=== PATIENT | female | born 1990 | race Caucasian/White ===

== ENCOUNTER 2019-08-02 09:39 | Day surgery (SDC) | payer OTHER ==
[2019-07-27 16:04] VITALS: BMI 33.6
[2019-08-02] MEDS ORDERED: PROPOFOL 20 ML ONE (11:28)
[2019-08-02 12:02] VITALS: TEMP 98.4
[2019-08-02 13:02] VITALS: BP 107/63; PULSE 85
--- NOTE | 2019-08-07 13:09 | PATH ---
Surgical Pathology Report Patient Name: RAMESH GOYAL [facility]. Rec. #: [id number] /Age/Gender: 1990 (Age: 29) / F Account: [id number] Location: [facility] Taken: 08/02/2019 Received: 08/02/2019 Reported: 08/07/2019 Physicians: Mary Cooper M.D. Specimen(s) Received A: SECOND PORTION DUODENUM B: ANTRUM C: GE JUNCTION Clinical History Vomiting Postoperative diagnosis: Gastritis Final Diagnosis A. SECOND PORTION DUODENUM, BIOPSY: DUODENUM MUCOSA WITH NO SIGNIFICANT PATHOLOGIC CHANGE. NO HISTOLOGIC EVIDENCE OF CELIAC DISEASE. B. ANTRUM, BIOPSY: GASTRIC MUCOSA WITH CHRONIC GASTRITIS. IMMUNOSTAIN FOR H. PYLORI IS NEGATIVE. NEGATIVE FOR INTESTINAL METAPLASIA. C. GE JUNCTION, BIOPSY: COLUMNAR (GASTRIC) MUCOSA WITH MILD CHRONIC INFLAMMATION. NEGATIVE FOR INTESTINAL METAPLASIA. Electronically Signed Ynog Cuevas M.D. Gross Description A. Received in formalin, labeled "second portion duodenum" is a matt, irregular portion of soft tissue measuring 0.3 cm. in greatest dimension. The specimen is submitted in toto in one cassette. B. Received in formalin, labeled "gastric antrum" is a matt portion of soft tissue measuring 0.3 cm. in greatest dimension. The specimen is submitted in toto in one cassette. C. Received in formalin, labeled "GE junction" is a matt, irregular portion of soft tissue measuring 0.3 cm. in greatest dimension. The specimen is submitted in toto in one cassette. __ ISABEL/08/03/2019 gloria/08/03/2019
== END 2019-08-02 12:30 | disposition home or self-care (01) ==
LOC: FASU-ENDO 09:39
PROVIDERS: ATTEND Internal Medicine Gastroenterology
PROC: 0DB68ZX Excision of Stomach, Via Natural or Artificial Opening Endoscopic, Diagnostic (ICD-10-PCS; 2019-08-02)
PROC: 0DB48ZX Excision of Esophagogastric Junction, Via Natural or Artificial Opening Endoscopic, Diagnostic (ICD-10-PCS; 2019-08-02)
PROC: 0DB98ZX Excision of Duodenum, Via Natural or Artificial Opening Endoscopic, Diagnostic (ICD-10-PCS; principal; 2019-08-02 11:40)
DX: K29.50 Unspecified chronic gastritis without bleeding (principal); K20.8 Other esophagitis; R10.9 Unspecified abdominal pain
CPT/HCPCS: 84703; 88305-TC; 88342-TC

== ENCOUNTER 2019-10-20 07:00 | Day surgery (SDC) | payer OTHER ==
[2019-10-16 15:54] VITALS: BMI 34.2
[~2019-10-20 07:00] MED LIST: BUPIVACAINE HCL/PF 2.5 MG/ML - 30 ML VIAL IJ ONE
[2019-10-20] MEDS ORDERED: PROPOFOL 20 ML ONE ×2 (09:42→11:09)
[2019-10-20] MEDS ORDERED: LIDOCAINE HCL/PF 2% SDV 5ML VIAL ONE (09:42)
[2019-10-20] MEDS ORDERED: MIDAZOLAM HCL 2 MG/2 ML SINGLE DOSE VIAL ONE (09:42)
[2019-10-20] MEDS ORDERED: DEXAMETHASONE SOD PHOSPHATE 4 MG/1 ML VIAL ONE (10:27)
[2019-10-20] MEDS ORDERED: ONDANSETRON 4 MG/2 ML VIAL ONE ×2 (10:27→11:27)
[2019-10-20] MEDS ORDERED: ceFAZolin SODIUM 1 GM VIAL ONE (10:31)
[2019-10-20] MEDS ORDERED: BUPIVACAINE HCL/PF 2.5 MG/ML - 30 ML VIAL IJ ONE (11:13)
[2019-10-20] MEDS ORDERED: oxyCODONE HCL 5 MG TABLET PO PRN ×2 (11:41)
[2019-10-20] MEDS ORDERED: ONDANSETRON 4 MG/2 ML VIAL IVPUSH PRN (11:41)
[2019-10-20] MEDS ORDERED: LACTATED RINGERS SOLUTION 1,000 ML IV SCH (11:45)
--- NOTE | 2019-10-20 11:55 | OP ---
DATE OF OPERATION: 10/20/2019 Done at [facility] SURGEON: Brennen Zepeda MD BATTER OUT: RAVEN Cage PREOPERATIVE DIAGNOSES: 1. Left knee medial and lateral meniscal tear. 2. Left knee cartilage injury. 3. Left knee synovitis. POSTOPERATIVE DIAGNOSES: 1. Left knee medial and lateral meniscal tear. 2. Left knee cartilage injury. 3. Left knee synovitis. PROCEDURE: 1. Left knee arthroscopy with partial meniscectomy medial and lateral meniscus, CPT code 90728. 2. Left knee arthroscopy with chondroplasty and abrasion-plasty, CPT code 72168. 3. Left knee arthroscopy with synovectomy, CPT code 12766. FINDINGS: 1. Previous ACL reconstruction with ACL graft intact. 2. Medial meniscus previous partial meniscectomy, new posterior horn tear. 2. Lateral meniscus posterior 1/3 to 1/2 tear with previous partial meniscectomy and extensive tearing of scar tissues posteriorly. 3. Synovitis patellofemoral medial and lateral notch area most pronounced anteriorly. 4. Minor grade 1 changes medial joint line diffusely. 5. Previous ACL reconstruction with partial tear of graft. 6. Diffuse grade 1-2 cartilage injury lateral joint line. 7. Central grade 2-3 cartilage injury patella patellofemoral trochlea with grade 4 changes of anterior medial inferior pole of patella. PROCEDURE: Informed consent was obtained. The patient came to the operating room, where the lower extremity was prepped and draped in a sterile fashion. A tourniquet was placed on the upper thigh, but not inflated. Using standard arthroscopic technique, a lateral incision and portal was made to allow for introduction of the camera into the suprapatellar bursa. This was then taken to the medial joint line, where under direct visualization, a medial incision and portal was made. Excessive synovium noted in the medial, lateral and patellofemoral and notch area was removed by an upbiter, shaver and Bovie cautery. This was found to bring in inflammatory tissue into the joint surface, a source of pain and dysfunction. Probing of the medial and lateral meniscus found tears, as described in the findings. These were removed with the upbiter and shaver and taken back to a stable rim. Grade 2 to 3 degenerative changes were treated with a chondroplasty, removing all flaking surfaces with low-setting Bovie along the periphery to prevent further flaking. Grade 4 changes, as noted, were treated with an abrasoplasty, creating a bleeding surface at the bone/cartilage interface. Aggressive debridement with shaver/rukhsana created bleeding surface. Micro fracture also done when indicated in findings. All areas of the knee were once again reexamined. The knee was then drained and a single suture was placed in all portals. A sterile dressing was placed and the patient was transferred to the recovery room without complication. The PA listed above was present and assisted at surgery. Their presence was absolutely medically necessary for the completion of the procedure. They helped hold the arthroscopy, pass instruments (and implants when indicated) and the procedure could not have been completed without their assistance. BRENNEN ZEPEDA M.D. [id number]
[2019-10-20] MEDS ORDERED: KETOROLAC TROMETHAMINE 30 MG/1 ML VIAL IVPUSH ONE (11:58)
[2019-10-20] MEDS ORDERED: oxyCODONE HCL 5 MG TABLET ONE (12:17)
[2019-10-20 13:29] VITALS: TEMP 98.2
[2019-10-20 13:41] VITALS: BP 122/76; PULSE 74
--- NOTE | 2019-10-25 15:04 | PATH ---
Surgical Pathology Report Patient Name: RAMESH GOYAL Med. Rec. #: [id number] /Age/Gender: 1990 (Age: 29) / F Account: [id number] Location: [facility] Taken: 10/20/2019 Received: 10/20/2019 Reported: 10/25/2019 Physicians: Brennen Justin M.D. Specimen(s) Received SHAVINGS LEFT KNEE Clinical History Left knee internal derangement Final Diagnosis LEFT KNEE SHAVINGS: FRAGMENTS OF SYNOVIAL AND CARTILAGENOUS TISSUE WITH FOCAL VASCULAR PROLIFERATION, FIBROSIS, AND DEGENERATIVE CHANGE. Electronically Signed Yong Cuevas M.D. Gross Description Received in formalin, labeled "left knee shavings," is a 4.0 x 3.5 x 0.3 cm. aggregate of matt-yellow soft tissue fragments. A paper sales representative portion is submitted in one cassette. 10/24/201910/24/2019
== END 2019-10-20 14:08 | disposition home or self-care (01) ==
LOC: FASU 07:00
PROVIDERS: ATTEND Orthopaedic Surgery
PROC: 0SBD4ZZ Excision of Left Knee Joint, Percutaneous Endoscopic Approach (ICD-10-PCS; 2019-10-20)
PROC: 0SBD4ZZ Excision of Left Knee Joint, Percutaneous Endoscopic Approach (ICD-10-PCS; 2019-10-20)
PROC: 0SBD4ZZ Excision of Left Knee Joint, Percutaneous Endoscopic Approach (ICD-10-PCS; principal; 2019-10-20 09:30)
DX: S83.242A Other tear of medial meniscus, current injury, left knee, initial encounter (principal); S83.282A Other tear of lateral meniscus, current injury, left knee, initial encounter; S83.8X2A Sprain of other specified parts of left knee, initial encounter; M65.862 Other synovitis and tenosynovitis, left lower leg; X58.XXXA Exposure to other specified factors, initial encounter; Y93.9 Activity, unspecified; Y92.9 Unspecified place or not applicable
CPT/HCPCS: 84703; 88304-TC; 94760

== ENCOUNTER 2020-05-25 17:27 | Emergency (ER) | payer OTHER ==
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
[2020-05-25 17:35] VITALS: BP 118/77; PULSE 100; TEMP 98.4; BMI 31.3
[2020-05-25] MEDS ORDERED: hydrOXYzine PAMOATE 25 MG CAPSULE (FP) PO ONE ×2 (18:14→18:28)
[2020-05-25] MEDS ORDERED: IBUPROFEN 600 MG TABLET (FP) PO ONE ×2 (18:14→18:18)
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
== END 2020-05-25 18:53 | disposition home or self-care (01) ==
LOC: JERFT 17:27
DX: S99.911A Unspecified injury of right ankle, initial encounter (principal); S69.91XA Unspecified injury of right wrist, hand and finger(s), initial encounter; M25.571 Pain in right ankle and joints of right foot
CPT/HCPCS: 73140-TC-RT-FY; 99285-25

== ENCOUNTER 2020-06-15 07:40 | Emergency (ER) | payer OTHER ==
[2020-06-15 07:55] VITALS: BP 101/84; PULSE 107; TEMP 99.8; BMI 31.3
--- NOTE | 2020-06-15 08:10 | PDOC ---
History of Present Illness - General History Source: Patient Exam Limitations: No Limitations - History of Present Illness Initial Comments: Pt is a 30 yo F, with PMH of recurrent pharyngitis, asthma, DVT (s/p ), and RA (not on immunosuppressives), who is presenting with complaints of b/l sore throat x2 days. Pt states the pain worsened today, and she was less able to tolerate food and drink from her baseline, prompting her to come to the ER. Pt last took tylenol yesterday morning. Pt denies any fevers/chills, headache, vision changes, ear pain or discharge, trouble tolerating her secretions, syncope, chest pain, palpitations, cough, SOB, nausea/vomiting, abdominal pain, urinary symptoms, diarrhea/constipation, or leg swelling. Allergies: NKDA PCP: None ENT: "someone in [place]". Pt requested new ENT doctor as "they didn't want to take my tonsils out". UTD on vaccinations. Social: Pt denies any cigarette, alcohol, or drug use. Pt denies any recent travel or sick contacts. Works as a courtesy booth cashier, no known COVID+ exposures. Surgical: no relevant history. Family: no relevant history. 06/15/20 08:54 06/15/20 08:57 <Monserrat Arnett - Last Filed: 06/15/20 14:53> <Erika Dodd - Last Filed: 06/16/20 11:24> - General Chief Complaint: Sore Throat Stated Complaint: SORE THROAT/PAIN Time Seen by Provider: 06/15/20 08:10 Past History - Travel History Traveled outside of the country in the last 30 days: No Close contact w/someone who was outside of country & ill: No - Medical History Anemia: No Asthma: Yes Cancer: No Cardiac Disorders: No CVA: No COPD: No CHF: No Dementia: No Diabetes: No GI Disorders: No Disorders: No HTN: No Hypercholesterolemia: No Liver Disease: No Seizures: No Thyroid Disease: No - Surgical History Abdominal Surgery: No Appendectomy: No Cardiac Surgery: No Cholecystectomy: No Lung Surgery: No Neurologic Surgery: No Orthopedic Surgery: Yes - Reproductive History Is Patient Now?: No - Immunization History Immunization Up to Date: Yes - Psycho-Social/Smoking History Smoking History: Never smoked Have you smoked in the past 12 months: No - Substance Abuse Hx (Audit-C & DAST Scrn) How often the patient has a drink containing alcohol: Never Score: In Men: 4 or > Positive; In Women: 3 or > Positive: 0 Screen Result (Pos requires Nsg. Audit-10AR): Negative In the last yr the pt used illegal drug/Rx for NonMed reason: No Score: Yes response is considered Positive: 0 Screen Result (Positive result requires Nsg. DAST-10): Negative <Monserrat Arnett - Last Filed: 06/15/20 14:53> <Erika Dodd - Last Filed: 06/16/20 11:24> - Medical History Allergies/Adverse Reactions: Allergies Allergy/AdvReac Type Severity Reaction Status Date / Time Penicillins Allergy Intermediate Rash Verified 06/15/20 07:48 Home Medications: Ambulatory Orders Azithromycin [Zithromax 250mg Tablets -] 500 mg PO DAILY 4 Days #8 tab 06/15/20 Review of Systems - Review of Systems Able to Perform ROS?: Yes Is the patient limited Croatian proficient: No Constitutional: Yes: Loss of Appetite (less solid foods 2/2 throat pain), Weight Stable. No: Chills, Diaphoresis, Fever, Malaise, Night Sweats, Weakness HEENTM: Yes: Throat Pain. No: Recent change in vision, Ear Pain, Nose Congestion, Hearing Loss, Throat Swelling, Mouth Pain, Dental Problems, Difficulty Swallowing, Mouth Swelling Respiratory: No: Cough, Orthopnea, Shortness of Breath Cardiac (ROS): No: Chest Pain, Edema, Irregular Heart Rate, Lightheadedness, Palpitations, Syncope, Chest Tightness ABD/GI: No: Constipated, Diarrhea, Nausea, Poor Appetite, Poor Fluid Intake, Vomiting, Indigestion, Abdominal cramping : No: Burning, Dysuria, Frequency, Hematuria, Pain, Urgency Musculoskeletal: No: Back Pain, Muscle Pain Integumentary: No: Rash Neurological: No: Headache, Numbness, Weakness, Unsteady Gait, Dizziness Psychiatric: No: Sleep Pattern Change, Change in Appetite Endocrine: No: Increased Urine, Change in Weight Hematologic/Lymphatic: No: Anemia, Blood Clots, Easy Bleeding, Easy Bruising All Other Systems: Reviewed and Negative <Monserrat Arnett - Last Filed: 06/15/20 14:53> *Physical Exam - Vital Signs Last Vital Signs Temp Pulse Resp BP Pulse Ox 99.8 F H 107 H 18 101/84 99 06/15/20 07:48 06/15/20 07:48 06/15/20 07:48 06/15/20 07:48 06/15/20 07:48 - Physical Exam HR low 100s, low-grade fever (99.8 oral). Pt in NAD, obese body habitus. Pt alert and oriented x3. facilities specialist generally intact, muscular strength and sensation intact. No midline spinal tenderness, step-offs, or crepitus. No tenderness with neck flexion or extension. Submandibular LN swelling b/l. Head normocephalic, atraumatic. Eyes PERRLA, EOMI. Oropharynx with significant tonsillar erythema and exudates b/l. No uvular deviations, tonsils equal b/l, no peritonsillar/arch swelling or abscess formation. No swelling under the tongue. No nasal congestion. Clear TMs b/l. Hearing intact. Clear heart sounds, S1/S2, no JVD, b/l pedal edema, or heart murmur. Clear lung sounds, no respiratory distress, wheezes, crackles, or accessory muscle use. No abdominal or CVA tenderness to palpation, no rebound, no guarding. Abdomen soft, non-distended, and with normoactive bowel sounds. Skin without jaundice or rash. 06/15/20 08:58 06/15/20 12:57 <Monserrat Arnett - Last Filed: 06/15/20 14:53> - Vital Signs Last Vital Signs Temp Pulse Resp BP Pulse Ox 99.8 F H 107 H 18 101/84 99 06/15/20 07:48 06/15/20 07:48 06/15/20 07:48 06/15/20 07:48 06/15/20 07:48 <Erika Dodd - Last Filed: 06/16/20 11:24> ED Treatment Course - ADDITIONAL ORDERS Additional order review: 06/15/20 08:26 Throat Culture - Final Throat Streptococcus Pyogenes Grp A - Medications Given in the ED: ED Medications Discontinued Medications Generic Name Dose Route Start Last Admin Trade Name Freq PRN Reason Stop Dose Admin Azithromycin 500 mg 06/15/20 08:36 06/15/20 08:51 Zithromax - PO 06/15/20 08:37 500 mg ONCE ONE Administration Dexamethasone 10 mg 06/15/20 08:36 06/15/20 08:51 Decadron Liquid - PO 06/15/20 08:37 10 mg ONCE ONE Administration Ibuprofen 800 mg 06/15/20 08:33 06/15/20 08:37 Motrin - PO 06/15/20 08:34 800 mg ONCE ONE Administration <Erika Dodd - Last Filed: 06/16/20 11:24> Medical Decision Making - Medical Decision Making Pt was seen at bedside, also will be seen by attending Dr. Dodd. Pt presenting with b/l tonsillar erythema and exudates concerning for strep pharyngitis. No uvular deviation, abscess, or Steve's angina. Pt tolerating secretions. Provided 800 mg PO motrin for improvement of fever. Pt tolerated pills with water. Will continue to reassess pt and monitor for symptomatic improvement. 06/15/20 14:53 Strep test positive PCN allergy -- providing 5 days azithromycin Provided 10 mg PO decadron for symptom relief Safe for d/c to home with PCP and ENT f/u. Strict return precautions provided with pt understanding. 06/15/20 14:55 <Monserrat Arnett - Last Filed: 06/15/20 14:53> Discharge - Discharge Information Problems reviewed: Yes - Admission No <Monserrat Arnett - Last Filed: 06/15/20 14:53> <Erika Dodd - Last Filed: 06/16/20 11:24> - Discharge Information Clinical Impression/Diagnosis: Strep pharyngitis Condition: Good Disposition: HOME - Additional Discharge Information Prescriptions: Azithromycin [Zithromax 250mg Tablets -] 500 mg PO DAILY 4 Days #8 tab - Follow up/Referral Referrals: Torey Bobo MD [Staff Physician] - - Patient Discharge Instructions Patient Printed Discharge Instructions: DI for Strep Throat Additional Instructions: You were seen in the ER today for sore throat. The results of your labs today showed strep throat. Please follow-up with your primary care doctor and ENT (Dr. Bobo) within 1-2 days to discuss your visit and make sure your symptoms have improved. Please return to the ER if you have any worsening pain, development of fevers or chills, loss of consciousness, inability to tolerate food or fluids, or any other concerns. I have sent medications to your pharmacy. Please take these medications as prescribed. You can take tylenol or motrin every 4-6 hours as needed for pain. - Post Discharge Activity Work/Back to School Note: Back to Work
--- NOTE | 2020-06-15 08:12 | PDOC ---
Attending Attestation - Resident Resident Name: Monserrat Arnett - HPI HPI: 06/15/20 09:35 Pt presents to the ED complaining of sore throat without fever for 2 days. Some difficulty tolerating PO, but tolerating secretions. No trismus. History of recurrent strep throat. 06/15/20 09:36 - Physicial Exam PE: 06/15/20 09:38 Agree with resident exam. PAtient is well appearing and in no acute distress. HEENT: no trismus. Throat: + erythema and exudate, +tonsillar swelling, uvula midline - Medical Decision Making 06/15/20 09:39 Pt presents to the ED complaining of sorethroat. Rapid strep is positive. Will treat with deadron and antibiotics and discharge home. Discharge - Discharge Information Problems reviewed: Yes Clinical Impression/Diagnosis: Strep pharyngitis Condition: Good Disposition: HOME - Additional Discharge Information Prescriptions: Azithromycin [Zithromax 250mg Tablets -] 500 mg PO DAILY 4 Days #8 tab - Follow up/Referral Referrals: Torey Bobo MD [Staff Physician] - - Patient Discharge Instructions Patient Printed Discharge Instructions: DI for Strep Throat Additional Instructions: You were seen in the ER today for sore throat. The results of your labs today showed strep throat. Please follow-up with your primary care doctor and ENT (Dr. Bobo) within 1-2 days to discuss your visit and make sure your symptoms have improved. Please return to the ER if you have any worsening pain, development of fevers or chills, loss of consciousness, inability to tolerate food or fluids, or any other concerns. I have sent medications to your pharmacy. Please take these medications as prescribed. You can take tylenol or motrin every 4-6 hours as needed for pain. - Post Discharge Activity Work/Back to School Note: Back to Work
[2020-06-15] MEDS ORDERED: IBUPROFEN 400 MG TABLET (FP) PO ONE ×2 (08:26→08:33)
[2020-06-15] MEDS ORDERED: DEXAMETHASONE LIQUID 0.5 MG/5 ML PO ONE (08:36)
[2020-06-15] MEDS ORDERED: AZITHROMYCIN 250 MG TABLET PO ONE (08:36)
[2020-06-15] MEDS ORDERED: DEXAMETHASONE SOD PHOSPHATE 10 MG/1 ML VIAL ONE (08:45)
[2020-06-15] MEDS ORDERED: AZITHROMYCIN 250 MG TABLET ONE (08:45)
[2020-06-15 08:59] LABS: THROAT:GRP A STREP ANTIGEN Positive (Negative)
== END 2020-06-15 10:14 | disposition home or self-care (01) ==
LOC: JER 07:40
DX: J02.0 Streptococcal pharyngitis (principal)
CPT/HCPCS: 87070; 87880; 99284-25; U0003

== ENCOUNTER 2020-07-30 16:17 | Emergency (ER) | payer OTHER ==
[2020-07-30 16:32] VITALS: BP 110/80; PULSE 98; TEMP 97; BMI 31.1
--- NOTE | 2020-07-30 16:34 | PDOC ---
Rapid Medical Evaluation Chief Complaint: Injury Medical Evaluation: Allergies Allergy/AdvReac Type Severity Reaction Status Date / Time Penicillins Allergy Intermediate Rash Verified 07/30/20 16:30 Vital Signs Temp Pulse Resp BP Pulse Ox 97.0 F L 98 H 18 110/80 98 07/30/20 16:30 07/30/20 16:30 07/30/20 16:30 07/30/20 16:30 07/30/20 16:30 07/30/20 16:32 30 yo h/o asthma, R ingrown toenail 1 month ago removed by the ED in [place] c/o R great toe pain x 3 days. denies injury, f/c. ambulatory A/P: R great toe pain to fast track Discharge Disposition - Diagnosis Pain of right great toe - Referrals - Patient Instructions - Post Discharge Activity
--- NOTE | 2020-07-30 17:17 | PDOC ---
History of Present Illness - General Chief Complaint: Ingrown toenail Stated Complaint: FOOT PAIN Time Seen by Provider: 07/30/20 16:36 History Source: Patient Exam Limitations: No Limitations - History of Present Illness Initial Comments: 07/30/20 17:12 Patient is a 30-year-old female who presents to the ED with an ingrown toenail on her right great toe. She states this is been ongoing for several weeks. She was seen at a [facility] and had her toenail cut. She followed up with a research methodologist but states over the last week the toe has become more painful and more swollen. She denies any fevers or chills. She has been noticing some drainage from the area. The patient also admits to having foul- smelling urine. She states she gets UTIs often and would like her urine tested. She denies any suprapubic tenderness. She does admit to urinating more frequently. She would also like her urine tested for GC and chlamydia if possible. She denies any vaginal discharge. She states that she had a full STD panel 2 weeks ago, including HIV, but did not have gonorrhea or chlamydia tested. She states her ex-boyfriend was cheating on her for 6 years and she would like to be tested. Past History - Medical History Allergies/Adverse Reactions: Allergies Allergy/AdvReac Type Severity Reaction Status Date / Time Penicillins Allergy Intermediate Rash Verified 07/30/20 16:30 Home Medications: Ambulatory Orders Azithromycin [Zithromax 250mg Tablets -] 500 mg PO DAILY 4 Days #8 tab 06/15/20 Sulfamethoxazole/Trimethoprim [Bactrim Ds -] 1 tab PO BID #14 tablet 07/30/20 Anemia: No Asthma: Yes Cancer: No Cardiac Disorders: No CVA: No COPD: No CHF: No Dementia: No Diabetes: No GI Disorders: No Disorders: No HTN: No Hypercholesterolemia: No Liver Disease: No Seizures: No Thyroid Disease: No - Surgical History Abdominal Surgery: No Appendectomy: No Cardiac Surgery: No Cholecystectomy: No Lung Surgery: No Neurologic Surgery: No Orthopedic Surgery: Yes - Reproductive History Is Patient Now?: No - Immunization History Immunization Up to Date: Yes - Psycho-Social/Smoking History Smoking History: Never smoked Have you smoked in the past 12 months: No Review of Systems - Review of Systems Comments:: 07/30/20 17:14 - Review of Systems Able to Perform ROS?: Yes Constitutional: No: Fever, Chills, Loss of Appetite, Night Sweats, Weakness HEENTM: No: Eye Pain, Vision changes, Ear Pain, Throat Pain, Throat Swelling, Mouth Pain, Difficulty Swallowing Respiratory: No: Cough, Shortness of Breath, Wheezing, Sputum Production Cardiac (ROS): No: Chest Pain, Chest Tightness, Palpitations, Irregular Heart Beat, Edema ABD/GI: No: Nausea, Vomiting, Abdominal Pain, Diarrhea : No Dysuria, No Hematuria, No Urgency, No Vaginal Discharge/Pain; positive: Urinary frequency and foul-smelling urine Musculoskeletal: No: Muscle Pain, Back Pain, Joint Pain, Muscle Weakness, Neck Pain; positive right great toe ingrown toenail and drainage Integumentary: No: Lesions, Rash Neurological: No: Headache, Numbness, Tingling, Weakness, Speech Difficulties *Physical Exam - Vital Signs Last Vital Signs Temp Pulse Resp BP Pulse Ox 97.0 F L 98 H 18 110/80 98 07/30/20 16:30 07/30/20 16:30 07/30/20 16:30 07/30/20 16:30 07/30/20 16:30 - Physical Exam 07/30/20 17:14 - Physical Exam General Appearance: Nourished, Appropriately Dressed, No Distress Neck: Supple, No Lymphadenopathy (R), No Lymphadenopathy (L), No Rigidity, No Decreased range of motion Respiratory/Chest: Lungs Clear, Normal Breath Sounds. No Respiratory Distress, No Accessory Muscle Use Cardiovascular: Regular Rhythm, Regular Rate, S1, S2 Gastrointestinal/Abdominal: Normal Bowel Sounds, Soft. Non-tender, No Guarding, No Rebound, No Rigidity Musculoskeletal: Normal Inspection. No Decreased Range of Motion; right great toe with granulation tissue appreciated to the lateral aspect of the nailbed. There is a scant amount of purulent drainage expressed. Tenderness with pressing on the toe. No crepitus. No foul odor. Brisk capillary refill distally. Extremity: Normal Capillary Refill, Normal Inspection Integumentary: Normal Color, Dry. No Rash Neurologic: comfort station supervisor II-XII NML intact, Fully Oriented, Alert, Normal Mood/Affect, Normal Response Medical Decision Making - Medical Decision Making 07/30/20 17:15 Assessment: Patient is a 30-year-old female with urinary frequency and foul- smelling urine. She is also requesting GC and Chlamydia testing. She also has a right great toe ingrown toenail and paronychia. Plan: -The small amount of granulation tissue appreciated on the right great toe was resected without difficulty after a digital block was given with 1% lidocaine. The portion of granulation tissue had a small piece of toenail attached to it likely representing the piece of toenail that was resected at a previous hospital. The toe was expressed until only blood was expressed. -UA and urine culture sent -Urine GC and chlamydia sent -Will reassess 07/30/20 18:28 The patient's urinalysis is negative. We have made her aware that we will call her with the results of GC and chlamydia. She has not been treated at this time secondary to not having any symptoms. She wanted to be tested for GC and chlamydia routinely. We will send Bactrim to the patient's pharmacy for her toe and she should follow-up with podiatry for further evaluation and treatment. Discharge - Discharge Information Problems reviewed: Yes Clinical Impression/Diagnosis: Pain of right great toe, Paronychia due to ingrown nail Condition: Stable Disposition: HOME - Additional Discharge Information Prescriptions: Sulfamethoxazole/Trimethoprim [Bactrim Ds -] 1 tab PO BID #14 tablet - Follow up/Referral Referrals: Nirali Chavez DPM [Staff Physician] - - Patient Discharge Instructions Patient Printed Discharge Instructions: DI for Infected Ingrown Toenail Additional Instructions: Patient take the antibiotics as prescribed and complete the entire course. Be sure to follow-up with podiatry for further evaluation and treatment. If you are unable to see the research methodologist you previously saw, be sure to follow-up with the one you have been referred to. Keep the area clean and wash twice daily with warm water and soap. - Post Discharge Activity Work/Back to School Note: Back to Work
--- OUTSIDE RECORDS SUMMARY | 2020-07-30 18:10 | XMS ---
:1990 Author Organization [facility] Care Team Providers Name Role Phone Valerie LAGUERRE MD Unavailable Unavailable Valerie LAGUERRE MD Unavailable Unavailable Valerie LAGUERRE MD Unavailable Unavailable Valerie LAGUERRE MD Unavailable Unavailable Valerie LAGUERRE MD Unavailable Unavailable Valerie LAGUERRE MD Unavailable Unavailable Valerie LAGUERRE MD Unavailable Unavailable Valerie LAGUERRE MD Unavailable Unavailable Valerie LAGUERRE MD Unavailable Unavailable Valerie LAGUERRE MD Unavailable Unavailable Valerie LAGUERRE MD Unavailable Unavailable Valerie LAGUERRE MD Unavailable Unavailable Hernan Unavailable Unavailable Hernan Unavailable Unavailable Hernan Unavailable Unavailable ED STAFF PHYSICIAN Unavailable Unavailable MD Saray Unavailable Unavailable MD Saray Unavailable Unavailable MD Saray Unavailable Unavailable MD Saray Unavailable Unavailable ED STAFF PHYSICIAN Unavailable Unavailable Other Unavailable Unavailable Jorge CARTER Unavailable Unavailable [facility] Unavailable Unavailable Re-disclosure Warning The records that you are about to access may contain information from federally- assisted alcohol or drug abuse programs. If such information is present, then the following federally mandated warning applies: This information has been disclosed to you from records protected by federal confidentiality rules (42 CFR part 2). The federal rules prohibit you from making any further disclosure of this information unless further disclosure is expressly permitted by the written consent of the person to whom it pertains or as otherwise permitted by 42 CFR part 2. A general authorization for the release of medical or other information is NOT sufficient for this purpose. The Federal rules restrict any use of the information to criminally investigate or prosecute any alcohol or drug abuse patient.The records that you are about to access may contain highly sensitive health information, the redisclosure of which is protected by Article 27-F of the [facility] Public Health law. If you continue you may haveaccess to information: Regarding HIV / AIDS; Provided by facilities licensed or operated by the [facility] Office of Mental Health; or Provided by the [facility] Office for People With Developmental Disabilities. If such information is present, then the following [facility] mandated warning applies: This information has been disclosed to you from confidential records which are protected by state law. State law prohibits you from making any further disclosure of this information without the specific written consent of the person to whom it pertains, or as otherwise permitted by law. Any unauthorized further disclosure in violation of state law may result in a fine or longterm sentence or both. A general authorization for the release of medical or other information is NOT sufficient authorization for further disclosure. Allergies and Adverse Reactions Type Description Substance Reaction Status Data Source(s ) penicillin penicillin penicillin rash Active eCW2 ([facility] penicillin penicillin penicillin rash Active eCW2 ([facility] penicillin penicillin penicillin rash Active eCW2 ([facility] penicillin penicillin penicillin rash Active eCW2 ([facility] penicillin penicillin penicillin rash Active eCW2 ([facility]) Drug allergy Penicillins Penicillins MKN 04/18/03 [facility] No Information No Information No Information eC W2 ([facility]) No Information No Information No Information eC W2 ([facility]) Drug allergy penicillin Penicillin Pruritic rash Active [facility] Encounters Encounter Providers Location Date Indications Data Source(s ) Emergency Attender: RAUL ICU-EMERG 06/25/2020 RT TOE ABSCESS WONGS - Nikhil LAGUERRE MDAttender: 02:25:00 PM Hospita l Doctor Other EDT - 06/25/2020 03:51:00 PM EDT RT TOE ABSCESS Patient discharged. Outpatient Attender: RPC9 [facility] 06/08/2020 01:08:16 PM GSI ([facility] EDT Collaborative) Patient admitted. Emergency Attender: DORCAS ED STAFF H 02/06/2020 06:16:00 PM [place] PHYSICIANAttender: STAFF ED EDT - 02/06/2020 [facility] STAFF PHYSICIANAdmitter: DORCAS 10:08:00 PM EDT ED STAFF PHYSICIAN Patient discharged. Outpatient Attender: RPC9 [facility] 01/26/2020 07:13:09 AM GSI ([facility] EDT Collaborative) Patient admitted. [facility] 07[facility]21[facility]2019 [facility] 12[facility] AM [facility] [place] [facility] 07/20/2019 [facility] 12:[facility] AM [facility] [place] [facility] 07/19/2019 [facility] 12:[facility] AM [facility] [place] [facility] 04/12/2019 [facility]CW[facility] 12:00:00 AM [facility] [place] [facility] Outpatient Attender: 03/21/2019 [place] [id number] 01:06:00 PM EDT [facility] Mike [facility]IT[facility] ration JAE, RAdmitter: [id number] Jorge NAVARRO Outpatient Attender: 01/24/2019 [place] [id number] 08:02:00 AM EDT [facility] parisa [facility] [employer] ration JAE, RAdmitter: [id number] Jorge NAVARRO Emergency Attender: ICU-EMERG 01/14/2019 VERY BAD MHS - Nikhil Twila 02:22:00 PM EST BACK PAIN [facility] - 01/14/2019 04:53:00 PM EST VERY BAD BACK PAIN [facility] 01/11/[facility] 12:00:00 AM EST [facility] [place] [facility] Emergency Attender: ICU-EMERG 01/06/2019 KIDNEY MHS - [facility] Sis Singh 12:38:00 PM EST STONE? [facility] Saray RUTH - 01/06/2019 04:06:00 PM EST KIDNEY STONE? Outpatient Attender: [id number] 12/13/2018 [facility] RAUL, 08:29:00 AM [facility] RAdmitter: [id number] EST Care RAUL, R Cor poration [facility] 10/26/2018 eCW2 ([facility] 12[facility]00:00 AM [facility] [place] EST [facility] 08/08/2018 eCW2 ([facility] 12:00:00 AM [facility] [place] EDT [facility] 05/17/2018 eCW2 ([facility] 12:00:00 AM [facility] [place] EDT [facility] 02/21/2018 eCW2 ([facility] 12:00:00 AM [facility] [place] EDT [facility] 11/30/2017 eCW2 ([facility] 12:00:00 AM [facility] [place] EST [facility] 09/07/2017 eCW2 ([facility] 12:00:00 AM [facility] [place] EDT [facility] 06/24/2016 eCW2 ([facility] 12:00:00 [facility] [place] EDT [facility] 06/01/2016 eCW2 ([facility] 12:00:00 AM [facility] [place] EDT [facility] 05/15/2015 eCW2 ([facility] 12:00:00 AM [facility] [place] EDT [facility] 11/22/2014 eCW2 ([facility] 12:00:00 [facility] [place] EST [facility] 10/29/2014 eCW2 ([facility] 12:00:00 AM [facility] [place] EST [facility] 08/11/2014 eCW2 ([facility] 12:00:00 AM [facility] [place] EDT [facility] 06/18/2014 eCW2 ([facility] 12:00:00 AM [facility] [place] EDT [facility] 06/04/2014 eCW2 ([facility] 12:00:00 AM [facility] [place] EDT [facility] 05/09/2014 eCW2 ([facility] 12:00:00 AM [facility] [place] EDT [facility] 05/04/2014 eCW2 ([facility] 12:00:00 AM [facility] [place] EDT [facility] 03/08/2014 eCW2 ([facility] 12:00:00 AM [facility] [place] EDT [facility] 03/08/2014 eCW2 ([facility] 12:00:00 AM [facility] [place] EDT [facility] 03/05/2014 eCW2 ([facility] 12:00:00 AM [facility] [place] EDT [facility] 09/16/2012 eCW2 ([facility] 12:00:00 AM [facility] [place] EST [facility]) [facility] 08/01/2012 eCW2 ([facility] 12:00:00 AM [facility] [place] EDT [facility] 07/09/2012 eCW2 ([facility] 12:00:00 AM [facility] [place] EDT [facility] 07/08/2012 eCW2 ([facility] 12:00:00 AM [facility] [place] EDT [facility] 07/05/2012 eCW2 ([facility] 12:00:00 AM [facility] [place] EDT [facility]) Immunizations Vaccine Date Status Description Data Source(s) Lidocaine injection (FP) 07/19/2019 completed eCW 2 ([facility] 01:25:00 [facility] [place] [facility]) Nexplanon (FP) 07/19/2019 completed eCW2 ([facility] 01:24:00 PM EDT [facility] [place] [facility]) Medroxyprogesterone (FP) 04/12/2019 completed eCW 2 ([facility] 05:12:00 PM EDT [facility] [place] [facility]) Medroxyprogesterone (FP) 01/11/2019 completed eCW 2 ([facility] 12:32:00 PM EST [facility] [place] [facility]) Medroxyprogesterone (FP) 10/26/2018 completed eCW 2 ([facility] 11:07:00 AM EST [facility] [place] [facility]) Medroxyprogesterone (FP) 05/17/2018 completed eCW 2 ([facility] 12:56:00 PM EDT [facility] [place] [facility]) Note that 06/23/2013 completed Td (adult), adsorbed on: Sit e: Entire left upper arm (body structure) [facility] this vaccine 12:00:00 AM Lot #: [id number] 23-Jun-2013 Health name has EDT System changed. See also Td (adult). It is not adsorbed. No Known Immunizations completed eCW2 ([facility]) No Known Immunizations completed eCW2 ([facility]) Medications Medication Brand Start Product Dose Route Administrative Pharmacy [facility] Indications Reaction Description Data Name Date Form Instructions Instructions Source(s) Lurasidone Latuda .0 Oral active NET SMART Hydrochlori 2020 Table (The de 40 MG 04:00: t Guidance Oral Tablet 00 AM Center of [Latuda] EDT [facility]) gabapentin Neuron .0 Oral active NET SMART 300 MG Oral tin 2020 Capsu (The Capsule 04:00: le Guidance [Neurontin] 00 AM Center of EDT [facility]) Diphenhydra diphen .0 Oral active NE TSMART mine hydrAM 2020 Capsu (The Hydrochlori INE 04:00: le Guidan ce de 25 MG HCl 00 AM [facility] Lurasidone Latuda .0 Oral active NET SMART Hydrochlori 2020 Table (The de 20 MG 04:00: t Guidance Oral Tablet 00 AM Center of [Latuda] EDT [facility]) gabapentin Neuron .0 Oral active NET SMART 300 MG Oral tin 2020 Capsu (The Capsule 04:00: le Guidance [Neurontin] 00 AM Center of EDT [facility]) Diphenhydra diphen .0 Oral active NE TSMART mine hydrAM 2020 Capsu (The Hydrochlori INE 04:00: le Guidan ce de 25 MG HCl 00 AM Center of Oral EDT [place] Capsule r) Diphenhydra diphen .0 Oral active NE TSMART mine hydrAM 2020 Capsu (The Hydrochlori INE 04:00: le Guidan ce de 25 MG HCl 00 AM Center of Oral EDT [place] Capsule r) Diphenhydra diphen 05/15/ ORAL active NE TSMART mine hydrAM 2020 (The Hydrochlori INE 04:00: Guidan ce de 25 MG HCl 25 00 AM Center o f Oral MG EDT [place] Capsule Oral r) Capsul e gabapentin Neuron 05/15/ ORAL active NET SMART 300 MG Oral tin 2020 (The Capsule 300 MG 04:00: Guidance [Neurontin] Oral 00 AM Center of Capsul EDT [place] [facility] r) Lurasidone Latuda .0 Oral active NET SMART Hydrochlori 2020 Table (The de 20 MG 04:00: t Guidance Oral Tablet 00 AM Center of [Latuda] EDT [facility]) Lurasidone Latuda 05/15/ ORAL active NET SMART Hydrochlori 20 MG 2019 (The de 20 MG Oral 04:00: Guidance Oral Tablet Tablet 00 AM Cente r of [Latuda] EDT [facility] r) gabapentin Neuron 05/15/ 1.0 Oral active NET SMART 300 MG Oral tin 2019 Capsu (The Capsule 04:00: le Guidance [Neurontin] 00 AM Center of EDT [facility] r) Diphenhydra diphen 04/17/ ORAL active NE TSMART mine hydrA 2019 (The Hydrochlori INE 04:00: Guidan ce de 25 MG HCl 25 00 AM Center o f Oral MG EDT [place] Capsule Oral r) Capsul e Lurasidone Latuda 04/17/ ORAL active NET SMART Hydrochlori 40 MG 2019 (The de 40 MG Oral 04:00: Guidance Oral Tablet Tablet 00 AM Cente r of [Latuda] EDT [facility] r) Lurasidone Latuda 03/26/ ORAL active NET SMART Hydrochlori 40 MG 2019 (The de 40 MG Oral 04:00: Guidance Oral Tablet Tablet 00 AM Cente r of [Latuda] EDT [facility] r) Lurasidone Latuda 03/05/ ORAL active NET SMART Hydrochlori 20 MG 2019 (The de 20 MG Oral 04:00: Guidance Oral Tablet Tablet 00 AM Cente r of [Latuda] EDT [facility] r) Diphenhydra diphen 03/05/ [facility] (The Hydrochlori INE 04:00: Silviaan ce de 25 MG HCl 25 00 AM Center o f Oral MG EDT [place] Capsule Oral r) Capsul e aripiprazol Abilif 08/16/ ORAL active NE TSMART e 10 MG y 2018 (The Oral Tablet MG 04:00: Guidan ce [Abilify] Oral 00 AM Center of Tablet EDT [facility] r) Diphenhydra diphen 08/16/ ORAL active NE TSMART mine hydrA 2018 (The Hydrochlori INE 04:00: Guidan ce de 25 MG HCl 25 00 AM Center o f Oral MG EDT [place] Capsule Oral r) Capsul e Methocarbam methoc 01/14/ TABLET 2 ORAL complet [facility] ol 500 MG arbamo 2018 {tab( ed Health Oral Tablet l 500 04:33: s)} Syste m methocarbam mg 32 PM ol 500 mg oral EST oral tablet tablet May cause drowsiness. Alcohol may inten sify this effect. Use care when operating dangerous machinery. Acetaminophen 325 MG / traMADol-acetaminophen 01/14/2019 TABLET 1 ORAL completed [facility] tramadol hydrochloride 37.5 mg-325 mg oral 04:32:12 PM {tab(s)} Health 37.5 MG Oral Tablet tablet EST System traMADol-acetaminophen 37.5 mg-325 mg oral tablet May cause drowsiness. Alcohol may inten sify this effect. Use care when operating dangerous machinery.Obtain medical advic e before taking any non-prescription drugs as some may affect the action of this medic ation.This product contains acetaminophen. Do not use with any other product conta ining acetaminophen to prevent possible liver damage. Naproxen 500 Naprosyn 01/06/2019 TABLET 1 {tab(s)} ORAL completed [facility] MG Oral 500 mg 03:56:41 PM Hea lth Tablet oral EST System [Naprosyn] tablet Naprosyn 500 mg oral tablet Check with your doctor before becoming p regnant.May cause drowsiness or dizziness.Obtain medical advice before t aking any non-prescription drugs as some may affect the action of this medication.Adan e with food or milk. medroxyprogesterone Depo-Provera 09/07/2017 active 1 eCW2 (Planned acetate 150 MG/ML 150 MG/ML 12:00:00 AM ml [facility] - Injectable EDT [facility] [employer] [facility]) [Depo-Provera] Depo-Provera 150 MG/ML Ondansetron 4 MG Zofran ODT 4 mg 08/12/2017 1 [facility] Disintegrating Oral oral tablet, 04:32:54 PM {t L Health System Tablet [Zofran] disintegrating EDT ab Zofran ODT 4 mg oral (s tablet, )} disintegrating Ondansetron 4 MG Zofran ODT 4 mg 01/02/2017 1 JUAN [facility] Disintegrating Oral oral tablet, 01:19:16 AM {t L Health System Tablet [Zofran] disintegrating EST ab Zofran ODT 4 mg oral (s tablet, )} disintegrating NITROFURANTOIN, Macrobid 100 mg 12/18/2016 CAPS 1 ORA complet ed [facility] MACROCRYSTALS 25 MG oral capsule 12:01:20 PM ULE {c L [facility] / Nitrofurantoin, EST ap Monohydrate 75 MG (s Oral Capsule )} [Macrobid] Macrobid 100 mg oral capsule Finish all this medication unless otherw ise directed by prescriber.May discolor urine or feces.Take with food or milk. Tamsulosin Flomax 09/27/2016 CAPSULE 1 {cap(s)} ORAL completed [facility] hydrochloride 0.4 mg 04:07:25 PM Health 0.4 MG Oral oral EST System Capsule capsule [Flomax] Flomax 0.4 mg oral capsule It is very important that you take or us e this exactly as directed. Do not skip doses or discontinue unless directed by your doctor.May cause drowsiness. Alcohol may intensify this effect. Use care whe n operating dangerous machinery.Some non-prescription drugs may aggravate you r condition. Read all labels carefully. If a warning appears, check with your docto r before taking.Swallow whole. Do not crush.Take with food or milk. Ibuprofen IBU 800 09/27/2016 TABLET 1 {tab(s)} ORAL completed [facility] 800 MG Oral mg oral 04:02:46 PM Health Tablet tablet EST System [Ibu] IBU 800 mg oral tablet Do not take this drug if you are pregnan t.It is very important that you take or use this exactly as directed. Do not skip d oses or discontinue unless directed by your doctor.May cause drowsiness or dizziness .Obtain medical advice before taking any non-prescription drugs as some may affec t the action of this medication.Take with food or milk. benzonatate benzonatate 08/15/2016 CAPSULE 1 ORAL completed [facility] 100 MG Oral 100 mg oral 08:08:42 PM {cap(s)} Health Capsule capsule EDT System benzonatate 100 mg oral capsule May cause drowsiness. Alcohol may inten sify this effect. Use care when operating dangerous machinery.Swallow whole. Do n ot crush. Levofloxacin Levaquin 05/01/2016 TABLET 1 {tab(s)} ORAL completed [facility] 500 MG Oral 500 mg 08:25:40 AM Health Tablet oral EDT System [Levaquin] tablet Levaquin 500 mg oral tablet Avoid prolonged or excessive exposure to direct and/or artificial sunlight while taking this medication.Do not take dairy products, antacids, or iron preparations within one hour of this medication.Finis h all this medication unless otherwise directed by prescriber.May cause drowsin ess or dizziness.Medication should be taken with plenty of water. Metoclopramide metoclopramide 09/18/2015 TABLET 1 ORAL complet ed [facility] 10 MG Oral 10 mg oral 02:52:52 PM {tab(s)} Health Tablet tablet EST System metoclopramide 10 mg oral tablet It is very important that you take or us e this exactly as directed. Do not skip doses or discontinue unless directed by your doctor.May cause drowsiness. Alcohol may intensify this effect. Use care whe n operating dangerous machinery.Take medication on an empty stomach 1 hour be fore or 2 to 3 hours after a meal unless otherwise directed by your doctor. NITROFURANTOIN, Macrobid 09/18/2015 CAPSULE 1 ORAL completed [facility] MACROCRYSTALS 25 100 mg 02:52:44 PM {cap(s)} Health MG / oral EST System Nitrofurantoin, capsule Monohydrate 75 MG Oral Capsule [Macrobid] Macrobid 100 mg oral capsule Finish all this medication unless otherw ise directed by prescriber.May discolor urine or feces.Take with food or milk. NITROFURANTOIN, nitrofurantoin 09/06/2015 CAPSULE 1 ORAL compl eted [facility] MACROCRYSTALS macrocrystals 12:01:35 AM {cap(s)} Health 100 MG Oral 100 mg oral EDT S [facility]stem Capsule capsule nitrofurantoin macrocrystals 100 mg oral capsule Finish all this medication unless otherw ise directed by prescriber.May discolor urine or feces.Take with food or milk. Ondansetron 4 Zofran ODT 4 mg 08/25/2015 1 ORAL completed [facility] MG oral tablet, 02:12:17 PM {tab(s)} Health Disintegrating disintegrating EDT System Oral Tablet [Zofran] Zofran ODT 4 mg oral tablet, disintegrating Ondansetron Zofran ODT 08/25/2015 0 completed [facility] Zofran ODT 02:10:28 PM He alth EDT System Ondansetron 4 ondansetron 4 08/25/2015 1 ORAL completed [facility] MG mg oral tablet, 02:09:03 PM {tab(s)} Health Disintegrating disintegrating EDT System Oral Tablet ondansetron 4 mg oral tablet, disintegrating 08/25/2015 TABL 1 ORAL completed [facility] Multivitamins Multivitamins 01:16:24 PM ET {tab(s)} Health with Folic Acid with Folic Acid EDT System 0.4 mg oral 0.4 mg oral tablet tablet May discolor urine or feces.Take with fo od or milk. 08/21/2015 TABLET 1 ORAL completed [facility] Multivitamins Multivitamins 10:00:22 PM {tab(s)} Health with Folic with Folic EDT Sys tem Acid 0.4 mg Acid 0.4 mg oral tablet oral tablet May discolor urine or feces.Take with fo od or milk. Diphenhydramine Allergy 04/19/2015 TABLET 1 ORAL completed [facility] Hydrochloride 25 25 mg 02:20:12 PM {tab(s)} Health MG Oral Tablet oral EDT Syste m Allergy 25 mg tablet oral tablet May cause drowsiness. Alcohol may inten sify this effect. Use care when operating dangerous machinery.Obtain medical advic e before taking any non-prescription drugs as some may affect the action of this medic ation. Methylprednisolone Medrol Dosepak 04/19/2015 1 compl eted [facility] Medrol Dosepak 02:19:27 PM Health EDT System Diphenhydramine diphenhydrAMINE 06/24/2014 TABLET 1 ORAL compl eted [facility] Hydrochloride 50 MG 50 mg oral 05:07:41 PM {t Health Oral Tablet tablet EDT ab System diphenhydrAMINE 50 (s mg oral tablet )} May cause drowsiness. Alcohol may inten sify this effect. Use care when operating dangerous machinery.Obtain medical advic e before taking any non-prescription drugs as some may affect the action of this medic ation. Albuterol albuterol 03/30/2013 SOLUTION 1 RESPIRATORY complete d [facility] 0.83 MG/ML 2.5 mg/3 mL 01:27:06 AM (INHALATION) Health Inhalant (0.083%) EDT System Solution inhalation albuterol solution 2.5 mg/3 mL (0.083%) inhalation solution For inhalation only.It is very important that you take or use this exactly as directed. Do not skip doses or disconti nue unless directed by your doctor.Obtain medical advice before taking any non-pre scription drugs as some may affect the action of this medication. Prednisone predniSONE 03/30/2013 TABLET 3 {tab(s)} ORAL completed [facility] 20 MG Oral 20 mg oral 01:26:55 AM Health Tablet tablet EDT System predniSONE 20 mg oral tablet It is very important that you take or us e this exactly as directed. Do not skip doses or discontinue unless directed by your doctor.Obtain medical advice before taking any non-prescription drugs as jeramy e may affect the action of this medication.Take with food or milk. 200 ACTUAT albuterol 03/30/2013 AEROSOL 2 RESPIRATORY complete d [facility] Albuterol [facility] free 90 01:26:33 AM {puff(s)} (INHALATION) Health 0.09 mcg/inh EDT System MG/ACTUAT inhalation Metered aerosol Dose Inhaler albuterol [facility] free 90 mcg/inh inhalation aerosol For inhalation only.It is very important that you take or use this exactly as directed. Do not skip doses or disconti nue unless directed by your doctor.Obtain medical advice before taking any non-pre scription drugs as some may affect the action of this medication.Shake well before use . Azithromycin azithromycin 01/23/2013 TABLET 1 ORAL completed [facility] 500 MG Oral 500 mg oral 11:29:49 PM {tab(s)} Health Tablet tablet EDT System azithromycin 500 mg oral tablet Do not take dairy products, antacids, or iron preparations within one hour of this medication.Finish all this medication un less otherwise directed by prescriber. Albuterol albuterol 01/18/2013 SOLUTION 1 RESPIRATORY complete d [facility] 0.83 MG/ML 2.5 mg/3 mL 12:12:47 AM {sofia} (INHALATION) Health Inhalant (0.083%) EDT System Solution inhalation albuterol solution 2.5 mg/3 mL (0.083%) inhalation solution For inhalation only.It is very important that you take or use this exactly as directed. Do not skip doses or disconti nue unless directed by your doctor.Obtain medical advice before taking any non-pre scription drugs as some may affect the action of this medication. Prednisone predniSONE 01/18/2013 TABLET 2 {tab(s)} ORAL completed [facility] 20 MG Oral 20 mg oral 12:12:07 AM Health Tablet tablet EDT System predniSONE 20 mg oral tablet It is very important that you take or us e this exactly as directed. Do not skip doses or discontinue unless directed by your doctor.Obtain medical advice before taking any non-prescription drugs as jeramy e may affect the action of this medication.Take with food or milk. Ondansetron 8 ondansetron 8 01/14/2013 TABLET 1 ORAL completed [facility] MG Oral mg oral 12:15:37 PM {tab(s)} Health Tablet tablet EST System ondansetron 8 mg oral tablet Famotidine 20 famotidine 20 01/14/2013 TABLET 1 ORAL completed [facility] Oral mg oral 12:15:11 PM {tab(s)} Health Tablet tablet EST System famotidine 20 mg oral tablet It is very important that you take or us e this exactly as directed. Do not skip doses or discontinue unless directed by your doctor.Obtain medical advice before taking any non-prescription drugs as jeramy e may affect the action of this medication. Ondansetron 4 ondansetron 4 11/28/2012 1 ORAL completed [facility] MG mg oral tablet, 07:08:14 AM {tab(s)} Health Disintegrating disintegrating EST System Oral Tablet ondansetron 4 mg oral tablet, disintegrating 200 ACTUAT Ventolin HFA 90 11/28/2012 AER 2 RESPIR completed [facility] Albuterol 0.09 mcg/inh 07:06:42 AM [facility] {puff(s)} ATORY Health MG/ACTUAT inhalation EST L (INHAL Sy stem Metered Dose aerosol ATION) Inhaler Ventolin HFA 90 mcg/inh inhalation aerosol For inhalation only.It is very important that you take or use this exactly as directed. Do not skip doses or disconti nue unless directed by your doctor.Obtain medical advice before taking any non-pre scription drugs as some may affect the action of this medication.Shake well before use . 200 ACTUAT albuterol 11/08/2012 AEROSOL 2 RESPIRATORY complete d [facility] Albuterol CFC free 90 01:59:35 PM {puff(s)} (INHALATION) Health 0.09 mcg/inh EST System MG/ACTUAT inhalation Metered aerosol Dose Inhaler albuterol CFC free 90 mcg/inh inhalation aerosol For inhalation only.It is very important that you take or use this exactly as directed. Do not skip doses or disconti nue unless directed by your doctor.Obtain medical advice before taking any non-pre scription drugs as some may affect the action of this medication.Shake well before use . Ondansetron 4 MG ondansetron 4 mg 11/08/2012 1 ORAL compl eted [facility] Disintegrating oral tablet, 01:58:58 PM Health Oral Tablet disintegrating EST System ondansetron 4 mg oral tablet, disintegrating benzonatate 100 Tessalon Perles 10/13/2012 CAPSULE 1 ORAL comp leted [facility] MG Oral Capsule 100 mg oral 11:47:19 PM Health [Tessalon capsule EST System Perles] Tessalon Perles 100 mg oral capsule May cause drowsiness. Alcohol may inten sify this effect. Use care when operating dangerous machinery.Swallow whole. Do n ot crush. Azithromycin Azithromycin 5 10/13/2012 TABLET 1 ORAL completed [facility] 250 MG Oral Day Dose Pack 11:46:51 PM Health Tablet 250 mg oral EST System Azithromycin 5 tablet Day Dose Pack 250 mg oral tablet Do not take dairy products, antacids, or iron preparations within one hour of this medication.Finish all this medication un less otherwise directed by prescriber. Prednisone 20 predniSONE 20 10/13/2012 TABLET 2 ORAL completed [facility] MG Oral mg oral 11:45:47 PM He alth Tablet tablet EST System predniSONE 20 mg oral tablet It is very important that you take or us e this exactly as directed. Do not skip doses or discontinue unless directed by your doctor.Obtain medical advice before taking any non-prescription drugs as jeramy e may affect the action of this medication.Take with food or milk. Prednisone 20 predniSONE 20 10/13/2012 TABLET 2 ORAL completed [facility] MG Oral mg oral 11:45:09 PM He alth Tablet tablet EST System predniSONE 20 mg oral tablet It is very important that you take or us e this exactly as directed. Do not skip doses or discontinue unless directed by your doctor.Obtain medical advice before taking any non-prescription drugs as jeramy e may affect the action of this medication.Take with food or milk. NITROFURANTOIN, Macrobid 08/27/2012 CAPSULE 1 ORAL completed [facility] MACROCRYSTALS 25 100 mg 09:47:43 PM {tab(s)} Health MG / oral EDT System Nitrofurantoin, capsule Monohydrate 75 MG Oral Capsule [Macrobid] Macrobid 100 mg oral capsule Finish all this medication unless otherw ise directed by prescriber.May discolor urine or feces.Take with food or milk. Azithromycin azithromycin 08/17/2012 TABLET 1 ORAL completed [facility] 250 MG Oral 250 mg oral 05:04:51 AM Health Tablet tablet EDT System azithromycin 250 mg oral tablet Do not take dairy products, antacids, or iron preparations within one hour of this medication.Finish all this medication un less otherwise directed by prescriber. NITROFURANTOIN, Macrobid 08/04/2012 CAPSULE 1 ORAL completed [facility] MACROCRYSTALS 25 100 mg 12:09:28 PM Health MG / oral EDT System Nitrofurantoin, capsule Monohydrate 75 MG Oral Capsule [Macrobid] Macrobid 100 mg oral capsule Finish all this medication unless otherw ise directed by prescriber.May discolor urine or feces.Take with food or milk. medroxyprogesterone MedroxyPROGESTERone activ e 1 ml eCW2 (Planned acetate 150 MG/ML Acetate 150 MG/ML [facility] - Injectable [employer]ana) MedroxyPROGESTERone Acetate 150 MG/ML medroxyprogesterone MedroxyPROGESTERone activ e 1 ml eCW2 (Planned acetate 150 MG/ML Acetate 150 MG/ML [facility] - Injectable [employer]) MedroxyPROGESTERone Acetate 150 MG/ML Abilify 0 ORAL completed [facility] Etonogestrel 68 MG Nexplanon 68 MG suspended as eCW2 (Planned Drug Implant direct Paren thood - [Nexplanon] ed Vidal P econic Nexplanon 68 MG Inco rporated) Etonogestrel 68 MG Nexplanon 68 MG suspended as eCW2 (Planned Drug Implant direct Paren thood - [Nexplanon] ed Vidal P econic Nexplanon 68 MG Inco rporated) medroxyprogesterone MedroxyPROGESTERone suspe nded 1 ml eCW2 (Planned acetate 150 MG/ML Acetate 150 MG/ML [facility] - Injectable [employer]) MedroxyPROGESTERone Acetate 150 MG/ML Albuterol Ventolin Ventolin HFA 0 RESP completed [facility]FA [facility] ORY (INH ALAT ION) aripiprazole 10 MG Abilify 10 MG active 1 eCW2 (Planned Oral Tablet tablet Parent martinez - [Abilify] Abilify 10 [employer] [place] [employer]) medroxyprogesterone MedroxyPROGESTERone activ e 1 ml eCW2 (Planned acetate 150 MG/ML Acetate 150 MG/ML [facility] - Injectable [employer]) MedroxyPROGESTERone Acetate 150 MG/ML medroxyprogesterone MedroxyPROGESTERone activ e 1 ml eCW2 (Planned acetate 150 MG/ML Acetate 150 MG/ML Parenthood - Injectable [employer]) MedroxyPROGESTERone Acetate 150 MG/ML aripiprazole 10 MG Abilify 10 MG active 1 eCW2 (Planned Oral Tablet tablet Parent martinez - [Abilify] Abilify 10 [employer] [place] [employer]) Unknown Medications completed eCW2 (Planned [facility] - [employer] [place] [employer]) ferrous sulfate 325 ferrous sulfate 325 1 ORAL compl eted [facility] Delayed Release mg (65 mg elemental {t Health System Oral Tablet ferrous iron) oral delayed ab sulfate 325 mg (65 release tablet (s mg elemental iron) )} oral delayed release tablet Etonogestrel 68 MG Nexplanon 68 MG suspended as eCW2 (Planned Drug Implant direct Paren thood - [Nexplanon] ed Vidal P econic Nexplanon 68 MG Inco rporated) Docusate Sodium 100 Colace 100 mg oral CAPS 1 ORAL comple breana [facility] Oral Capsule capsule ULE {c H ealth System [Colace] Colace 100 ap mg oral capsule (s )} NITROFURANTOIN, Macrobid 100 mg oral CAPS 1 ORAL complete d [facility] MACROCRYSTALS 25 MG capsule ULE {c Health System / Nitrofurantoin, ap Monohydrate 75 MG (s Oral Capsule )} [Macrobid] Macrobid 100 mg oral capsule Etonogestrel 68 MG Nexplanon 68 MG active as eCW2 (Planned Drug Implant direct Paren thood - [Nexplanon] ed V[facility] P econic Nexplanon 68 MG Inco rporated) Sprintec 0 ORAL completed [facility] System aripiprazole 10 MG Abilify 10 MG active 1 eCW2 (Planned Oral Tablet tablet Parent martinez - [Abilify] Abilify 10 [employer] [place] [employer]) aripiprazole 10 MG Abilify 10 MG active 1 eCW2 (Planned Oral Tablet tablet Parent martinez - [Abilify] Abilify 10 [employer] [place] [employer]) Unknown Medications completed eCW2 ([facility] - [employer] [place] [employer]) medroxyprogesterone Depo-Provera 400 SUSP 0 INTR complete d [facility] acetate 400 MG/ML mg/mL intramuscular [facility] [employer] [facility] Injectable suspension ON CULA Suspension R [Depo-Provera] Depo-Provera 400 mg/mL intramuscular suspension Insurance Providers Payer name Policy type / Policy ID Covered Covered libertarian's Policy Plan Coverage type libertarian ID relationship to [place] Information [place] MEDICAID [id number] SP [id number] [facility] MEDICARE [id number] SP [id number] VIP 01 [facility] Fi[facility] [id number] HIP VIP 01 Medicare Medicaid Medicaid [id number] Medicare EDUARD Medicare [id number] 1 [id number] Medicare EDUARD Medicare [id number] 1 [id number] A [facility] Medicaid [id number] 1 [id number] Medicare Advantage [facility]LY [facility] [id number] 01 [id number] MCARE 08 W [id number] 01 [id number] A Problems, Conditions, and Diagnoses Code Display Name Description Problem Type Effective Data Sour ce(s) Dates [id number] Mixed bipolar Mixed bipolar Complaint 08/08/2015 [facility]SMART (The affective affective 01:00:[facility] disorder, disorder, EDT of [place] ) moderate moderate V25.40 Contraceptive Contraceptive Problem 05/15/2015 eCW2 (Pl anned surveillance surveillance 12:00:00 AM Parenthoo d - EDT [employer]) V25.40 Contraceptive Contraceptive Problem 05/15/2015 eCW2 (Pl anned surveillance surveillance 12:00:00 AM Parenthoo d - EDT [employer]) 614.9 Female pelvic PID (pelvic Problem 05/04/2014 eCW2 (Plan yesenia inflammatory inflammatory 12:00:00 AM Parenthoo d - disease disease) EDT [facility] [employer]) 599.0 Urinary tract Urinary tract Problem 05/04/2014 eCW2 (Pl anned infection infection 12:00:00 AM Parenthood - EDT [facility] [employer]) 599.0 Urinary tract Urinary tract Problem 05/04/2014 eCW2 (Pl anned infection infection 12:00:00 AM Parenthood - EDT [employer]) 614.9 Female pelvic PID (pelvic Problem 05/04/2014 eCW2 (Plan yesenia inflammatory inflammatory 12:00:00 AM Parenthoo d - disease disease) EDT [facility] [employer]) 599.0 Urinary tract Urinary tract Problem 05/04/2014 eCW2 (Pl anned infection infection 12:00:00 AM [facility] - EDT [facility] [employer]) 919.4 Insect bites Insect bites Problem [facility] 463 Tonsillitis Tonsillitis Problem [facility] RT TOE ABSCESS RT TOE ABSCESS Diagnosis 06/25/2020 [facility] - New 02:25:00 PM [facility] L60.0 Ingrowing nail Ingrown nail Diagnosis 06/25/2020 [facility] - Ne w 02:25:00 PM [facility] Z53.20 Procedure and PROC/TRTMT NOT Diagnosis 02/06/2020 [facility] treatment not CRD OUT BEC PT 06:16:[address] [facility] carried out DECISION FOR UNSP EDT because of REASONS patient's decision for unspecified reasons R07.9 Chest pain, CHEST PAIN, Diagnosis 02/06/2020 [place] [facility] unspecified UNSPECIFIED 06:16:[address] EDT K02.9 Dental caries, DENTAL CARIES, Diagnosis 03/21/2019 [place] unspecified UNSPECIFIED 01:06:00 PM [facility] EDT [facility] Z13.84 Encounter for ENCOUNTER FOR Diagnosis 01/24/2019 Marybeth rosales screening for SCREENING FOR 08:02:00 AM [facility] dental disorders DENTAL DISORDERS EDT [facility] VERY BAD BACK VERY BAD BACK Diagnosis 01/14/2019 [facility] - Ne w PAIN PAIN 02:22:00 PM [facility] M62.838 Other muscle Other muscle Diagnosis 01/14/2019 [facility] - New spasm spasm 02:22:00 PM [facility] M54.5 Low back pain Low back pain Diagnosis 01/06/2019 [facility] - Ne w 12:38:00 PM [facility] KIDNEY STONE? KIDNEY STONE? Diagnosis 01/06/2019 S - Ne w 12:38:00 PM [facility] Surgeries/Procedures Procedure Description Date Indications Data Source(s) INSERT DRUG IMPLANT DEVICE 07/19/2019 e CW2 (Planned 12:00:00 AM Parenthood - EDT [employer]) Test 07/19/2019 eCW2 (Planned 12:00:00 AM Parenthood - EDT [employer]) Etonogestrel 07/19/2019 eCW2 (Planned (contraceptive) implant 12:00:00 AM Pare nthood - system, including implant EDT [facility] [employer] [employer]) Injection, lidocaine hcl 07/19/2019 eCW 2 (Planned for intravenous infusion, 12:00:00 AM Pa renthood - 10 mg EDT [employer]) Injection, 04/12/2019 eCW2 (Planned medroxyprogesterone 12:00:00 AM Parentho od - acetate, 1 mg EDT [employer]) INJECTION IM/SC 04/12/2019 eCW2 (Planne d 12:00:00 AM Parenthood - EDT [employer]) Urine Test POCT 01/14/2019 [facility] 04:24:09 PM System EST - 01/14/2019 04:24:09 PM EST Injection, 01/11/2019 eCW2 (Planned medroxyprogesterone 12:00:00 AM Parentho od - acetate, 1 mg EST [employer]) INJECTION IM/SC 01/11/2019 eCW2 (Planne d 12:00:00 AM Parenthood - EST [employer]) CHLAMYDIA, GINGER 01/11/2019 eCW2 (Planned 12:00:00 AM [facility] - EST [employer]) GONORRHEA, GINGER 01/11/2019 eCW2 (Planned 12:00:00 AM Parenthood - EST [employer]) Test 01/11/2019 eCW2 (Planned 12:00:00 AM Parenthood - EST [employer]) Urine Test POCT 01/06/2019 [facility] 02:12:49 PM System EST - 01/06/2019 02:12:49 PM EST Aerobic Culture, Urine 01/06/2019 [facility] 01:41:27 PM System EST - 01/06/2019 01:41:27 PM EST INJECTION IM/SC 05/17/2018 eCW2 (Planne d 12:00:00 AM Parenthood - EDT [employer]) Injection, 05/17/2018 eCW2 (Planned medroxyprogesterone 12:00:00 AM Parentho od - acetate, 1 mg EDT [employer]) Venipuncture 04/21/2018 [facility] 10:00:06 AM System EDT - 04/21/2018 10:00:06 AM EDT Electrocardiogram 12 Lead 08/12/2017 [facility] 03:09:00 PM System EDT - 08/12/2017 03:09:00 PM EDT Urine Toxicology Screen 08/12/2017 [facility] 02:54:00 PM System EDT - 08/12/2017 02:54:00 PM EDT Urine Test POCT 08/12/2017 [facility] 02:39:15 PM System EDT - 08/12/2017 02:39:15 PM EDT XR Knee 3 Views-Right 08/05/2017 [facility] 10:55:00 AM System EDT - 08/05/2017 10:55:00 AM EDT Urine Test POCT 09/27/2016 [facility] 02:22:39 PM System EST - 09/27/2016 02:22:39 PM EST Culture Bacteria Throat 07/12/2016 [facility] 10:24:37 PM System EDT - 07/12/2016 10:24:37 PM EDT Culture Bacteria Throat 06/02/2016 [facility] 04:41:00 AM System EDT - 06/02/2016 04:41:00 AM EDT Urine Test POCT 09/05/2015 [facility] 10:59:40 PM System EDT - 09/05/2015 10:59:40 PM EDT Aerobic Culture, Urine 06/09/2015 [facility] 03:55:00 PM System EDT - 06/09/2015 03:55:00 PM EDT Urinalysis + Microscopic 06/09/2015 [facility] Health Examination 03:55:00 PM System EDT - 06/09/2015 03:55:00 PM EDT US OB 1st Trimester (less 06/09/2015 [facility]) 03:49:23 PM System EDT - 06/09/2015 03:49:23 PM EDT Urine Test POCT [facility]05[facility] 08:01[facility]13 AM System EST - 11/05/2014 08:01:13 AM EST Urine Test POCT 10/16/[facility] 10:41:11 AM System EST - 10/16/2013 10:41:11 AM EST Urine [facility]16[facility] 10[facility]41:07 AM System EST - 10/16/2013 10:41:07 AM EST Cult Bacteria Throat 07/24/2013 [facility] 08:59:00 PM System EDT - 07/24/2013 08:59:00 PM EDT Cult Bacteria Throat 07/22/2013 [facility] 11:24:00 AM System EDT - 07/22/2013 11:24:00 AM EDT US Obstetric Complete 02/14/2013 [facility] 10:32:26 AM System EDT - 02/14/2013 10:32:26 AM EDT Auto Differential 01/14/2013 [facility] 10:16:00 AM System EST - 01/14/2013 10:16:00 AM EST Auto Differential 12/09/2012 [facility] 09:15:00 AM System [facility] - 12/09/2012 09:15:00 AM EST Chlamydia Culture 09/20/2012 [facility] 04:56:00 AM System EST - 09/20/2012 04:56:00 AM EST Auto Differential 08/17/2012 [facility] 02:17:00 AM System EDT - 08/17/2012 02:17:00 AM EDT No Known procedures No Known eCW2 (Pl anned procedures [facility] - [facility]) No Known procedures No Known eCW2 (Pl anned procedures [facility] - [facility]) Results ID Date Data Source [id number] 06/15/2020 08:26:00 AM EDT [facility] Name Value Range Interpretation Description Data Sup porting Code Source(s) Document(s ) SARS [facility] coronavirus 2 RNA This lab was ordered by [facility] and reported by [facility]. ID Date Data Source [id number] 01/06/2019 02:41:00 PM [facility] Sonogram of the kidneysHistory: Visit r jose: Stone; Findings: Sonographic evaluation of the kidneys was performed in both longitudinal and transverse planes using grayscale, real-time ultrasonograp hy. The right kidney measures 10.6 x 3.8 x 4.5 centimeters in size.The left kidney measures 11.8 x 4.7 x 4.1 centimeters in size.The kidneys show no evidence of mas s, hydronephrosis, or abnormal calcifications. A normal cortical echo pattern is demonstrated.There is no evidence of aortic aneurysm.There is no evidence of obstruction of flow within the inferior vena cava.Bilateral ureteral jet phenome na identified indicating ureteral patency.Impression:Negative sonogram of the kidneys. Name Value Range Interpretation Code Description Data Vernell rce(s) Supporting Document(s ) ID Date Data Source [id number] 01/06/2019 12:59:00 PM EST [facility] Name Value Range Interpretation Description Data Sup porting Code Source(s) Document(s ) Color Yellow Yellow Normal (applies Color [facility] to non-numeric Health results) System Appearance of HAZY Clear Normal (applies Urine [facility] Urine to non-numeric Appearance Health results) System Specific 1.024 1.001 - Normal (applies Urine Specific [facility] gravity of 1.035 to non-numeric [facility] Urine results) System pH.. 5.0 4.6 - 8.0 Normal (applies pH.. [facility] {pH_unit pH units to non-numeric Health s} results) System Glucose, UA NEG < 50 mg/dl Normal (applies Glucose, UA [facility] to non-numeric Health results) System Protein NEG < 30 mg/dl Normal (applies Protein [facility] [Mass/volume] to non-numeric Health in Serum or results) System Plasma Bilirubin NEG Negative Normal (applies Bilirubin [facility] Urine Sm to Lg to non-numeric Urine Health results) System Urobilinogen < 2.0 Normal (applies Urobilinogen [facility] [Mass/volume] to non-numeric UA Health in Urine results) System Reference Range: Negative or <=2.0 Ketones NEG <TR mg/dL Normal (applies Ketones UA [facility] [Mass/volume] in to non-numeric Health S ystem Urine results) Nitrate+Nitrite Negative Negative Normal (applies Nitrite [facility] [Mass/volume] in Neg/Pos to non-numeric Health S ystem Unspecified results) specimen Leukocyte Trace Negative Tr Abnormal Leukocyte [facility] esterase to Lg (applies to Esterase Health System [Units/volume] in non-numeric Concentration Urine results) Leukocytes 3 {/HPF} 0 - 2 /HPF Normal (applies White Blood [facility] [#/volume] in to non-numeric Cells Health Syst em Unspecified results) specimen by Automated count Red Blood Cells 1 {/HPF} 0 - 1 /HPF Normal (applies Red Blood Cells [facility] to non-numeric Health System results) Epithelial cells 10 {/HPF} 0 - 3 /HPF Normal (applies Epithelial Gisel ls [facility] [Presence] in to non-numeric Health Syst em Unspecified results) specimen by Wet preparation Mucus RARE 0 - 1 /LPF Normal (applies Mucus [facility] to non-numeric Health System results) Bacteria FEW 0 - 5 /HPF Normal (applies Bacteria [facility] [Presence] in to non-numeric Health Syst em Unspecified results) specimen Urine Blood Moderate Negative Sm Abnormal Urine Blood [facility] to Lg (applies to Health System non-numeric results) ID Date Data Source [id number] 01/06/2019 12:59:00 PM EST [facility] Name Value Range Interpretation Description Data Sup porting Code Source(s) Document(s ) Basophil %. 1 % 0 - 1 % Normal (applies Basophil %. [facility] to non-numeric Health results) System Polys 59 % 55 - 75 Normal (applies Polys [facility] % to non-numeric Health results) System Lymphocyte %. 26 % 15 - 41 Normal (applies Lymphocyte %. [facility] % to non-numeric Health results) System Variant 5 % Normal (applies Atypical [facility] lymphocytes to non-numeric Lymphocyte Health [Presence] in results) Count System Blood by Automated count Platelets Adequate Normal Normal (applies Platelet [facility] [#/volume] in to non-numeric Count Health Blood by results) Estimate System Estimate Monocyte %. 7 % 2 - 9 % Normal (applies Monocyte %. [facility] to non-numeric Health results) System Eosinophils %. 2 % 0 - 5 % Normal (applies Eosinophils [facility] to non-numeric %. Health results) System NORM Yes Normal (applies NORM [facility] to non-numeric Health results) System ID Date Data Source [id number] 01/06/2019 12:59:00 PM EST [facility] Name Value Range Interpretation Description Data Sup porting Code Source(s) Document(s ) Leukocytes 8.9 4.8 - Normal (applies WBC Count [facility] [#/volume] in {10^3_u 10.8 to non-numeric Health Unspecified L} 10^3 uL results) System specimen by Automated count Erythrocytes 5.25 4.20 - Normal (applies RBC Count [facility] [#/volume] in {10^6_u 5.40 to non-numeric Health Blood by L} 10^6 uL results) System Automated count Hemoglobin 14.8 12.0 - Normal (applies Hemoglobin [facility] [Mass/volume] in {gm/dL} 16.0 to non-numeric Health Blood gm/dL results) System Hematocrit 46.3 % 37.0 - Normal (applies Hematocrit [facility] [Volume 47.0 % to non-numeric Health Fraction] of results) System Blood Erythrocyte mean 88.2 fl 81.0 - Normal (applies MCV [facility] corpuscular 99.0 fl to non-numeric Health volume [Entitic results) System volume] by Automated count Erythrocyte mean 28.2 pg 27.0 - Normal (applies MCH [facility] corpuscular 31.0 pg to non-numeric Health hemoglobin results) System [Entitic mass] by Automated count Erythrocyte mean 32.0 30.0 - Normal (applies MCHC [facility] corpuscular {gm/dL} 35.0 to non-numeric Health hemoglobin gm/dL results) System concentration [Mass/volume] by Automated count Erythrocyte 12.5 % 11.5 - Normal (applies RDW-CV [facility] distribution 14.5 % to non-numeric Health width [Entitic results) System volume] by Automated count Platelets 214 130 - Normal (applies Platelet Count [facility] [#/volume] in {10^3_u 400 to non-numeric Health Plasma by L} 10^3 uL results) System Automated count Platelet mean 10.6 fl 8.6 - Normal (applies MPV [facility] volume [Entitic 13.5 fl to non-numeric Health volume] in Blood results) System by Automated count Nucleated 0.0 0.0 - Normal (applies NRBC % [facility] erythrocytes {/100_W 0.2 to non-numeric Health [#/volume] in BC} /100 results) System Body fluid WBC NRBC # 0.00 0.00 - Normal (applies NRBC # [facility] {10^3_u 0.01 to non-numeric Health L} 10^3 uL results) System Neutrophils/100 62.5 % 55.0 - Normal (applies Neutrophil % [facility] sir[facility] leukocytes in 75.0 % to non-numeric Health Blood by results) System Automated count Neutrophils 5.6 Normal (applies Neutrophil # [facility] [#/volume] in {10^3_u to non-numeric Health Body fluid L} results) System Lymphocytes 28.0 % 15.0 - Normal (applies Lymphocyte % [facility] [#/volume] in 41.0 % to non-numeric Health Blood by results) System Automated count Lymphocyte # 2.5 1.0 - Normal (applies Lymphocyte # [facility] {10^3_u 4.8 to non-numeric Health L} 10^3 uL results) System Monocytes/100 6.7 % 2.0 - Normal (applies Monocyte % [facility] leukocytes in 9.0 % to non-numeric Health Blood results) System Monocytes 0.6 Normal (applies Monocyte # [facility] [#/volume] in {10^3_u to non-numeric Health Blood by Manual L} results) System count Eosinophils/100 1.0 % 0.0 - Normal (applies Eosinophil % José sirisha leukocytes in 5.0 % to non-numeric Health Unspecified results) System specimen Eosinophils 0.09 0.00 - Normal (applies Eosinophil # [facility] [#/volume] in {10^3_u 0.50 to non-numeric Health Blood L} 10^3 uL results) System Basophils/100 0.8 % 0.0 - Normal (applies Basophil % [facility] leukocytes in 1.0 % to non-numeric Health Unspecified results) System specimen by Manual count Basophils 0.07 0.00 - Normal (applies Basophil # [facility] [#/volume] in {10^3_u 0.10 to non-numeric Health Blood by L} 10^3 uL results) System Automated count Immature 0.09 0.00 - Normal (applies Immature [facility] Granulocytes # {10^3_u 0.09 to non-numeric Granulocytes # Healt h L} 10^3 uL results) System Immature 1.0 % 0.0 - Above high Immature [facility] Granulocytes % 0.8 % normal Granulocytes % Health System ID Date Data Source [id number] 01/06/2019 12:59:00 PM EST [facility] Name Value Range Interpretation Description Data Sup porting Code Source(s) Document(s ) Sodium 139 135 - Normal (applies Sodium, Serum [facility] [Moles/volume] in mmol/L 145 to non-numeric Health Serum or Plasma mmol/L results) System Potassium 4.1 3.5 - Normal (applies Potassium, [facility] [Mass/volume] in mmol/L 5.0 to non-numeric Serum Health Serum or Plasma mmol/L results) System Chloride 107 101 - Normal (applies Chloride, [facility] [Moles/volume] in mmol/L 111 to non-numeric Serum Health Serum or Plasma mmol/L results) System Carbon dioxide, 23.0 21.0 - Normal (applies CO2, Serum [facility] total mmol/L 31.0 to non-numeric Health [Moles/volume] in mmol/L results) System Serum or Plasma Total Protein 6.9 6.4 - Normal (applies Total Protein [facility] mg/dl 8.1 to non-numeric Health mg/dl results) System Glucose 88 65 - Normal (applies Glucose, [facility] [Mass/volume] in mg/dL 110 to non-numeric Serum Health Serum or Plasma mg/dL results) System Urea nitrogen 12 7 - 18 Normal (applies Blood Urea [facility] [Mass/volume] in mg/dl mg/dl to non-numeric Nitrogen, Health Serum or Plasma results) Serum System Creatinine 0.82 0.50 - Normal (applies Creatinine, [facility] [Mass/volume] in mg/dl 1.20 to non-numeric Serum Health Serum or Plasma mg/dl results) System Alkaline 59 42 - Normal (applies Alkaline [facility] phosphatase {IU/L} 121 to non-numeric Phosphatase, Health isoenzymes IU/L results) Serum System [Enzymatic activity/volume] in Serum or Plasma by Heat stability Bilirubin.total 0.3 0.2 - Normal (applies Bilirubin, [facility] [Mass/volume] in mg/dl 1.2 to non-numeric Serum Total Health Serum or Plasma mg/dl results) System Direct Bilirubin 0.1 0.0 - Normal (applies Direct [facility] mg/dl 0.4 to non-numeric Bilirubin Health mg/dl results) System Aspartate 17 10 - 42 Normal (applies Aspartate [facility] aminotransferase {IU/L} IU/L to non-numeric Transaminase, Heal th [Enzymatic results) Serum System activity/volume] in Serum or Plasma by With P-5'-P Albumin 4.3 3.2 - Normal (applies Albumin, [facility] [Mass/volume] in {gm/dl} 5.5 to non-numeric Serum Health Serum or Plasma gm/dl results) System I. Phosphorus 3.6 2.6 - Normal (applies I. Phosphorus [facility] mg/dl 4.9 to non-numeric Health mg/dl results) System Alanine 24 10 - 42 Normal (applies Alanine [facility] aminotransferase {IU/L} IU/L to non-numeric Aminotransfer Heal th [Enzymatic results) ase, Serum System activity/volume] in Serum or Plasma Calcium 9.5 8.4 - Normal (applies Calcium, [facility] [Mass/volume] in mg/dl 10.2 to non-numeric Total Serum Health Serum or Plasma mg/dl results) System A/G Ratio 1.65 Normal (applies A/G Ratio [facility] to non-numeric Health results) System Urate 5.9 2.3 - Normal (applies Uric Acid, [facility] [Mass/volume] in mg/dl 7.5 to non-numeric Serum Health Serum or Plasma mg/dl results) System Anion gap in Serum 9.00 Normal (applies Anion Gap José sirisha or Plasma mmol/L to non-numeric Health results) System Glomerular 82.41 Normal (applies GFR [facility] filtration to non-numeric Health rate/1.73 sq results) System M.predicted [Volume Rate/Area] in Serum or Plasma by Creatinine-based formula (CKD-EPI) eGFR will provide clinicians with a more accurate indicator of renal function then the serum creatinine. The eGFR is automa tically calculated from an empiric formula (endorsed by the National [employer] ion) which incorporates age, sex, and race.Clinicians may notice surprisingly low GFR's with serum creatinine valueswithin normal range- particularly in elderly wo men (with low muscle mass).In the hospital setting, the eGFR should add an element of safety in drug dosing, in assessing the risk of IV contrast administration, and in assessing vascular risk.The NKF staging system is as follows:Normal: eGFR >90 with no kidney markersStage 1: eGFR >90 with kidney markers*Stage 2: eGFR 60- 89Stage 3: eGFR 30-59Stage 4: eGFR 15-29Stage 5: eGFR <15 (usually requir ing dialysis)*Markers include: Proteinuria, Hematuria, abnormal imaging-studies, or other blood or urine test abnormalities ID Date Data Source [id number] 01/06/2019 12:59:00 PM EST [facility] Name Value Range Interpretation Description Data Sup porting Code Source(s) Document(s ) Deprecated Micro Result Normal (applies Aerobic [facility] Bacteria to non-numeric Culture, Health identified in results) Urine System Urine by Aerobe culture XXX STAPHYLOCOCCUS Organism [facility] microorganism COAGULASE Health serotype NEGATIVE NOT System [Identifier] SAPROPHYTICUS in Isolate by Agglutination [facility] Count >50,000 - Jerome Count [facility] <100,000 C [facility] System ID Date Data Source [id number] 04/21/2018 08:13:00 AM EDT [facility] Name Value Range Interpretation Description Data Sup porting Code Source(s) Document(s ) 25 Hydroxy 26 ng/mL 30 - 100 Below low normal 25 Hydroxy [facility] Vitamin D ng/mL Vitamin D [facility] System This test was developed and its analytic al performance characteristics have been determined by [employer].It has n ot been cleared or approved by FDA. This assay hasbeen validated pursuant to the CLIA regulations and is used for clinical purposes. 25 Hydroxy D3 26 ng/mL SEE NOTE Normal (applies to 25 Hydroxy D3 [facility] ng/mL non-numeric [facility] System results) Reference Range: Not established 25 Hydroxy D2 < 4 SEE NOTE ng/mL Normal (applies to 25 Hydroxy D2 [facility] non-numeric System results) Reference Range: Not [id number] indicates both endogenous production andsupplementation. 25-OHD2 is an indica tor of exogenoussources such as diet or supplementation. Therapy is based onmeas urement of Total 25-OHD, with levels <20 ng/mL indicativeof Vitamin D deficiency, while levels between 20 ng/mL and30 ng/mL suggest insufficiency. Optimal levels ar e> or = 30 ng/mL.Test Performed at:[facility], [place], [place] [address]Thad Brown M.D. ID Date Data Source [id number] 04/21/2018 08:13:00 AM [facility] System Name Value Range Interpretation Description Data Sup porting Code Source(s) Document(s ) Leukocytes 7.2 4.8 - Normal (applies WBC Count [facility] [#/volume] in {10^3_u 10.8 to non-numeric Health Unspecified L} 10^3 uL results) System specimen by Automated count Erythrocytes 5.01 4.20 - Normal (applies RBC Count [facility] [#/volume] in {10^6_u 5.40 to non-numeric Health Blood by L} 10^6 uL results) System Automated count Hemoglobin 13.9 12.0 - Normal (applies Hemoglobin [facility] [Mass/volume] in {gm/dL} 16.0 to non-numeric Health Blood gm/dL results) System Hematocrit 44.3 % 37.0 - Normal (applies Hematocrit [facility] [Volume 47.0 % to non-numeric Health Fraction] of results) System Blood Erythrocyte mean 88.4 fl 81.0 - Normal (applies MCV [facility] corpuscular 99.0 fl to non-numeric Health volume [Entitic results) System volume] by Automated count Erythrocyte mean 27.7 pg 27.0 - Normal (applies MCH [facility] corpuscular 31.0 pg to non-numeric Health hemoglobin results) System [Entitic mass] by Automated count Erythrocyte mean 31.4 30.0 - Normal (applies MCHC [facility] corpuscular {gm/dL} 35.0 to non-numeric Health hemoglobin gm/dL results) System concentration [Mass/volume] by Automated count Erythrocyte 12.8 % 11.5 - Normal (applies RDW-CV [facility] distribution 14.5 % to non-numeric Health width [Entitic results) System volume] by Automated count Platelets 208 130 - Normal (applies Platelet Count [facility] [#/volume] in {10^3_u 400 to non-numeric Health Plasma by L} 10^3 uL results) System Automated count Platelet mean 11.0 fl 8.6 - Normal (applies MPV [facility] volume [Entitic 13.5 fl to non-numeric Health volume] in Blood results) System by Automated count Nucleated 0.0 0.0 - Normal (applies NRBC % [facility] erythrocytes {/100_W 0.2 to non-numeric Health [#/volume] in BC} /100 results) System Body fluid WBC NRBC # 0.00 0.00 - Normal (applies NRBC # [facility] {10^3_u 0.01 to non-numeric Health L} 10^3 uL results) System Neutrophils/100 64.1 % 55.0 - Normal (applies Neutrophil % José sirisha leukocytes in 75.0 % to non-numeric Health Blood by results) System Automated count Neutrophils 4.6 Normal (applies Neutrophil # [facility] [#/volume] in {10^3_u to non-numeric Health Body fluid L} results) System Lymphocytes 26.3 % 15.0 - Normal (applies Lymphocyte % [facility] [#/volume] in 41.0 % to non-numeric Health Blood by results) System Automated count Lymphocyte # 1.9 1.0 - Normal (applies Lymphocyte # [facility] {10^3_u 4.8 to non-numeric Health L} 10^3 uL results) System Monocytes/100 7.1 % 2.0 - Normal (applies Monocyte % [facility] leukocytes in 9.0 % to non-numeric Health Blood results) System Monocytes 0.5 Normal (applies Monocyte # [facility] [#/volume] in {10^3_u to non-numeric Health Blood by Manual L} results) System count Eosinophils/100 1.1 % 0.0 - Normal (applies Eosinophil % José sirisha leukocytes in 5.0 % to non-numeric Health Unspecified results) System specimen Eosinophils 0.08 0.00 - Normal (applies Eosinophil # [facility] [#/volume] in {10^3_u 0.50 to non-numeric Health Blood L} 10^3 uL results) System Basophils/100 0.8 % 0.0 - Normal (applies Basophil % [facility] leukocytes in 1.0 % to non-numeric Health Unspecified results) System specimen by Manual count Basophils 0.06 0.00 - Normal (applies Basophil # [facility] [#/volume] in {10^3_u 0.10 to non-numeric Health Blood by L} 10^3 uL results) System Automated count Immature 0.04 0.00 - Normal (applies Immature [facility] Granulocytes # {10^3_u 0.09 to non-numeric Granulocytes # [facility]alt h L} 10^3 uL results) System Immature 0.6 % 0.0 - Normal (applies Immature [facility] Granulocytes % 0.8 % to non-numeric Granulocytes % [facility] results) System ID Date Data Source [id number] 04/21/2018 08:13:00 AM EDT [facility] Name Value Range Interpretation Description Data Sup porting Code Source(s) Document(s ) Thyrotropin 2.859 0.450 - Normal (applies Thyroid [facility] [Mass/volume] {mIU/mL} 5.330 to non-numeric Stimulating Health in Serum or mIU/mL results) Hormone, System Plasma Serum ID Date Data Source [id number] 04/21/2018 08:13:00 AM EDT [facility] Name Value Range Interpretation Description Data Sup porting Code Source(s) Document(s ) Sodium 140 135 - Normal (applies Sodium, Serum [facility] [Moles/volume] in mmol/L 145 to non-numeric Health Serum or Plasma mmol/L results) System Potassium 4.3 3.5 - Normal (applies Potassium, [facility] [Mass/volume] in mmol/L 5.0 to non-numeric Serum Health Serum or Plasma mmol/L results) System Chloride 106 101 - Normal (applies Chloride, [facility] [Moles/volume] in mmol/L 111 to non-numeric Serum Health Serum or Plasma mmol/L results) System Carbon dioxide, 27.1 21.0 - Normal (applies CO2, Serum [facility] total mmol/L 31.0 to non-numeric Health [Moles/volume] in mmol/L results) System Serum or Plasma Total Protein 6.5 6.4 - Normal (applies Total Protein [facility] mg/dl 8.1 to non-numeric Health mg/dl results) System Glucose 83 65 - Normal (applies Glucose, [facility] [Mass/volume] in mg/dL 110 to non-numeric Serum Health Serum or Plasma mg/dL results) System Urea nitrogen 12 7 - 18 Normal (applies Blood Urea [facility] [Mass/volume] in mg/dl mg/dl to non-numeric Nitrogen, Health Serum or Plasma results) Serum System Creatinine 0.82 0.50 - Normal (applies Creatinine, [facility] [Mass/volume] in mg/dl 1.20 to non-numeric Serum Health Serum or Plasma mg/dl results) System Alkaline 57 42 - Normal (applies Alkaline [facility] phosphatase {IU/L} 121 to non-numeric Phosphatase, Health isoenzymes IU/L results) Serum System [Enzymatic activity/volume] in Serum or Plasma by Heat stability Bilirubin.total 0.3 0.2 - Normal (applies Bilirubin, [facility] [Mass/volume] in mg/dl 1.2 to non-numeric Serum Total Health Serum or Plasma mg/dl results) System Direct Bilirubin 0.1 0.0 - Normal (applies Direct [facility] mg/dl 0.4 to non-numeric Bilirubin Health mg/dl results) System Aspartate 15 10 - 42 Normal (applies Aspartate [facility] aminotransferase {IU/L} IU/L to non-numeric Transaminase, Heal [Enzymatic results) Serum System activity/volume] in Serum or Plasma by With P-5'-P Albumin 4.1 3.2 - Normal (applies Albumin, [facility] [Mass/volume] in {gm/dl} 5.5 to non-numeric Serum Health Serum or Plasma gm/dl results) System I. Phosphorus 2.6 2.6 - Normal (applies I. Phosphorus [facility] mg/dl 4.9 to non-numeric Health mg/dl results) System Alanine 19 10 - 42 Normal (applies Alanine [facility] aminotransferase {IU/L} IU/L to non-numeric Aminotransfer Heal th [Enzymatic results) ase, Serum System activity/volume] in Serum or Plasma Calcium 9.3 8.4 - Normal (applies Calcium, [facility] [Mass/volume] in mg/dl 10.2 to non-numeric Total Serum Health Serum or Plasma mg/dl results) System A/G Ratio 1.71 Normal (applies A/G Ratio [facility] to non-numeric Health results) System Urate 5.7 2.3 - Normal (applies Uric Acid, [facility] [Mass/volume] in mg/dl 7.5 to non-numeric Serum Health Serum or Plasma mg/dl results) System Anion gap in Serum 6.90 Normal (applies Anion Gap José sirisha or Plasma mmol/L to non-numeric Health results) System Glomerular 82.82 Normal (applies GFR [facility] filtration to non-numeric Health rate/1.73 sq results) System M.predicted [Volume Rate/Area] in Serum or Plasma by Creatinine-based formula (CKD-EPI) eGFR will provide clinicians with a more accurate indicator of renal function then the serum creatinine. The eGFR is automa tically calculated from an empiric formula (endorsed by the National Kidney [employer] ion) which incorporates age, sex, and race.Clinicians may notice surprisingly low GFR's with serum creatinine valueswithin normal range- particularly in elderly wo men (with low muscle mass).In the hospital setting, the eGFR should add an element of safety in drug dosing, in assessing the risk of IV contrast administration, and in assessing vascular risk.The NKF staging system is as follows:Normal: eGFR >90 with no kidney markersStage 1: eGFR >90 with kidney markers*Stage 2: eGFR 60- 89Stage 3: eGFR 30-59Stage 4: eGFR 15-29Stage 5: eGFR <15 (usually requir ing dialysis)*Markers include: Proteinuria, Hematuria, abnormal imaging-studies, or other blood or urine test abnormalities ID Date Data Source [id number] 04/21/2018 08:13:00 AM EDT [facility] System Name Value Range Interpretation Description Data Sup porting Code Source(s) Document(s ) Triglyceride 110 35 - 160 Normal (applies Triglycerides [facility] [Mass/volume] mg/dl mg/dl to non-numeric , Serum Health in Serum or results) System Plasma Optimal = < 100 mg/dLBoderline High = 15 0 - 199 mg/dLHigh = 200 - 499 mg/dLVery High = > 500 mg/dL Cholesterol 136 mg/dl 0 - 200 Normal (applies Cholesterol, [facility] [Mass/volume] in mg/dl to non-numeric Serum Health S ystem Serum or Plasma results) <200 mg/[id number] mg/dl=border line>240 mg/dl=elevated Cholesterol in HDL 47.0 mg/dL 35.0 - Normal (applies HDL Choleste rol, [facility] [Mass/volume] in 59.0 mg/dL to non-numeric Serum Health System Serum or Plasma results) Cholesterol in LDL 67 mg/dL <125 mg/dL Normal (applies Low Density [facility] [Mass/volume] in to non-numeric Lipoprotein, [facility]alt [facility] System Serum or Plasma results) Calculated OPTIMAL: LESS THAN 100 mg/dLNEAR OPTIMAL : 100 - 129 mg/dLBODERLINE HIGH: 130 - 150 mg/dL Cholesterol in VLDL 22 Normal (applies to VLDL, Serum [facility] [Mass/volume] in Serum non-numeric results) System or Plasma CHD Risk 2.89 Normal (applies to CHD Risk [facility] non-numeric results) System Lowest <2.9Low 3.0 - 3.6Moderate 3 .7 - 4.6High 4.7 - 5.6Highest >=5.7 ID Date Data Source [id number] 04/21/2018 08:13:00 AM EDT [facility] Name Value Range Interpretation Code Description Data Vernell rce(s) Supporting Document(s ) HbA1C 5.4 % 4.6 - 6.2 % Normal (applies to HbA1C [facility] non-numeric [facility] System results) ID Date Data Source [id number] 08/12/2017 01:45:00 PM EDT Josélilianarishi [facility] System Name Value Range Interpretation Description Data Sup porting Code Source(s) Document(s ) Color Yellow Yellow Normal (applies Color [facility] to non-numeric Health results) System Appearance of HAZY Clear Normal (applies Urine [facility] Urine to non-numeric Appearance Health results) System Specific 1.020 1.001 - Normal (applies Urine Specific [facility] gravity of 1.035 to non-numeric [facility] Urine results) System pH.. 5.0 4.6 - 8.0 Normal (applies pH.. [facility] {pH_unit pH units to non-numeric Health s} results) System Glucose, UA NEG < 50 mg/dl Normal (applies Glucose, UA [facility] to non-numeric Health results) System Protein NEG < 30 mg/dl Normal (applies Protein [facility] [Mass/volume] to non-numeric Health in Serum or results) System Plasma Bilirubin NEG Negative Normal (applies Bilirubin [facility] Urine Sm to Lg to non-numeric Urine Health results) System Urobilinogen < 2.0 Normal (applies Urobilinogen [facility] [Mass/volume] to non-numeric UA Health in Urine results) System Reference Range: Negative or <=2.0 Ketones 20 mg/dL <TR mg/dL Abnormal Ketones UA [facility] [Mass/volume] in (applies to Health Syst em Urine non-numeric results) Nitrate+Nitrite Negative Negative Normal (applies Nitrite [facility] [Mass/volume] in Neg/Pos to non-numeric Health S ystem Unspecified results) specimen Leukocyte NEG Negative Tr Normal (applies Leukocyte [facility] esterase to Lg to non-numeric Esterase Health System [Units/volume] in results) Concentration Urine Leukocytes 2 {/HPF} 0 - 2 /HPF Normal (applies White Blood [facility] [#/volume] in to non-numeric Cells Health Syst em Unspecified results) specimen by Automated count Red Blood Cells 3 {/HPF} 0 - 1 /HPF Normal (applies Red Blood Cells [facility] to non-numeric [facility] System results) Epithelial cells 14 {/HPF} 0 - 3 /HPF Normal (applies Epithelial Gisel ls [facility] [Presence] in to non-numeric Health Syst em Unspecified results) specimen by Wet preparation Mucus RARE 0 - 1 /LPF Normal (applies Mucus [facility] to non-numeric [facility] System results) Bacteria FEW 0 - 5 /HPF Normal (applies Bacteria [facility] [Presence] in to non-numeric Health Syst em Unspecified results) specimen Urine Blood MOD(2+) Negative Sm Abnormal Urine Blood [facility] to Lg (applies to Health System non-numeric results) test verified ID Date Data Source [id number] 08/12/2017 01:45:00 PM EDT [facility] Name Value Range Interpretation Description Data Sup porting Code Source(s) Document(s ) Anisocytosis Slight Normal (applies Anisocytosis [facility] [Presence] in to non-numeric Health Blood by results) System Automated count Polys 88 % 55 - 75 Above high Polys [facility] % normal Health System Bands 6 % 2 - 6 % Normal (applies Bands [facility] to non-numeric Health results) System Lymphocyte %. 3 % 15 - 41 Below low normal Lymphocyte %. José sirisha % Health System Platelets Adequate Normal Normal (applies Platelet Count [facility] [#/volume] in to non-numeric Estimate Health Blood by results) System Estimate Monocyte %. 3 % 2 - 9 % Normal (applies Monocyte %. [facility] to non-numeric Health results) System ID Date Data Source [id number] 08/12/2017 01:45:00 PM EDT [facility] Name Value Range Interpretation Description Data Sup porting Code Source(s) Document(s ) Leukocytes 8.4 4.8 - Normal (applies WBC Count [facility] [#/volume] in {10^3_uL 10.8 to non-numeric Health Syst em Unspecified } 10^3 uL results) specimen by Automated count manual diff to follow Erythrocytes 4.66 4.20 - Normal (applies RBC Count [facility] [#/volume] in {10^6_uL} 5.40 to non-numeric Health Syst em Blood by 10^6 uL results) Automated count Hemoglobin 13.4 {gm/dL} 12.0 - Normal (applies Hemoglobin [facility] [Mass/volume] in 16.0 to non-numeric Health S ystem Blood gm/dL results) Hematocrit 40.8 % 37.0 - Normal (applies Hematocrit [facility] [Volume Fraction] 47.0 % to non-numeric Health System of Blood results) Erythrocyte mean 87.6 fl 81.0 - Normal (applies MCV [facility] corpuscular 99.0 fl to non-numeric Health System volume [Entitic results) volume] by Automated count Erythrocyte mean 28.8 pg 27.0 - Normal (applies MCH [facility] corpuscular 31.0 pg to non-numeric Health System hemoglobin results) [Entitic mass] by Automated count Erythrocyte mean 32.8 {gm/dL} 30.0 - Normal (applies MCHC [facility] corpuscular 35.0 to non-numeric Health System hemoglobin gm/dL results) concentration [Mass/volume] by Automated count Erythrocyte 12.8 % 11.5 - Normal (applies RDW-CV [facility] distribution 14.5 % to non-numeric Health Syste m width [Entitic results) volume] by Automated count Platelets 154 {10^3_uL} 130 - Normal (applies Platelet Count José sirisha [#/volume] in 400 10^3 to non-numeric Health Syst em Plasma by uL results) Automated count Platelet mean 11.0 fl 8.6 - Normal (applies MPV [facility] volume [Entitic 13.5 fl to non-numeric Health Sy stem volume] in Blood results) by Automated count Nucleated 0.0 0.0 - Normal (applies NRBC % [facility] erythrocytes {/100_WBC} 0.2 /100 to non-numeric Health Syst em [#/volume] in WBC results) Body fluid NRBC # 0.00 0.00 - Normal (applies NRBC # [facility] {10^3_uL} 0.01 to non-numeric Health System 10^3 uL results) Neutrophils/100 90.5 % 55.0 - Above high Neutrophil % [facility] leukocytes in 75.0 % normal Health System Blood by Automated count Neutrophils 7.6 {10^3_uL} Normal (applies Neutrophil # José sirisha [#/volume] in to non-numeric Health Syst em Body fluid results) Lymphocytes 4.5 % 15.0 - Below low Lymphocyte % [facility] [#/volume] in 41.0 % normal Health System Blood by Automated count Lymphocyte # 0.4 {10^3_uL} 1.0 - Below low Lymphocyte # [facility] 4.8 10^3 normal [facility] uL Monocytes/100 3.6 % 2.0 - Normal (applies Monocyte % [facility] leukocytes in 9.0 % to non-numeric Health Syst em Blood results) Monocytes 0.3 {10^3_uL} Normal (applies Monocyte # [facility] [#/volume] in to non-numeric [facility] Syst [facility] Blood by Manual results) count Eosinophils/100 0.8 % 0.0 - Normal (applies Eosinophil % [facility] sirisha leukocytes in 5.0 % to non-numeric Health Syst em Unspecified results) specimen Eosinophils 0.07 0.00 - Normal (applies Eosinophil # [facility] [#/volume] in {10^3_uL} 0.50 to non-numeric Health Syst [facility] Blood 10^3 uL results) Basophils/100 0.2 % 0.0 - Normal (applies Basophil % [facility] leukocytes in 1.0 % to non-numeric [facility] Syst em Unspecified results) specimen by Manual count Basophils 0.02 0.00 - Normal (applies Basophil # [facility] [#/volume] in {10^3_uL} 0.10 to non-numeric Health Syst em Blood by 10^3 uL results) Automated count Immature 0.03 0.00 - Normal (applies Immature [facility] Granulocytes # {10^3_uL} 0.09 to non-numeric Granulocytes # [facility] 10^3 uL results) Immature 0.4 % 0.0 - Normal (applies Immature [facility] Granulocytes % 0.8 % to non-numeric Granulocytes % [facility] results) ID Date Data Source [id number] 08/12/2017 01:45:00 PM EDT [facility] Name Value Range Interpretation Description Data Source(s ) Supporting Code Document(s ) T4 Free 0.87 0.58 - Normal (applies to T4 Free [facility] ng/ml 1.64 non-numeric Health System ng/ml results) ID Date Data Source [id number] 08/12/2017 01:45:00 PM EDT [facility] Name Value Range Interpretation Description Data Sup porting Code Source(s) Document(s ) Thyrotropin 1.324 0.450 - Normal (applies Thyroid [facility] [Mass/volume] {mIU/mL} 5.330 to non-numeric Stimulating Health in Serum or mIU/mL results) Hormone, System Plasma Serum ID Date Data Source [id number] 08/12/2017 01:45:00 PM EDT [facility] Name Value Range Interpretation Description Data Sup porting Code Source(s) Document(s ) Sodium 141 135 - Normal (applies Sodium, Serum [facility] [Moles/volume] in mmol/L 145 to non-numeric Health Serum or Plasma mmol/L results) System Potassium 3.3 3.5 - Below low normal Potassium, [facility] [Mass/volume] in mmol/L 5.0 Serum Health Serum or Plasma mmol/L System Chloride 109 101 - Normal (applies Chloride, [facility] [Moles/volume] in mmol/L 111 to non-numeric Serum Health Serum or Plasma mmol/L results) System Carbon dioxide, 23.9 21.0 - Normal (applies CO2, Serum [facility] total mmol/L 31.0 to non-numeric Health [Moles/volume] in mmol/L results) System Serum or Plasma Total Protein 6.0 6.4 - Below low normal Total Protein [facility] sirisha mg/dl 8.1 Health mg/dl System Glucose 89 65 - Normal (applies Glucose, [facility] [Mass/volume] in mg/dL 110 to non-numeric Serum Health Serum or Plasma mg/dL results) System Urea nitrogen 8 mg/dl 7 - 18 Normal (applies Blood Urea [facility] [Mass/volume] in mg/dl to non-numeric Nitrogen, Health Serum or Plasma results) Serum System Creatinine 0.79 0.50 - Normal (applies Creatinine, [facility] [Mass/volume] in mg/dl 1.20 to non-numeric Serum Health Serum or Plasma mg/dl results) System Alkaline 46 42 - Normal (applies Alkaline [facility] phosphatase {IU/L} 121 to non-numeric Phosphatase, [facility] isoenzymes IU/L results) Serum System [Enzymatic activity/volume] in Serum or Plasma by Heat stability Bilirubin.total 0.6 0.2 - Normal (applies Bilirubin, [facility] [Mass/volume] in mg/dl 1.2 to non-numeric Serum Total Health Serum or Plasma mg/dl results) System Direct Bilirubin 0.2 0.0 - Normal (applies Direct [facility] mg/dl 0.4 to non-numeric Bilirubin [facility] mg/dl results) System Aspartate 18 10 - 42 Normal (applies Aspartate [facility] aminotransferase {IU/L} IU/L to non-numeric Transaminase, [facility]al [facility] [Enzymatic results) Serum System activity/volume] in Serum or Plasma by With P-5'-P Albumin 3.8 3.2 - Normal (applies Albumin, [facility] [Mass/volume] in {gm/dl} 5.5 to non-numeric Serum Health Serum or Plasma gm/dl results) System I. Phosphorus 2.5 2.6 - Below low normal I. Phosphorus José sirisha mg/dl 4.9 Health mg/dl System Alanine 23 10 - 42 Normal (applies Alanine [facility] aminotransferase {IU/L} IU/L to non-numeric Aminotransfer [facility] [Enzymatic results) ase, Serum System activity/volume] in Serum or Plasma Calcium 8.4 8.4 - Normal (applies Calcium, [facility] [Mass/volume] in mg/dl 10.2 to non-numeric Total Serum Health Serum or Plasma mg/dl results) System A/G Ratio 1.73 Normal (applies A/G Ratio [facility] to non-numeric Health results) System Urate 7.2 2.3 - Normal (applies Uric Acid, [facility] [Mass/volume] in mg/dl 7.5 to non-numeric Serum Health Serum or Plasma mg/dl results) System Anion gap in Serum 8.10 Normal (applies Anion Gap José sirisha or Plasma mmol/L to non-numeric Health results) System Glomerular 86.90 Normal (applies GFR [facility] filtration to non-numeric Health rate/1.73 sq results) System M.predicted [Volume Rate/Area] in Serum or Plasma by Creatinine-based formula (CKD-EPI) eGFR will provide clinicians with a more accurate indicator of renal function then the serum creatinine. The eGFR is automa tically calculated from an empiric formula (endorsed by the National [employer] ion) which incorporates age, sex, and race.Clinicians may notice surprisingly low GFR's with serum creatinine valueswithin normal range- particularly in elderly wo men (with low muscle mass).In the hospital setting, the eGFR should add an element of safety in drug dosing, in assessing the risk of IV contrast administration, and in assessing vascular risk.The NKF staging system is as follows:Normal: eGFR >90 with no kidney markersStage 1: eGFR >90 with kidney markers*Stage 2: eGFR 60- 89Stage 3: eGFR 30-59Stage 4: eGFR 15-29Stage 5: eGFR <15 (usually requir ing dialysis)*Markers include: Proteinuria, Hematuria, abnormal imaging-studies, or other blood or urine test abnormalities ID Date Data Source [id number] 08/12/2017 01:45:00 PM EDT [facility] System Name Value Range Interpretation Description Data Sup porting Code Source(s) Document(s ) Influenza virus Negative Normal (applies Flu A Viral [facility] A RNA [Presence] to non-numeric RNA Health in Unspecified results) System specimen by Probe and target amplification method Influenza virus Negative Normal (applies Flu B Viral [facility] B RNA [Presence] to non-numeric RNA Health in Unspecified results) System specimen by Probe and target amplification method ID Date Data Source [id number] 08/12/2017 01:45:00 PM EDT [facility] Name Value Range Interpretation Description Data Sup porting Code Source(s) Document(s ) Deprecated NO GROWTH Aerobic [facility] Bacteria Culture, Urine [facility] System identified in Urine by Aerobe culture ID Date Data Source [id number] 08/10/2017 03:38:00 PM EDT [facility] System Name Value Range Interpretation Description Data Sup porting Code Source(s) Document(s ) 25 Hydroxy 30 ng/mL 30 - 100 Normal (applies 25 Hydroxy [facility] Vitamin D ng/mL to non-numeric Vitamin D [facility] results) Test Performed at:[facility], [place], [place] [address]HjrnsrtkThad Brown M.D. 25 Hydroxy D3 30 ng/mL 0 - 970812 Normal (applies to 25 Hydroxy D3 [facility] ng/mL non-numeric [facility] results) 25 Hydroxy D2 < 4 0 - [id number] Normal (applies to 25 Hydroxy D2 [facility] ng/mL non-numeric [facility] System results) 25-OHD3 indicates both endogenous produc tion andsupplementation. 25-OHD2 is an indicator of exogenoussources such as di et or supplementation. Therapy is based onmeasurement of Total 25-OHD, with leve ls <20 ng/mL indicativeof Vitamin D deficiency, while levels between 20 ng/m L and30 ng/mL suggest insufficiency. Optimal levels are> or = 30 ng/mL.Test Performed at:[facility], [place], [place] [address]Bbhkcujoulysses goodwin M.D. ID Date Data Source [id number] 08/10/2017 03:38:00 PM EDT [facility] System Name Value Range Interpretation Description Data Sup porting Code Source(s) Document(s ) Leukocytes 7.4 4.8 - Normal (applies WBC Count [facility] [#/volume] in {10^3_u 10.8 to non-numeric Health Unspecified L} 10^3 uL results) System specimen by Automated count Erythrocytes 4.92 4.20 - Normal (applies RBC Count [facility] [#/volume] in {10^6_u 5.40 to non-numeric Health Blood by L} 10^6 uL results) System Automated count Hemoglobin 14.4 12.0 - Normal (applies Hemoglobin [facility] [Mass/volume] in {gm/dL} 16.0 to non-numeric Health Blood gm/dL results) System Hematocrit 43.7 % 37.0 - Normal (applies Hematocrit [facility] [Volume 47.0 % to non-numeric Health Fraction] of results) System Blood Erythrocyte mean 88.8 fl 81.0 - Normal (applies MCV [facility] corpuscular 99.0 fl to non-numeric Health volume [Entitic results) System volume] by Automated count Erythrocyte mean 29.3 pg 27.0 - Normal (applies MCH [facility] corpuscular 31.0 pg to non-numeric Health hemoglobin results) System [Entitic mass] by Automated count Erythrocyte mean 33.0 30.0 - Normal (applies MCHC [facility] corpuscular {gm/dL} 35.0 to non-numeric Health hemoglobin gm/dL results) System concentration [Mass/volume] by Automated count Erythrocyte 12.8 % 11.5 - Normal (applies RDW-CV [facility] distribution 14.5 % to non-numeric Health width [Entitic results) System volume] by Automated count Platelets 182 130 - Normal (applies Platelet Count [facility] [#/volume] in {10^3_u 400 to non-numeric Health Plasma by L} 10^3 uL results) System Automated count Platelet mean 11.1 fl 8.6 - Normal (applies MPV [facility] volume [Entitic 13.5 fl to non-numeric Health volume] in Blood results) System by Automated count Nucleated 0.0 0.0 - Normal (applies NRBC % [facility] erythrocytes {/100_W 0.2 to non-numeric Health [#/volume] in BC} /100 results) System Body fluid WBC NRBC # 0.00 0.00 - Normal (applies NRBC # [facility] {10^3_u 0.01 to non-numeric Health L} 10^3 uL results) System Neutrophils/100 77.6 % 55.0 - Above high Neutrophil % [facility] leukocytes in 75.0 % normal Health Blood by System Automated count Neutrophils 5.7 Normal (applies Neutrophil # [facility] [#/volume] in {10^3_u to non-numeric Health Body fluid L} results) System Lymphocytes 14.2 % 15.0 - Below low normal Lymphocyte % [facility] [#/volume] in 41.0 % Health Blood by System Automated count Lymphocyte # 1.1 1.0 - Normal (applies Lymphocyte # [facility] {10^3_u 4.8 to non-numeric Health L} 10^3 uL results) System Monocytes/100 6.5 % 2.0 - Normal (applies Monocyte % [facility] leukocytes in 9.0 % to non-numeric Health Blood results) System Monocytes 0.5 Normal (applies Monocyte # [facility] [#/volume] in {10^3_u to non-numeric Health Blood by Manual L} results) System count Eosinophils/100 0.9 % 0.0 - Normal (applies Eosinophil % [facility] sir[facility] leukocytes in 5.0 % to non-numeric Health Unspecified results) System specimen Eosinophils 0.07 0.00 - Normal (applies Eosinophil # [facility] [#/volume] in {10^3_u 0.50 to non-numeric Health Blood L} 10^3 uL results) System Basophils/100 0.4 % 0.0 - Normal (applies Basophil % [facility] leukocytes in 1.0 % to non-numeric Health Unspecified results) System specimen by Manual count Basophils 0.03 0.00 - Normal (applies Basophil # [facility] [#/volume] in {10^3_u 0.10 to non-numeric Health Blood by L} 10^3 uL results) System Automated count Immature 0.03 0.00 - Normal (applies Immature [facility] Granulocytes # {10^3_u 0.09 to non-numeric Granulocytes # [facility]alt [facility] L} 10^3 uL results) System Immature 0.4 % 0.0 - Normal (applies Immature [facility] Granulocytes % 0.8 % to non-numeric Granulocytes % [facility] results) System ID Date Data Source [id number] 08/10/2017 03:38:00 PM EDT [facility] Name Value Range Interpretation Description Data Sup porting Code Source(s) Document(s ) hCG 0.32 <5 Normal (applies hCG [facility] Quantitative {mIU/mL} mIU/mL to non-numeric Quantitative Health results) System Negative = <5 mIU/mLAPPROXIMATE GEST. AG E APPROXIMATE HCG mIU/ML 0.2 - 1 week 5 - 50 1 - 2 w eeks 50 - 500 2 - 3 weeks 100 - 5,000 3 - 4 weeks 500 - 10,000 4 - 5 weeks 1,000 - 50,000 5 - 6 weeks 10,000 - 100,000 6 - 8 weeks 15,000 - 200,000 8 - 12 weeks 10,000 - 1 00,000HCG levels between 5-25 mIU/mL may be indicative of early . Correlati on with other clinical findings and/or repeat of HCG quantitative testing recommened. ID Date Data Source [id number] 08/10/2017 03:38:00 PM EDT [facility] Name Value Range Interpretation Description Data Sup porting Code Source(s) Document(s ) Thyrotropin 2.487 0.450 - Normal (applies Thyroid [facility] [Mass/volume] {mIU/mL} 5.330 to non-numeric Stimulating Health in Serum or mIU/mL results) Hormone, System Plasma Serum ID Date Data Source [id number] 08/10/2017 03:38:00 PM EDT [facility] Name Value Range Interpretation Description Data Sup porting Code Source(s) Document(s ) Sodium 141 135 - Normal (applies Sodium, Serum [facility] [Moles/volume] in mmol/L 145 to non-numeric Health Serum or Plasma mmol/L results) System Potassium 3.6 3.5 - Normal (applies Potassium, [facility] [Mass/volume] in mmol/L 5.0 to non-numeric Serum Health Serum or Plasma mmol/L results) System Chloride 108 101 - Normal (applies Chloride, [facility] [Moles/volume] in mmol/L 111 to non-numeric Serum Health Serum or Plasma mmol/L results) System Carbon dioxide, 22.6 21.0 - Normal (applies CO2, Serum [facility] total mmol/L 31.0 to non-numeric Health [Moles/volume] in mmol/L results) System Serum or Plasma Total Protein 6.7 6.4 - Normal (applies Total Protein [facility] mg/dl 8.1 to non-numeric Health mg/dl results) System Glucose 92 65 - Normal (applies Glucose, [facility] [Mass/volume] in mg/dL 110 to non-numeric Serum Health Serum or Plasma mg/dL results) System Urea nitrogen 13 7 - 18 Normal (applies Blood Urea [facility] [Mass/volume] in mg/dl mg/dl to non-numeric Nitrogen, Health Serum or Plasma results) Serum System Creatinine 0.96 0.50 - Normal (applies Creatinine, [facility] [Mass/volume] in mg/dl 1.20 to non-numeric Serum Health Serum or Plasma mg/dl results) System Alkaline 54 42 - Normal (applies Alkaline [facility] phosphatase {IU/L} 121 to non-numeric Phosphatase, Health isoenzymes IU/L results) Serum System [Enzymatic activity/volume] in Serum or Plasma by Heat stability Bilirubin.total 0.4 0.2 - Normal (applies Bilirubin, [facility] [Mass/volume] in mg/dl 1.2 to non-numeric Serum Total Health Serum or Plasma mg/dl results) System Direct Bilirubin 0.1 0.0 - Normal (applies Direct [facility] mg/dl 0.4 to non-numeric Bilirubin [facility] mg/dl results) System Aspartate 19 10 - 42 Normal (applies Aspartate [facility] aminotransferase {IU/L} IU/L to non-numeric Transaminase, Heal th [Enzymatic results) Serum System activity/volume] in Serum or Plasma by With P-5'-P Albumin 4.1 3.2 - Normal (applies Albumin, [facility] [Mass/volume] in {gm/dl} 5.5 to non-numeric Serum Health Serum or Plasma gm/dl results) System I. Phosphorus 3.5 2.6 - Normal (applies I. Phosphorus [facility] mg/dl 4.9 to non-numeric Health mg/dl results) System Alanine 22 10 - 42 Normal (applies Alanine [facility] aminotransferase {IU/L} IU/L to non-numeric Aminotransfer [facility]al [facility] [Enzymatic results) ase, Serum System activity/volume] in Serum or Plasma Calcium 9.1 8.4 - Normal (applies Calcium, [facility] [Mass/volume] in mg/dl 10.2 to non-numeric Total Serum Health Serum or Plasma mg/dl results) System A/G Ratio 1.58 Normal (applies A/G Ratio [facility] to non-numeric Health results) System Urate 7.5 2.3 - Normal (applies Uric Acid, [facility] [Mass/volume] in mg/dl 7.5 to non-numeric Serum Health Serum or Plasma mg/dl results) System Anion gap in Serum 10.40 Normal (applies Anion Gap José sirisha or Plasma mmol/L to non-numeric Health results) System Glomerular 69.40 Normal (applies GFR [facility] filtration to non-numeric Health rate/1.73 sq results) System M.predicted [Volume Rate/Area] in Serum or Plasma by Creatinine-based formula (CKD-EPI) eGFR will provide clinicians with a more accurate indicator of renal function then the serum creatinine. The eGFR is automa tically calculated from an empiric formula (endorsed by the National Kid[employer] ion) which incorporates age, sex, and race.Clinicians may notice surprisingly low GFR's with serum creatinine valueswithin normal range- particularly in elderly wo men (with low muscle mass).In the hospital setting, the eGFR should add an element of safety in drug dosing, in assessing the risk of IV contrast administration, and in assessing vascular risk.The NKF staging system is as follows:Normal: eGFR >90 with no kidney markersStage 1: eGFR >90 with kidney markers*Stage 2: eGFR 60- 89Stage 3: eGFR 30-59Stage 4: eGFR 15-29Stage 5: eGFR <15 (usually requir ing dialysis)*Markers include: Proteinuria, Hematuria, abnormal imaging-studies, or other blood or urine test abnormalities ID Date Data Source [id number] 08/10/2017 03:38:00 PM EDT [facility] Name Value Range Interpretation Description Data Sup porting Code Source(s) Document(s ) Triglyceride 94 mg/dl 35 - 160 Normal (applies Triglycerides [facility] [Mass/volume] mg/dl to non-numeric , Serum Health in Serum or results) System Plasma Optimal = < 100 mg/dLBoderline High = 15 0 - 199 mg/dLHigh = 200 - 499 mg/dLVery High = > 500 mg/dL Cholesterol 124 mg/dl 0 - 200 Normal (applies Cholesterol, [facility] [Mass/volume] in mg/dl to non-numeric Serum Health S ystem Serum or Plasma results) <200 mg/gh=llptpamaz633-549 mg/dl=border line>240 mg/dl=elevated Cholesterol in HDL 43.0 mg/dL 35.0 - Normal (applies HDL Choleste rol, [facility] [Mass/volume] in 59.0 mg/dL to non-numeric Serum Health System Serum or Plasma results) Cholesterol in LDL 62.2 mg/dL <125 mg/dL Normal (applies Low Density [facility] [Mass/volume] in to non-numeric Lipoprotein, [facility] System Serum or Plasma results) Calculated OPTIMAL: LESS THAN 100 mg/dLNEAR OPTIMAL : 100 - 129 mg/dLBODERLINE HIGH: 130 - 150 mg/dL Cholesterol in VLDL 18.8 Normal (applies to VLDL, Serum [facility] [Mass/volume] in Serum non-numeric results) System or Plasma CHD Risk 2.88 Normal (applies to CHD Risk [facility] non-numeric results) System Lowest <2.9Low 3.0 - 3.6Moderate 3 .7 - 4.6High 4.7 - 5.6Highest >=5.7 ID Date Data Source [id number] 08/10/2017 03:38:00 PM EDT [facility] System Name Value Range Interpretation Code Description Data Vernell rce(s) Supporting Document(s ) HbA1C 5.2 % 4.6 - 6.2 % Normal (applies to HbA1C [facility] non-numeric [facility] results) ID Date Data Source [id number] 08/09/2017 08:23:00 AM EDT [facility] Name Value Range Interpretation Description Data Sup porting Code Source(s) Document(s ) Color Yellow Yellow Normal (applies Color [facility] to non-numeric Health results) System Appearance of CLOUDY Clear Normal (applies Urine [facility] Urine to non-numeric Appearance Health results) System Specific 1.021 1.001 - Normal (applies Urine Specific [facility] gravity of 1.035 to non-numeric [facility] Urine results) System pH.. 5.0 4.6 - 8.0 Normal (applies pH.. [facility] {pH_unit pH units to non-numeric Health s} results) System Glucose, UA NEG < 50 mg/dl Normal (applies Glucose, UA [facility] to non-numeric [facility] results) System Protein 100 < 30 mg/dl Abnormal Protein [facility] [Mass/volume] mg/dl (applies to Health in Serum or non-numeric System Plasma results) Bilirubin NEG Negative Normal (applies Bilirubin [facility] Urine Sm to Lg to non-numeric Urine Health results) System Urobilinogen < 2.0 Normal (applies Urobilinogen [facility] [Mass/volume] to non-numeric UA Health in Urine results) System Reference Range: Negative or <=2.0 Ketones NEG <TR mg/dL Normal (applies Ketones UA [facility] [Mass/volume] in to non-numeric Health S ystem Urine results) Nitrate+Nitrite Negative Negative Normal (applies Nitrite [facility] [Mass/volume] in Neg/Pos to non-numeric Health S ystem Unspecified results) specimen Leukocyte Trace Negative Tr Abnormal Leukocyte [facility] esterase to Lg (applies to Esterase [facility] [Units/volume] in non-numeric Concentration Urine results) Leukocytes 14 {/HPF} 0 - 2 /HPF Normal (applies White Blood [facility] [#/volume] in to non-numeric Cells Health Syst em Unspecified results) specimen by Automated count Red Blood Cells 42 {/HPF} 0 - 1 /HPF Normal (applies Red Blood Cells [facility] to non-numeric [facility] results) Red Blood Cell RARE 0 Normal (applies Red Blood Cell [facility] to non-numeric [facility] results) Epithelial cells 65 {/HPF} 0 - 3 /HPF Normal (applies Epithelial Gisel ls [facility] [Presence] in to non-numeric Health Syst em Unspecified results) specimen by Wet preparation Mucus RARE 0 - 1 /LPF Normal (applies Mucus [facility] to non-numeric [facility] System results) Bacteria MOD 0 - 5 /HPF Normal (applies Bacteria [facility] [Presence] in to non-numeric Health Syst em Unspecified results) specimen Urine Blood LG(3+) Negative Sm Abnormal Urine Blood [facility] to Lg (applies to Health System non-numeric results) ID Date Data Source [id number] 08/09/2017 08:23:00 AM EDT [facility] Name Value Range Interpretation Description Data Sup porting Code Source(s) Document(s ) Leukocytes 6.3 4.8 - Normal (applies WBC Count [facility] [#/volume] in {10^3_u 10.8 to non-numeric Health Unspecified L} 10^3 uL results) System specimen by Automated count Erythrocytes 5.16 4.20 - Normal (applies RBC Count [facility] [#/volume] in {10^6_u 5.40 to non-numeric Health Blood by L} 10^6 uL results) System Automated count Hemoglobin 14.9 12.0 - Normal (applies Hemoglobin [facility] [Mass/volume] in {gm/dL} 16.0 to non-numeric Health Blood gm/dL results) System Hematocrit 45.8 % 37.0 - Normal (applies Hematocrit [facility] [Volume 47.0 % to non-numeric Health Fraction] of results) System Blood Erythrocyte mean 88.8 fl 81.0 - Normal (applies MCV [facility] corpuscular 99.0 fl to non-numeric Health volume [Entitic results) System volume] by Automated count Erythrocyte mean 28.9 pg 27.0 - Normal (applies MCH [facility] corpuscular 31.0 pg to non-numeric Health hemoglobin results) System [Entitic mass] by Automated count Erythrocyte mean 32.5 30.0 - Normal (applies MCHC [facility] corpuscular {gm/dL} 35.0 to non-numeric Health hemoglobin gm/dL results) System concentration [Mass/volume] by Automated count Erythrocyte 13.0 % 11.5 - Normal (applies RDW-CV [facility] distribution 14.5 % to non-numeric Health width [Entitic results) System volume] by Automated count Platelets 166 130 - Normal (applies Platelet Count [facility] [#/volume] in {10^3_u 400 to non-numeric Health Plasma by L} 10^3 uL results) System Automated count Platelet mean 10.8 fl 8.6 - Normal (applies MPV [facility] volume [Entitic 13.5 fl to non-numeric Health volume] in Blood results) System by Automated count Nucleated 0.0 0.0 - Normal (applies NRBC % [facility] erythrocytes {/100_W 0.2 to non-numeric Health [#/volume] in BC} /100 results) System Body fluid WBC NRBC # 0.00 0.00 - Normal (applies NRBC # [facility] {10^3_u 0.01 to non-numeric Health L} 10^3 uL results) System Neutrophils/100 71.7 % 55.0 - Normal (applies Neutrophil % [facility] leukocytes in 75.0 % to non-numeric Health Blood by results) System Automated count Neutrophils 4.5 Normal (applies Neutrophil # [facility] [#/volume] in {10^3_u to non-numeric Health Body fluid L} results) System Lymphocytes 16.6 % 15.0 - Normal (applies Lymphocyte % [facility] [#/volume] in 41.0 % to non-numeric Health Blood by results) System Automated count Lymphocyte # 1.0 1.0 - Normal (applies Lymphocyte # [facility] {10^3_u 4.8 to non-numeric Health L} 10^3 uL results) System Monocytes/100 9.1 % 2.0 - Above high Monocyte % [facility] leukocytes in 9.0 % normal Health Blood System Monocytes 0.6 Normal (applies Monocyte # [facility] [#/volume] in {10^3_u to non-numeric Health Blood by Manual L} results) System count Eosinophils/100 1.8 % 0.0 - Normal (applies Eosinophil % [facility] sirisha leukocytes in 5.0 % to non-numeric Health Unspecified results) System specimen Eosinophils 0.11 0.00 - Normal (applies Eosinophil # [facility] [#/volume] in {10^3_u 0.50 to non-numeric Health Blood L} 10^3 uL results) System Basophils/100 0.5 % 0.0 - Normal (applies Basophil % [facility] leukocytes in 1.0 % to non-numeric Health Unspecified results) System specimen by Manual count Basophils 0.03 0.00 - Normal (applies Basophil # [facility] [#/volume] in {10^3_u 0.10 to non-numeric Health Blood by L} 10^3 uL results) System Automated count Immature 0.02 0.00 - Normal (applies Immature [facility] Granulocytes # {10^3_u 0.09 to non-numeric Granulocytes # [facility] L} 10^3 uL results) System Immature 0.3 % 0.0 - Normal (applies Immature [facility] Granulocytes % 0.8 % to non-numeric Granulocytes % [facility] results) System ID Date Data Source [id number] 08/09/2017 08:23:00 AM EDT [facility] Name Value Range Interpretation Description Data Sup porting Code Source(s) Document(s ) Sodium 136 135 - Normal (applies Sodium, Serum [facility] [Moles/volume] in mmol/L 145 to non-numeric Health Serum or Plasma mmol/L results) System Potassium 4.0 3.5 - Normal (applies Potassium, [facility] [Mass/volume] in mmol/L 5.0 to non-numeric Serum [facility] Serum or Plasma mmol/L results) System Chloride 106 101 - Normal (applies Chloride, [facility] [Moles/volume] in mmol/L 111 to non-numeric Serum [facility] Serum or Plasma mmol/L results) System Carbon dioxide, 22.5 21.0 - Normal (applies CO2, Serum [facility] total mmol/L 31.0 to non-numeric Health [Moles/volume] in mmol/L results) System Serum or Plasma Total Protein 6.8 6.4 - Normal (applies Total Protein [facility] mg/dl 8.1 to non-numeric [facility] mg/dl results) System Glucose 86 65 - Normal (applies Glucose, [facility] [Mass/volume] in mg/dL 110 to non-numeric Serum [facility] Serum or Plasma mg/dL results) System Urea nitrogen 14 7 - 18 Normal (applies Blood Urea [facility] [Mass/volume] in mg/dl mg/dl to non-numeric Nitrogen, Health Serum or Plasma results) Serum System Creatinine 1.02 0.50 - Normal (applies Creatinine, [facility] [Mass/volume] in mg/dl 1.20 to non-numeric Serum [facility] Serum or Plasma mg/dl results) System Alkaline 56 42 - Normal (applies Alkaline [facility] phosphatase {IU/L} 121 to non-numeric Phosphatase, Health isoenzymes IU/L results) Serum System [Enzymatic activity/volume] in Serum or Plasma by Heat stability Bilirubin.total 0.4 0.2 - Normal (applies Bilirubin, [facility] [Mass/volume] in mg/dl 1.2 to non-numeric Serum Total Health Serum or Plasma mg/dl results) System Direct Bilirubin 0.1 0.0 - Normal (applies Direct [facility] mg/dl 0.4 to non-numeric Bilirubin [facility] mg/dl results) System Aspartate 21 10 - 42 Normal (applies Aspartate [facility] aminotransferase {IU/L} IU/L to non-numeric Transaminase, [facility] [Enzymatic results) Serum System activity/volume] in Serum or Plasma by With P-5'-P Albumin 4.1 3.2 - Normal (applies Albumin, [facility] [Mass/volume] in {gm/dl} 5.5 to non-numeric Serum [facility] Serum or Plasma gm/dl results) System I. Phosphorus 3.7 2.6 - Normal (applies I. Phosphorus [facility] mg/dl 4.9 to non-numeric [facility] mg/dl results) System Alanine 19 10 - 42 Normal (applies Alanine [facility] aminotransferase {IU/L} IU/L to non-numeric Aminotransfer [facility] [Enzymatic results) ase, Serum System activity/volume] in Serum or Plasma Calcium 8.9 8.4 - Normal (applies Calcium, [facility] [Mass/volume] in mg/dl 10.2 to non-numeric Total Serum [facility] Serum or Plasma mg/dl results) System A/G Ratio 1.52 Normal (applies A/G Ratio [facility] to non-numeric [facility] results) System Urate 6.8 2.3 - Normal (applies Uric Acid, [facility] [Mass/volume] in mg/dl 7.5 to non-numeric Serum Health Serum or Plasma mg/dl results) System Anion gap in Serum 7.50 Normal (applies Anion Gap [facility] sirisha or Plasma mmol/L to non-numeric Health results) System Glomerular 64.71 Normal (applies GFR [facility] filtration to non-numeric Health rate/1.73 sq results) System M.predicted [Volume Rate/Area] in Serum or Plasma by Creatinine-based formula (CKD-EPI) eGFR will provide clinicians with a more accurate indicator of renal function then the serum creatinine. The eGFR is automa tically calculated from an empiric formula (endorsed by the [employer] ion) which incorporates age, sex, and race.Clinicians may notice surprisingly low GFR's with serum creatinine valueswithin normal range- particularly in elderly wo men (with low muscle mass).In the hospital setting, the eGFR should add an element of safety in drug dosing, in assessing the risk of IV contrast administration, and in assessing vascular risk.The NKF staging system is as follows:Normal: eGFR >90 with no kidney markersStage 1: eGFR >90 with kidney markers*Stage 2: eGFR 60- 89Stage 3: eGFR 30-59Stage 4: eGFR 15-29Stage 5: eGFR <15 (usually requir ing dialysis)*Markers include: Proteinuria, Hematuria, abnormal imaging-studies, or other blood or urine test abnormalities ID Date Data Source [id number] 08/09/2017 08:23:00 AM EDT [facility] System Name Value Range Interpretation Description Data Sup porting Code Source(s) Document(s ) Lipase 17 U/L 4 - 66 Normal (applies to Lipase, Serum [facility] [Enzymatic U/L non-numeric Health System activity/v results) olume] in Serum or Plasma ID Date Data Source [id number] 01/01/2017 11:33:00 PM EST [facility] Name Value Range Interpretation Description Data Sup porting Code Source(s) Document(s ) Leukocytes 12.5 4.8 - Above high WBC Count [facility] [#/volume] in {10^3_u 10.8 normal Health Unspecified L} 10^3 uL System specimen by Automated count Erythrocytes 5.29 4.20 - Normal (applies RBC Count [facility] [#/volume] in {10^6_u 5.40 to non-numeric Health Blood by L} 10^6 uL results) System Automated count Hemoglobin 15.0 12.0 - Normal (applies Hemoglobin [facility] [Mass/volume] in {gm/dL} 16.0 to non-numeric Health Blood gm/dL results) System Hematocrit 45.5 % 37.0 - Normal (applies Hematocrit [facility] [Volume 47.0 % to non-numeric Health Fraction] of results) System Blood Erythrocyte mean 86.0 fl 81.0 - Normal (applies MCV [facility] corpuscular 99.0 fl to non-numeric Health volume [Entitic results) System volume] by Automated count Erythrocyte mean 28.4 pg 27.0 - Normal (applies MCH [facility] corpuscular 31.0 pg to non-numeric Health hemoglobin results) System [Entitic mass] by Automated count Erythrocyte mean 33.0 30.0 - Normal (applies MCHC [facility] corpuscular {gm/dL} 35.0 to non-numeric Health hemoglobin gm/dL results) System concentration [Mass/volume] by Automated count Erythrocyte 13.6 % 11.5 - Normal (applies RDW-CV [facility] distribution 14.5 % to non-numeric Health width [Entitic results) System volume] by Automated count Platelets 185 130 - Normal (applies Platelet Count [facility] [#/volume] in {10^3_u 400 to non-numeric Health Plasma by L} 10^3 uL results) System Automated count Platelet mean 10.9 fl 8.6 - Normal (applies MPV [facility] volume [Entitic 13.5 fl to non-numeric Health volume] in Blood results) System by Automated count Nucleated 0.0 0.0 - Normal (applies NRBC % [facility] erythrocytes {/100_W 0.2 to non-numeric Health [#/volume] in BC} /100 results) System Body fluid WBC NRBC # 0.00 0.00 - Normal (applies NRBC # [facility] {10^3_u 0.01 to non-numeric Health L} 10^3 uL results) System Neutrophils/100 90.9 % 55.0 - Above high Neutrophil % [facility] leukocytes in 75.0 % normal Health Blood by System Automated count Neutrophils 11.4 Normal (applies Neutrophil # [facility] [#/volume] in {10^3_u to non-numeric Health Body fluid L} results) System Lymphocytes 4.0 % 15.0 - Below low normal Lymphocyte % [facility] [#/volume] in 41.0 % [facility] Blood by System Automated count Lymphocyte # 0.5 1.0 - Below low normal Lymphocyte # [facility] {10^3_u 4.8 Health L} 10^3 uL System Monocytes/100 3.5 % 2.0 - Normal (applies Monocyte % [facility] leukocytes in 9.0 % to non-numeric Health Blood results) System Monocytes 0.4 Normal (applies Monocyte # [facility] [#/volume] in {10^3_u to non-numeric Health Blood by Manual L} results) System count Eosinophils/100 1.0 % 0.0 - Normal (applies Eosinophil % [facility] sir[facility] leukocytes in 5.0 % to non-numeric Health Unspecified results) System specimen Eosinophils 0.12 0.00 - Normal (applies Eosinophil # [facility] [#/volume] in {10^3_u 0.50 to non-numeric Health Blood L} 10^3 uL results) System Basophils/100 0.3 % 0.0 - Normal (applies Basophil % [facility] leukocytes in 1.0 % to non-numeric [facility] Unspecified results) System specimen by Manual count Basophils 0.04 0.00 - Normal (applies Basophil # [facility] [#/volume] in {10^3_u 0.10 to non-numeric Health Blood by L} 10^3 uL results) System Automated count Immature 0.04 0.00 - Normal (applies Immature [facility] Granulocytes # {10^3_u 0.09 to non-numeric Granulocytes # [facility] L} 10^3 uL results) System Immature 0.3 % 0.0 - Normal (applies Immature [facility] Granulocytes % 0.8 % to non-numeric Granulocytes % [facility] results) System ID Date Data Source [id number] 01/01/2017 11:33:00 PM EST [facility] Name Value Range Interpretation Description Data Sup porting Code Source(s) Document(s ) Sodium 137 135 - Normal (applies Sodium, Serum [facility] [Moles/volume] in mmol/L 145 to non-numeric Health Serum or Plasma mmol/L results) System Potassium 3.8 3.5 - Normal (applies Potassium, [facility] [Mass/volume] in mmol/L 5.0 to non-numeric Serum [facility] Serum or Plasma mmol/L results) System Chloride 103 101 - Normal (applies Chloride, [facility] [Moles/volume] in mmol/L 111 to non-numeric Serum [facility] Serum or Plasma mmol/L results) System Carbon dioxide, 27.9 21.0 - Normal (applies CO2, Serum [facility] total mmol/L 31.0 to non-numeric [facility] [Moles/volume] in mmol/L results) System Serum or Plasma Total Protein 7.3 6.4 - Normal (applies Total Protein [facility] mg/dl 8.1 to non-numeric [facility] mg/dl results) System Glucose 103 65 - Normal (applies Glucose, [facility] [Mass/volume] in mg/dL 110 to non-numeric Serum [facility] Serum or Plasma mg/dL results) System Urea nitrogen 20 7 - 18 Above high Blood Urea [facility] [Mass/volume] in mg/dl mg/dl normal Nitrogen, Health Serum or Plasma Serum System Creatinine 0.84 0.50 - Normal (applies Creatinine, [facility] [Mass/volume] in mg/dl 1.20 to non-numeric Serum [facility] Serum or Plasma mg/dl results) System Alkaline 49 42 - Normal (applies Alkaline [facility] phosphatase {IU/L} 121 to non-numeric Phosphatase, Health isoenzymes IU/L results) Serum System [Enzymatic activity/volume] in Serum or Plasma by Heat stability Bilirubin.total 0.8 0.2 - Normal (applies Bilirubin, [facility] [Mass/volume] in mg/dl 1.2 to non-numeric Serum Total [facility] Serum or Plasma mg/dl results) System Direct Bilirubin 0.2 0.0 - Normal (applies Direct [facility] mg/dl 0.4 to non-numeric Bilirubin [facility] mg/dl results) System Aspartate 49 10 - 42 Above high Aspartate [facility] aminotransferase {IU/L} IU/L normal Transaminase, Health [Enzymatic Serum System activity/volume] in Serum or Plasma by With P-5'-P Albumin 4.7 3.2 - Normal (applies Albumin, [facility] [Mass/volume] in {gm/dl} 5.5 to non-numeric Serum [facility] Serum or Plasma gm/dl results) System I. Phosphorus 4.0 2.6 - Normal (applies I. Phosphorus [facility] mg/dl 4.9 to non-numeric [facility] mg/dl results) System Alanine 34 10 - 42 Normal (applies Alanine [facility] aminotransferase {IU/L} IU/L to non-numeric Aminotransfer [facility]al th [Enzymatic results) ase, Serum System activity/volume] in Serum or Plasma Calcium 9.0 8.4 - Normal (applies Calcium, [facility] [Mass/volume] in mg/dl 10.2 to non-numeric Total Serum [facility] Serum or Plasma mg/dl results) System A/G Ratio 1.81 Normal (applies A/G Ratio [facility] to non-numeric [facility] results) System Urate 4.1 2.3 - Normal (applies Uric Acid, [facility] [Mass/volume] in mg/dl 7.5 to non-numeric Serum [facility] Serum or Plasma mg/dl results) System Anion gap in Serum 6.10 Normal (applies Anion Gap José sirisha or Plasma mmol/L to non-numeric Health results) System Glomerular 81.32 Normal (applies GFR [facility] filtration to non-numeric Health rate/1.73 sq results) System M.predicted [Volume Rate/Area] in Serum or Plasma by Creatinine-based formula (CKD-EPI) eGFR will provide clinicians with a more accurate indicator of renal function then the serum creatinine. The eGFR is automa tically calculated from an empiric formula (endorsed by the [employer] ion) which incorporates age, sex, and race.Clinicians may notice surprisingly low GFR's with serum creatinine valueswithin normal range- particularly in elderly wo men (with low muscle mass).In the hospital setting, the eGFR should add an element of safety in drug dosing, in assessing the risk of IV contrast administration, and in assessing vascular risk.The NKF staging system is as follows:Normal: eGFR >90 with no kidney markersStage 1: eGFR >90 with kidney markers*Stage 2: eGFR 60- 89Stage 3: eGFR 30-59Stage 4: eGFR 15-29Stage 5: eGFR <15 (usually requir ing dialysis)*Markers include: Proteinuria, Hematuria, abnormal imaging-studies, or other blood or urine test abnormalities ID Date Data Source [id number] 01/01/2017 11:33:00 PM EST [facility] Name Value Range Interpretation Description Data Sup porting Code Source(s) Document(s ) Lipase 14 U/L 4 - 66 Normal (applies to Lipase, Serum [facility] [Enzymatic U/L non-numeric Health System activity/v results) olume] in Serum or Plasma ID Date Data Source [id number] 12/18/2016 10:50:00 AM EST [facility] Name Value Range Interpretation Description Data Sup porting Code Source(s) Document(s ) Color Yellow Yellow Normal (applies Color [facility] to non-numeric [facility] results) System Appearance of CLOUDY Clear Normal (applies Urine [facility] Urine to non-numeric Appearance [facility] results) System Specific 1.024 1.001 - Normal (applies Urine Specific [facility] gravity of 1.035 to non-numeric [facility] Urine results) System pH.. 5.0 4.6 - 8.0 Normal (applies pH.. [facility] {pH_unit pH units to non-numeric Health s} results) System Glucose, UA NEG < 50 mg/dl Normal (applies Glucose, UA [facility] to non-numeric [facility] results) System Protein NEG < 30 mg/dl Normal (applies Protein [facility] [Mass/volume] to non-numeric Health in Serum or results) System Plasma Bilirubin NEG Negative Normal (applies Bilirubin [facility] Urine Sm to Lg to non-numeric Urine Health results) System Urobilinogen < 2.0 Normal (applies Urobilinogen [facility] [Mass/volume] to non-numeric UA [facility] in Urine results) System Reference Range: Negative or <=2.0 Ketones NEG <TR mg/dL Normal (applies Ketones UA [facility] [Mass/volume] in to non-numeric Health S ystem Urine results) Nitrate+Nitrite Negative Negative Normal (applies Nitrite [facility] [Mass/volume] in Neg/Pos to non-numeric Health S ystem Unspecified results) specimen Leukocyte Trace Negative Tr Abnormal Leukocyte [facility] esterase to Lg (applies to Esterase [facility] System [Units/volume] in non-numeric Concentration Urine results) Leukocytes 4 {/HPF} 0 - 2 /HPF Normal (applies White Blood [facility] [#/volume] in to non-numeric Cells Health Syst em Unspecified results) specimen by Automated count Red Blood Cells 2 {/HPF} 0 - 1 /HPF Normal (applies Red Blood Cells [facility] to non-numeric [facility] System results) Epithelial cells 17 {/HPF} 0 - 3 /HPF Normal (applies Epithelial Gisel ls [facility] [Presence] in to non-numeric Health Syst em Unspecified results) specimen by Wet preparation Mucus RARE 0 - 1 /LPF Normal (applies Mucus [facility] to non-numeric [facility] System results) Bacteria MOD 0 - 5 /HPF Normal (applies Bacteria [facility] [Presence] in to non-numeric Health Syst em Unspecified results) specimen Urine Blood SM(1+) Negative Sm Abnormal Urine Blood [facility] to Lg (applies to Health System non-numeric results) ID Date Data Source [id number] 09/27/2016 01:16:00 PM EST [facility] Name Value Range Interpretation Description Data Sup porting Code Source(s) Document(s ) Deprecated Micro Normal (applies Aerobic [facility] Bacteria Result to non-numeric Culture, Urine [facility] identified in Final results) System Urine by Culture Aerobe Reading culture Note::< 10,000 CFU/ML ID Date Data Source [id number] 09/27/2016 01:16:00 PM EST [facility] Name Value Range Interpretation Description Data Sup porting Code Source(s) Document(s ) Color Yellow Yellow Normal (applies Color [facility] to non-numeric [facility] results) System Appearance of HAZY Clear Normal (applies Urine [facility] Urine to non-numeric Appearance Health results) System Specific 1.020 1.001 - Normal (applies Urine Specific [facility] gravity of 1.035 to non-numeric [facility] Urine results) System pH.. 6.0 4.6 - 8.0 Normal (applies pH.. [facility] {pH_unit pH units to non-numeric Health s} results) System Glucose, UA NEG < 50 mg/dl Normal (applies Glucose, UA [facility] to non-numeric [facility] results) System Protein NEG < 30 mg/dl Normal (applies Protein [facility] [Mass/volume] to non-numeric Health in Serum or results) System Plasma Bilirubin NEG Negative Normal (applies Bilirubin [facility] Urine Sm to Lg to non-numeric Urine Health results) System Urobilinogen < 2.0 Normal (applies Urobilinogen [facility] [Mass/volume] to non-numeric UA [facility] in Urine results) System Reference Range: Negative or <=2.0 Ketones NEG Negative Tr Normal (applies Ketones UA [facility] [Mass/volume] in to Lg to non-numeric Health S ystem Urine results) Nitrate+Nitrite Negative Negative Normal (applies Nitrite [facility] [Mass/volume] in Neg/Pos to non-numeric Health S ystem Unspecified results) specimen Leukocyte Trace Negative Tr Abnormal Leukocyte [facility] esterase to Lg (applies to Esterase [facility] System [Units/volume] in non-numeric Concentration Urine results) Leukocytes 4 {/HPF} 0 - 2 /HPF Normal (applies White Blood Cells [facility] [#/volume] in to non-numeric Health Syst em Unspecified results) specimen by Automated count Red Blood Cells 2 {/HPF} 0 - 1 /HPF Normal (applies Red Blood Cells [facility] to non-numeric [facility] System results) Epithelial cells 8 {/HPF} 0 - 3 /HPF Normal (applies Epithelial Gisel ls [facility] [Presence] in to non-numeric Health Syst em Unspecified results) specimen by Wet preparation Hyaline casts 1 {/LPF} 0 - 1 /LPF Abnormal Hyaline Casts [facility] [#/area] in Urine (applies to Health Sys tem sediment by non-numeric Microscopy high results) power field Bacteria FEW 0 - 5 /HPF Normal (applies Bacteria [facility] [Presence] in to non-numeric Health Syst em Unspecified results) specimen Urine Blood MOD(2+) Negative Sm Abnormal Urine Blood [facility] to Lg (applies to Health System non-numeric results) ID Date Data Source [id number] 09/27/2016 01:16:00 PM EST [facility] Name Value Range Interpretation Description Data Sup porting Code Source(s) Document(s ) Leukocytes 7.2 4.8 - Normal (applies WBC Count [facility] [#/volume] in {10^3_u 10.8 to non-numeric Health Unspecified L} 10^3 uL results) System specimen by Automated count Erythrocytes 4.76 4.20 - Normal (applies RBC Count [facility] [#/volume] in {10^6_u 5.40 to non-numeric Health Blood by L} 10^6 uL results) System Automated count Hemoglobin 13.2 12.0 - Normal (applies Hemoglobin [facility] [Mass/volume] in {gm/dL} 16.0 to non-numeric Health Blood gm/dL results) System Hematocrit 41.8 % 37.0 - Normal (applies Hematocrit [facility] [Volume 47.0 % to non-numeric Health Fraction] of results) System Blood Erythrocyte mean 87.8 fl 81.0 - Normal (applies MCV [facility] corpuscular 99.0 fl to non-numeric Health volume [Entitic results) System volume] by Automated count Erythrocyte mean 27.7 pg 27.0 - Normal (applies MCH [facility] corpuscular 31.0 pg to non-numeric Health hemoglobin results) System [Entitic mass] by Automated count Erythrocyte mean 31.6 30.0 - Normal (applies MCHC [facility] corpuscular {gm/dL} 35.0 to non-numeric Health hemoglobin gm/dL results) System concentration [Mass/volume] by Automated count Erythrocyte 14.4 % 11.5 - Normal (applies RDW-CV [facility] distribution 14.5 % to non-numeric Health width [Entitic results) System volume] by Automated count Immature 5.90 % 0.90 - Normal (applies Immature [facility] Platelet 11.20 % to non-numeric Platelet Health Fraction results) Fraction System Platelets 200 130 - Normal (applies Platelet Count [facility] [#/volume] in {10^3_u 400 to non-numeric Health Plasma by L} 10^3 uL results) System Automated count Platelet mean 11.7 fl 8.6 - Normal (applies MPV [facility] volume [Entitic 13.5 fl to non-numeric Health volume] in Blood results) System by Automated count Nucleated 0.0 0.0 - Normal (applies NRBC % [facility] erythrocytes {/100_W 0.2 to non-numeric Health [#/volume] in BC} /100 results) System Body fluid WBC NRBC # 0.00 0.00 - Normal (applies NRBC # [facility] {10^6_u 0.01 to non-numeric Health L} 10^6 uL results) System Neutrophils/100 62.4 % 55.0 - Normal (applies Neutrophil % [facility] leukocytes in 75.0 % to non-numeric Health Blood by results) System Automated count Neutrophils 4.5 Normal (applies Neutrophil # [facility] [#/volume] in {10^3_u to non-numeric Health Body fluid L} results) System Lymphocytes 27.6 % 15.0 - Normal (applies Lymphocyte % [facility] [#/volume] in 41.0 % to non-numeric Health Blood by results) System Automated count Lymphocyte # 2.0 1.0 - Normal (applies Lymphocyte # [facility] {10^3_u 4.8 to non-numeric Health L} 10^3 uL results) System Monocytes/100 6.0 % 2.0 - Normal (applies Monocyte % [facility] leukocytes in 9.0 % to non-numeric Health Blood results) System Monocytes 0.4 Normal (applies Monocyte # [facility] [#/volume] in {10^3_u to non-numeric Health Blood by Manual L} results) System count Eosinophils/100 2.8 % 0.0 - Normal (applies Eosinophil % [facility] leukocytes in 5.0 % to non-numeric Health Unspecified results) System specimen Eosinophils 0.20 0.00 - Normal (applies Eosinophil # [facility] [#/volume] in {10^3_u 0.50 to non-numeric Health Blood L} 10^3 uL results) System Basophils/100 0.8 % 0.0 - Normal (applies Basophil % [facility] leukocytes in 1.0 % to non-numeric Health Unspecified results) System specimen by Manual count Basophils 0.06 0.00 - Normal (applies Basophil # [facility] [#/volume] in {10^3_u 0.10 to non-numeric Health Blood by L} 10^3 uL results) System Automated count Immature 0.03 0.00 - Normal (applies Immature [facility] Granulocytes # {10^3_u 0.09 to non-numeric Granulocytes # Healt h L} 10^3 uL results) System Immature 0.4 % 0.0 - Normal (applies Immature [facility] Granulocytes % 0.8 % to non-numeric Granulocytes % [facility] results) System ID Date Data Source [id number] 09/27/2016 01:16:00 PM EST [facility] Name Value Range Interpretation Description Data Sup porting Code Source(s) Document(s ) Sodium 140 135 - Normal (applies Sodium, Serum [facility] [Moles/volume] in mmol/L 145 to non-numeric Health Serum or Plasma mmol/L results) System Potassium 4.0 3.5 - Normal (applies Potassium, [facility] [Mass/volume] in mmol/L 5.0 to non-numeric Serum Health Serum or Plasma mmol/L results) System Chloride 107 101 - Normal (applies Chloride, [facility] [Moles/volume] in mmol/L 111 to non-numeric Serum Health Serum or Plasma mmol/L results) System Carbon dioxide, 25.3 21.0 - Normal (applies CO2, Serum [facility] total mmol/L 31.0 to non-numeric Health [Moles/volume] in mmol/L results) System Serum or Plasma Total Protein 6.5 6.4 - Normal (applies Total Protein [facility] mg/dl 8.1 to non-numeric [facility] mg/dl results) System Glucose 84 65 - Normal (applies Glucose, [facility] [Mass/volume] in mg/dL 110 to non-numeric Serum Health Serum or Plasma mg/dL results) System Urea nitrogen 14 7 - 18 Normal (applies Blood Urea [facility] [Mass/volume] in mg/dl mg/dl to non-numeric Nitrogen, Health Serum or Plasma results) Serum System Creatinine 0.77 0.50 - Normal (applies Creatinine, [facility] [Mass/volume] in mg/dl 1.20 to non-numeric Serum Health Serum or Plasma mg/dl results) System Alkaline 52 42 - Normal (applies Alkaline [facility] phosphatase {IU/L} 121 to non-numeric Phosphatase, Health isoenzymes IU/L results) Serum System [Enzymatic activity/volume] in Serum or Plasma by Heat stability Bilirubin.total 0.4 0.2 - Normal (applies Bilirubin, [facility] [Mass/volume] in mg/dl 1.2 to non-numeric Serum Total Health Serum or Plasma mg/dl results) System Direct Bilirubin 0.1 0.0 - Normal (applies Direct [facility] mg/dl 0.4 to non-numeric Bilirubin [facility] mg/dl results) System Aspartate 14 10 - 42 Normal (applies Aspartate [facility] aminotransferase {IU/L} IU/L to non-numeric Transaminase, Heal th [Enzymatic results) Serum System activity/volume] in Serum or Plasma by With P-5'-P Albumin 4.2 3.2 - Normal (applies Albumin, [facility] [Mass/volume] in {gm/dl} 5.5 to non-numeric Serum Health Serum or Plasma gm/dl results) System I. Phosphorus 3.8 2.6 - Normal (applies I. Phosphorus [facility] mg/dl 4.9 to non-numeric Health mg/dl results) System Alanine 12 10 - 42 Normal (applies Alanine [facility] aminotransferase {IU/L} IU/L to non-numeric Aminotransfer [facility] [Enzymatic results) ase, Serum System activity/volume] in Serum or Plasma Calcium 8.8 8.4 - Normal (applies Calcium, [facility] [Mass/volume] in mg/dl 10.2 to non-numeric Total Serum Health Serum or Plasma mg/dl results) System A/G Ratio 1.83 Normal (applies A/G Ratio [facility] to non-numeric Health results) System Urate 4.2 2.3 - Normal (applies Uric Acid, [facility] [Mass/volume] in mg/dl 7.5 to non-numeric Serum Health Serum or Plasma mg/dl results) System Anion gap in Serum 7.70 Normal (applies Anion Gap José sirisha or Plasma mmol/L to non-numeric Health results) System Glomerular > 90 Normal (applies GFR [facility] filtration to non-numeric Health rate/1.73 sq results) System M.predicted [Volume Rate/Area] in Serum or Plasma by Creatinine-based formula (CKD-EPI) eGFR will provide clinicians with a more accurate indicator of renal function then the serum creatinine. The eGFR is automa tically calculated from an empiric formula (endorsed by the [employer] ion) which incorporates age, sex, and race.Clinicians may notice surprisingly low GFR's with serum creatinine valueswithin normal range- particularly in elderly wo men (with low muscle mass).In the hospital setting, the eGFR should add an element of safety in drug dosing, in assessing the risk of IV contrast administration, and in assessing vascular risk.The NKF staging system is as follows:Normal: eGFR >90 with no kidney markersStage 1: eGFR >90 with kidney markers*Stage 2: eGFR 60- 89Stage 3: eGFR 30-59Stage 4: eGFR 15-29Stage 5: eGFR <15 (usually requir ing dialysis)*Markers include: Proteinuria, Hematuria, abnormal imaging-studies, or other blood or urine test abnormalities ID Date Data Source [id number] 09/27/2016 01:16:00 PM EST Ana Mckeon alth System Name Value Range Interpretation Description Data Sup porting Code Source(s) Document(s ) Lipase 27 U/L 4 - 66 Normal (applies to Lipase, Serum [facility] [Enzymatic U/L non-numeric Health System activity/v results) olume] in Serum or Plasma ID Date Data Source [id number] 08/15/2016 06:30:00 PM EDT Renateore Mike alth System Name Value Range Interpretation Description Data Sup porting Code Source(s) Document(s ) Strep Group Negative Normal (applies to Strep Group A José sirisha A Direct non-numeric Direct Antigen Health System Antigen results) Method: ImmunochromatographicRapid Strep Grp A preliminary test only!!! Final result will be confirmed by culture. ID Date Data Source [id number] 07/12/2016 09:31:00 PM EDT Ana [facility] System Name Value Range Interpretation Description Data Sup porting Code Source(s) Document(s ) Poikilocytosis Slight Normal (applies Poikilocytosis [facility] [Presence] in to non-numeric Health Blood by results) System Automated count Anisocytosis Slight Normal (applies Anisocytosis [facility] [Presence] in to non-numeric Health Blood by results) System Automated count Dacrocytes Few Normal (applies Tear Drops [facility] [Presence] in to non-numeric Health Blood by Light results) System microscopy Acanthocytes/100 Few Normal (applies Acanthocytes [facility] 0 erythrocytes to non-numeric Health in Blood by results) System Light microscopy Platelets Adequate Normal Normal (applies Platelet Count [facility] [#/volume] in to non-numeric Estimate Health Blood by results) System Estimate ID Date Data Source [id number] 07/12/2016 09:31:00 PM EDT Ana Mckeon [facility] System Name Value Range Interpretation Description Data Sup porting Code Source(s) Document(s ) Strep Group Negative Normal (applies to Strep Group A José sirisha A Direct non-numeric Direct Antigen Health System Antigen results) Method: ImmunochromatographicRapid Strep Grp A preliminary test only!!! Final result will be confirmed by culture. ID Date Data Source [id number] 07/12/2016 09:31:00 PM EDT Montesirisha mccauley System Name Value Range Interpretation Description Data Sup porting Code Source(s) Document(s ) Color Yellow Yellow Normal (applies Color [facility] to non-numeric Health results) System Appearance of CLOUDY Clear Normal (applies Urine [facility] Urine to non-numeric Appearance Health results) System Specific 1.016 1.001 - Normal (applies Urine Specific [facility] gravity of 1.035 to non-numeric [facility] Urine results) System pH.. 7.0 4.6 - 8.0 Normal (applies pH.. [facility] {pH_unit pH units to non-numeric Health s} results) System Glucose, UA NEG < 50 mg/dl Normal (applies Glucose, UA [facility] to non-numeric [facility] results) System Protein NEG < 30 mg/dl Normal (applies Protein [facility] [Mass/volume] to non-numeric Health in Serum or results) System Plasma Bilirubin NEG Negative Normal (applies Bilirubin [facility] Urine Sm to Lg to non-numeric Urine Health results) System Urobilinogen < 2.0 Normal (applies Urobilinogen [facility] [Mass/volume] to non-numeric UA Health in Urine results) System Reference Range: Negative or <=2.0 Ketones NEG Negative Tr Normal (applies Ketones UA [facility] [Mass/volume] in to Lg to non-numeric Health S ystem Urine results) Nitrate+Nitrite Negative Negative Normal (applies Nitrite [facility] [Mass/volume] in Neg/Pos to non-numeric Health S ystem Unspecified results) specimen Leukocyte Large Negative Tr Abnormal Leukocyte [facility] esterase to Lg (applies to Esterase [facility] System [Units/volume] in non-numeric Concentration Urine results) Leukocytes 34 {/HPF} 0 - 2 /HPF Normal (applies White Blood [facility] [#/volume] in to non-numeric Cells Health Syst em Unspecified results) specimen by Automated count Red Blood Cells 2 {/HPF} 0 - 1 /HPF Normal (applies Red Blood Cells [facility] to non-numeric [facility] System results) Epithelial cells 31 {/HPF} 0 - 3 /HPF Normal (applies Epithelial Gisel ls [facility] [Presence] in to non-numeric Health Syst em Unspecified results) specimen by Wet preparation Mucus RARE 0 - 1 /LPF Normal (applies Mucus [facility] to non-numeric Health System results) Bacteria MOD 0 - 5 /HPF Normal (applies Bacteria [facility] [Presence] in to non-numeric Health Syst em Unspecified results) specimen Urine Blood NEG Negative Sm Normal (applies Urine Blood [facility] to Lg to non-numeric Health System results) ID Date Data Source [id number] 07/12/2016 09:31:00 PM EDT [facility] System Name Value Range Interpretation Description Data Sup porting Code Source(s) Document(s ) Leukocytes 12.1 4.8 - Above high WBC Count [facility] [#/volume] in {10^3_u 10.8 normal Health Unspecified L} 10^3 uL System specimen by Automated count Erythrocytes 4.84 4.20 - Normal (applies RBC Count [facility] [#/volume] in {10^6_u 5.40 to non-numeric Health Blood by L} 10^6 uL results) System Automated count Hemoglobin 12.5 12.0 - Normal (applies Hemoglobin [facility] [Mass/volume] in {gm/dL} 16.0 to non-numeric Health Blood gm/dL results) System Hematocrit 40.2 % 37.0 - Normal (applies Hematocrit [facility] [Volume 47.0 % to non-numeric Health Fraction] of results) System Blood Erythrocyte mean 83.1 fl 81.0 - Normal (applies MCV [facility] corpuscular 99.0 fl to non-numeric Health volume [Entitic results) System volume] by Automated count Erythrocyte mean 25.8 pg 27.0 - Below low normal MCH [facility] corpuscular 31.0 pg Health hemoglobin System [Entitic mass] by Automated count Erythrocyte mean 31.1 30.0 - Normal (applies MCHC [facility] corpuscular {gm/dL} 35.0 to non-numeric Health hemoglobin gm/dL results) System concentration [Mass/volume] by Automated count Erythrocyte 16.0 % 11.5 - Above high RDW-CV [facility] distribution 14.5 % normal Health width [Entitic System volume] by Automated count Platelets 203 130 - Normal (applies Platelet Count [facility] [#/volume] in {10^3_u 400 to non-numeric Health Plasma by L} 10^3 uL results) System Automated count Immature 5.80 % 0.90 - Normal (applies Immature [facility] Platelet 11.20 % to non-numeric Platelet Health Fraction results) Fraction System Platelet mean 11.7 fl 8.6 - Normal (applies MPV [facility] volume [Entitic 13.5 fl to non-numeric Health volume] in Blood results) System by Automated count Nucleated 0.0 0.0 - Normal (applies NRBC % [facility] erythrocytes {/100_W 0.2 to non-numeric Health [#/volume] in BC} /100 results) System Body fluid WBC NRBC # 0.00 0.00 - Normal (applies NRBC # [facility] {10^6_u 0.01 to non-numeric Health L} 10^6 uL results) System Neutrophils/100 74.7 % 55.0 - Normal (applies Neutrophil % José sirisha leukocytes in 75.0 % to non-numeric Health Blood by results) System Automated count Neutrophils 9.0 Normal (applies Neutrophil # [facility] [#/volume] in {10^3_u to non-numeric Health Body fluid L} results) System Lymphocytes 17.4 % 15.0 - Normal (applies Lymphocyte % [facility] [#/volume] in 41.0 % to non-numeric Health Blood by results) System Automated count Lymphocyte # 2.1 1.0 - Normal (applies Lymphocyte # [facility] {10^3_u 4.8 to non-numeric Health L} 10^3 uL results) System Monocytes/100 6.6 % 2.0 - Normal (applies Monocyte % [facility] leukocytes in 9.0 % to non-numeric Health Blood results) System Monocytes 0.8 Normal (applies Monocyte # [facility] [#/volume] in {10^3_u to non-numeric Health Blood by Manual L} results) System count Eosinophils/100 0.7 % 0.0 - Normal (applies Eosinophil % José sirisha leukocytes in 5.0 % to non-numeric Health Unspecified results) System specimen Eosinophils 0.08 0.00 - Normal (applies Eosinophil # [facility] [#/volume] in {10^3_u 0.50 to non-numeric Health Blood L} 10^3 uL results) System Basophils/100 0.3 % 0.0 - Normal (applies Basophil % [facility] leukocytes in 1.0 % to non-numeric Health Unspecified results) System specimen by Manual count Basophils 0.04 0.00 - Normal (applies Basophil # [facility] [#/volume] in {10^3_u 0.10 to non-numeric Health Blood by L} 10^3 uL results) System Automated count Immature 0.04 0.00 - Normal (applies Immature [facility] Granulocytes # {10^3_u 0.09 to non-numeric Granulocytes # Healt h L} 10^3 uL results) System Immature 0.3 % 0.0 - Normal (applies Immature [facility] Granulocytes % 0.8 % to non-numeric Granulocytes % Healt h results) System ID Date Data Source [id number] 07/12/2016 09:31:00 PM EDT [facility] System Name Value Range Interpretation Description Data Sup porting Code Source(s) Document(s ) Sodium 139 135 - Normal (applies Sodium, Serum [facility] [Moles/volume] in mmol/L 145 to non-numeric Health Serum or Plasma mmol/L results) System Potassium 3.9 3.5 - Normal (applies Potassium, [facility] [Mass/volume] in mmol/L 5.0 to non-numeric Serum Health Serum or Plasma mmol/L results) System Chloride 105 101 - Normal (applies Chloride, [facility] [Moles/volume] in mmol/L 111 to non-numeric Serum Health Serum or Plasma mmol/L results) System Carbon dioxide, 27.8 21.0 - Normal (applies CO2, Serum [facility] total mmol/L 31.0 to non-numeric Health [Moles/volume] in mmol/L results) System Serum or Plasma Total Protein 6.6 6.4 - Normal (applies Total Protein [facility] mg/dl 8.1 to non-numeric Health mg/dl results) System Glucose 83 65 - Normal (applies Glucose, [facility] [Mass/volume] in mg/dL 110 to non-numeric Serum Health Serum or Plasma mg/dL results) System Urea nitrogen 12 7 - 18 Normal (applies Blood Urea [facility] [Mass/volume] in mg/dl mg/dl to non-numeric Nitrogen, Health Serum or Plasma results) Serum System Creatinine 0.85 0.50 - Normal (applies Creatinine, [facility] [Mass/volume] in mg/dl 1.20 to non-numeric Serum Health Serum or Plasma mg/dl results) System Alkaline 73 42 - Normal (applies Alkaline [facility] phosphatase {IU/L} 121 to non-numeric Phosphatase, Health isoenzymes IU/L results) Serum System [Enzymatic activity/volume] in Serum or Plasma by Heat stability Bilirubin.total 0.3 0.2 - Normal (applies Bilirubin, [facility] [Mass/volume] in mg/dl 1.2 to non-numeric Serum Total Health Serum or Plasma mg/dl results) System Direct Bilirubin 0.1 0.0 - Normal (applies Direct [facility] mg/dl 0.4 to non-numeric Bilirubin [facility] mg/dl results) System Aspartate 15 10 - 42 Normal (applies Aspartate [facility] aminotransferase {IU/L} IU/L to non-numeric Transaminase, Heal th [Enzymatic results) Serum System activity/volume] in Serum or Plasma by With P-5'-P Albumin 4.1 3.2 - Normal (applies Albumin, [facility] [Mass/volume] in {gm/dl} 5.5 to non-numeric Serum Health Serum or Plasma gm/dl results) System I. Phosphorus 4.7 2.6 - Normal (applies I. Phosphorus [facility] mg/dl 4.9 to non-numeric Health mg/dl results) System Alanine 19 10 - 42 Normal (applies Alanine [facility] aminotransferase {IU/L} IU/L to non-numeric Aminotransfer Heal th [Enzymatic results) ase, Serum System activity/volume] in Serum or Plasma Calcium 9.2 8.4 - Normal (applies Calcium, [facility] [Mass/volume] in mg/dl 10.2 to non-numeric Total Serum Health Serum or Plasma mg/dl results) System A/G Ratio 1.64 Normal (applies A/G Ratio [facility] to non-numeric Health results) System Urate 4.8 2.3 - Normal (applies Uric Acid, [facility] [Mass/volume] in mg/dl 7.5 to non-numeric Serum Health Serum or Plasma mg/dl results) System Anion gap in Serum 6.20 Normal (applies Anion Gap José sirisha or Plasma mmol/L to non-numeric Health results) System Glomerular 80.51 Normal (applies GFR [facility] filtration to non-numeric Health rate/1.73 sq results) System M.predicted [Volume Rate/Area] in Serum or Plasma by Creatinine-based formula (CKD-EPI) eGFR will provide clinicians with a more accurate indicator of renal function then the serum creatinine. The eGFR is automa tically calculated from an empiric formula (endorsed by the [employer] ion) which incorporates age, sex, and race.Clinicians may notice surprisingly low GFR's with serum creatinine valueswithin normal range- particularly in elderly wo men (with low muscle mass).In the hospital setting, the eGFR should add an element of safety in drug dosing, in assessing the risk of IV contrast administration, and in assessing vascular risk.The NKF staging system is as follows:Normal: eGFR >90 with no kidney markersStage 1: eGFR >90 with kidney markers*Stage 2: eGFR 60- 89Stage 3: eGFR 30-59Stage 4: eGFR 15-29Stage 5: eGFR <15 (usually requir ing dialysis)*Markers include: Proteinuria, Hematuria, abnormal imaging-studies, or other blood or urine test abnormalities ID Date Data Source [id number] 06/02/2016 04:38:00 AM EDT Josélilianarishi Mckeon alth System Name Value Range Interpretation Description Data Sup porting Code Source(s) Document(s ) Deprecated Micro Normal (applies Aerobic [facility] Bacteria Result to non-numeric Culture, Urine Health identified in Final results) System Urine by Culture Aerobe Reading culture Note::< 10,000 CFU/ML ID Date Data Source [id number] 06/02/2016 04:38:00 AM EDT Josélilianarishi Mckeon al[facility] System Name Value Range Interpretation Description Data Sup porting Code Source(s) Document(s ) Strep Group Negative Normal (applies to Strep Group A José sirisha A Direct non-numeric Direct Antigen Health System Antigen results) Method: ImmunochromatographicRapid Strep Grp A preliminary test only!!! Final result will be confirmed by culture. ID Date Data Source [id number] 06/02/2016 04:38:00 AM EDT Josélilianarishi Mckeon alth System Name Value Range Interpretation Description Data Sup porting Code Source(s) Document(s ) Color Yellow Yellow Normal (applies Color [facility] to non-numeric Health results) System Appearance of CLEAR Clear Normal (applies Urine [facility] Urine to non-numeric Appearance Health results) System Specific 1.005 Normal (applies Urine Specific [facility] gravity of to non-numeric [facility] Urine results) System pH.. 5.0 4.6 - 8.0 Normal (applies pH.. [facility] {pH_unit pH units to non-numeric Health s} results) System Glucose, UA NEG < 50 mg/dl Normal (applies Glucose, UA [facility] to non-numeric Health results) System Protein NEG < 30 mg/dl Normal (applies Protein [facility] [Mass/volume] to non-numeric Health in Serum or results) System Plasma Bilirubin NEG Negative Normal (applies Bilirubin [facility] Urine Sm to Lg to non-numeric Urine Health results) System Urobilinogen < 2.0 Normal (applies Urobilinogen [facility] [Mass/volume] to non-numeric UA Health in Urine results) System Reference Range: Negative or <=2.0 Ketones NEG Negative Tr Normal (applies Ketones UA [facility] [Mass/volume] in to Lg to non-numeric Health S ystem Urine results) Nitrate+Nitrite Negative Negative Normal (applies Nitrite [facility] [Mass/volume] in Neg/Pos to non-numeric Health S ystem Unspecified results) specimen Leukocyte NEG Negative Tr Normal (applies Leukocyte [facility] esterase to Lg to non-numeric Esterase Health System [Units/volume] in results) Concentration Urine Leukocytes 1 {/HPF} 0 - 2 /HPF Normal (applies White Blood Cells [facility] [#/volume] in to non-numeric Health Syst em Unspecified results) specimen by Automated count Red Blood Cells < 1 /HPF 0 - 1 /HPF Normal (applies Red Blood Cells [facility] to non-numeric [facility] System results) Epithelial cells 2 {/HPF} 0 - 3 /HPF Normal (applies Epithelial Gisel ls [facility] [Presence] in to non-numeric Health Syst em Unspecified results) specimen by Wet preparation Urine Blood NEG Negative Sm Normal (applies Urine Blood [facility] to Lg to non-numeric Health System results) ID Date Data Source [id number] 06/02/2016 04:38:00 AM EDT [facility] System Name Value Range Interpretation Description Data Sup porting Code Source(s) Document(s ) Leukocytes 13.5 4.8 - Above high WBC Count [facility] [#/volume] in {10^3_u 10.8 normal Health Unspecified L} 10^3 uL System specimen by Automated count Erythrocytes 4.91 4.20 - Normal (applies RBC Count [facility] [#/volume] in {10^6_u 5.40 to non-numeric Health Blood by L} 10^6 uL results) System Automated count Hemoglobin 12.9 12.0 - Normal (applies Hemoglobin [facility] [Mass/volume] in {gm/dL} 16.0 to non-numeric Health Blood gm/dL results) System Hematocrit 40.8 % 37.0 - Normal (applies Hematocrit [facility] [Volume 47.0 % to non-numeric Health Fraction] of results) System Blood Erythrocyte mean 83.1 fl 81.0 - Normal (applies MCV [facility] corpuscular 99.0 fl to non-numeric Health volume [Entitic results) System volume] by Automated count Erythrocyte mean 26.3 pg 27.0 - Below low normal MCH [facility] corpuscular 31.0 pg Health hemoglobin System [Entitic mass] by Automated count Erythrocyte mean 31.6 30.0 - Normal (applies MCHC [facility] corpuscular {gm/dL} 35.0 to non-numeric Health hemoglobin gm/dL results) System concentration [Mass/volume] by Automated count Erythrocyte 15.5 % 11.5 - Above high RDW-CV [facility] distribution 14.5 % normal Health width [Entitic System volume] by Automated count Platelets 211 130 - Normal (applies Platelet Count [facility] [#/volume] in {10^3_u 400 to non-numeric Health Plasma by L} 10^3 uL results) System Automated count Platelet mean 11.9 fl 8.6 - Normal (applies MPV [facility] volume [Entitic 13.5 fl to non-numeric Health volume] in Blood results) System by Automated count Nucleated 0.0 0.0 - Normal (applies NRBC % [facility] erythrocytes {/100_W 0.2 to non-numeric Health [#/volume] in BC} /100 results) System Body fluid WBC NRBC # 0.00 0.00 - Normal (applies NRBC # [facility] {10^6_u 0.01 to non-numeric Health L} 10^6 uL results) System Neutrophils/100 83.5 % 55.0 - Above high Neutrophil % [facility] leukocytes in 75.0 % normal Health Blood by System Automated count Neutrophils 11.3 Normal (applies Neutrophil # [facility] [#/volume] in {10^3_u to non-numeric Health Body fluid L} results) System Lymphocytes 8.4 % 15.0 - Below low normal Lymphocyte % [facility] [#/volume] in 41.0 % Health Blood by System Automated count Lymphocyte # 1.1 1.0 - Normal (applies Lymphocyte # [facility] {10^3_u 4.8 to non-numeric Health L} 10^3 uL results) System Monocytes/100 6.7 % 2.0 - Normal (applies Monocyte % [facility] leukocytes in 9.0 % to non-numeric Health Blood results) System Monocytes 0.9 Normal (applies Monocyte # [facility] [#/volume] in {10^3_u to non-numeric Health Blood by Manual L} results) System count Eosinophils/100 0.6 % 0.0 - Normal (applies Eosinophil % José sirisha leukocytes in 5.0 % to non-numeric Health Unspecified results) System specimen Eosinophils 0.08 0.00 - Normal (applies Eosinophil # [facility] [#/volume] in {10^3_u 0.50 to non-numeric Health Blood L} 10^3 uL results) System Basophils/100 0.4 % 0.0 - Normal (applies Basophil % [facility] leukocytes in 1.0 % to non-numeric Health Unspecified results) System specimen by Manual count Basophils 0.06 0.00 - Normal (applies Basophil # [facility] [#/volume] in {10^3_u 0.10 to non-numeric Health Blood by L} 10^3 uL results) System Automated count Immature 0.05 0.00 - Normal (applies Immature [facility] Granulocytes # {10^3_u 0.09 to non-numeric Granulocytes # Healt h L} 10^3 uL results) System Immature 0.4 % 0.0 - Normal (applies Immature [facility] Granulocytes % 0.8 % to non-numeric Granulocytes % [facility]alt h results) System ID Date Data Source [id number] 06/02/2016 04:38:00 AM EDT Ana mccauley System Name Value Range Interpretation Description Data Sup porting Code Source(s) Document(s ) Sodium 137 135 - Normal (applies Sodium, Serum [facility] [Moles/volume] in mmol/L 145 to non-numeric Health Serum or Plasma mmol/L results) System Potassium 3.9 3.5 - Normal (applies Potassium, [facility] [Mass/volume] in mmol/L 5.0 to non-numeric Serum Health Serum or Plasma mmol/L results) System Chloride 105 101 - Normal (applies Chloride, [facility] [Moles/volume] in mmol/L 111 to non-numeric Serum Health Serum or Plasma mmol/L results) System Carbon dioxide, 24.4 21.0 - Normal (applies CO2, Serum [facility] total mmol/L 31.0 to non-numeric Health [Moles/volume] in mmol/L results) System Serum or Plasma Total Protein 6.8 6.4 - Normal (applies Total Protein [facility] mg/dl 8.1 to non-numeric Health mg/dl results) System Glucose 99 65 - Normal (applies Glucose, [facility] [Mass/volume] in mg/dL 110 to non-numeric Serum Health Serum or Plasma mg/dL results) System Urea nitrogen 15 7 - 18 Normal (applies Blood Urea [facility] [Mass/volume] in mg/dl mg/dl to non-numeric Nitrogen, Health Serum or Plasma results) Serum System Creatinine 0.90 0.50 - Normal (applies Creatinine, [facility] [Mass/volume] in mg/dl 1.20 to non-numeric Serum Health Serum or Plasma mg/dl results) System Alkaline 88 42 - Normal (applies Alkaline [facility] phosphatase {IU/L} 121 to non-numeric Phosphatase, Health isoenzymes IU/L results) Serum System [Enzymatic activity/volume] in Serum or Plasma by Heat stability Bilirubin.total 0.4 0.2 - Normal (applies Bilirubin, [facility] [Mass/volume] in mg/dl 1.2 to non-numeric Serum Total Health Serum or Plasma mg/dl results) System Direct Bilirubin 0.1 0.0 - Normal (applies Direct [facility] mg/dl 0.4 to non-numeric Bilirubin Health mg/dl results) System Aspartate 15 10 - 42 Normal (applies Aspartate [facility] aminotransferase {IU/L} IU/L to non-numeric Transaminase, Heal th [Enzymatic results) Serum System activity/volume] in Serum or Plasma by With P-5'-P Albumin 4.2 3.2 - Normal (applies Albumin, [facility] [Mass/volume] in {gm/dl} 5.5 to non-numeric Serum Health Serum or Plasma gm/dl results) System I. Phosphorus 3.6 2.6 - Normal (applies I. Phosphorus [facility] mg/dl 4.9 to non-numeric Health mg/dl results) System Alanine 14 10 - 42 Normal (applies Alanine [facility] aminotransferase {IU/L} IU/L to non-numeric Aminotransfer Heal th [Enzymatic results) ase, Serum System activity/volume] in Serum or Plasma Calcium 8.9 8.4 - Normal (applies Calcium, [facility] [Mass/volume] in mg/dl 10.2 to non-numeric Total Serum Health Serum or Plasma mg/dl results) System A/G Ratio 1.62 Normal (applies A/G Ratio [facility] to non-numeric Health results) System Urate 4.9 2.3 - Normal (applies Uric Acid, [facility] [Mass/volume] in mg/dl 7.5 to non-numeric Serum Health Serum or Plasma mg/dl results) System Anion gap in Serum 7.60 Normal (applies Anion Gap José sirisha or Plasma mmol/L to non-numeric Health results) System Glomerular 75.44 Normal (applies GFR [facility] filtration to non-numeric Health rate/1.73 sq results) System M.predicted [Volume Rate/Area] in Serum or Plasma by Creatinine-based formula (CKD-EPI) eGFR will provide clinicians with a more accurate indicator of renal function then the serum creatinine. The eGFR is automa tically calculated from an empiric formula (endorsed by the [employer]) which incorporates age, sex, and race.Clinicians may notice surprisingly low GFR's with serum creatinine valueswithin normal range- particularly in elderly wo men (with low muscle mass).In the hospital setting, the eGFR should add an element of safety in drug dosing, in assessing the risk of IV contrast administration, and in assessing vascular risk.The NKF staging system is as follows:Normal: eGFR >90 with no kidney markersStage 1: eGFR >90 with kidney markers*Stage 2: eGFR 60- 89Stage 3: eGFR 30-59Stage 4: eGFR 15-29Stage 5: eGFR <15 (usually requir ing dialysis)*Markers include: Proteinuria, Hematuria, abnormal imaging-studies, or other blood or urine test abnormalities ID Date Data Source [id number] 04/30/2016 06:00:00 AM EDLisa mccauley System Name Value Range Interpretation Description Data Sup porting Code Source(s) Document(s ) Leukocytes 10.0 4.8 - Normal (applies WBC Count [facility] [#/volume] in {10^3_u 10.8 to non-numeric Health Unspecified L} 10^3 uL results) System specimen by Automated count Erythrocytes 3.70 4.20 - Below low normal RBC Count [facility] [#/volume] in {10^6_u 5.40 Health Blood by L} 10^6 uL System Automated count Hemoglobin 10.1 12.0 - Below low normal Hemoglobin [facility] [Mass/volume] in {gm/dL} 16.0 Health Blood gm/dL System Hematocrit 32.7 % 37.0 - Below low normal Hematocrit [facility] [Volume 47.0 % Health Fraction] of System Blood Erythrocyte mean 88.4 fl 81.0 - Normal (applies MCV [facility] corpuscular 99.0 fl to non-numeric Health volume [Entitic results) System volume] by Automated count Erythrocyte mean 27.3 pg 27.0 - Normal (applies MCH [facility] corpuscular 31.0 pg to non-numeric Health hemoglobin results) System [Entitic mass] by Automated count Erythrocyte mean 30.9 30.0 - Normal (applies MCHC [facility] corpuscular {gm/dL} 35.0 to non-numeric Health hemoglobin gm/dL results) System concentration [Mass/volume] by Automated count Erythrocyte 14.4 % 11.5 - Normal (applies RDW-CV [facility] distribution 14.5 % to non-numeric Health width [Entitic results) System volume] by Automated count Platelets 299 130 - Normal (applies Platelet Count [facility] [#/volume] in {10^3_u 400 to non-numeric Health Plasma by L} 10^3 uL results) System Automated count Platelet mean 10.8 fl 8.6 - Normal (applies MPV [facility] volume [Entitic 13.5 fl to non-numeric Health volume] in Blood results) System by Automated count Nucleated 0.0 0.0 - Normal (applies NRBC % [facility] erythrocytes {/100_W 0.2 to non-numeric Health [#/volume] in BC} /100 results) System Body fluid WBC NRBC # 0.00 0.00 - Normal (applies NRBC # [facility] {10^6_u 0.01 to non-numeric Health L} 10^6 uL results) System Neutrophils/100 74.6 % 55.0 - Normal (applies Neutrophil % José sirisha leukocytes in 75.0 % to non-numeric Health Blood by results) System Automated count Neutrophils 7.5 Normal (applies Neutrophil # [facility] [#/volume] in {10^3_u to non-numeric Health Body fluid L} results) System Lymphocytes 16.8 % 15.0 - Normal (applies Lymphocyte % [facility] [#/volume] in 41.0 % to non-numeric Health Blood by results) System Automated count Lymphocyte # 1.7 1.0 - Normal (applies Lymphocyte # [facility] {10^3_u 4.8 to non-numeric Health L} 10^3 uL results) System Monocytes/100 4.4 % 2.0 - Normal (applies Monocyte % [facility] leukocytes in 9.0 % to non-numeric Health Blood results) System Monocytes 0.4 Normal (applies Monocyte # [facility] [#/volume] in {10^3_u to non-numeric Health Blood by Manual L} results) System count Eosinophils/100 3.3 % 0.0 - Normal (applies Eosinophil % José sirisha leukocytes in 5.0 % to non-numeric Health Unspecified results) System specimen Eosinophils 0.33 0.00 - Normal (applies Eosinophil # [facility] [#/volume] in {10^3_u 0.50 to non-numeric Health Blood L} 10^3 uL results) System Basophils/100 0.5 % 0.0 - Normal (applies Basophil % [facility] leukocytes in 1.0 % to non-numeric Health Unspecified results) System specimen by Manual count Basophils 0.05 0.00 - Normal (applies Basophil # [facility] [#/volume] in {10^3_u 0.10 to non-numeric Health Blood by L} 10^3 uL results) System Automated count Immature 0.04 0.00 - Normal (applies Immature [facility] Granulocytes # {10^3_u 0.09 to non-numeric Granulocytes # Healt h L} 10^3 uL results) System Immature 0.4 % 0.0 - Normal (applies Immature [facility] Granulocytes % 0.8 % to non-numeric Granulocytes % [facility] results) System ID Date Data Source [id number] 04/30/2016 06:00:00 AM EDT [facility] System Name Value Range Interpretation Description Data Sup porting Code Source(s) Document(s ) Sodium 137 135 - Normal (applies Sodium, Serum [facility] [Moles/volume mmol/L 145 to non-numeric Health ] in Serum or mmol/L results) System Plasma Potassium 4.0 3.5 - Normal (applies Potassium, [facility] [Mass/volume] mmol/L 5.0 to non-numeric Serum Health in Serum or mmol/L results) System Plasma Chloride 106 101 - Normal (applies Chloride, [facility] [Moles/volume mmol/L 111 to non-numeric Serum Health ] in Serum or mmol/L results) System Plasma Carbon 25.0 21.0 - Normal (applies CO2, Serum [facility] dioxide, mmol/L 31.0 to non-numeric Health total mmol/L results) System [Moles/volume ] in Serum or Plasma Glucose 99 mg/dL 65 - 110 Normal (applies Glucose, Serum [facility] [Mass/volume] mg/dL to non-numeric Health in Serum or results) System Plasma Urea nitrogen 10 mg/dl 7 - 18 Normal (applies Blood Urea [facility] [Mass/volume] mg/dl to non-numeric Nitrogen, Health in Serum or results) Serum System Plasma Creatinine 0.85 0.50 - Normal (applies Creatinine, [facility] [Mass/volume] mg/dl 1.20 to non-numeric Serum Health in Serum or mg/dl results) System Plasma Calcium 8.1 8.4 - Below low normal Calcium, Total [facility] [Mass/volume] mg/dl 10.2 Serum Health in Serum or mg/dl System Plasma Anion gap in 6.00 Normal (applies Anion Gap [facility] Serum or mmol/L to non-numeric Health Plasma results) System ID Date Data Source [id number] 04/30/2016 06:00:00 AM EDT [facility] System Name Value Range Interpretation Description Data Sup porting Code Source(s) Document(s ) Gentamicin 1.2 <2 ug/ml Normal (applies Gentamicin [facility] [Mass/volume] ug/ml to non-numeric Level, [facility] in Serum or results) System Plasma --trough ID Date Data Source [id number] 04/29/2016 06:00:00 AM EDT [facility] System Name Value Range Interpretation Description Data Sup porting Code Source(s) Document(s ) Leukocytes 13.9 4.8 - Above high WBC Count [facility] [#/volume] in {10^3_u 10.8 normal Health Unspecified L} 10^3 uL System specimen by Automated count Erythrocytes 3.42 4.20 - Below low normal RBC Count [facility] [#/volume] in {10^6_u 5.40 Health Blood by L} 10^6 uL System Automated count Hemoglobin 9.4 12.0 - Below low normal Hemoglobin [facility] [Mass/volume] in {gm/dL} 16.0 Health Blood gm/dL System Hematocrit 29.7 % 37.0 - Below low normal Hematocrit [facility] [Volume 47.0 % Health Fraction] of System Blood Erythrocyte mean 86.8 fl 81.0 - Normal (applies MCV [facility] corpuscular 99.0 fl to non-numeric Health volume [Entitic results) System volume] by Automated count Erythrocyte mean 27.5 pg 27.0 - Normal (applies MCH [facility] corpuscular 31.0 pg to non-numeric Health hemoglobin results) System [Entitic mass] by Automated count Erythrocyte mean 31.6 30.0 - Normal (applies MCHC [facility] corpuscular {gm/dL} 35.0 to non-numeric Health hemoglobin gm/dL results) System concentration [Mass/volume] by Automated count Erythrocyte 14.5 % 11.5 - Normal (applies RDW-CV [facility] distribution 14.5 % to non-numeric Health width [Entitic results) System volume] by Automated count Platelets 271 130 - Normal (applies Platelet Count [facility] [#/volume] in {10^3_u 400 to non-numeric Health Plasma by L} 10^3 uL results) System Automated count Platelet mean 10.9 fl 8.6 - Normal (applies MPV [facility] volume [Entitic 13.5 fl to non-numeric Health volume] in Blood results) System by Automated count Nucleated 0.0 0.0 - Normal (applies NRBC % [facility] erythrocytes {/100_W 0.2 to non-numeric Health [#/volume] in BC} /100 results) System Body fluid WBC NRBC # 0.00 0.00 - Normal (applies NRBC # [facility] {10^6_u 0.01 to non-numeric Health L} 10^6 uL results) System Neutrophils/100 85.5 % 55.0 - Above high Neutrophil % [facility] leukocytes in 75.0 % normal Health Blood by System Automated count Neutrophils 11.9 Normal (applies Neutrophil # [facility] [#/volume] in {10^3_u to non-numeric Health Body fluid L} results) System Lymphocytes 9.1 % 15.0 - Below low normal Lymphocyte % [facility] [#/volume] in 41.0 % Health Blood by System Automated count Lymphocyte # 1.3 1.0 - Normal (applies Lymphocyte # [facility] {10^3_u 4.8 to non-numeric Health L} 10^3 uL results) System Monocytes/100 4.2 % 2.0 - Normal (applies Monocyte % [facility] leukocytes in 9.0 % to non-numeric Health Blood results) System Monocytes 0.6 Normal (applies Monocyte # [facility] [#/volume] in {10^3_u to non-numeric Health Blood by Manual L} results) System count Eosinophils/100 0.4 % 0.0 - Normal (applies Eosinophil % José sirisha leukocytes in 5.0 % to non-numeric Health Unspecified results) System specimen Eosinophils 0.05 0.00 - Normal (applies Eosinophil # [facility] [#/volume] in {10^3_u 0.50 to non-numeric Health Blood L} 10^3 uL results) System Basophils/100 0.2 % 0.0 - Normal (applies Basophil % [facility] leukocytes in 1.0 % to non-numeric Health Unspecified results) System specimen by Manual count Basophils 0.03 0.00 - Normal (applies Basophil # [facility] [#/volume] in {10^3_u 0.10 to non-numeric Health Blood by L} 10^3 uL results) System Automated count Immature 0.08 0.00 - Normal (applies Immature [facility] Granulocytes # {10^3_u 0.09 to non-numeric Granulocytes # Healt h L} 10^3 uL results) System Immature 0.6 % 0.0 - Normal (applies Immature [facility] Granulocytes % 0.8 % to non-numeric Granulocytes % [facility] results) System ID Date Data Source [id number] 04/29/2016 06:00:00 AM EDT [facility] System Name Value Range Interpretation Description Data Sup porting Code Source(s) Document(s ) Sodium 137 135 - Normal (applies Sodium, Serum [facility] [Moles/volume mmol/L 145 to non-numeric Health ] in Serum or mmol/L results) System Plasma Potassium 3.9 3.5 - Normal (applies Potassium, [facility] [Mass/volume] mmol/L 5.0 to non-numeric Serum Health in Serum or mmol/L results) System Plasma Chloride 108 101 - Normal (applies Chloride, [facility] [Moles/volume mmol/L 111 to non-numeric Serum Health ] in Serum or mmol/L results) System Plasma Carbon 22.9 21.0 - Normal (applies CO2, Serum [facility] dioxide, mmol/L 31.0 to non-numeric Health total mmol/L results) System [Moles/volume ] in Serum or Plasma Glucose 83 mg/dL 65 - 110 Normal (applies Glucose, Serum [facility] [Mass/volume] mg/dL to non-numeric Health in Serum or results) System Plasma Urea nitrogen 11 mg/dl 7 - 18 Normal (applies Blood Urea [facility] [Mass/volume] mg/dl to non-numeric Nitrogen, Health in Serum or results) Serum System Plasma Creatinine 0.97 0.50 - Normal (applies Creatinine, [facility] [Mass/volume] mg/dl 1.20 to non-numeric Serum Health in Serum or mg/dl results) System Plasma Calcium 7.5 8.4 - Below low normal Calcium, Total [facility] [Mass/volume] mg/dl 10.2 Serum [facility] in Serum or mg/dl System Plasma Anion gap in 6.10 Normal (applies Anion Gap [facility] Serum or mmol/L to non-numeric Health Plasma results) System ID Date Data Source [id number] 04/29/2016 06:00:00 AM EDT [facility] System Name Value Range Interpretation Description Data Sup porting Code Source(s) Document(s ) Magnesium 1.3 1.5 - Below low normal Magnesium, [facility] [Mass/volume {mEq/L} 2.2 Serum Health System ] in Serum mEq/L or Plasma ID Date Data Source [id number] 04/29/2016 06:00:00 AM EDT Ana Mckeon alth System Name Value Range Interpretation Description Data Sup porting Code Source(s) Document(s ) I. Phosphorus 3.5 2.6 - Normal (applies I. Phosphorus [facility] mg/dl 4.9 to non-numeric Health mg/dl results) System ID Date Data Source [id number] 04/28/2016 10:24:00 PM EDT [facility] Mckeon [facility] System Name Value Range Interpretation Description Data Sup porting Code Source(s) Document(s ) Deprecated NO GROWTH Aerobic [facility] Bacteria Culture, Urine Health System identified in Urine by Aerobe culture ID Date Data Source [id number] 04/28/2016 10:24:00 PM EDT Ana Mckeon alth System Name Value Range Interpretation Description Data Sup porting Code Source(s) Document(s ) Color Yellow Yellow Normal (applies Color [facility] to non-numeric Health results) System Appearance of CLOUDY Clear Normal (applies Urine [facility] Urine to non-numeric Appearance Health results) System Specific 1.011 Normal (applies Urine Specific [facility] gravity of to non-numeric [facility] Urine results) System pH.. 5.0 4.6 - 8.0 Normal (applies pH.. [facility] {pH_unit pH units to non-numeric Health s} results) System Glucose, UA NEG < 50 mg/dl Normal (applies Glucose, UA [facility] to non-numeric [facility] results) System Protein 100 < 30 mg/dl Abnormal Protein [facility] [Mass/volume] mg/dl (applies to Health in Serum or non-numeric System Plasma results) Bilirubin NEG Negative Normal (applies Bilirubin [facility] Urine Sm to Lg to non-numeric Urine Health results) System Urobilinogen < 2.0 Normal (applies Urobilinogen [facility] [Mass/volume] to non-numeric UA Health in Urine results) System Reference Range: Negative or <=2.0 Ketones NEG Negative Tr Normal Ketones UA [facility] [Mass/volume] in to Lg (applies to Health Syst em Urine non-numeric results) Nitrate+Nitrite Negative Negative Normal Nitrite [facility] [Mass/volume] in Neg/Pos (applies to Health Syst em Unspecified non-numeric specimen results) Leukocyte Small Negative Tr Abnormal Leukocyte [facility] esterase to Lg (applies to Esterase Health System [Units/volume] in non-numeric Concentration Urine results) Leukocytes 7 {/HPF} 0 - 2 /HPF Normal White Blood [facility] [#/volume] in (applies to Cells Health System Unspecified non-numeric specimen by results) Automated count Red Blood Cells 179 {/HPF} 0 - 1 /HPF Normal Red Blood Cells [facility] (applies to Health System non-numeric results) Epithelial cells 3 {/HPF} 0 - 3 /HPF Normal Epithelial Cells José sirisha [Presence] in (applies to Health System Unspecified non-numeric specimen by Wet results) preparation Mucus RARE 0 - 1 /LPF Normal Mucus [facility] (applies to Health System non-numeric results) Bacteria FEW 0 - 5 /HPF Normal Bacteria [facility] [Presence] in (applies to Health System Unspecified non-numeric specimen results) Yeast [Presence] OCC 0 /HPF Normal Yeast-Budding [facility] in Unspecified (applies to Health System specimen by non-numeric Organism specific results) culture Urine Blood LG(3+) Negative Sm Abnormal Urine Blood [facility] to Lg (applies to Health System non-numeric results) ID Date Data Source [id number] 04/28/2016 09:58:00 PM EDT [facility] System Name Value Range Interpretation Description Data Sup porting Code Source(s) Document(s ) Poikilocytosis Slight Normal (applies Poikilocytosis [facility] [Presence] in to non-numeric Health Blood by results) System Automated count Polychromasia Slight Abnormal Polychromasia [facility] [Presence] in (applies to Health Blood by Light non-numeric System microscopy results) Basophil %. 1 % 0 - 1 % Normal (applies Basophil %. [facility] to non-numeric Health results) System Polys 58 % 55 - 75 Normal (applies Polys [facility] % to non-numeric Health results) System Bands 30 % 2 - 6 % Above high Bands [facility] normal Health System Lymphocyte %. 4 % 15 - 41 Below low Lymphocyte %. [facility] % normal Health System Variant 3 % Normal (applies Atypical [facility] lymphocytes to non-numeric Lymphocyte Health [Presence] in results) Count System Blood by Automated count Platelets Adequate Normal Normal (applies Platelet Count [facility] [#/volume] in to non-numeric Estimate Health Blood by results) System Estimate Few large platelets. Few platelet clumpi ng. Monocyte %. 3 % 2 - 9 % Normal (applies Monocyte %. [facility] to non-numeric Health System results) Metamyelocytes 1 % >0 % Above high normal Metamyelocyte Cou nt [facility] [#/volume] in Blood Health Sys tem ID Date Data Source [id number] 04/28/2016 09:58:00 PM EDT [facility] System Name Value Range Interpretation Description Data Sup porting Code Source(s) Document(s ) Leukocytes 18.0 4.8 - Above high normal WBC Count [facility] [#/volume] in {10^3_uL 10.8 Health System Unspecified } 10^3 uL specimen by Automated count manual diff to follow. Erythrocytes 4.18 {10^6_uL} 4.20 - Below low RBC Count [facility] [#/volume] in 5.40 10^6 normal Health System Blood by Automated uL count Hemoglobin 11.2 {gm/dL} 12.0 - Below low Hemoglobin [facility] [Mass/volume] in 16.0 normal Health System Blood gm/dL Hematocrit [Volume 36.7 % 37.0 - Below low Hematocrit [facility] Fraction] of Blood 47.0 % normal Health Syst em Erythrocyte mean 87.8 fl 81.0 - Normal MCV [facility] corpuscular volume 99.0 fl (applies to Health Sy stem [Entitic volume] non-numeric by Automated count results) Erythrocyte mean 26.8 pg 27.0 - Below low MCH [facility] corpuscular 31.0 pg normal Health System hemoglobin [Entitic mass] by Automated count Erythrocyte mean 30.5 {gm/dL} 30.0 - Normal MCHC [facility] corpuscular 35.0 (applies to Health System hemoglobin gm/dL non-numeric concentration results) [Mass/volume] by Automated count Erythrocyte 14.4 % 11.5 - Normal RDW-CV [facility] distribution width 14.5 % (applies to Health Sy stem [Entitic volume] non-numeric by Automated count results) Platelets 345 {10^3_uL} 130 - 400 Normal Platelet Count [facility] [#/volume] in 10^3 uL (applies to Health System Plasma by non-numeric Automated count results) Platelet mean 10.7 fl 8.6 - Normal MPV [facility] volume [Entitic 13.5 fl (applies to Health Syste m volume] in Blood non-numeric by Automated count results) Nucleated 0.0 {/100_WBC} 0.0 - 0.2 Normal NRBC % [facility] erythrocytes /100 WBC (applies to Health System [#/volume] in Body non-numeric fluid results) NRBC # 0.00 {10^6_uL} 0.00 - Normal NRBC # [facility] 0.01 10^6 (applies to Health System uL non-numeric results) Neutrophils/100 94.9 % 55.0 - Above high Neutrophil % [facility] leukocytes in 75.0 % normal [facility] Blood by Automated count Neutrophils 17.1 {10^3_uL} Normal Neutrophil # [facility] [#/volume] in Body (applies to Health Sy stem fluid non-numeric results) Lymphocytes 2.0 % 15.0 - Below low Lymphocyte % [facility] [#/volume] in 41.0 % normal [facility] System Blood by Automated count Lymphocyte # 0.4 {10^3_uL} 1.0 - 4.8 Below low Lymphocyte # [facility] 10^3 uL normal Health System Monocytes/100 2.5 % 2.0 - 9.0 Normal Monocyte % [facility] leukocytes in % (applies to Health System Blood non-numeric results) Monocytes 0.5 {10^3_uL} Normal Monocyte # [facility] [#/volume] in (applies to Health System Blood by Manual non-numeric count results) Eosinophils/100 0.0 % 0.0 - 5.0 Normal Eosinophil % [facility] leukocytes in % (applies to Health System Unspecified non-numeric specimen results) Eosinophils 0.00 {10^3_uL} 0.00 - Normal Eosinophil # [facility] [#/volume] in 0.50 10^3 (applies to Health System Blood uL non-numeric results) Basophils/100 0.3 % 0.0 - 1.0 Normal Basophil % [facility] leukocytes in % (applies to Health System Unspecified non-numeric specimen by Manual results) count Basophils 0.05 {10^3_uL} 0.00 - Normal Basophil # [facility] [#/volume] in 0.10 10^3 (applies to Health System Blood by Automated uL non-numeric count results) Immature 0.06 {10^3_uL} 0.00 - Normal Immature [facility] Granulocytes # 0.09 10^3 (applies to Granulocytes # Health S yste uL non-numeric results) Immature 0.3 % 0.0 - 0.8 Normal Immature [facility] Granulocytes % % (applies to Granulocytes % [facility] S te non-numeric results) ID Date Data Source [id number] 04/28/2016 09:58:00 PM EDT [facility] Name Value Range Interpretation Description Data Sup porting Code Source(s) Document(s ) Sodium 138 135 - Normal (applies Sodium, Serum [facility] [Moles/volume] in mmol/L 145 to non-numeric Health Serum or Plasma mmol/L results) System Potassium 4.7 3.5 - Normal (applies Potassium, [facility] [Mass/volume] in mmol/L 5.0 to non-numeric Serum Health Serum or Plasma mmol/L results) System Chloride 105 101 - Normal (applies Chloride, [facility] [Moles/volume] in mmol/L 111 to non-numeric Serum Health Serum or Plasma mmol/L results) System Carbon dioxide, 22.7 21.0 - Normal (applies CO2, Serum [facility] total mmol/L 31.0 to non-numeric Health [Moles/volume] in mmol/L results) System Serum or Plasma Total Protein 6.2 6.4 - Below low normal Total Protein José sirisha mg/dl 8.1 Health mg/dl System Glucose 100 65 - Normal (applies Glucose, [facility] [Mass/volume] in mg/dL 110 to non-numeric Serum Health Serum or Plasma mg/dL results) System Urea nitrogen 13 7 - 18 Normal (applies Blood Urea [facility] [Mass/volume] in mg/dl mg/dl to non-numeric Nitrogen, Health Serum or Plasma results) Serum System Creatinine 0.97 0.50 - Normal (applies Creatinine, [facility] [Mass/volume] in mg/dl 1.20 to non-numeric Serum Health Serum or Plasma mg/dl results) System Alkaline 86 42 - Normal (applies Alkaline [facility] phosphatase {IU/L} 121 to non-numeric Phosphatase, Health isoenzymes IU/L results) Serum System [Enzymatic activity/volume] in Serum or Plasma by Heat stability Bilirubin direct 0.5 0.2 - Normal (applies Bilirubin, [facility] and total panel mg/dl 1.2 to non-numeric Serum Total Health [Mass/volume] - mg/dl results) System Serum or Plasma Direct Bilirubin 0.1 0.0 - Normal (applies Direct [facility] mg/dl 0.4 to non-numeric Bilirubin Health mg/dl results) System Aspartate 17 10 - 42 Normal (applies Aspartate [facility] aminotransferase {IU/L} IU/L to non-numeric Transaminase, Heal th [Enzymatic results) Serum System activity/volume] in Serum or Plasma by With P-5'-P Albumin 3.5 3.2 - Normal (applies Albumin, [facility] [Mass/volume] in {gm/dl} 5.5 to non-numeric Serum Health Serum or Plasma gm/dl results) System I. Phosphorus 3.9 2.6 - Normal (applies I. Phosphorus [facility] mg/dl 4.9 to non-numeric Health mg/dl results) System Alanine 12 10 - 42 Normal (applies Alanine [facility] aminotransferase {IU/L} IU/L to non-numeric Aminotransfer Heal th [Enzymatic results) ase, Serum System activity/volume] in Serum or Plasma Calcium 8.6 8.4 - Normal (applies Calcium, [facility] [Mass/volume] in mg/dl 10.2 to non-numeric Total Serum Health Serum or Plasma mg/dl results) System A/G Ratio 1.30 Normal (applies A/G Ratio [facility] to non-numeric Health results) System Urate 7.1 2.3 - Normal (applies Uric Acid, [facility] [Mass/volume] in mg/dl 7.5 to non-numeric Serum Health Serum or Plasma mg/dl results) System Anion gap in Serum 10.30 Normal (applies Anion Gap [facility] or Plasma mmol/L to non-numeric Health results) System Glomerular 69.24 Normal (applies GFR [facility] filtration to non-numeric Health rate/1.73 sq results) System M.predicted [Volume Rate/Area] in Serum or Plasma by Creatinine-based formula (CKD-EPI) eGFR will provide clinicians with a more accurate indicator of renal function then the serum creatinine. The eGFR is automa tically calculated from an empiric formula (endorsed by the [employer]) which incorporates age, sex, and race.Clinicians may notice surprisingly low GFR's with serum creatinine valueswithin normal range- particularly in elderly wo men (with low muscle mass).In the hospital setting, the eGFR should add an element of safety in drug dosing, in assessing the risk of IV contrast administration, and in assessing vascular risk.The NKF staging system is as follows:Normal: eGFR >90 with no kidney markersStage 1: eGFR >90 with kidney markers*Stage 2: eGFR 60- 89Stage 3: eGFR 30-59Stage 4: eGFR 15-29Stage 5: eGFR <15 (usually requir ing dialysis)*Markers include: Proteinuria, Hematuria, abnormal imaging-studies, or other blood or urine test abnormalities ID Date Data Source [id number] 04/28/2016 01:38:11 PM EDT [facility] System Name Value Range Interpretation Description Data Sup porting Code Source(s) Document(s ) Tissue Results for case # Normal (applies Tissue Exam [facility] Exam [id number] to non-numeric Health SURGICAL PATHOLOGY results) System REPORTCLINICAL INFORMATION: Right ureteral calculi. PREOPERATIVE DIAGNOSIS: Same.POSTOPERATIVE DIAGNOSIS: FINAL DIAGNOSIS: Right nephrostomy tube (gross).GO/Cornelio LUTHER MDElectronically Signed By: GROSS DESCRIPTION: Received fresh, labeled "right nephrostomy tube", the specimen consists of a 30 x 0.2 x 0.2cm white rubbery portion of tubing with a 4 x 4 x 0.1cm blue discoid device. No soft tissue is received, no sections are submitted, gross diagnosis only.MV/stPage 1 of 1 ID Date Data Source [id number] 02/18/2016 06:00:00 AM EDT [facility] System Name Value Range Interpretation Description Data Sup porting Code Source(s) Document(s ) Prothrombin 11.00 Normal (applies Prothrombin [facility] time (PT) {seconds to non-numeric time (PT) Health } results) System INR in Blood 1.01 0.70 - Normal (applies INR Result [facility] by Coagulation {Ratio} 1.10 to non-numeric Health assay Ratio results) System Normal = 0.7-1.1Therapeutic = 2.0-3.0Mec hanical Heart = 3.0-4.5 ID Date Data Source [id number] 02/15/2016 08:17:00 PM EDT [facility] Name Value Range Interpretation Description Data Sup porting Code Source(s) Document(s ) Deprecated Micro Normal (applies Aerobic [facility] Bacteria Result to non-numeric Culture, Urine Health identified in Final results) System Urine by Culture Aerobe Reading culture Note::< 10,000 CFU/ML ID Date Data Source [id number] 02/15/2016 08:15:00 PM EDT [facility] Name Value Range Interpretation Description Data Sup porting Code Source(s) Document(s ) Leukocytes 12.4 4.8 - Above high WBC Count [facility] [#/volume] in {10^3_u 10.8 normal Health Unspecified L} 10^3 uL System specimen by Automated count Erythrocytes 3.52 4.20 - Below low normal RBC Count [facility] [#/volume] in {10^6_u 5.40 Health Blood by L} 10^6 uL System Automated count Hemoglobin 10.6 12.0 - Below low normal Hemoglobin [facility] [Mass/volume] in {gm/dL} 16.0 Health Blood gm/dL System Hematocrit 32.1 % 37.0 - Below low normal Hematocrit [facility] [Volume 47.0 % Health Fraction] of System Blood Erythrocyte mean 91.2 fl 81.0 - Normal (applies MCV [facility] corpuscular 99.0 fl to non-numeric Health volume [Entitic results) System volume] by Automated count Erythrocyte mean 30.1 pg 27.0 - Normal (applies MCH [facility] corpuscular 31.0 pg to non-numeric Health hemoglobin results) System [Entitic mass] by Automated count Erythrocyte mean 33.0 30.0 - Normal (applies MCHC [facility] corpuscular {gm/dL} 35.0 to non-numeric Health hemoglobin gm/dL results) System concentration [Mass/volume] by Automated count Erythrocyte 13.7 % 11.5 - Normal (applies RDW-CV [facility] distribution 14.5 % to non-numeric Health width [Entitic results) System volume] by Automated count Platelets 172 130 - Normal (applies Platelet Count [facility] [#/volume] in {10^3_u 400 to non-numeric Health Plasma by L} 10^3 uL results) System Automated count Platelet mean 11.0 fl 8.6 - Normal (applies MPV [facility] volume [Entitic 13.5 fl to non-numeric Health volume] in Blood results) System by Automated count Nucleated 0.0 0.0 - Normal (applies NRBC % [facility] erythrocytes {/100_W 0.2 to non-numeric Health [#/volume] in BC} /100 results) System Body fluid WBC NRBC # 0.00 0.00 - Normal (applies NRBC # [facility] {10^6_u 0.01 to non-numeric Health L} 10^6 uL results) System Neutrophils/100 68.3 % 55.0 - Normal (applies Neutrophil % [facility] leukocytes in 75.0 % to non-numeric Health Blood by results) System Automated count Neutrophils 8.4 Normal (applies Neutrophil # [facility] [#/volume] in {10^3_u to non-numeric Health Body fluid L} results) System Lymphocytes 19.3 % 15.0 - Normal (applies Lymphocyte % [facility] [#/volume] in 41.0 % to non-numeric Health Blood by results) System Automated count Lymphocyte # 2.4 1.0 - Normal (applies Lymphocyte # [facility] {10^3_u 4.8 to non-numeric Health L} 10^3 uL results) System Monocytes/100 9.4 % 2.0 - Above high Monocyte % [facility] leukocytes in 9.0 % normal Health Blood System Monocytes 1.2 Normal (applies Monocyte # [facility] [#/volume] in {10^3_u to non-numeric Health Blood by Manual L} results) System count Eosinophils/100 0.9 % 0.0 - Normal (applies Eosinophil % [facility] leukocytes in 5.0 % to non-numeric Health Unspecified results) System specimen Eosinophils 0.11 0.00 - Normal (applies Eosinophil # [facility] [#/volume] in {10^3_u 0.50 to non-numeric Health Blood L} 10^3 uL results) System Basophils/100 0.4 % 0.0 - Normal (applies Basophil % [facility] leukocytes in 1.0 % to non-numeric Health Unspecified results) System specimen by Manual count Basophils 0.05 0.00 - Normal (applies Basophil # [facility] [#/volume] in {10^3_u 0.10 to non-numeric Health Blood by L} 10^3 uL results) System Automated count Immature 0.21 0.00 - Above high Immature [facility] Granulocytes # {10^3_u 0.09 normal Granulocytes # Health L} 10^3 uL System Immature 1.7 % 0.0 - Above high Immature [facility] Granulocytes % 0.8 % normal Granulocytes % Health System ID Date Data Source [id number] 02/15/2016 08:15:00 PM EDT [facility] Name Value Range Interpretation Description Data Sup porting Code Source(s) Document(s ) Color Yellow Yellow Normal (applies Color [facility] to non-numeric Health results) System Appearance of CLEAR Clear Normal (applies Urine [facility] Urine to non-numeric Appearance Health results) System Specific 1.004 Normal (applies Urine Specific [facility] gravity of to non-numeric [facility] Urine results) System pH.. 8.0 4.6 - 8.0 Normal (applies pH.. [facility] {pH_unit pH units to non-numeric Health s} results) System Glucose, UA NEG < 50 mg/dl Normal (applies Glucose, UA [facility] to non-numeric [facility] results) System Protein NEG < 30 mg/dl Normal (applies Protein [facility] [Mass/volume] to non-numeric Health in Serum or results) System Plasma Bilirubin NEG Negative Normal (applies Bilirubin [facility] Urine Sm to Lg to non-numeric Urine Health results) System Urobilinogen < 2.0 Normal (applies Urobilinogen [facility] [Mass/volume] to non-numeric UA Health in Urine results) System Reference Range: Negative or <=2.0 Ketones NEG Negative Tr Normal (applies Ketones UA [facility] [Mass/volume] in to Lg to non-numeric Health S ystem Urine results) Nitrate+Nitrite Negative Negative Normal (applies Nitrite [facility] [Mass/volume] in Neg/Pos to non-numeric Health S ystem Unspecified results) specimen Leukocyte Trace Negative Tr Abnormal Leukocyte [facility] esterase to Lg (applies to Esterase Health System [Units/volume] in non-numeric Concentration Urine results) Leukocytes 7 {/HPF} 0 - 2 /HPF Normal (applies White Blood [facility] [#/volume] in to non-numeric Cells Health Syst em Unspecified results) specimen by Automated count Red Blood Cells 41 {/HPF} 0 - 1 /HPF Normal (applies Red Blood Cells [facility] to non-numeric [facility] System results) Epithelial cells 20 {/HPF} 0 - 3 /HPF Normal (applies Epithelial Gisel ls [facility] [Presence] in to non-numeric Health Syst em Unspecified results) specimen by Wet preparation Mucus RARE 0 - 1 /LPF Normal (applies Mucus [facility] to non-numeric Health System results) Bacteria MANY 0 - 5 /HPF Normal (applies Bacteria [facility] [Presence] in to non-numeric Health Syst em Unspecified results) specimen Urine Blood LG(3+) Negative Sm Abnormal Urine Blood [facility] to Lg (applies to Health System non-numeric results) ID Date Data Source [id number] 02/14/2016 05:19:00 PM EDT [facility] Name Value Range Interpretation Description Data Sup porting Code Source(s) Document(s ) Color Yellow Yellow Normal (applies Color [facility] to non-numeric Health results) System Appearance of CLEAR Clear Normal (applies Urine [facility] Urine to non-numeric Appearance Health results) System Specific 1.027 Normal (applies Urine Specific [facility] gravity of to non-numeric [facility] Urine results) System pH.. 6.0 4.6 - 8.0 Normal (applies pH.. [facility] {pH_unit pH units to non-numeric Health s} results) System Glucose, UA NEG < 50 mg/dl Normal (applies Glucose, UA [facility] to non-numeric [facility] results) System Protein 30 mg/dl < 30 mg/dl Abnormal Protein [facility] [Mass/volume] (applies to Health in Serum or non-numeric System Plasma results) Bilirubin NEG Negative Normal (applies Bilirubin [facility] Urine Sm to Lg to non-numeric Urine Health results) System Urobilinogen < 2.0 Normal (applies Urobilinogen [facility] [Mass/volume] to non-numeric UA Health in Urine results) System Reference Range: Negative or <=2.0 Ketones NEG Negative Tr Normal Ketones UA [facility] [Mass/volume] in to Lg (applies to Health Syst em Urine non-numeric results) Nitrate+Nitrite Negative Negative Normal Nitrite [facility] [Mass/volume] in Neg/Pos (applies to Health Syst em Unspecified non-numeric specimen results) Leukocyte NEG Negative Tr Normal Leukocyte [facility] esterase to Lg (applies to Esterase [facility] System [Units/volume] in non-numeric Concentration Urine results) Leukocytes 2 {/HPF} 0 - 2 /HPF Normal White Blood [facility] [#/volume] in (applies to Cells Health System Unspecified non-numeric specimen by results) Automated count Red Blood Cells 773 {/HPF} 0 - 1 /HPF Normal Red Blood Cells [facility] (applies to [facility] System non-numeric results) Epithelial cells 17 {/HPF} 0 - 3 /HPF Normal Epithelial Cells [facility] [Presence] in (applies to Health System Unspecified non-numeric specimen by Wet results) preparation Mucus RARE 0 - 1 /LPF Normal Mucus [facility] (applies to Health System non-numeric results) Bacteria FEW 0 - 5 /HPF Normal Bacteria [facility] [Presence] in (applies to Health System Unspecified non-numeric specimen results) Urine Blood LG(3+) Negative Sm Abnormal Urine Blood [facility] to Lg (applies to Health System non-numeric results) ID Date Data Source [id number] 02/14/2016 05:19:00 PM EDT [facility] Name Value Range Interpretation Description Data Sup porting Code Source(s) Document(s ) Leukocytes 11.3 4.8 - Above high WBC Count [facility] [#/volume] in {10^3_u 10.8 normal Health Unspecified L} 10^3 uL System specimen by Automated count Erythrocytes 4.12 4.20 - Below low normal RBC Count [facility] [#/volume] in {10^6_u 5.40 Health Blood by L} 10^6 uL System Automated count Hemoglobin 12.2 12.0 - Normal (applies Hemoglobin [facility] [Mass/volume] in {gm/dL} 16.0 to non-numeric Health Blood gm/dL results) System Hematocrit 37.7 % 37.0 - Normal (applies Hematocrit [facility] [Volume 47.0 % to non-numeric Health Fraction] of results) System Blood Erythrocyte mean 91.5 fl 81.0 - Normal (applies MCV [facility] corpuscular 99.0 fl to non-numeric Health volume [Entitic results) System volume] by Automated count Erythrocyte mean 29.6 pg 27.0 - Normal (applies MCH [facility] corpuscular 31.0 pg to non-numeric Health hemoglobin results) System [Entitic mass] by Automated count Erythrocyte mean 32.4 30.0 - Normal (applies MCHC [facility] corpuscular {gm/dL} 35.0 to non-numeric Health hemoglobin gm/dL results) System concentration [Mass/volume] by Automated count Erythrocyte 13.3 % 11.5 - Normal (applies RDW-CV [facility] distribution 14.5 % to non-numeric Health width [Entitic results) System volume] by Automated count Platelets 196 130 - Normal (applies Platelet Count [facility] [#/volume] in {10^3_u 400 to non-numeric Health Plasma by L} 10^3 uL results) System Automated count Platelet mean 10.7 fl 8.6 - Normal (applies MPV [facility] volume [Entitic 13.5 fl to non-numeric Health volume] in Blood results) System by Automated count Nucleated 0.0 0.0 - Normal (applies NRBC % [facility] erythrocytes {/100_W 0.2 to non-numeric Health [#/volume] in BC} /100 results) System Body fluid WBC NRBC # 0.00 0.00 - Normal (applies NRBC # [facility] {10^6_u 0.01 to non-numeric Health L} 10^6 uL results) System Neutrophils/100 74.3 % 55.0 - Normal (applies Neutrophil % [facility] leukocytes in 75.0 % to non-numeric Health Blood by results) System Automated count Neutrophils 8.4 Normal (applies Neutrophil # [facility] [#/volume] in {10^3_u to non-numeric Health Body fluid L} results) System Lymphocytes 16.7 % 15.0 - Normal (applies Lymphocyte % [facility] [#/volume] in 41.0 % to non-numeric Health Blood by results) System Automated count Lymphocyte # 1.9 1.0 - Normal (applies Lymphocyte # [facility] {10^3_u 4.8 to non-numeric Health L} 10^3 uL results) System Monocytes/100 6.4 % 2.0 - Normal (applies Monocyte % [facility] leukocytes in 9.0 % to non-numeric Health Blood results) System Monocytes 0.7 Normal (applies Monocyte # [facility] [#/volume] in {10^3_u to non-numeric Health Blood by Manual L} results) System count Eosinophils/100 0.8 % 0.0 - Normal (applies Eosinophil % [facility] leukocytes in 5.0 % to non-numeric Health Unspecified results) System specimen Eosinophils 0.09 0.00 - Normal (applies Eosinophil # [facility] [#/volume] in {10^3_u 0.50 to non-numeric Health Blood L} 10^3 uL results) System Basophils/100 0.4 % 0.0 - Normal (applies Basophil % [facility] leukocytes in 1.0 % to non-numeric Health Unspecified results) System specimen by Manual count Basophils 0.05 0.00 - Normal (applies Basophil # [facility] [#/volume] in {10^3_u 0.10 to non-numeric Health Blood by L} 10^3 uL results) System Automated count Immature 0.16 0.00 - Above high Immature [facility] Granulocytes # {10^3_u 0.09 normal Granulocytes # Health L} 10^3 uL System Immature 1.4 % 0.0 - Above high Immature [facility] Granulocytes % 0.8 % normal Granulocytes % Health System ID Date Data Source [id number] 02/14/2016 05:19:00 PM EDT [facility] Name Value Range Interpretation Description Data Sup porting Code Source(s) Document(s ) Sodium 135 135 - Normal (applies Sodium, Serum [facility] [Moles/volume] in mmol/L 145 to non-numeric Health Serum or Plasma mmol/L results) System Potassium 4.0 3.5 - Normal (applies Potassium, [facility] [Mass/volume] in mmol/L 5.0 to non-numeric Serum Health Serum or Plasma mmol/L results) System Chloride 105 101 - Normal (applies Chloride, [facility] [Moles/volume] in mmol/L 111 to non-numeric Serum Health Serum or Plasma mmol/L results) System Carbon dioxide, 22.6 21.0 - Normal (applies CO2, Serum [facility] total mmol/L 31.0 to non-numeric Health [Moles/volume] in mmol/L results) System Serum or Plasma Total Protein 5.9 6.4 - Below low normal Total Protein José sirisha mg/dl 8.1 Health mg/dl System Glucose 72 65 - Normal (applies Glucose, [facility] [Mass/volume] in mg/dL 110 to non-numeric Serum Health Serum or Plasma mg/dL results) System Urea nitrogen 10 7 - 18 Normal (applies Blood Urea [facility] [Mass/volume] in mg/dl mg/dl to non-numeric Nitrogen, Health Serum or Plasma results) Serum System Creatinine 0.69 0.50 - Normal (applies Creatinine, [facility] [Mass/volume] in mg/dl 1.20 to non-numeric Serum Health Serum or Plasma mg/dl results) System Alkaline 66 42 - Normal (applies Alkaline [facility] phosphatase {IU/L} 121 to non-numeric Phosphatase, Health isoenzymes IU/L results) Serum System [Enzymatic activity/volume] in Serum or Plasma by Heat stability Bilirubin.total 0.3 0.2 - Normal (applies Bilirubin, [facility] [Mass/volume] in mg/dl 1.2 to non-numeric Serum Total Health Serum or Plasma mg/dl results) System Direct Bilirubin 0.0 0.0 - Normal (applies Direct [facility] mg/dl 0.4 to non-numeric Bilirubin Health mg/dl results) System Aspartate 14 10 - 42 Normal (applies Aspartate [facility] aminotransferase {IU/L} IU/L to non-numeric Transaminase, Heal th [Enzymatic results) Serum System activity/volume] in Serum or Plasma by With P-5'-P Albumin 3.4 3.2 - Normal (applies Albumin, [facility] [Mass/volume] in {gm/dl} 5.5 to non-numeric Serum Health Serum or Plasma gm/dl results) System I. Phosphorus 4.0 2.6 - Normal (applies I. Phosphorus [facility] mg/dl 4.9 to non-numeric Health mg/dl results) System Alanine 9 10 - 42 Below low normal Alanine [facility] aminotransferase {IU/L} IU/L Aminotransfer Health [Enzymatic ase, Serum System activity/volume] in Serum or Plasma Calcium 8.7 8.4 - Normal (applies Calcium, [facility] [Mass/volume] in mg/dl 10.2 to non-numeric Total Serum Health Serum or Plasma mg/dl results) System A/G Ratio 1.36 Normal (applies A/G Ratio [facility] to non-numeric Health results) System Urate 5.3 2.3 - Normal (applies Uric Acid, [facility] [Mass/volume] in mg/dl 7.5 to non-numeric Serum Health Serum or Plasma mg/dl results) System Anion gap in Serum 7.40 Normal (applies Anion Gap [facility] sir[facility] or Plasma mmol/L to non-numeric Health results) System Glomerular > 90 Normal (applies GFR [facility] filtration to non-numeric Health rate/1.73 sq results) System M.predicted [Volume Rate/Area] in Serum or Plasma by Creatinine-based formula (CKD-EPI) eGFR will provide clinicians with a more accurate indicator of renal function then the serum creatinine. The eGFR is automa tically calculated from an empiric formula (endorsed by the [employer] ion) which incorporates age, sex, and race.Clinicians may notice surprisingly low GFR's with serum creatinine valueswithin normal range- particularly in elderly wo men (with low muscle mass).In the hospital setting, the eGFR should add an element of safety in drug dosing, in assessing the risk of IV contrast administration, and in assessing vascular risk.The NKF staging system is as follows:Normal: eGFR >90 with no kidney markersStage 1: eGFR >90 with kidney markers*Stage 2: eGFR 60- 89Stage 3: eGFR 30-59Stage 4: eGFR 15-29Stage 5: eGFR <15 (usually requir ing dialysis)*Markers include: Proteinuria, Hematuria, abnormal imaging-studies, or other blood or urine test abnormalities ID Date Data Source [id number] 09/18/2015 03:15:00 PM EST [facility] Name Value Range Interpretation Description Data Sup porting Code Source(s) Document(s ) Deprecated NO GROWTH Aerobic [facility] Bacteria Culture, Urine Health System identified in Urine by Aerobe culture ID Date Data Source [id number] 09/18/2015 12:23:00 PM EST [facility] Name Value Range Interpretation Description Data Sup porting Code Source(s) Document(s ) Type O Normal (applies Type [facility] to non-numeric [facility] System results) D Ab [Titer] Positive Normal (applies Rh [facility] in Serum or to non-numeric Health System Plasma results) Antibody Negative Normal (applies Antibody [facility] Screen to non-numeric Screen Health System results) ID Date Data Source [id number] 09/18/2015 12:23:00 PM EST [facility] Name Value Range Interpretation Description Data Sup porting Code Source(s) Document(s ) Color Yellow Yellow Normal (applies Color [facility] to non-numeric Health results) System Appearance of HAZY Clear Normal (applies Urine [facility] Urine to non-numeric Appearance Health results) System Specific 1.010 Normal (applies Urine Specific [facility] gravity of to non-numeric [facility] Urine results) System pH.. 7.0 4.6 - 8.0 Normal (applies pH.. [facility] {pH_unit pH units to non-numeric Health s} results) System Glucose, UA NEG < 50 mg/dl Normal (applies Glucose, UA [facility] to non-numeric [facility] results) System Protein NEG < 30 mg/dl Normal (applies Protein [facility] [Mass/volume] to non-numeric Health in Serum or results) System Plasma Bilirubin NEG Negative Normal (applies Bilirubin [facility] Urine Sm to Lg to non-numeric Urine Health results) System Urobilinogen < 2.0 Normal (applies Urobilinogen [facility] [Mass/volume] to non-numeric UA Health in Urine results) System Reference Range: Negative or <=2.0 Ketones NEG Negative Tr Normal (applies Ketones UA [facility] [Mass/volume] in to Lg to non-numeric Health S ystem Urine results) Nitrate+Nitrite Negative Negative Normal (applies Nitrite [facility] [Mass/volume] in Neg/Pos to non-numeric Health S ystem Unspecified results) specimen Leukocyte Large Negative Tr Abnormal Leukocyte [facility] esterase to Lg (applies to Esterase Health System [Units/volume] in non-numeric Concentration Urine results) Leukocytes 11 {/HPF} 0 - 2 /HPF Normal (applies White Blood [facility] [#/volume] in to non-numeric Cells Health Syst em Unspecified results) specimen by Automated count Red Blood Cells 3 {/HPF} 0 - 1 /HPF Normal (applies Red Blood Cells [facility] to non-numeric [facility] System results) Epithelial cells 19 {/HPF} 0 - 3 /HPF Normal (applies Epithelial Gisel ls [facility] [Presence] in to non-numeric Health Syst em Unspecified results) specimen by Wet preparation Mucus RARE 0 - 1 /LPF Normal (applies Mucus [facility] to non-numeric Health System results) Bacteria FEW 0 - 5 /HPF Normal (applies Bacteria [facility] [Presence] in to non-numeric Health Syst em Unspecified results) specimen Urine Blood SM(1+) Negative Sm Abnormal Urine Blood [facility] to Lg (applies to Health System non-numeric results) ID Date Data Source [id number] 09/18/2015 12:23:00 PM EST [facility] Name Value Range Interpretation Description Data Sup porting Code Source(s) Document(s ) Leukocytes 11.4 4.8 - Above high WBC Count [facility] [#/volume] in {10^3_u 10.8 normal Health Unspecified L} 10^3 uL System specimen by Automated count Erythrocytes 4.56 4.20 - Normal (applies RBC Count [facility] [#/volume] in {10^6_u 5.40 to non-numeric Health Blood by L} 10^6 uL results) System Automated count Hemoglobin 13.7 12.0 - Normal (applies Hemoglobin [facility] [Mass/volume] in {gm/dL} 16.0 to non-numeric Health Blood gm/dL results) System Hematocrit 41.6 % 37.0 - Normal (applies Hematocrit [facility] [Volume 47.0 % to non-numeric Health Fraction] of results) System Blood Erythrocyte mean 91.2 fl 81.0 - Normal (applies MCV [facility] corpuscular 99.0 fl to non-numeric Health volume [Entitic results) System volume] by Automated count Erythrocyte mean 30.0 pg 27.0 - Normal (applies MCH [facility] corpuscular 31.0 pg to non-numeric Health hemoglobin results) System [Entitic mass] by Automated count Erythrocyte mean 32.9 30.0 - Normal (applies MCHC [facility] corpuscular {gm/dL} 35.0 to non-numeric Health hemoglobin gm/dL results) System concentration [Mass/volume] by Automated count Erythrocyte 12.9 % 11.5 - Normal (applies RDW-CV [facility] distribution 14.5 % to non-numeric Health width [Entitic results) System volume] by Automated count Platelets 169 130 - Normal (applies Platelet Count [facility] [#/volume] in {10^3_u 400 to non-numeric Health Plasma by L} 10^3 uL results) System Automated count Platelet mean 11.5 fl 8.6 - Normal (applies MPV [facility] volume [Entitic 13.5 fl to non-numeric Health volume] in Blood results) System by Automated count Nucleated 0.0 0.0 - Normal (applies NRBC % [facility] erythrocytes {/100_W 0.2 to non-numeric Health [#/volume] in BC} /100 results) System Body fluid WBC NRBC # 0.00 0.00 - Normal (applies NRBC # [facility] {10^6_u 0.01 to non-numeric Health L} 10^6 uL results) System Neutrophils/100 76.3 % 55.0 - Above high Neutrophil % [facility] leukocytes in 75.0 % normal Health Blood by System Automated count Neutrophils 8.7 Normal (applies Neutrophil # [facility] [#/volume] in {10^3_u to non-numeric Health Body fluid L} results) System Lymphocytes 16.8 % 15.0 - Normal (applies Lymphocyte % [facility] [#/volume] in 41.0 % to non-numeric Health Blood by results) System Automated count Lymphocyte # 1.9 1.0 - Normal (applies Lymphocyte # [facility] {10^3_u 4.8 to non-numeric Health L} 10^3 uL results) System Monocytes/100 5.1 % 2.0 - Normal (applies Monocyte % [facility] leukocytes in 9.0 % to non-numeric Health Blood results) System Monocytes 0.6 Normal (applies Monocyte # [facility] [#/volume] in {10^3_u to non-numeric Health Blood by Manual L} results) System count Eosinophils/100 1.0 % 0.0 - Normal (applies Eosinophil % [facility] leukocytes in 5.0 % to non-numeric Health Unspecified results) System specimen Eosinophils 0.11 0.00 - Normal (applies Eosinophil # [facility] [#/volume] in {10^3_u 0.50 to non-numeric Health Blood L} 10^3 uL results) System Basophils/100 0.4 % 0.0 - Normal (applies Basophil % [facility] leukocytes in 1.0 % to non-numeric Health Unspecified results) System specimen by Manual count Basophils 0.04 0.00 - Normal (applies Basophil # [facility] [#/volume] in {10^3_u 0.10 to non-numeric Health Blood by L} 10^3 uL results) System Automated count Immature 0.05 0.00 - Normal (applies Immature [facility] Granulocytes # {10^3_u 0.09 to non-numeric Granulocytes # [facility]alt [facility] L} 10^3 uL results) System Immature 0.4 % 0.0 - Normal (applies Immature [facility] Granulocytes % 0.8 % to non-numeric Granulocytes % [facility] results) System ID Date Data Source [id number] 09/18/2015 12:23:00 PM EST [facility] System Name Value Range Interpretation Description Data Sup porting Code Source(s) Document(s ) hCG 954666.00 <5 Above high hCG [facility] Quantitative Negative = <5 mIU/mL normal Quantitative Health mIU/mLAPPROXIM System ATE GEST. AGE APPROXIMATE HCG mIU/ML 0.2 - 1 week 5 - 50 1 - 2 weeks 50 - 500 2 - 3 weeks 100 - 5,000 3 - 4 weeks 500 - 10,000 4 - 5 weeks 1,000 - 50,000 5 - 6 weeks 10,000 - 100,000 6 - 8 weeks 15,000 - 200,000 8 - 12 weeks 10,000 - 100,000HCG levels between 5-25 mIU/mL may be indicative of early . Correlation with other clinical findings and/or repeat of HCG quantitative testing recommened. ID Date Data Source [id number] 09/18/2015 12:23:00 PM ROSARIO [facility] System Name Value Range Interpretation Description Data Sup porting Code Source(s) Document(s ) Sodium 137 135 - Normal (applies Sodium, Serum [facility] [Moles/volume] in mmol/L 145 to non-numeric Health Serum or Plasma mmol/L results) System Potassium 4.0 3.5 - Normal (applies Potassium, [facility] [Mass/volume] in mmol/L 5.0 to non-numeric Serum Health Serum or Plasma mmol/L results) System Chloride 105 101 - Normal (applies Chloride, [facility] [Moles/volume] in mmol/L 111 to non-numeric Serum Health Serum or Plasma mmol/L results) System Carbon dioxide, 26.1 21.0 - Normal (applies CO2, Serum [facility] total mmol/L 31.0 to non-numeric Health [Moles/volume] in mmol/L results) System Serum or Plasma Total Protein 6.2 6.4 - Below low normal Total Protein José sirisha mg/dl 8.1 Health mg/dl System Glucose 74 65 - Normal (applies Glucose, [facility] [Mass/volume] in mg/dL 110 to non-numeric Serum Health Serum or Plasma mg/dL results) System Urea nitrogen 8 mg/dl 7 - 18 Normal (applies Blood Urea [facility] [Mass/volume] in mg/dl to non-numeric Nitrogen, Health Serum or Plasma results) Serum System Creatinine 0.67 0.50 - Normal (applies Creatinine, [facility] [Mass/volume] in mg/dl 1.20 to non-numeric Serum Health Serum or Plasma mg/dl results) System Alkaline 46 42 - Normal (applies Alkaline [facility] phosphatase {IU/L} 121 to non-numeric Phosphatase, Health isoenzymes IU/L results) Serum System [Enzymatic activity/volume] in Serum or Plasma by Heat stability Bilirubin.total 0.4 0.2 - Normal (applies Bilirubin, [facility] [Mass/volume] in mg/dl 1.2 to non-numeric Serum Total Health Serum or Plasma mg/dl results) System Direct Bilirubin 0.1 0.0 - Normal (applies Direct [facility] mg/dl 0.4 to non-numeric Bilirubin Health mg/dl results) System Aspartate 17 10 - 42 Normal (applies Aspartate [facility] aminotransferase {IU/L} IU/L to non-numeric Transaminase, Heal [Enzymatic results) Serum System activity/volume] in Serum or Plasma by With P-5'-P Albumin 3.6 3.2 - Normal (applies Albumin, [facility] [Mass/volume] in {gm/dl} 5.5 to non-numeric Serum Health Serum or Plasma gm/dl results) System I. Phosphorus 3.9 2.6 - Normal (applies I. Phosphorus [facility] mg/dl 4.9 to non-numeric Health mg/dl results) System Alanine 13 10 - 42 Normal (applies Alanine [facility] aminotransferase {IU/L} IU/L to non-numeric Aminotransfer [facility] [Enzymatic results) ase, Serum System activity/volume] in Serum or Plasma Calcium 9.1 8.4 - Normal (applies Calcium, [facility] [Mass/volume] in mg/dl 10.2 to non-numeric Total Serum Health Serum or Plasma mg/dl results) System A/G Ratio 1.38 Normal (applies A/G Ratio [facility] to non-numeric Health results) System Urate 4.6 2.3 - Normal (applies Uric Acid, [facility] [Mass/volume] in mg/dl 7.5 to non-numeric Serum Health Serum or Plasma mg/dl results) System Anion gap in Serum 5.90 Normal (applies Anion Gap José sirisha or Plasma mmol/L to non-numeric Health results) System Glomerular > 90 Normal (applies GFR [facility] filtration to non-numeric Health rate/1.73 sq results) System M.predicted [Volume Rate/Area] in Serum or Plasma by Creatinine-based formula (CKD-EPI) eGFR will provide clinicians with a more accurate indicator of renal function then the serum creatinine. The eGFR is automa tically calculated from an empiric formula (endorsed by the [employer] ion) which incorporates age, sex, and race.Clinicians may notice surprisingly low GFR's with serum creatinine valueswithin normal range- particularly in elderly wo men (with low muscle mass).In the hospital setting, the eGFR should add an element of safety in drug dosing, in assessing the risk of IV contrast administration, and in assessing vascular risk.The NKF staging system is as follows:Normal: eGFR >90 with no kidney markersStage 1: eGFR >90 with kidney markers*Stage 2: eGFR 60- 89Stage 3: eGFR 30-59Stage 4: eGFR 15-29Stage 5: eGFR <15 (usually requir ing dialysis)*Markers include: Proteinuria, Hematuria, abnormal imaging-studies, or other blood or urine test abnormalities ID Date Data Source [id number] 09/05/2015 10:26:00 PM EDT Ana [facility] System Name Value Range Interpretation Description Data Sup porting Code Source(s) Document(s ) Deprecated Micro Result Normal (applies Aerobic [facility] Bacteria Final Culture to non-numeric Culture, Health identified Reading results) Urine System in Urine by Note::"MULTIPL Aerobe E BACTERIAL culture MORPHOTYPES PRESENT, POSSIBLE CONTAMINATION, SUGGEST RECOLLECTION IF CLINICALLY INDICATED". ID Date Data Source [id number] 09/05/2015 10:26:00 PM EDT [facility] System Name Value Range Interpretation Description Data Sup porting Code Source(s) Document(s ) Color Yellow Yellow Normal (applies Color [facility] to non-numeric Health results) System Appearance of CLEAR Clear Normal (applies Urine [facility] Urine to non-numeric Appearance Health results) System Specific 1.014 Normal (applies Urine Specific [facility] gravity of to non-numeric [facility] Urine results) System pH.. 6.0 4.6 - 8.0 Normal (applies pH.. [facility] {pH_unit pH units to non-numeric Health s} results) System Glucose, UA NEG < 50 mg/dl Normal (applies Glucose, UA [facility] to non-numeric Health results) System Protein NEG < 30 mg/dl Normal (applies Protein [facility] [Mass/volume] to non-numeric Health in Serum or results) System Plasma Bilirubin NEG Negative Normal (applies Bilirubin [facility] Urine Sm to Lg to non-numeric Urine Health results) System Urobilinogen < 2.0 Normal (applies Urobilinogen [facility] [Mass/volume] to non-numeric UA Health in Urine results) System Reference Range: Negative or <=2.0 Ketones NEG Negative Tr Normal (applies Ketones UA [facility] [Mass/volume] in to Lg to non-numeric Health S ystem Urine results) Nitrate+Nitrite Negative Negative Normal (applies Nitrite [facility] [Mass/volume] in Neg/Pos to non-numeric Health S ystem Unspecified results) specimen Leukocyte Trace Negative Tr Abnormal Leukocyte [facility] esterase to Lg (applies to Esterase Health System [Units/volume] in non-numeric Concentration Urine results) Leukocytes 3 {/HPF} 0 - 2 /HPF Normal (applies White Blood Cells [facility] [#/volume] in to non-numeric Health Syst em Unspecified results) specimen by Automated count Red Blood Cells < 1 /HPF 0 - 1 /HPF Normal (applies Red Blood Cells [facility] to non-numeric [facility] System results) Epithelial cells 8 {/HPF} 0 - 3 /HPF Normal (applies Epithelial Gisel ls [facility] [Presence] in to non-numeric Health Syst em Unspecified results) specimen by Wet preparation Bacteria FEW 0 - 5 /HPF Normal (applies Bacteria [facility] [Presence] in to non-numeric Health Syst em Unspecified results) specimen Urine Blood NEG Negative Sm Normal (applies Urine Blood [facility] to Lg to non-numeric Health System results) ID Date Data Source [id number] 08/21/2015 09:34:00 PM EDT [facility] Name Value Range Interpretation Description Data Sup porting Code Source(s) Document(s ) hCG 26744.00 <5 Above high hCG [facility] Quantitative {mIU/mL} mIU/mL normal Quantitative Health System Negative = <5 mIU/mLAPPROXIMATE GEST. AG E APPROXIMATE HCG mIU/ML 0.2 - 1 week 5 - 50 1 - 2 w eeks 50 - 500 2 - 3 weeks 100 - 5,000 3 - 4 weeks 500 - 10,000 4 - 5 weeks 1,000 - 50,000 5 - 6 weeks 10,000 - 100,000 6 - 8 weeks 15,000 - 200,000 8 - 12 weeks 10,000 - 1 00,000HCG levels between 5-25 mIU/mL may be indicative of early . Correlati on with other clinical findings and/or repeat of HCG quantitative testing recommened. ID Date Data Source [id number] 08/21/2015 07:34:00 PM EDT [facility] Name Value Range Interpretation Description Data Sup porting Code Source(s) Document(s ) Color Yellow Yellow Normal (applies Color [facility] to non-numeric Health results) System Appearance of CLOUDY Clear Normal (applies Urine [facility] Urine to non-numeric Appearance Health results) System Specific 1.024 Normal (applies Urine Specific [facility] gravity of to non-numeric [facility] Urine results) System pH.. 7.0 4.6 - 8.0 Normal (applies pH.. [facility] {pH_unit pH units to non-numeric Health s} results) System Glucose, UA NEG < 50 mg/dl Normal (applies Glucose, UA [facility] to non-numeric Health results) System Protein NEG < 30 mg/dl Normal (applies Protein [facility] [Mass/volume] to non-numeric Health in Serum or results) System Plasma Bilirubin NEG Negative Normal (applies Bilirubin [facility] Urine Sm to Lg to non-numeric Urine Health results) System Urobilinogen < 2.0 Normal (applies Urobilinogen [facility] [Mass/volume] to non-numeric UA Health in Urine results) System Reference Range: Negative or <=2.0 Ketones NEG Negative Tr Normal (applies Ketones UA [facility] [Mass/volume] in to Lg to non-numeric Health S ystem Urine results) Nitrate+Nitrite Negative Negative Normal (applies Nitrite [facility] [Mass/volume] in Neg/Pos to non-numeric Health S ystem Unspecified results) specimen Leukocyte Small Negative Tr Abnormal Leukocyte [facility] esterase to Lg (applies to Esterase [facility] System [Units/volume] in non-numeric Concentration Urine results) Leukocytes 9 {/HPF} 0 - 2 /HPF Normal (applies White Blood [facility] [#/volume] in to non-numeric Cells Health Syst em Unspecified results) specimen by Automated count Red Blood Cells 2 {/HPF} 0 - 1 /HPF Normal (applies Red Blood Cells [facility] to non-numeric Health System results) Epithelial cells 41 {/HPF} 0 - 3 /HPF Normal (applies Epithelial Gisel ls [facility] [Presence] in to non-numeric Health Syst em Unspecified results) specimen by Wet preparation Mucus RARE 0 - 1 /LPF Normal (applies Mucus [facility] to non-numeric Health System results) Bacteria FEW 0 - 5 /HPF Normal (applies Bacteria [facility] [Presence] in to non-numeric Health Syst em Unspecified results) specimen Urine Blood NEG Negative Sm Normal (applies Urine Blood [facility] to Lg to non-numeric Health System results) ID Date Data Source [id number] 08/21/2015 07:34:00 PM EDT [facility] Name Value Range Interpretation Description Data Sup porting Code Source(s) Document(s ) Leukocytes 11.3 4.8 - Above high WBC Count [facility] [#/volume] in {10^3_u 10.8 normal Health Unspecified L} 10^3 uL System specimen by Automated count Erythrocytes 4.41 4.20 - Normal (applies RBC Count [facility] [#/volume] in {10^6_u 5.40 to non-numeric Health Blood by L} 10^6 uL results) System Automated count Hemoglobin 13.1 12.0 - Normal (applies Hemoglobin [facility] [Mass/volume] in {gm/dL} 16.0 to non-numeric Health Blood gm/dL results) System Hematocrit 39.9 % 37.0 - Normal (applies Hematocrit [facility] [Volume 47.0 % to non-numeric Health Fraction] of results) System Blood Erythrocyte mean 90.5 fl 81.0 - Normal (applies MCV [facility] corpuscular 99.0 fl to non-numeric Health volume [Entitic results) System volume] by Automated count Erythrocyte mean 29.7 pg 27.0 - Normal (applies MCH [facility] corpuscular 31.0 pg to non-numeric Health hemoglobin results) System [Entitic mass] by Automated count Erythrocyte mean 32.8 30.0 - Normal (applies MCHC [facility] corpuscular {gm/dL} 35.0 to non-numeric Health hemoglobin gm/dL results) System concentration [Mass/volume] by Automated count Erythrocyte 13.0 % 11.5 - Normal (applies RDW-CV [facility] distribution 14.5 % to non-numeric Health width [Entitic results) System volume] by Automated count Platelets 171 130 - Normal (applies Platelet Count [facility] [#/volume] in {10^3_u 400 to non-numeric Health Plasma by L} 10^3 uL results) System Automated count Platelet mean 11.8 fl 8.6 - Normal (applies MPV [facility] volume [Entitic 13.5 fl to non-numeric Health volume] in Blood results) System by Automated count Nucleated 0.0 0.0 - Normal (applies NRBC % [facility] erythrocytes {/100_W 0.2 to non-numeric Health [#/volume] in BC} /100 results) System Body fluid WBC NRBC # 0.00 0.00 - Normal (applies NRBC # [facility] {10^6_u 0.01 to non-numeric Health L} 10^6 uL results) System Neutrophils/100 66.1 % 55.0 - Normal (applies Neutrophil % [facility] leukocytes in 75.0 % to non-numeric Health Blood by results) System Automated count Neutrophils 7.5 Normal (applies Neutrophil # [facility] [#/volume] in {10^3_u to non-numeric Health Body fluid L} results) System Lymphocytes 24.6 % 15.0 - Normal (applies Lymphocyte % [facility] [#/volume] in 41.0 % to non-numeric Health Blood by results) System Automated count Lymphocyte # 2.8 1.0 - Normal (applies Lymphocyte # [facility] {10^3_u 4.8 to non-numeric Health L} 10^3 uL results) System Monocytes/100 6.7 % 2.0 - Normal (applies Monocyte % [facility] leukocytes in 9.0 % to non-numeric Health Blood results) System Monocytes 0.8 Normal (applies Monocyte # [facility] [#/volume] in {10^3_u to non-numeric Health Blood by Manual L} results) System count Eosinophils/100 1.5 % 0.0 - Above high Eosinophil % [facility] leukocytes in 0.5 % normal Health Unspecified System specimen Eosinophils 0.17 0.00 - Normal (applies Eosinophil # [facility] [#/volume] in {10^3_u 0.50 to non-numeric Health Blood L} 10^3 uL results) System Basophils/100 0.6 % 0.0 - Normal (applies Basophil % [facility] leukocytes in 1.0 % to non-numeric Health Unspecified results) System specimen by Manual count Basophils 0.07 0.00 - Normal (applies Basophil # [facility] [#/volume] in {10^3_u 0.10 to non-numeric Health Blood by L} 10^3 uL results) System Automated count Immature 0.06 0.00 - Normal (applies Immature [facility] Granulocytes # {10^3_u 0.09 to non-numeric Granulocytes # Healt h L} 10^3 uL results) System Immature 0.5 % 0.0 - Normal (applies Immature [facility] Granulocytes % 0.8 % to non-numeric Granulocytes % [facility] results) System ID Date Data Source [id number] 08/21/2015 07:34:00 PM EDT [facility] Name Value Range Interpretation Description Data Sup porting Code Source(s) Document(s ) Sodium 137 135 - Normal (applies Sodium, Serum [facility] [Moles/volume] in mmol/L 145 to non-numeric Health Serum or Plasma mmol/L results) System Potassium 3.6 3.5 - Normal (applies Potassium, [facility] [Mass/volume] in mmol/L 5.0 to non-numeric Serum Health Serum or Plasma mmol/L results) System Chloride 105 101 - Normal (applies Chloride, [facility] [Moles/volume] in mmol/L 111 to non-numeric Serum Health Serum or Plasma mmol/L results) System Carbon dioxide, 23.4 21.0 - Normal (applies CO2, Serum [facility] total mmol/L 31.0 to non-numeric Health [Moles/volume] in mmol/L results) System Serum or Plasma Total Protein 6.2 6.4 - Below low normal Total Protein José sirisha mg/dl 8.1 Health mg/dl System Glucose 90 65 - Normal (applies Glucose, [facility] [Mass/volume] in mg/dL 110 to non-numeric Serum Health Serum or Plasma mg/dL results) System Urea nitrogen 14 7 - 18 Normal (applies Blood Urea [facility] [Mass/volume] in mg/dl mg/dl to non-numeric Nitrogen, Health Serum or Plasma results) Serum System Creatinine 0.79 0.50 - Normal (applies Creatinine, [facility] [Mass/volume] in mg/dl 1.20 to non-numeric Serum Health Serum or Plasma mg/dl results) System Alkaline 63 42 - Normal (applies Alkaline [facility] phosphatase {IU/L} 121 to non-numeric Phosphatase, Health isoenzymes IU/L results) Serum System [Enzymatic activity/volume] in Serum or Plasma by Heat stability Bilirubin.total 0.3 0.2 - Normal (applies Bilirubin, [facility] [Mass/volume] in mg/dl 1.2 to non-numeric Serum Total Health Serum or Plasma mg/dl results) System Direct Bilirubin 0.1 0.0 - Normal (applies Direct [facility] mg/dl 0.4 to non-numeric Bilirubin Health mg/dl results) System Aspartate 17 10 - 42 Normal (applies Aspartate [facility] aminotransferase {IU/L} IU/L to non-numeric Transaminase, Heal [Enzymatic results) Serum System activity/volume] in Serum or Plasma by With P-5'-P Albumin 3.9 3.2 - Normal (applies Albumin, [facility] [Mass/volume] in {gm/dl} 5.5 to non-numeric Serum Health Serum or Plasma gm/dl results) System I. Phosphorus 3.8 2.6 - Normal (applies I. Phosphorus [facility] mg/dl 4.9 to non-numeric Health mg/dl results) System Alanine 12 10 - 42 Normal (applies Alanine [facility] aminotransferase {IU/L} IU/L to non-numeric Aminotransfer [facility] [Enzymatic results) ase, Serum System activity/volume] in Serum or Plasma Calcium 8.9 8.4 - Normal (applies Calcium, [facility] [Mass/volume] in mg/dl 10.2 to non-numeric Total Serum Health Serum or Plasma mg/dl results) System A/G Ratio 1.70 Normal (applies A/G Ratio [facility] to non-numeric Health results) System Urate 5.2 2.3 - Normal (applies Uric Acid, [facility] [Mass/volume] in mg/dl 7.5 to non-numeric Serum Health Serum or Plasma mg/dl results) System Anion gap in Serum 8.60 Normal (applies Anion Gap José sirisha or Plasma mmol/L to non-numeric Health results) System Glomerular 88.22 Normal (applies GFR [facility] filtration to non-numeric Health rate/1.73 sq results) System M.predicted [Volume Rate/Area] in Serum or Plasma by Creatinine-based formula (CKD-EPI) eGFR will provide clinicians with a more accurate indicator of renal function then the serum creatinine. The eGFR is automa tically calculated from an empiric formula (endorsed by the [employer] Kid[employer] ion) which incorporates age, sex, and race.Clinicians may notice surprisingly low GFR's with serum creatinine valueswithin normal range- particularly in elderly wo men (with low muscle mass).In the hospital setting, the eGFR should add an element of safety in drug dosing, in assessing the risk of IV contrast administration, and in assessing vascular risk.The NKF staging system is as follows:Normal: eGFR >90 with no kidney markersStage 1: eGFR >90 with kidney markers*Stage 2: eGFR 60- 89Stage 3: eGFR 30-59Stage 4: eGFR 15-29Stage 5: eGFR <15 (usually requir ing dialysis)*Markers include: Proteinuria, Hematuria, abnormal imaging-studies, or other blood or urine test abnormalities ID Date Data Source [id number] 08/21/2015 07:34:00 PM EDT [facility] System Name Value Range Interpretation Description Data Sup porting Code Source(s) Document(s ) Lipase 18 U/L 4 - 66 Normal (applies to Lipase, Serum [facility] [Enzymatic U/L non-numeric Health System activity/v results) olume] in Serum or Plasma ID Date Data Source [id number] 12/20/2014 03:14:00 PM EST [facility] System Name Value Range Interpretation Description Data Sup porting Code Source(s) Document(s ) HIV Oraquick Negative Normal (applies to HIV Oraquick José sirisha non-numeric Health System results) NOTIFIED ER RAVEN MORGAN [facility] [place] @ 161 9 12/20/14PLEASE NOTE:If rapid HIV test is negative, this is a final report.If rapi d HIV test is positive: THIS IS A PRELIMINARY REPORT - CONFIRMATION IS SHAZIA VANESSA.Confirmed results must be considered in making a diagnosis related to HIV infect ion. ID Date Data Source [id number] 11/16/2014 10:30:00 AM EST [facility] System Name Value Range Interpretation Description Data Sup porting Code Source(s) Document(s ) Culture Micro Result Normal (applies Culture [facility] Bacteria Final Culture to non-numeric Bacteria Health Throat Reading results) Throat System Note::NO BETA HEMOLYTIC STREPTOCOCCI ISOLATED ID Date Data Source [id number] 11/16/2014 10:30:00 AM EST [facility] System Name Value Range Interpretation Description Data Sup porting Code Source(s) Document(s ) Strep Group Negative Normal (applies to Strep Group A José sirisha A Direct non-numeric Direct Antigen Health System Antigen results) Method: ImmunochromatographicRapid Strep Grp A preliminary test only!!! Final result will be confirmed by culture. ID Date Data Source [id number] 06/28/2014 12:42:00 PM EDT [facility] System Name Value Range Interpretation Description Data Sup porting Code Source(s) Document(s ) HIV 1/2 NonreactiveReference Normal (applies HIV 1/2 EIA [facility] EIA Range: Nonreactive to non-numeric Health A Nonreactive results) System HIV 1/2 antibody result does not exclude HIV infection since the time frame for seroconversion is variable. If acute HIV infection is suspected, HIV-1 RNA [facility]MA Qualitative (00533I) testing would be recommended. HIV 1 DNR Normal (applies HIV 1 [facility] Antibody to non-numeric Antibody Health results) System HIV 2 DNR Normal (applies HIV 2 [facility] Antibody to non-numeric Antibody Health results) System HIV-1 DNR Test Performed Normal (applies HIV-1 RNA,QL [facility] RNA,QL at: [facility] to non-numeric TMA NEG Health TMA NEG [facility]ostics, One results) [place] [address] Claire Soni M.D. ID Date Data Source [id number] 04/28/2014 11:31:00 AM EDT [facility] Name Value Range Interpretation Description Data Sup porting Code Source(s) Document(s ) Culture Micro Result Normal (applies Culture [facility] Bacteria to non-numeric Bacteria Health Throat results) Throat System XXX BETA HEMOLYTIC Organism [facility] microorganism STREPTOCOCCUS Health serotype GROUP A System [Identifier] in Isolate by Agglutination [facility] Count FEW Organism [facility] Count [facility] [facility] Notes : Health IDENTIFICATION System BY LATEX AGGLUTINATION ID Date Data Source [id number] 04/28/2014 11:31:00 AM EDT [facility] alth System Name Value Range Interpretation Description Data Sup porting Code Source(s) Document(s ) Strep Group Negative Normal (applies to Strep Group A José sirisha A Direct non-numeric Direct Antigen Health System Antigen results) Method: ImmunochromatographicRapid Strep Grp A preliminary test only!!! Final result will be confirmed by culture. ID Date Data Source [id number] 07/24/2013 08:59:00 PM EDT [facility] Name Value Range Interpretation Description Data Sup porting Code Source(s) Document(s ) Strep Group Negative Normal (applies to Strep Group A José sirisha A Direct non-numeric Direct Antigen Health System Antigen results) Method: ImmunochromatographicRapid Strep Grp A preliminary test only!!! Final result will be confirmed by culture. ID Date Data Source [id number] 07/22/2013 11:24:00 AM EDT [facility] Name Value Range Interpretation Description Data Sup porting Code Source(s) Document(s ) Cult Micro Result Normal (applies Cult Bacteria [facility] B[facility] Final Culture to non-numeric Throat Health Throat Reading results) System Note::NO BETA HEMOLYTIC STREPTOCOCCI ISOLATED Specimen THROAT Specimen [facility] Source Source Health System ID Date Data Source [id number] 07/22/2013 11:24:00 AM EDT [facility] Name Value Range Interpretation Description Data Sup porting Code Source(s) Document(s ) Strep Group Negative Normal (applies to Strep Group A José sirisha A Direct non-numeric Direct Antigen Health System Antigen results) Method: ImmunochromatographicRapid Strep Grp A preliminary test only!!! Final result will be confirmed by culture. ID Date Data Source [id number] 06/22/2013 10:00:00 AM EDT [facility] Name Value Range Interpretation Description Data Sup porting Code Source(s) Document(s ) Leukocytes 17.3 4.8 - Above high normal WBC Count [facility] [#/volume] in {10\\S\\3_ 10.8 Health System Unspecified uL} 10\\S\\3 specimen by uL Automated count manual diff done 06/21/13 Erythrocytes 3.80 {10\\S\\6_uL} 4.20 - 5.40 Below low RBC Count [facility] [#/volume] in 10\\S\\6 uL normal Health System Blood by Automated count Hemoglobin 11.3 {gm/dL} 12.0 - 16.0 Below low Hemoglobin, [facility] [Mass/volume] in gm/dL normal Whole Blood Health Syst em Blood Hematocrit [Volume 34.8 % 37.0 - 47.0 Below low Hematocrit, [facility] Fraction] of Blood % normal Whole Blood Health Sy stem Erythrocyte mean 91.5 fl 81.0 - 99.0 Normal MCV [facility] corpuscular volume fl (applies Health Syst em [Entitic volume] to by Automated count non-numeri c results) Erythrocyte mean 29.7 pg 27.0 - 31.0 Normal MCH [facility] corpuscular pg (applies Health System hemoglobin to [Entitic mass] by non-numeri Automated count c results) Erythrocyte mean 32.4 {gm/dL} 33.0 - 37.0 Below low MCHC [facility] corpuscular gm/dL normal Health System hemoglobin concentration [Mass/volume] by Automated count Erythrocyte 14.1 % 11.5 - 14.5 Normal RDW [facility] distribution width % (applies Health Syst em [Entitic volume] to by Automated count non-numeri c results) Platelets 178 {10\\S\\3_uL} 130 - 400 Normal Platelet Count [facility] [#/volume] in 10\\S\\3 uL (applies Health System Plasma by to Automated count non-numeri c results) Platelet mean 9.2 fl 7.4 - 10.4 Normal MPV [facility] volume [Entitic fl (applies Health System volume] in Blood to by Automated count non-numeri c results) Monocytes 1.5 {10\\S\\3_uL} 0.1 - 1.0 Above high Monocyte Count [facility] [#/volume] in 10\\S\\3 uL normal Health System Blood by Manual count Eosinophils 0.4 {10\\S\\3_uL} 0.0 - 0.5 Normal Eosinophil [facility] [#/volume] in 10\\S\\3 uL (applies Count Blood Health System Blood to non-numeri c results) Basophils 0.0 {10\\S\\3_uL} 0.0 - 0.1 Normal Basophil Count [facility] [#/volume] in 10\\S\\3 uL (applies Health System Blood by Automated to count non-numeri c results) Neutrophils 14.0 {10\\S\\3_uL} 2.6 - 8.1 Above high Absolute [facility] [#/volume] in Body 10\\S\\3 uL normal Neutrophil Health Sys tem fluid Count Lymphocyte 1.5 {10\\S\\3_uL} 0.7 - 4.4 Normal Lymphocyte [facility] Absolute 10\\S\\3 uL (applies Absolute Health System to non-numeri c results) Neutrophils/100 80.5 % 55.0 - 75.0 Above high Neutrophil % [facility] leukocytes in % normal [facility] System Blood by Automated count Monocytes/100 8.4 % 2.0 - 9.0 % Normal Monocyte % [facility] leukocytes in (applies Health System Blood to non-numeri c results) Eosinophils/100 2.2 % 0.0 - 5.0 % Normal Eosinophil % [facility] leukocytes in (applies [facility] System Unspecified to specimen non-numeri c results) Basophils/100 0.1 % 0.0 - 1.0 % Normal Basophil % [facility] leukocytes in (applies Health System Unspecified to specimen by Manual non-numeri count c results) Lymphocytes 8.8 % 15.0 - 41.0 Below low Lymphocyte % [facility] [#/volume] in % normal Health System Blood by Automated count ID Date Data Source [id number] 06/21/2013 06:00:00 AM EDT [facility] Name Value Range Interpretation Description Data Sup porting Code Source(s) Document(s ) Polys 76 % 55 - 75 % Above high Polys [facility] normal [facility] System Bands 2 % 2 - 6 % Normal (applies Bands [facility] to non-numeric Health results) System Lymphocyte %. 12 % 15 - 41 % Below low normal Lymphocyte %. José sirisha [facility] System Platelets Adequate Normal Normal (applies Platelet [facility] [#/volume] in to non-numeric Count Health Blood by results) Estimate System Estimate Monocyte %. 10 % 2 - 9 % Above high Monocyte %. [facility] normal [facility] NORM yes. Normal (applies NORM [facility] to non-numeric Health results) System ID Date Data Source [id number] 06/21/2013 06:00:00 AM EDT [facility] System Name Value Range Interpretation Description Data Sup porting Code Source(s) Document(s ) Leukocytes 19.9 4.8 - Above high normal WBC Count [facility] [#/volume] in {10\\S\\3_ 10.8 Health System Unspecified uL} 10\\S\\3 specimen by uL Automated count manual diff to be done Erythrocytes 3.73 {10\\S\\6_uL} 4.20 - 5.40 Below low RBC Count [facility] [#/volume] in 10\\S\\6 uL normal Health System Blood by Automated count Hemoglobin 11.2 {gm/dL} 12.0 - 16.0 Below low Hemoglobin, [facility] [Mass/volume] in gm/dL normal Whole Blood Health Syst em Blood Hematocrit [Volume 33.7 % 37.0 - 47.0 Below low Hematocrit, [facility] Fraction] of Blood % normal Whole Blood Health Sy stem Erythrocyte mean 90.5 fl 81.0 - 99.0 Normal MCV [facility] corpuscular volume fl (applies Health Syst em [Entitic volume] to by Automated count non-numeri c results) Erythrocyte mean 30.1 pg 27.0 - 31.0 Normal MCH [facility] corpuscular pg (applies Health System hemoglobin to [Entitic mass] by non-numeri Automated count c results) Erythrocyte mean 33.3 {gm/dL} 33.0 - 37.0 Normal MCHC [facility] corpuscular gm/dL (applies Health System hemoglobin to concentration non-numeri [Mass/volume] by c results) Automated count Erythrocyte 14.3 % 11.5 - 14.5 Normal RDW [facility] distribution width % (applies Health Syst em [Entitic volume] to by Automated count non-numeri c results) Platelets 161 {10\\S\\3_uL} 130 - 400 Normal Platelet Count [facility] [#/volume] in 10\\S\\3 uL (applies Health System Plasma by to Automated count non-numeri c results) Platelet mean 9.6 fl 7.4 - 10.4 Normal MPV [facility] volume [Entitic fl (applies Health System volume] in Blood to by Automated count non-numeri c results) Monocytes 1.7 {10\\S\\3_uL} 0.1 - 1.0 Above high Monocyte Count [facility] [#/volume] in 10\\S\\3 uL normal Health System Blood by Manual count Eosinophils 0.1 {10\\S\\3_uL} 0.0 - 0.5 Normal Eosinophil [facility] [#/volume] in 10\\S\\3 uL (applies Count Blood Health System Blood to non-numeri c results) Neutrophils 16.3 {10\\S\\3_uL} 2.6 - 8.1 Above high Absolute [facility] [#/volume] in Body 10\\S\\3 uL normal Neutrophil Health Sys tem fluid Count Basophils 0.0 {10\\S\\3_uL} 0.0 - 0.1 Normal Basophil Count [facility] [#/volume] in 10\\S\\3 uL (applies Health System Blood by Automated to count non-numeri c results) Lymphocyte 1.8 {10\\S\\3_uL} 0.7 - 4.4 Normal Lymphocyte [facility] Absolute 10\\S\\3 uL (applies Absolute Health System to non-numeri c results) Neutrophils/100 81.9 % 55.0 - 75.0 Above high Neutrophil % [facility] leukocytes in % normal [facility] System Blood by Automated count Monocytes/100 8.5 % 2.0 - 9.0 % Normal Monocyte % [facility] leukocytes in (applies Health System Blood to non-numeri c results) Eosinophils/100 0.5 % 0.0 - 5.0 % Normal Eosinophil % [facility] leukocytes in (applies [facility] System Unspecified to specimen non-numeri c results) Basophils/100 0.1 % 0.0 - 1.0 % Normal Basophil % [facility] leukocytes in (applies Health System Unspecified to specimen by Manual non-numeri count c results) Lymphocytes 9.0 % 15.0 - 41.0 Below low Lymphocyte % [facility] [#/volume] in % normal Health System Blood by Automated count ID Date Data Source [id number] 06/19/2013 05:29:00 PM EDT [facility] System Name Value Range Interpretation Description Data Sup porting Code Source(s) Document(s ) Sodium 137 135 - Normal (applies Sodium, Serum [facility] [Moles/volume mmol/L 145 to non-numeric Health ] in Serum or mmol/L results) System Plasma Potassium 4.1 3.5 - Normal (applies Potassium, [facility] [Mass/volume] mmol/L 5.0 to non-numeric Serum Health in Serum or mmol/L results) System Plasma Chloride 106 101 - Normal (applies Chloride, [facility] [Moles/volume mmol/L 111 to non-numeric Serum Health ] in Serum or mmol/L results) System Plasma Carbon 23.4 21.0 - Normal (applies CO2, Serum [facility] dioxide, mmol/L 31.0 to non-numeric Health total mmol/L results) System [Moles/volume ] in Serum or Plasma Glucose 79 mg/dL 65 - 110 Normal (applies Glucose, Serum [facility] [Mass/volume] mg/dL to non-numeric Health in Serum or results) System Plasma Urea nitrogen 9 mg/dl 7 - 18 Normal (applies Blood Urea [facility] [Mass/volume] mg/dl to non-numeric Nitrogen, Health in Serum or results) Serum System Plasma Creatinine 0.61 0.50 - Normal (applies Creatinine, [facility] [Mass/volume] mg/dl 1.20 to non-numeric Serum Health in Serum or mg/dl results) System Plasma Calcium 9.1 8.4 - Normal (applies Calcium, Total [facility] [Mass/volume] mg/dl 10.2 to non-numeric Serum Health in Serum or mg/dl results) System Plasma Anion gap in 7.60 Normal (applies Anion Gap [facility] Serum or mmol/L to non-numeric Health Plasma results) System ID Date Data Source [id number] 06/19/2013 05:29:00 PM EDT [facility] System Name Value Range Interpretation Description Data Sup porting Code Source(s) Document(s ) Type O Normal (applies Type [facility] to non-numeric Health System results) D Ab Rh Positive Normal (applies Rh Factor, [facility] [Titer] in to non-numeric Whole Blood Health Syste m Serum or results) Plasma Antibody Negative Normal (applies Antibody [facility] Screen to non-numeric Screen Health System results) ID Date Data Source [id number] 06/19/2013 05:29:00 PM EDT [facility] Name Value Range Interpretation Description Data Source(s ) Supporting Code Document(s ) Reagin Ab Non-react Normal (applies to RPR/VDRL. [facility] [Presence] nicole non-numeric Health System in Serum by results) RPR ID Date Data Source [id number] 06/19/2013 05:29:00 PM EDT [facility] Name Value Range Interpretation Description Data Sup porting Code Source(s) Document(s ) Color Yellow Normal (applies Color [facility] to non-numeric Health results) System Appearance of HAZY Clear Normal (applies Urine [facility] Urine to non-numeric Appearance Health results) System Specific 1.020 Normal (applies Urine Specific [facility] gravity of to non-numeric [facility] Urine results) System pH.. 6.0 4.6 - 8.0 Normal (applies pH.. [facility] {pH_units} pH units to non-numeric Health results) System Glucose, UA NEG Negative Normal (applies Glucose, UA [facility] mg/dl to non-numeric Health results) System Protein 30 mg/dl 0.0 - Normal (applies Protein [facility] [Mass/volume] 30.0 to non-numeric Health in Serum or mg/dl results) System Plasma Bilirubin NEG Negative Normal (applies Bilirubin [facility] Urine to non-numeric Urine Health results) System Urobilinogen Less than Normal (applies Urobilinogen [facility] [Mass/volume] 2.0 to non-numeric UA Health in Urine Reference results) System Range: Negative or <=2.0 Ketones NEG Negative Normal (applies Ketones UA [facility] [Mass/volume] mg/dl to non-numeric Health in Urine results) System Nitrate+Nitrit Negative Negative Normal (applies Nitrite [facility] to non-numeric Health [Mass/volume] results) System in Unspecified specimen Leukocyte Moderate Negative Abnormal Leukocyte [facility] esterase (applies to Esterase Health [Units/volume] non-numeric Concentration System in Urine results) Leukocytes 9 {/HPF} 0 - 2 Normal (applies White Blood [facility] [#/volume] in /HPF to non-numeric Cells Health Unspecified results) System specimen by Automated count Red Blood 2 {/HPF} 0 - 1 Normal (applies Red Blood [facility] Cells /HPF to non-numeric Cells Health results) System Epithelial 6 {/HPF} 0 - 3 Normal (applies Epithelial [facility] cells /HPF to non-numeric Cells Health [Presence] in results) System Unspecified specimen by Wet preparation Mucus FEW Normal (applies Mucus [facility] to non-numeric Health results) System Bacteria FEW Normal (applies Bacteria [facility] [Presence] in to non-numeric Health Unspecified results) System specimen Calcium OCC Normal (applies Calcium [facility] oxalate to non-numeric Oxalate Health crystals results) Crystals System [#/area] in Urine sediment by Microscopy low power field Urine Blood NEG Negative Normal (applies Urine Blood [facility] to non-numeric Health results) System ID Date Data Source [id number] 06/19/2013 05:29:00 PM EDT [facility] Name Value Range Interpretation Description Data Sup porting Code Source(s) Document(s ) aPTT in Blood 26.7 25.1 - Normal (applies Activated [facility] by {Second 36.5 to non-numeric Partial Health Coagulation s} Seconds results) Thromboplastin System assay Time ID Date Data Source [id number] 06/19/2013 05:29:00 PM EDT [facility] Name Value Range Interpretation Description Data Sup porting Code Source(s) Document(s ) Prothrombin 9.90 Normal (applies Prothrombin [facility] time (PT) to non-numeric time (PT) Health results) System INR in Blood 0.87 0.70 - Normal (applies INR Result [facility] by Coagulation {Ratio} 1.10 to non-numeric Health assay Ratio results) System Normal = 0.7-1.1Therapeutic = 2.0-3.0Mec hanical Heart = 3.0-4.5 ID Date Data Source [id number] 06/19/2013 05:29:00 PM EDT [facility] Name Value Range Interpretation Description Data Sup porting Code Source(s) Document(s ) Leukocytes 14.1 4.8 - Above high WBC Count [facility] [#/volume] in {10\\S\\3_ 10.8 normal Health Unspecified uL} 10\\S\\3 System specimen by uL Automated count Erythrocytes 4.07 4.20 - Below low normal RBC Count [facility] [#/volume] in {10\\S\\6_ 5.40 Health Blood by uL} 10\\S\\6 System Automated count uL Hemoglobin 12.0 12.0 - Normal (applies Hemoglobin, [facility] [Mass/volume] in {gm/dL} 16.0 to non-numeric Whole Blood Health Blood gm/dL results) System Hematocrit 36.8 % 37.0 - Below low normal Hematocrit, [facility] [Volume 47.0 % Whole Blood Health Fraction] of System Blood Erythrocyte mean 90.4 fl 81.0 - Normal (applies MCV [facility] corpuscular 99.0 fl to non-numeric Health volume [Entitic results) System volume] by Automated count Erythrocyte mean 29.5 pg 27.0 - Normal (applies MCH [facility] corpuscular 31.0 pg to non-numeric Health hemoglobin results) System [Entitic mass] by Automated count Erythrocyte mean 32.6 33.0 - Below low normal MCHC [facility] corpuscular {gm/dL} 37.0 Health hemoglobin gm/dL System concentration [Mass/volume] by Automated count Erythrocyte 13.7 % 11.5 - Normal (applies RDW [facility] distribution 14.5 % to non-numeric Health width [Entitic results) System volume] by Automated count Platelets 189 130 - Normal (applies Platelet [facility] [#/volume] in {10\\S\\3_ 400 to non-numeric Count Health Plasma by uL} 10\\S\\3 results) System Automated count uL Platelet mean 9.7 fl 7.4 - Normal (applies MPV [facility] volume [Entitic 10.4 fl to non-numeric Health volume] in Blood results) System by Automated count Monocytes 1.1 0.1 - Above high Monocyte [facility] [#/volume] in {10\\S\\3_ 1.0 normal Count Health Blood by Manual uL} 10\\S\\3 System count uL Eosinophils 0.1 0.0 - Normal (applies Eosinophil [facility] [#/volume] in {10\\S\\3_ 0.5 to non-numeric Count Blood Health Blood uL} 10\\S\\3 results) System uL Neutrophils 10.7 2.6 - Above high Absolute [facility] [#/volume] in {10\\S\\3_ 8.1 normal Neutrophil Health Body fluid uL} 10\\S\\3 Count System uL Basophils 0.0 0.0 - Normal (applies Basophil [facility] [#/volume] in {10\\S\\3_ 0.1 to non-numeric Count Health Blood by uL} 10\\S\\3 results) System Automated count uL Lymphocyte 2.2 0.7 - Normal (applies Lymphocyte [facility] Absolute {10\\S\\3_ 4.4 to non-numeric Absolute Health uL} 10\\S\\3 results) System uL Neutrophils/100 75.6 % 55.0 - Above high Neutrophil % [facility] leukocytes in 75.0 % normal Health Blood by System Automated count Monocytes/100 7.7 % 2.0 - Normal (applies Monocyte % [facility] leukocytes in 9.0 % to non-numeric Health Blood results) System Eosinophils/100 0.8 % 0.0 - Normal (applies Eosinophil % José sirisha leukocytes in 5.0 % to non-numeric Health Unspecified results) System specimen Basophils/100 0.3 % 0.0 - Normal (applies Basophil % [facility] leukocytes in 1.0 % to non-numeric Health Unspecified results) System specimen by Manual count Lymphocytes 15.6 % 15.0 - Normal (applies Lymphocyte % [facility] [#/volume] in 41.0 % to non-numeric Health Blood by results) System Automated count ID Date Data Source [id number] 05/18/2013 02:28:00 AM EDT [facility] Name Value Range Interpretation Description Data Sup porting Code Source(s) Document(s ) Deprecated NO GROWTH Aerobic [facility] Bacteria Culture, Urine Health System identified in Urine by Aerobe culture ID Date Data Source [id number] 05/18/2013 02:28:00 AM EDT [facility] Name Value Range Interpretation Description Data Sup porting Code Source(s) Document(s ) Color [place] Normal (applies Color [facility] ow to non-numeric Health results) System Appearance of CLEAR Clear Normal (applies Urine [facility] Urine to non-numeric Appearance Health results) System Specific 1.002 Normal (applies Urine Specific [facility] gravity of to non-numeric [facility] Urine results) System pH.. 6.0 4.6 - 8.0 Normal (applies pH.. [facility] {pH_units} pH units to non-numeric Health results) System Glucose, UA NEG Negative Normal (applies Glucose, UA [facility] mg/dl to non-numeric Health results) System Protein NEG 0.0 - Normal (applies Protein [facility] [Mass/volume] 30.0 to non-numeric Health in Serum or mg/dl results) System Plasma Bilirubin NEG Negative Normal (applies Bilirubin [facility] Urine to non-numeric Urine Health results) System Urobilinogen Less than Normal (applies Urobilinogen [facility] [Mass/volume] 2.0 to non-numeric UA Health in Urine Reference results) System Range: Negative or <=2.0 Ketones NEG Negative Normal (applies Ketones UA [facility] [Mass/volume] mg/dl to non-numeric Health in Urine results) System Nitrate+Nitrit Negative Negative Normal (applies Nitrite [facility] to non-numeric Health [Mass/volume] results) System in Unspecified specimen Leukocyte NEG Negative Normal (applies Leukocyte [facility] esterase to non-numeric Esterase Health [Units/volume] results) Concentration System in Urine Leukocytes Less than 0 - 2 Normal (applies White Blood [facility] [#/volume] in 1 /HPF /HPF to non-numeric Cells Health Unspecified results) System specimen by Automated count Epithelial 1 {/HPF} 0 - 3 Normal (applies Epithelial [facility] cells /HPF to non-numeric Cells Health [Presence] in results) System Unspecified specimen by Wet preparation Bacteria FEW Normal (applies Bacteria [facility] [Presence] in to non-numeric Health Unspecified results) System specimen Urine Blood NEG Negative Normal (applies Urine Blood [facility] to non-numeric Health results) System Non-Squamous Less than Normal (applies Non-Squamous [facility] Epithelial 1 /HPF to non-numeric Epithelial Health results) System ID Date Data Source [id number] 05/09/2013 09:06:00 AM EDT [facility] Name Value Range Interpretation Description Data Sup porting Code Source(s) Document(s ) Deprecated Micro Normal (applies Aerobic [facility] Bacteria Result to non-numeric Culture, Health identified in results) Urine System Urine by Aerobe culture XXX GRAM Organism [facility] microorganism POSITIVE Health serotype COCCI System [Identifier] in Isolate by Agglutination Jerome Count < 10,000 Jerome Count [facility] CFU/ML Health System ID Date Data Source [id number] 05/09/2013 09:06:00 AM EDT Ana [facility] System Name Value Range Interpretation Description Data Sup porting Code Source(s) Document(s ) Color Yellow Normal (applies Color [facility] to non-numeric Health results) System Appearance of CLEAR Clear Normal (applies Urine [facility] Urine to non-numeric Appearance Health results) System Specific 1.015 Normal (applies Urine Specific [facility] gravity of to non-numeric [facility] Urine results) System pH.. 6.0 4.6 - 8.0 Normal (applies pH.. [facility] {pH_units} pH units to non-numeric Health results) System Glucose, UA NEG Negative Normal (applies Glucose, UA [facility] mg/dl to non-numeric Health results) System Protein NEG 0.0 - Normal (applies Protein [facility] [Mass/volume] 30.0 to non-numeric Health in Serum or mg/dl results) System Plasma Bilirubin NEG Negative Normal (applies Bilirubin [facility] Urine to non-numeric Urine Health results) System Urobilinogen Less than Normal (applies Urobilinogen [facility] [Mass/volume] 2.0 to non-numeric UA Health in Urine Reference results) System Range: Negative or <=2.0 Ketones NEG Negative Normal (applies Ketones UA [facility] [Mass/volume] mg/dl to non-numeric Health in Urine results) System Nitrate+Nitrit Negative Negative Normal (applies Nitrite [facility] to non-numeric Health [Mass/volume] results) System in Unspecified specimen Leukocyte Trace Negative Normal (applies Leukocyte [facility] esterase to non-numeric Esterase Health [Units/volume] results) Concentration System in Urine Leukocytes 4 {/HPF} 0 - 2 Normal (applies White Blood [facility] [#/volume] in /HPF to non-numeric Cells Health Unspecified results) System specimen by Automated count Epithelial 9 {/HPF} 0 - 3 Normal (applies Epithelial [facility] cells /HPF to non-numeric Cells Health [Presence] in results) System Unspecified specimen by Wet preparation Mucus RARE Normal (applies Mucus [facility] to non-numeric Health results) System Bacteria FEW Normal (applies Bacteria [facility] [Presence] in to non-numeric Health Unspecified results) System specimen Urine Blood NEG Negative Normal (applies Urine Blood [facility] to non-numeric Health results) System ID Date Data Source [id number] 05/02/2013 11:54:00 PM EDT [facility] Name Value Range Interpretation Description Data Sup porting Code Source(s) Document(s ) Deprecated Micro Normal (applies Aerobic [facility] Bacteria Result to non-numeric Culture, Health identified in results) Urine System Urine by Aerobe culture [facility] Count < 10,000 [facility] Count [facility] CFU/ML Health System XXX GRAM Organism [facility] microorganism POSITIVE Health serotype COCCI System [Identifier] in Isolate by Agglutination ID Date Data Source [id number] 05/02/2013 11:54:00 PM EDT [facility] Name Value Range Interpretation Description Data Sup porting Code Source(s) Document(s ) Color Yellow Normal (applies Color [facility] to non-numeric Health results) System Appearance of HAZY Clear Normal (applies Urine [facility] Urine to non-numeric Appearance Health results) System Specific 1.022 Normal (applies Urine Specific [facility] gravity of to non-numeric [facility] Urine results) System pH.. 6.0 4.6 - 8.0 Normal (applies pH.. [facility] {pH_units} pH units to non-numeric Health results) System Glucose, UA NEG Negative Normal (applies Glucose, UA [facility] mg/dl to non-numeric Health results) System Protein TR 0.0 - Normal (applies Protein [facility] [Mass/volume] 30.0 to non-numeric Health in Serum or mg/dl results) System Plasma Bilirubin NEG Negative Normal (applies Bilirubin [facility] Urine to non-numeric Urine Health results) System Urobilinogen Less than Normal (applies Urobilinogen [facility] [Mass/volume] 2.0 to non-numeric UA Health in Urine Reference results) System Range: Negative or <=2.0 Ketones TR Negative Normal (applies Ketones UA [facility] [Mass/volume] mg/dl to non-numeric Health in Urine results) System Nitrate+Nitrit Negative Negative Normal (applies Nitrite [facility] to non-numeric Health [Mass/volume] results) System in Unspecified specimen Leukocyte Moderate Negative Normal (applies Leukocyte [facility] esterase to non-numeric Esterase Health [Units/volume] results) Concentration System in Urine Leukocytes 22 {/HPF} 0 - 2 Normal (applies White Blood [facility] [#/volume] in /HPF to non-numeric Cells Health Unspecified results) System specimen by Automated count Epithelial 13 {/HPF} 0 - 3 Normal (applies Epithelial [facility] cells /HPF to non-numeric Cells Health [Presence] in results) System Unspecified specimen by Wet preparation Mucus RARE Normal (applies Mucus [facility] to non-numeric Health results) System Bacteria FEW Normal (applies Bacteria [facility] [Presence] in to non-numeric Health Unspecified results) System specimen Calcium OCC Normal (applies Calcium [facility] oxalate to non-numeric Oxalate Health crystals results) Crystals System [#/area] in Urine sediment by Microscopy low power field Urine Blood NEG Negative Normal (applies Urine Blood [facility] to non-numeric Health results) System Non-Squamous 1 {/HPF} Normal (applies Non-Squamous [facility] Epithelial to non-numeric Epithelial Health results) System ID Date Data Source [id number] 04/11/2013 08:29:00 PM EDT [facility] Name Value Range Interpretation Description Data Sup porting Code Source(s) Document(s ) Deprecated NO GROWTH Aerobic [facility] Bacteria Culture, Urine Health System identified in Urine by Aerobe culture ID Date Data Source [id number] 04/11/2013 08:29:00 PM EDT [facility] Name Value Range Interpretation Description Data Sup porting Code Source(s) Document(s ) Color Yellow Normal (applies Color [facility] to non-numeric Health results) System Appearance of CLEAR Clear Normal (applies Urine [facility] Urine to non-numeric Appearance Health results) System Specific 1.021 Normal (applies Urine Specific [facility] gravity of to non-numeric [facility] Urine results) System pH.. 6.0 4.6 - 8.0 Normal (applies pH.. [facility] {pH_unit pH units to non-numeric Health s} results) System Glucose, UA NEG Negative Normal (applies Glucose, UA [facility] mg/dl to non-numeric Health results) System Protein TR 0.0 - 30.0 Normal (applies Protein [facility] [Mass/volume] mg/dl to non-numeric Health in Serum or results) System Plasma Bilirubin NEG Negative Normal (applies Bilirubin [facility] Urine to non-numeric Urine Health results) System Urobilinogen 2.00 Normal (applies Urobilinogen [facility] [Mass/volume] {eu/dL} to non-numeric UA Health in Urine results) System Reference Range: Negative or <=2.0 Ketones TR Negative Normal Ketones UA [facility] [Mass/volume] in mg/dl (applies to Health Syst em Urine non-numeric results) Nitrate+Nitrite Negative Negative Normal Nitrite [facility] [Mass/volume] in (applies to Health Syst em Unspecified non-numeric specimen results) Leukocyte NEG Negative Normal Leukocyte [facility] esterase (applies to Esterase Health System [Units/volume] in non-numeric Concentration Urine results) Leukocytes 2 {/HPF} 0 - 2 /HPF Normal White Blood [facility] [#/volume] in (applies to Cells Health System Unspecified non-numeric specimen by results) Automated count Red Blood Cells 2 {/HPF} 0 - 1 /HPF Normal Red Blood Cells [facility] (applies to Health System non-numeric results) Epithelial cells 1 {/HPF} 0 - 3 /HPF Normal Epithelial Cells [facility] [Presence] in (applies to Health System Unspecified non-numeric specimen by Wet results) preparation Mucus RARE Normal Mucus [facility] (applies to Health System non-numeric results) Bacteria FEW Normal Bacteria [facility] [Presence] in (applies to Health System Unspecified non-numeric specimen results) Calcium oxalate FEW Normal Calcium Oxalate [facility] crystals [#/area] (applies to [facility] in Urine sediment non-numeric by Microscopy low results) power field Amorphous RARE Normal Amorphous [facility] Crystals (applies to Crystals Health System non-numeric results) Urine Blood NEG Negative Normal Urine Blood [facility] (applies to Health System non-numeric results) Non-Squamous Less than 1 Normal Non-Squamous [facility] Epithelial /HPF (applies to Epithelial Health System non-numeric results) ID Date Data Source [id number] 02/10/2013 09:15:00 PM EDT [facility] Name Value Range Interpretation Description Data Sup porting Code Source(s) Document(s ) Deprecated Micro Normal (applies Aerobic [facility] Bacteria Result to non-numeric Culture, Health identified in Final results) Urine System Urine by Culture Aerobe Reading culture Note::< 10,000 CFU/ML GRAM POSITIVE COCCI ID Date Data Source [id number] 02/10/2013 09:15:00 PM EDT [facility] Name Value Range Interpretation Description Data Sup porting Code Source(s) Document(s ) Color Red Normal (applies Color [facility] to non-numeric Health results) System Appearance of CLOUDY Clear Normal (applies Urine [facility] Urine to non-numeric Appearance Health results) System Specific 1.017 Normal (applies Urine Specific [facility] gravity of to non-numeric [facility] Urine results) System pH.. 6.5 4.6 - 8.0 Normal (applies pH.. [facility] {pH_units} pH units to non-numeric Health results) System Glucose, UA NEG Negative Normal (applies Glucose, UA [facility] mg/dl to non-numeric Health results) System Protein 30 mg/dl 0.0 - Normal (applies Protein [facility] [Mass/volume] 30.0 to non-numeric Health in Serum or mg/dl results) System Plasma Bilirubin NEG Negative Normal (applies Bilirubin [facility] Urine to non-numeric Urine Health results) System Urobilinogen Less than Normal (applies Urobilinogen [facility] [Mass/volume] 2.0 to non-numeric UA Health in Urine Reference results) System Range: Negative or <=2.0 Ketones 10 mg/dl Negative Normal (applies Ketones UA [facility] [Mass/volume] mg/dl to non-numeric Health in Urine results) System Nitrate+Nitrit Negative Negative Normal (applies Nitrite [facility] to non-numeric Health [Mass/volume] results) System in Unspecified specimen Leukocyte Small Negative Normal (applies Leukocyte [facility] esterase to non-numeric Esterase Health [Units/volume] results) Concentration System in Urine Leukocytes 25 {/HPF} 0 - 2 Normal (applies White Blood [facility] [#/volume] in /HPF to non-numeric Cells Health Unspecified results) System specimen by Automated count Red Blood 6999 0 - 1 Normal (applies Red Blood [facility] Cells {/HPF} /HPF to non-numeric Cells Health results) System Epithelial 9 {/HPF} 0 - 3 Normal (applies Epithelial [facility] cells /HPF to non-numeric Cells Health [Presence] in results) System Unspecified specimen by Wet preparation Urine Blood LG(3+) Negative Normal (applies Urine Blood [facility] to non-numeric Health results) System ID Date Data Source [id number] 01/14/2013 10:16:00 AM EST [facility] Name Value Range Interpretation Description Data Sup porting Code Source(s) Document(s ) Polys 88 % 55 - 75 Above high Polys [facility] % normal Health System Bands 6 % 2 - 6 % Normal (applies Bands [facility] to non-numeric Health results) System Platelets Adequate Normal Normal (applies Platelet [facility] [#/volume] in to non-numeric Count Health Blood by results) Estimate System Estimate NORM yes. Normal (applies NORM [facility] to non-numeric Health results) System Lymphocytes 2.0 % 15.0 - Below low normal Lymphocyte % [facility] [#/volume] in 41.0 % Health Blood by System Automated count Monocytes/100 4.0 % 2.0 - Normal (applies Monocyte % [facility] leukocytes in 9.0 % to non-numeric Health Blood results) System ID Date Data Source [id number] 01/14/2013 10:16:00 AM EST [facility] Name Value Range Interpretation Description Data Sup porting Code Source(s) Document(s ) Leukocytes 13.8 4.8 - Above high WBC Count [facility] [#/volume] in {10\\S\\3_ 10.8 normal Health Unspecified uL} 10\\S\\3 System specimen by uL Automated count Erythrocytes 3.97 4.20 - Below low normal RBC Count [facility] [#/volume] in {10\\S\\6_ 5.40 Health Blood by uL} 10\\S\\6 System Automated count uL Hemoglobin 12.0 12.0 - Normal (applies Hemoglobin, [facility] [Mass/volume] in {gm/dL} 16.0 to non-numeric Whole Blood Health Blood gm/dL results) System Hematocrit 35.8 % 37.0 - Below low normal Hematocrit, [facility] [Volume 47.0 % Whole Blood Health Fraction] of System Blood Erythrocyte mean 90.2 fl 81.0 - Normal (applies MCV [facility] corpuscular 99.0 fl to non-numeric Health volume [Entitic results) System volume] by Automated count Erythrocyte mean 30.3 pg 27.0 - Normal (applies MCH [facility] corpuscular 31.0 pg to non-numeric Health hemoglobin results) System [Entitic mass] by Automated count Erythrocyte mean 33.6 33.0 - Normal (applies MCHC [facility] corpuscular {gm/dL} 37.0 to non-numeric Health hemoglobin gm/dL results) System concentration [Mass/volume] by Automated count Erythrocyte 13.6 % 11.5 - Normal (applies RDW [facility] distribution 14.5 % to non-numeric Health width [Entitic results) System volume] by Automated count Platelets 158 130 - Normal (applies Platelet [facility] [#/volume] in {10\\S\\3_ 400 to non-numeric Count Health Plasma by uL} 10\\S\\3 results) System Automated count uL Platelet mean 8.9 fl 7.4 - Normal (applies MPV [facility] volume [Entitic 10.4 fl to non-numeric Health volume] in Blood results) System by Automated count ID Date Data Source [id number] 01/14/2013 10:16:00 AM EST [facility] System Name Value Range Interpretation Description Data Sup porting Code Source(s) Document(s ) Sodium 134 135 - Below low normal Sodium, Serum [facility] [Moles/volume mmol/L 145 Health ] in Serum or mmol/L System Plasma Potassium 4.0 3.5 - Normal (applies Potassium, [facility] [Mass/volume] mmol/L 5.0 to non-numeric Serum Health in Serum or mmol/L results) System Plasma Chloride 106 101 - Normal (applies Chloride, [facility] [Moles/volume mmol/L 111 to non-numeric Serum Health ] in Serum or mmol/L results) System Plasma Carbon 22.3 21.0 - Normal (applies CO2, Serum [facility] dioxide, mmol/L 31.0 to non-numeric Health total mmol/L results) System [Moles/volume ] in Serum or Plasma Glucose 77 mg/dL 65 - 110 Normal (applies Glucose, Serum [facility] [Mass/volume] mg/dL to non-numeric Health in Serum or results) System Plasma Urea nitrogen 11 mg/dl 7 - 18 Normal (applies Blood Urea [facility] [Mass/volume] mg/dl to non-numeric Nitrogen, Health in Serum or results) Serum System Plasma Creatinine 0.60 0.50 - Normal (applies Creatinine, [facility] [Mass/volume] mg/dl 1.20 to non-numeric Serum Health in Serum or mg/dl results) System Plasma Calcium 8.4 8.4 - Normal (applies Calcium, Total [facility] [Mass/volume] mg/dl 10.2 to non-numeric Serum Health in Serum or mg/dl results) System Plasma Anion gap in 5.70 Normal (applies Anion Gap [facility] Serum or mmol/L to non-numeric Health Plasma results) System ID Date Data Source [id number] 12/23/2012 04:09:00 PM EST [facility] Name Value Range Interpretation Description Data Sup porting Code Source(s) Document(s ) Color Yellow Normal (applies Color [facility] to non-numeric Health results) System Appearance of HAZY Clear Normal (applies Urine [facility] Urine to non-numeric Appearance Health results) System Specific 1.021 Normal (applies Urine Specific [facility] gravity of to non-numeric [facility] Urine results) System pH.. 6.5 4.6 - 8.0 Normal (applies pH.. [facility] {pH_units} pH units to non-numeric Health results) System Glucose, UA NEG Negative Normal (applies Glucose, UA [facility] mg/dl to non-numeric Health results) System Protein TR 0.0 - Normal (applies Protein [facility] [Mass/volume] 30.0 to non-numeric Health in Serum or mg/dl results) System Plasma Bilirubin NEG Negative Normal (applies Bilirubin [facility] Urine to non-numeric Urine Health results) System Urobilinogen Less than Normal (applies Urobilinogen [facility] [Mass/volume] 2.0 to non-numeric UA Health in Urine Reference results) System Range: Negative or <=2.0 Ketones NEG Negative Normal (applies Ketones UA [facility] [Mass/volume] mg/dl to non-numeric Health in Urine results) System Nitrate+Nitrit Negative Negative Normal (applies Nitrite [facility] to non-numeric Health [Mass/volume] results) System in Unspecified specimen Leukocyte NEG Negative Normal (applies Leukocyte [facility] esterase to non-numeric Esterase Health [Units/volume] results) Concentration System in Urine Leukocytes 2 {/HPF} 0 - 2 Normal (applies White Blood [facility] [#/volume] in /HPF to non-numeric Cells Health Unspecified results) System specimen by Automated count Red Blood Less than 0 - 1 Normal (applies Red Blood [facility] Cells 1 /HPF /HPF to non-numeric Cells Health results) System Epithelial 20 {/HPF} 0 - 3 Normal (applies Epithelial [facility] cells /HPF to non-numeric Cells Health [Presence] in results) System Unspecified specimen by Wet preparation Mucus RARE Normal (applies Mucus [facility] to non-numeric Health results) System Bacteria FEW Normal (applies Bacteria [facility] [Presence] in to non-numeric Health Unspecified results) System specimen Urine Blood NEG Negative Normal (applies Urine Blood [facility] to non-numeric Health results) System Non-Squamous 1 {/HPF} Normal (applies Non-Squamous [facility] Epithelial to non-numeric Epithelial Health results) System ID Date Data Source [id number] 12/23/2012 04:09:00 PM EST [facility] Name Value Range Interpretation Description Data Sup porting Code Source(s) Document(s ) Leukocytes 9.6 4.8 - Normal (applies WBC Count [facility] [#/volume] in {10\\S\\3_ 10.8 to non-numeric Health Unspecified uL} 10\\S\\3 results) System specimen by uL Automated count Erythrocytes 4.10 4.20 - Below low normal RBC Count [facility] [#/volume] in {10\\S\\6_ 5.40 Health Blood by uL} 10\\S\\6 System Automated count uL Hemoglobin 12.4 12.0 - Normal (applies Hemoglobin, [facility] [Mass/volume] in {gm/dL} 16.0 to non-numeric Whole Blood Health Blood gm/dL results) System Hematocrit 36.8 % 37.0 - Below low normal Hematocrit, [facility] [Volume 47.0 % Whole Blood Health Fraction] of System Blood Erythrocyte mean 89.8 fl 81.0 - Normal (applies MCV [facility] corpuscular 99.0 fl to non-numeric Health volume [Entitic results) System volume] by Automated count Erythrocyte mean 30.1 pg 27.0 - Normal (applies MCH [facility] corpuscular 31.0 pg to non-numeric Health hemoglobin results) System [Entitic mass] by Automated count Erythrocyte mean 33.5 33.0 - Normal (applies MCHC [facility] corpuscular {gm/dL} 37.0 to non-numeric Health hemoglobin gm/dL results) System concentration [Mass/volume] by Automated count Erythrocyte 14.1 % 11.5 - Normal (applies RDW [facility] distribution 14.5 % to non-numeric Health width [Entitic results) System volume] by Automated count Platelets 169 130 - Normal (applies Platelet [facility] [#/volume] in {10\\S\\3_ 400 to non-numeric Count Health Plasma by uL} 10\\S\\3 results) System Automated count uL Platelet mean 9.4 fl 7.4 - Normal (applies MPV [facility] volume [Entitic 10.4 fl to non-numeric Health volume] in Blood results) System by Automated count Monocytes 0.4 0.1 - Normal (applies Monocyte [facility] [#/volume] in {10\\S\\3_ 0.6 to non-numeric Count Health Blood by Manual uL} 10\\S\\3 results) System count uL Eosinophils 0.2 0.0 - Normal (applies Eosinophil [facility] [#/volume] in {10\\S\\3} 5.0 to non-numeric Count Blood Health Blood 10\\S\\3 results) System Basophils 0.00 0.00 - Normal (applies Basophil [facility] [#/volume] in {10\\S\\3_ 0.20 to non-numeric Count Health Blood by uL} 10\\S\\3 results) System Automated count uL Neutrophils 6.6 3.0 - Normal (applies Absolute [facility] [#/volume] in {10\\S\\3_ 8.1 to non-numeric Neutrophil Health Body fluid uL} 10\\S\\3 results) Count System uL Lymphocyte 2.3 1.2 - Normal (applies Lymphocyte [facility] Absolute {10\\S\\3_ 3.4 to non-numeric Absolute Health uL} 10\\S\\3 results) System uL Neutrophils/100 68.7 % 55.0 - Normal (applies Neutrophil % [facility] leukocytes in 75.0 % to non-numeric Health Blood by results) System Automated count Monocytes/100 4.6 % 2.0 - Normal (applies Monocyte % [facility] leukocytes in 9.0 % to non-numeric Health Blood results) System Eosinophils/100 2.0 % 0.0 - Normal (applies Eosinophil % [facility] leukocytes in 5.0 % to non-numeric Health Unspecified results) System specimen Basophils/100 0.2 % 0.0 - Normal (applies Basophil % [facility] leukocytes in 1.0 % to non-numeric Health Unspecified results) System specimen by Manual count Lymphocytes 24.5 % 15.0 - Normal (applies Lymphocyte % [facility] [#/volume] in 41.0 % to non-numeric Health Blood by results) System Automated count ID Date Data Source [id number] 12/23/2012 04:09:00 PM [facility] System Name Value Range Interpretation Description Data Sup porting Code Source(s) Document(s ) hCG 39531 <5 Normal (applies hCG [facility] Quantitative {mIU/mL} mIU/mL to non-numeric Quantitative Health results) System Negative = <5 mIU/mLAPPROXIMATE GEST. AG E APPROXIMATE HCG mIU/ML 0.2 - 1 week 5 - 50 1 - 2 w eeks 50 - 500 2 - 3 weeks 100 - 5,000 3 - 4 weeks 500 - 10,000 4 - 5 weeks 1,000 - 50,000 5 - 6 weeks 10,000 - 100,000 6 - 8 weeks 15,000 - 200,000 8 - 12 weeks 10,000 - 1 00,000HCG levels between 5-25 mIU/mL may be indicative of early . Correlati on with other clinical findings and/or repeat of HCG quantitative testing recommened.P reviously released as >1000 on 12/23/2012, 6:19 [place] [id number] - diluted rpt ID Date Data Source [id number] 12/23/2012 04:09:00 PM [facility] System Name Value Range Interpretation Description Data Sup porting Code Source(s) Document(s ) Sodium 131 mmol/L 135 - Below low Sodium, [facility] [Moles/volume] 145 normal Serum Health in Serum or mmol/L System Plasma Potassium 3.5 mmol/L 3.5 - Normal (applies Potassium, [facility] [Mass/volume] 5.0 to non-numeric Serum Health in Serum or mmol/L results) System Plasma Chloride 111 mmol/L 101 - Normal (applies Chloride, [facility] [Moles/volume] 111 to non-numeric Serum Health in Serum or mmol/L results) System Plasma Carbon dioxide, 22.0 mmol/L 21.0 - Normal (applies CO2, Serum [facility] total 31.0 to non-numeric Health [Moles/volume] mmol/L results) System in Serum or Plasma Total Protein 5.5 mg/dl 6.4 - Below low Total [facility] 8.1 normal Protein Health mg/dl System Glucose 95 mg/dL 65 - Normal (applies Glucose, [facility] [Mass/volume] 110 to non-numeric Serum Health in Serum or mg/dL results) System Plasma Urea nitrogen 10 mg/dl 7 - 18 Normal (applies Blood Urea [facility] [Mass/volume] mg/dl to non-numeric Nitrogen, Health in Serum or results) Serum System Plasma Creatinine 0.60 mg/dl 0.50 - Normal (applies Creatinine, [facility] [Mass/volume] 1.20 to non-numeric Serum Health in Serum or mg/dl results) System Plasma Alkaline 40 {IU/L} 42 - Below low Alkaline [facility] phosphatase 121 normal Phosphatase, Health isoenzymes IU/L Serum System [Enzymatic activity/volume ] in Serum or Plasma by Heat stability Bilirubin.total 0.2 mg/dl 0.2 - Normal (applies Bilirubin, [facility] [Mass/volume] 1.2 to non-numeric Serum Total Health in Serum or mg/dl results) System Plasma Aspartate 16 {IU/L} 10 - Normal (applies Aspartate [facility] aminotransferas 42 to non-numeric Transaminase Health e [Enzymatic IU/L results) , Serum System activity/volume ] in Serum or Plasma by With P-5'-P Albumin 3.4 {gm/dl} 3.2 - Normal (applies Albumin, [facility] [Mass/volume] 5.5 to non-numeric Serum Health in Serum or gm/dl results) System Plasma I. Phosphorus 3.1 mg/dl 2.6 - Normal (applies I. [facility] 4.9 to non-numeric Phosphorus Health mg/dl results) System Alanine 14 {IU/L} 10 - Normal (applies Alanine [facility] aminotransferas 42 to non-numeric Aminotransfe Health e [Enzymatic IU/L results) rase, Serum System activity/volume ] in Serum or Plasma Calcium 8.4 mg/dl 8.4 - Normal (applies Calcium, [facility] [Mass/volume] 10.2 to non-numeric Total Serum Health in Serum or mg/dl results) System Plasma A/G Ratio 1.62 Normal (applies A/G Ratio [facility] to non-numeric Health results) System Urate 4.6 mg/dl 2.3 - Normal (applies Uric Acid, [facility] [Mass/volume] 7.5 to non-numeric Serum Health in Serum or mg/dl results) System Plasma Anion gap in -2.00 mmol/L Normal (applies Anion Gap [facility] Serum or Plasma to non-numeric Health results) System Glomerular Greater than Normal (applies GFR [facility] filtration 90 eGFR will to non-numeric Health rate/1.73 sq provide results) System M.predicted clinicians [Volume with a more Rate/Area] in accurate Serum or Plasma indicator of by renal function Creatinine-base then the serum d formula creatinine. (CKD-EPI) The eGFR is automatically calculated from an empiric formula (endorsed by the [employer]) which incorporates age, sex, and race.Clinician s may notice surprisingly low GFR's with serum creatinine valueswithin normal range- particularly in elderly women (with low muscle mass).In the hospital setting, the eGFR should add an element of safety in drug dosing, in assessing the risk of IV contrast administration , and in assessing vascular risk.The NKF staging system is as follows:Normal : eGFR >90 with no kidney markersStage 1: eGFR >90 with kidney markers*Stage 2: eGFR 60-89Stage 3: eGFR 30-59Stage 4: eGFR 15-29Stage 5: eGFR <15 (usually requiring dialysis)*Sha ers include: Proteinuria, Hematuria, abnormal imaging-studie s, or other blood or urine test abnormalities ID Date Data Source [id number] 12/23/2012 03:44:00 PM EST [facility] Name Value Range Interpretation Description Data Sup porting Code Source(s) Document(s ) Deprecated Micro Normal (applies Aerobic [facility] Bacteria Result to non-numeric Culture, Health identified in Final results) Urine System Urine by Culture Aerobe Reading culture Note::< 10,000 CFU/ML GRAM POSITIVE COCCI ID Date Data Source [id number] 12/09/2012 09:15:00 AM EST [facility] Name Value Range Interpretation Description Data Sup porting Code Source(s) Document(s ) Color Yellow Normal (applies Color [facility] to non-numeric Health results) System Appearance of HAZY Clear Normal (applies Urine [facility] Urine to non-numeric Appearance Health results) System Specific 1.019 Normal (applies Urine Specific [facility] gravity of to non-numeric [facility] Urine results) System pH.. 5.5 4.6 - 8.0 Normal (applies pH.. [facility] {pH_units} pH units to non-numeric Health results) System Glucose, UA NEG Negative Normal (applies Glucose, UA [facility] mg/dl to non-numeric Health results) System Protein NEG 0.0 - Normal (applies Protein [facility] [Mass/volume] 30.0 to non-numeric Health in Serum or mg/dl results) System Plasma Bilirubin NEG Negative Normal (applies Bilirubin [facility] Urine to non-numeric Urine Health results) System Urobilinogen Less than Normal (applies Urobilinogen [facility] [Mass/volume] 2.0 to non-numeric UA Health in Urine Reference results) System Range: Negative or <=2.0 Ketones NEG Negative Normal (applies Ketones UA [facility] [Mass/volume] mg/dl to non-numeric Health in Urine results) System Nitrate+Nitrit Negative Negative Normal (applies Nitrite [facility] to non-numeric Health [Mass/volume] results) System in Unspecified specimen Leukocyte Trace Negative Normal (applies Leukocyte [facility] esterase to non-numeric Esterase Health [Units/volume] results) Concentration System in Urine Leukocytes 1 {/HPF} 0 - 2 Normal (applies White Blood [facility] [#/volume] in /HPF to non-numeric Cells Health Unspecified results) System specimen by Automated count Red Blood 1 {/HPF} 0 - 1 Normal (applies Red Blood [facility] Cells /HPF to non-numeric Cells Health results) System Epithelial 31 {/HPF} 0 - 3 Normal (applies Epithelial [facility] cells /HPF to non-numeric Cells Health [Presence] in results) System Unspecified specimen by Wet preparation Urine Blood NEG Negative Normal (applies Urine Blood [facility] to non-numeric Health results) System Non-Squamous Less than Normal (applies Non-Squamous [facility] Epithelial 1 /HPF to non-numeric Epithelial Health results) System ID Date Data Source [id number] 12/09/2012 09:15:00 AM EST [facility] System Name Value Range Interpretation Description Data Sup porting Code Source(s) Document(s ) Polys 83 % 55 - 75 Above high Polys [facility] % normal Health System Bands 3 % 2 - 6 % Normal (applies Bands [facility] to non-numeric Health results) System Variant 1 % Normal (applies Atypical [facility] lymphocytes to non-numeric Lymphocyte Health [Presence] in results) Count System Blood by Automated count Platelets Adequate Normal Normal (applies Platelet [facility] [#/volume] in to non-numeric Count Health Blood by results) Estimate System Estimate NORM yes. Normal (applies NORM [facility] to non-numeric Health results) System Lymphocytes 7.0 % 15.0 - Below low normal Lymphocyte % [facility] [#/volume] in 41.0 % Health Blood by System Automated count Monocytes/100 4.0 % 2.0 - Normal (applies Monocyte % [facility] leukocytes in 9.0 % to non-numeric Health Blood results) System Eosinophils/10 2.0 % 0.0 - Normal (applies Eosinophil % [facility] 0 leukocytes 5.0 % to non-numeric Health in Unspecified results) System specimen ID Date Data Source [id number] 12/09/2012 09:15:00 AM EST [facility] Name Value Range Interpretation Description Data Sup porting Code Source(s) Document(s ) Leukocytes 14.4 4.8 - Above high WBC Count [facility] [#/volume] in {10\\S\\3_ 10.8 normal Health Unspecified uL} 10\\S\\3 System specimen by uL Automated count Erythrocytes 4.50 4.20 - Normal (applies RBC Count [facility] [#/volume] in {10\\S\\6_ 5.40 to non-numeric Health Blood by uL} 10\\S\\6 results) System Automated count uL Hemoglobin 13.7 12.0 - Normal (applies Hemoglobin, [facility] [Mass/volume] in {gm/dL} 16.0 to non-numeric Whole Blood Health Blood gm/dL results) System Hematocrit 40.8 % 37.0 - Normal (applies Hematocrit, [facility] [Volume 47.0 % to non-numeric Whole Blood Health Fraction] of results) System Blood Erythrocyte mean 90.7 fl 81.0 - Normal (applies MCV [facility] corpuscular 99.0 fl to non-numeric Health volume [Entitic results) System volume] by Automated count Erythrocyte mean 30.4 pg 27.0 - Normal (applies MCH [facility] corpuscular 31.0 pg to non-numeric Health hemoglobin results) System [Entitic mass] by Automated count Erythrocyte mean 33.5 33.0 - Normal (applies MCHC [facility] corpuscular {gm/dL} 37.0 to non-numeric Health hemoglobin gm/dL results) System concentration [Mass/volume] by Automated count Erythrocyte 15.0 % 11.5 - Above high RDW [facility] distribution 14.5 % normal Health width [Entitic System volume] by Automated count Platelets 153 130 - Normal (applies Platelet [facility] [#/volume] in {10\\S\\3_ 400 to non-numeric Count Health Plasma by uL} 10\\S\\3 results) System Automated count uL Platelet mean 9.6 fl 7.4 - Normal (applies MPV [facility] volume [Entitic 10.4 fl to non-numeric Health volume] in Blood results) System by Automated count ID Date Data Source [id number] 12/09/2012 09:15:00 AM EST [facility] Name Value Range Interpretation Description Data Sup porting Code Source(s) Document(s ) Sodium 136 mmol/L 135 - Normal (applies Sodium, [facility] [Moles/volume] 145 to non-numeric Serum Health in Serum or mmol/L results) System Plasma Potassium 4.0 mmol/L 3.5 - Normal (applies Potassium, [facility] [Mass/volume] 5.0 to non-numeric Serum Health in Serum or mmol/L results) System Plasma Chloride 106 mmol/L 101 - Normal (applies Chloride, [facility] [Moles/volume] 111 to non-numeric Serum Health in Serum or mmol/L results) System Plasma Carbon dioxide, 23.3 mmol/L 21.0 - Normal (applies CO2, Serum José sirisha total 31.0 to non-numeric Health [Moles/volume] mmol/L results) System in Serum or Plasma Total Protein 5.9 mg/dl 6.4 - Below low Total [facility] 8.1 normal Protein Health mg/dl System Glucose 78 mg/dL 65 - Normal (applies Glucose, [facility] [Mass/volume] 110 to non-numeric Serum Health in Serum or mg/dL results) System Plasma Urea nitrogen 10 mg/dl 7 - 18 Normal (applies Blood Urea [facility] [Mass/volume] mg/dl to non-numeric Nitrogen, Health in Serum or results) Serum System Plasma Creatinine 0.60 mg/dl 0.50 - Normal (applies Creatinine, [facility] [Mass/volume] 1.20 to non-numeric Serum Health in Serum or mg/dl results) System Plasma Alkaline 37 {IU/L} 42 - Below low Alkaline [facility] phosphatase 121 normal Phosphatase, Health isoenzymes IU/L Serum System [Enzymatic activity/volume ] in Serum or Plasma by Heat stability Bilirubin.total 0.3 mg/dl 0.2 - Normal (applies Bilirubin, [facility] [Mass/volume] 1.2 to non-numeric Serum Total Health in Serum or mg/dl results) System Plasma Aspartate 17 {IU/L} 10 - Normal (applies Aspartate [facility] aminotransferas 42 to non-numeric Transaminase Health e [Enzymatic IU/L results) , Serum System activity/volume ] in Serum or Plasma by With P-5'-P Albumin 3.8 {gm/dl} 3.2 - Normal (applies Albumin, [facility] [Mass/volume] 5.5 to non-numeric Serum Health in Serum or gm/dl results) System Plasma I. Phosphorus 2.9 mg/dl 2.6 - Normal (applies I. [facility] 4.9 to non-numeric Phosphorus Health mg/dl results) System Alanine 12 {IU/L} 10 - Normal (applies Alanine [facility] aminotransferas 42 to non-numeric Aminotransfe Health e [Enzymatic IU/L results) rase, Serum System activity/volume ] in Serum or Plasma Calcium 8.7 mg/dl 8.4 - Normal (applies Calcium, [facility] [Mass/volume] 10.2 to non-numeric Total Serum Health in Serum or mg/dl results) System Plasma A/G Ratio 1.81 Normal (applies A/G Ratio [facility] to non-numeric Health results) System Urate 3.9 mg/dl 2.3 - Normal (applies Uric Acid, [facility] [Mass/volume] 7.5 to non-numeric Serum Health in Serum or mg/dl results) System Plasma Anion gap in 6.70 mmol/L Normal (applies Anion Gap [facility] Serum or Plasma to non-numeric Health results) System Glomerular Greater than Normal (applies GFR [facility] filtration 90 eGFR will to non-numeric Health rate/1.73 sq provide results) System M.predicted clinicians [Volume with a more Rate/Area] in accurate Serum or Plasma indicator of by renal function Creatinine-base then the serum d formula creatinine. (CKD-EPI) The eGFR is automatically calculated from an empiric formula (endorsed by the [employer]) which incorporates age, sex, and race.Clinician s may notice surprisingly low GFR's with serum creatinine valueswithin normal range- particularly in elderly women (with low muscle mass).In the hospital setting, the eGFR should add an element of safety in drug dosing, in assessing the risk of IV contrast administration , and in assessing vascular risk.The NKF staging system is as follows:Normal : eGFR >90 with no kidney markersStage 1: eGFR >90 with kidney markers*Stage 2: eGFR 60-89Stage 3: eGFR 30-59Stage 4: eGFR 15-29Stage 5: eGFR <15 (usually requiring dialysis)*Sha ers include: Proteinuria, Hematuria, abnormal imaging-studie s, or other blood or urine test abnormalities ID Date Data Source [id number] 11/08/2012 01:20:00 PM EST [facility] System Name Value Range Interpretation Description Data Sup porting Code Source(s) Document(s ) Color Yellow Normal (applies Color [facility] to non-numeric Health results) System Appearance of HAZY Clear Normal (applies Urine [facility] Urine to non-numeric Appearance Health results) System Specific 1.018 Normal (applies Urine Specific [facility] gravity of to non-numeric [facility] Urine results) System pH.. 6.5 4.6 - 8.0 Normal (applies pH.. [facility] {pH_units} pH units to non-numeric Health results) System Glucose, UA NEG Negative Normal (applies Glucose, UA [facility] mg/dl to non-numeric Health results) System Protein TR 0.0 - Normal (applies Protein [facility] [Mass/volume] 30.0 to non-numeric Health in Serum or mg/dl results) System Plasma Bilirubin NEG Negative Normal (applies Bilirubin [facility] Urine to non-numeric Urine Health results) System Ketones NEG Negative Normal (applies Ketones UA [facility] [Mass/volume] mg/dl to non-numeric Health in Urine results) System Urobilinogen Less than Normal (applies Urobilinogen [facility] [Mass/volume] 2.0 to non-numeric UA Health in Urine Reference results) System Range: Negative or <=2.0 Nitrate+Nitrit Negative Negative Normal (applies Nitrite [facility] to non-numeric Health [Mass/volume] results) System in Unspecified specimen Leukocyte NEG Negative Normal (applies Leukocyte [facility] esterase to non-numeric Esterase Health [Units/volume] results) Concentration System in Urine Leukocytes 2 {/HPF} 0 - 2 Normal (applies White Blood [facility] [#/volume] in /HPF to non-numeric Cells Health Unspecified results) System specimen by Automated count Red Blood 1 {/HPF} 0 - 1 Normal (applies Red Blood [facility] Cells /HPF to non-numeric Cells Health results) System Epithelial 33 {/HPF} 0 - 3 Normal (applies Epithelial [facility] cells /HPF to non-numeric Cells Health [Presence] in results) System Unspecified specimen by Wet preparation Mucus RARE Normal (applies Mucus [facility] to non-numeric Health results) System Bacteria FEW Normal (applies Bacteria [facility] [Presence] in to non-numeric Health Unspecified results) System specimen Urine Blood NEG Negative Normal (applies Urine Blood [facility] to non-numeric Health results) System Non-Squamous 2 {/HPF} Normal (applies Non-Squamous [facility] Epithelial to non-numeric Epithelial Health results) System ID Date Data Source [id number] 10/25/2012 08:10:00 PM EST [facility] Name Value Range Interpretation Description Data Sup porting Code Source(s) Document(s ) Deprecated NO GROWTH Aerobic [facility] Bacteria Culture, Urine Health System identified in Urine by Aerobe culture ID Date Data Source [id number] 10/25/2012 08:10:00 PM EST [facility] System Name Value Range Interpretation Description Data Sup porting Code Source(s) Document(s ) Color Yellow Normal (applies Color [facility] to non-numeric Health results) System Appearance of HAZY Clear Normal (applies Urine [facility] Urine to non-numeric Appearance Health results) System Specific 1.021 Normal (applies Urine Specific [facility] gravity of to non-numeric [facility] Urine results) System pH.. 7.5 4.6 - 8.0 Normal (applies pH.. [facility] {pH_units} pH units to non-numeric Health results) System Glucose, UA NEG Negative Normal (applies Glucose, UA [facility] mg/dl to non-numeric Health results) System Protein 30 mg/dl 0.0 - Normal (applies Protein [facility] [Mass/volume] 30.0 to non-numeric Health in Serum or mg/dl results) System Plasma Bilirubin NEG Negative Normal (applies Bilirubin [facility] Urine to non-numeric Urine Health results) System Urobilinogen Less than Normal (applies Urobilinogen [facility] [Mass/volume] 2.0 to non-numeric UA Health in Urine Reference results) System Range: Negative or <=2.0 Ketones NEG Negative Normal (applies Ketones UA [facility] [Mass/volume] mg/dl to non-numeric Health in Urine results) System Nitrate+Nitrit Negative Negative Normal (applies Nitrite [facility] e to non-numeric Health [Mass/volume] results) System in Unspecified specimen Leukocyte Small Negative Normal (applies Leukocyte [facility] esterase to non-numeric Esterase Health [Units/volume] results) Concentration System in Urine Leukocytes 11 {/HPF} 0 - 2 Normal (applies White Blood [facility] [#/volume] in /HPF to non-numeric Cells Health Unspecified results) System specimen by Automated count Red Blood 3 {/HPF} 0 - 1 Normal (applies Red Blood [facility] Cells /HPF to non-numeric Cells Health results) System Epithelial 83 {/HPF} 0 - 3 Normal (applies Epithelial [facility] cells /HPF to non-numeric Cells Health [Presence] in results) System Unspecified specimen by Wet preparation Mucus RARE Normal (applies Mucus [facility] to non-numeric Health results) System Bacteria FEW Normal (applies Bacteria [facility] [Presence] in to non-numeric Health Unspecified results) System specimen Urine Blood NEG Negative Normal (applies Urine Blood [facility] to non-numeric Health results) System Non-Squamous 1 {/HPF} Normal (applies Non-Squamous [facility] Epithelial to non-numeric Epithelial Health results) System ID Date Data Source [id number] 09/20/2012 05:18:00 AM EST [facility] Name Value Range Interpretation Description Data Sup porting Code Source(s) Document(s ) HIV Oraquick Negative Normal (applies to HIV Oraquick [facility] non-numeric Health System results) Called to Nidia Carey RN/DOTTIE NOT E:If rapid HIV test is negative, this is a final report.If rapid HIV test is positi ve: THIS IS A PRELIMANARY REPORT - CONFIRMATION IS PENDING.Confirmed result s must be considered in making a diagnosis related to HIV infection. ID Date Data Source [id number] 09/20/2012 04:56:00 AM EST [facility] System Name Value Range Interpretation Description Data Source(s ) Supporting Code Document(s ) Reagin Ab Non-react Normal (applies to RPR/VDRL. [facility] [Presence] nicole non-numeric Health System in Serum by results) RPR ID Date Data Source [id number] 09/20/2012 04:56:00 AM EST Ana mccauely System Name Value Range Interpretation Description Data Sup porting Code Source(s) Document(s ) Hepatitis B Non Normal (applies Hepatitis B [facility] Core ReactiveReference to non-numeric Core Health Antibody, Range: Non results) Antibody, System Total Reactive Test Total Performed at: [facility] [place] [address] Claire Soni M.D. NONREACTIVE = Anti-HBc antibodies were not detected in the sample; it is possible that the patient is not infected with HBV.EQUIVOCAL = Antibodies to anti-HBc may or may not be present; another specimen should be obtained from the patient for further testing.REACTIVE = Presumptive evidence of HBV; anti-HBc antibodies were detected in the sample which suggests either on-going or previous HBV infection. ID Date Data Source [id number] 08/27/2012 09:00:00 PM EDT Ana mccauley System Name Value Range Interpretation Description Data Sup porting Code Source(s) Document(s ) Deprecated Micro Result Normal (applies Aerobic [facility] Bacteria to non-numeric Culture, Health identified in results) Urine System Urine by Aerobe culture XXX Staphylococcus Organism [facility] microorganism saprophyticus [facility] [Identifier] in Isolate by Agglutination Jerome Count > 100,000 Jerome Count [facility] CFU/ML Health System ID Date Data Source [id number] 08/27/2012 09:00:00 PM EDT [facility] System Name Value Range Interpretation Description Data Sup porting Code Source(s) Document(s ) Appearance of HAZY Clear Normal (applies Urine [facility] Urine to non-numeric Appearance Health System results) Color Light-Ye Normal (applies Color [facility] llow to non-numeric Health System results) Specific 1.004 Normal (applies Urine Specific [facility] gravity of to non-numeric [facility] Urine results) Previously released as 1.024 on 08/27/20 12, 9:[place] [id number] - pH.. 5.5 {pH_units} 4.6 - 8.0 pH Normal (applies to pH.. [facility] units non-numeric results) System Previously released as 6.5 on , 9:[place] [id number] - Glucose, UA NEG Negative mg/dl Normal (applies to Glucose, [facility] non-numeric System results) Protein NEG 0.0 - 30.0 mg/dl Normal (applies to Protein [facility] [Mass/volume] in non-numeric System Serum or Plasma results) Previously released as 30. on 08/27/2012 , 9:[place] [id number] - Bilirubin Urine NEG Negative Normal Bilirubin Urine [facility] (applies to Health System non-numeric results) Ketones NEG Negative Normal Ketones UA [facility] [Mass/volume] in mg/dl (applies to Health Syst em Urine non-numeric results) Urobilinogen Less than 2.0 Normal Urobilinogen UA [facility] [Mass/volume] in Reference (applies to Health [employer] Urine Range: non-numeric Negative or results) <=2.0 Nitrate+Nitrite Negative Negative Normal Nitrite [facility] [Mass/volume] in (applies to Health Syst em Unspecified non-numeric specimen results) Leukocyte Trace Negative Normal Leukocyte [facility] esterase (applies to Esterase Health System [Units/volume] non-numeric Concentration in Urine results) Leukocytes 78 {/HPF} 0 - 2 /HPF Normal White Blood [facility] [#/volume] in (applies to Cells Health System Unspecified non-numeric specimen by results) Automated count Red Blood Cells 135 {/HPF} 0 - 1 /HPF Normal Red Blood Cells [facility] (applies to Health System non-numeric results) Bacteria MANY Normal Bacteria [facility] [Presence] in (applies to Health System Unspecified non-numeric specimen results) Epithelial cells 49 {/HPF} 0 - 3 /HPF Normal Epithelial Cells José sirisha [Presence] in (applies to Health System Unspecified non-numeric specimen by Wet results) preparation Non-Squamous 2 {/HPF} Normal Non-Squamous [facility] Epithelial (applies to Epithelial Health System non-numeric results) Urine Blood LG(3+) Negative Normal Urine Blood [facility] (applies to Health System non-numeric results) Previously released as MOD(2+) on 2011, 9:[place] [id number] - ID Date Data Source [id number] 08/17/2012 02:17:00 AM EDT Ana mccauley System Name Value Range Interpretation Description Data Sup porting Code Source(s) Document(s ) Color [place] Normal (applies Color [facility] ow to non-numeric Health results) System Appearance of CLEAR Clear Normal (applies Urine [facility] Urine to non-numeric Appearance Health results) System pH.. 7.0 4.6 - 8.0 Normal (applies pH.. [facility] {pH_units} pH units to non-numeric Health results) System Specific 1.018 Normal (applies Urine Specific [facility] gravity of to non-numeric [facility] Urine results) System Glucose, UA NEG Negative Normal (applies Glucose, UA [facility] mg/dl to non-numeric Health results) System Protein NEG 0.0 - Normal (applies Protein [facility] [Mass/volume] 30.0 to non-numeric Health in Serum or mg/dl results) System Plasma Bilirubin NEG Negative Normal (applies Bilirubin [facility] Urine to non-numeric Urine Health results) System Urobilinogen Less than Normal (applies Urobilinogen [facility] [Mass/volume] 2.0 to non-numeric UA Health in Urine Reference results) System Range: Negative or <=2.0 Ketones NEG Negative Normal (applies Ketones UA [facility] [Mass/volume] mg/dl to non-numeric Health in Urine results) System Nitrate+Nitrit Negative Negative Normal (applies Nitrite [facility] to non-numeric Health [Mass/volume] results) System in Unspecified specimen Leukocyte Trace Negative Normal (applies Leukocyte [facility] esterase to non-numeric Esterase Health [Units/volume] results) Concentration System in Urine Leukocytes 4 {/HPF} 0 - 2 Normal (applies White Blood [facility] [#/volume] in /HPF to non-numeric Cells Health Unspecified results) System specimen by Automated count Epithelial 7 {/HPF} 0 - 3 Normal (applies Epithelial [facility] cells /HPF to non-numeric Cells Health [Presence] in results) System Unspecified specimen by Wet preparation Red Blood 3 {/HPF} 0 - 1 Normal (applies Red Blood [facility] Cells /HPF to non-numeric Cells Health results) System Mucus RARE Normal (applies Mucus [facility] to non-numeric Health results) System Urine Blood NEG Negative Normal (applies Urine Blood [facility] to non-numeric Health results) System Non-Squamous Less than Normal (applies Non-Squamous [facility] Epithelial 1 /HPF to non-numeric Epithelial Health results) System Unclassified 1 Normal (applies Unclassified [facility] Casts to non-numeric Casts Health results) System ID Date Data Source [id number] 08/17/2012 02:17:00 AM EDT [facility] Name Value Range Interpretation Description Data Sup porting Code Source(s) Document(s ) Polys 66 % 55 - 75 Normal (applies Polys [facility] % to non-numeric Health results) System Bands 1 % 2 - 6 % Below low normal Bands [facility] System Platelets Adequate Normal Normal (applies Platelet [facility] [#/volume] in to non-numeric Count Health Blood by results) Estimate System Estimate NORM yes. Normal (applies NORM [facility] to non-numeric Health results) System Monocytes/100 9.0 % 2.0 - Above high Monocyte % [facility] leukocytes in 6.0 % normal Health Blood System Lymphocytes 21.0 % 15.0 - Normal (applies Lymphocyte % [facility] [#/volume] in 41.0 % to non-numeric Health Blood by results) System Automated count Eosinophils/10 3.0 % 1.0 - Normal (applies Eosinophil % [facility] 0 leukocytes 3.0 % to non-numeric Health in Unspecified results) System specimen ID Date Data Source [id number] 08/17/2012 02:17:00 AM EDT [facility] System Name Value Range Interpretation Description Data Sup porting Code Source(s) Document(s ) Leukocytes 12.1 4.8 - Above high WBC Count [facility] [#/volume] in {10\\S\\3_ 10.8 normal Health Unspecified uL} 10\\S\\3 System specimen by uL Automated count Erythrocytes 4.38 4.20 - Normal (applies RBC Count [facility] [#/volume] in {10\\S\\6_ 5.40 to non-numeric Health Blood by uL} 10\\S\\6 results) System Automated count uL Hemoglobin 13.3 12.0 - Normal (applies Hemoglobin, [facility] [Mass/volume] in {gm/dL} 16.0 to non-numeric Whole Blood Health Blood gm/dL results) System Hematocrit 39.8 % 37.0 - Normal (applies Hematocrit, [facility] [Volume 47.0 % to non-numeric Whole Blood Health Fraction] of results) System Blood Erythrocyte mean 90.9 fl 81.0 - Normal (applies MCV [facility] corpuscular 99.0 fl to non-numeric Health volume [Entitic results) System volume] by Automated count Erythrocyte mean 30.5 pg 27.0 - Normal (applies MCH [facility] corpuscular 31.0 pg to non-numeric Health hemoglobin results) System [Entitic mass] by Automated count Erythrocyte mean 33.5 33.0 - Normal (applies MCHC [facility] corpuscular {gm/dL} 37.0 to non-numeric Health hemoglobin gm/dL results) System concentration [Mass/volume] by Automated count Platelets 163 130 - Normal (applies Platelet [facility] [#/volume] in {10\\S\\3_ 400 to non-numeric Count Health Plasma by uL} 10\\S\\3 results) System Automated count uL Erythrocyte 12.9 % 11.5 - Normal (applies RDW [facility] distribution 14.5 % to non-numeric Health width [Entitic results) System volume] by Automated count Platelet mean 9.9 fl 7.4 - Normal (applies MPV [facility] volume [Entitic 10.4 fl to non-numeric Health volume] in Blood results) System by Automated count ID Date Data Source [id number] 08/17/2012 02:17:00 AM EDT [facility] System Name Value Range Interpretation Description Data Sup porting Code Source(s) Document(s ) Sodium 138 mmol/L 135 - Normal (applies Sodium, [facility] [Moles/volume] 145 to non-numeric Serum Health in Serum or mmol/L results) System Plasma Potassium 4.0 mmol/L 3.5 - Normal (applies Potassium, [facility] [Mass/volume] 5.0 to non-numeric Serum Health in Serum or mmol/L results) System Plasma Carbon dioxide, 26.3 mmol/L 21.0 - Normal (applies CO2, Serum José sirisha total 31.0 to non-numeric Health [Moles/volume] mmol/L results) System in Serum or Plasma Chloride 107 mmol/L 101 - Normal (applies Chloride, [facility] [Moles/volume] 111 to non-numeric Serum Health in Serum or mmol/L results) System Plasma Total Protein 5.7 mg/dl 6.4 - Below low Total [facility] 8.1 normal Protein Health mg/dl System Glucose 91 mg/dL 65 - Normal (applies Glucose, [facility] [Mass/volume] 110 to non-numeric Serum Health in Serum or mg/dL results) System Plasma Urea nitrogen 15 mg/dl 7 - 18 Normal (applies Blood Urea [facility] [Mass/volume] mg/dl to non-numeric Nitrogen, Health in Serum or results) Serum System Plasma Creatinine 0.65 mg/dl 0.50 - Normal (applies Creatinine, [facility] [Mass/volume] 1.20 to non-numeric Serum Health in Serum or mg/dl results) System Plasma Alkaline 62 {IU/L} 42 - Normal (applies Alkaline [facility] phosphatase 121 to non-numeric Phosphatase, Health isoenzymes IU/L results) Serum System [Enzymatic activity/volume ] in Serum or Plasma by Heat stability Bilirubin.total 0.6 mg/dl 0.2 - Normal (applies Bilirubin, [facility] [Mass/volume] 1.2 to non-numeric Serum Total Health in Serum or mg/dl results) System Plasma Aspartate 24 {IU/L} 10 - Normal (applies Aspartate [facility] aminotransferas 42 to non-numeric Transaminase Health e [Enzymatic IU/L results) , Serum System activity/volume ] in Serum or Plasma by With P-5'-P Albumin 3.5 {gm/dl} 3.2 - Normal (applies Albumin, [facility] [Mass/volume] 5.5 to non-numeric Serum Health in Serum or gm/dl results) System Plasma I. Phosphorus 4.1 mg/dl 2.6 - Normal (applies I. [facility] 4.9 to non-numeric Phosphorus Health mg/dl results) System Alanine 16 {IU/L} 10 - Normal (applies Alanine [facility] aminotransferas 42 to non-numeric Aminotransfe Health e [Enzymatic IU/L results) rase, Serum System activity/volume ] in Serum or Plasma Calcium 8.8 mg/dl 8.4 - Normal (applies Calcium, [facility] [Mass/volume] 10.2 to non-numeric Total Serum Health in Serum or mg/dl results) System Plasma A/G Ratio 1.59 Normal (applies A/G Ratio [facility] to non-numeric Health results) System Urate 5.2 mg/dl 2.3 - Normal (applies Uric Acid, [facility] [Mass/volume] 7.5 to non-numeric Serum Health in Serum or mg/dl results) System Plasma Anion gap in 4.70 mmol/L Normal (applies Anion Gap [facility] Serum or Plasma to non-numeric Health results) System Glomerular Greater than Normal (applies GFR [facility] filtration 90 eGFR will to non-numeric Health rate/1.73 sq provide results) System M.predicted clinicians [Volume with a more Rate/Area] in accurate Serum or Plasma indicator of by renal function Creatinine-base then the serum d formula creatinine. (CKD-EPI) The eGFR is automatically calculated from an empiric formula (endorsed by the [employer] Kid[employer]) which incorporates age, sex, and race.Clinician s may notice surprisingly low GFR's with serum creatinine valueswithin normal range- particularly in elderly women (with low muscle mass).In the hospital setting, the eGFR should add an element of safety in drug dosing, in assessing the risk of IV contrast administration , and in assessing vascular risk.The NKF staging system is as follows:Normal : eGFR >90 with no kidney markersStage 1: eGFR >90 with kidney markers*Stage 2: eGFR 60-89Stage 3: eGFR 30-59Stage 4: eGFR 15-29Stage 5: eGFR <15 (usually requiring dialysis)*Sha ers include: Proteinuria, Hematuria, abnormal imaging-studie s, or other blood or urine test abnormalities ID Date Data Source [id number] 08/11/2012 02:29:19 PM EDT [facility] System Name Value Range Interpretation Description Data Sup porting Code Source(s) Document(s ) aPTT in Blood 36.4 25.1 - Normal (applies Activated [facility] by {Second 36.5 to non-numeric Partial Health Coagulation s} Seconds results) Thromboplastin System assay Time ID Date Data Source [id number] 08/11/2012 02:29:19 PM EDT [facility] System Name Value Range Interpretation Description Data Sup porting Code Source(s) Document(s ) Prothrombin 11.10 Normal (applies Prothrombin [facility] time (PT) to non-numeric time (PT) Health results) System Prothrombin Ab 1.02 0.70 - Normal (applies INR Result [facility] [Units/volume] {Ratio} 1.10 to non-numeric Health in Serum or Ratio results) System Plasma Normal = 0.7-1.1Therapeutic = 2.0-3.0Mec hanical Heart = 3.0-4.5 ID Date Data Source [id number] 08/11/2012 02:29:19 PM EDT [facility] System Name Value Range Interpretation Description Data Sup porting Code Source(s) Document(s ) Erythrocytes 4.55 4.20 - Normal (applies RBC Count [facility] [#/volume] in {10\\S\\6_ 5.40 to non-numeric Health Blood by uL} 10\\S\\6 results) System Automated count uL Leukocytes 7.9 4.8 - Normal (applies WBC Count [facility] [#/volume] in {10\\S\\3_ 10.8 to non-numeric Health Unspecified uL} 10\\S\\3 results) System specimen by uL Automated count Hematocrit 41.8 % 37.0 - Normal (applies Hematocrit, [facility] [Volume 47.0 % to non-numeric Whole Blood Health Fraction] of results) System Blood Hemoglobin 13.9 12.0 - Normal (applies Hemoglobin, [facility] [Mass/volume] in {gm/dL} 16.0 to non-numeric Whole Blood Health Blood gm/dL results) System Erythrocyte mean 91.9 fl 81.0 - Normal (applies MCV [facility] corpuscular 99.0 fl to non-numeric Health volume [Entitic results) System volume] by Automated count Erythrocyte mean 33.2 33.0 - Normal (applies MCHC [facility] corpuscular {gm/dL} 37.0 to non-numeric Health hemoglobin gm/dL results) System concentration [Mass/volume] by Automated count Erythrocyte mean 30.6 pg 27.0 - Normal (applies MCH [facility] corpuscular 31.0 pg to non-numeric Health hemoglobin results) System [Entitic mass] by Automated count Platelets 161 130 - Normal (applies Platelet [facility] [#/volume] in {10\\S\\3_ 400 to non-numeric Count Health Plasma by uL} 10\\S\\3 results) System Automated count uL Erythrocyte 13.4 % 11.5 - Normal (applies RDW [facility] distribution 14.5 % to non-numeric Health width [Entitic results) System volume] by Automated count Monocytes 0.5 0.1 - Normal (applies Monocyte [facility] [#/volume] in {10\\S\\3_ 0.6 to non-numeric Count Health Blood by Manual uL} 10\\S\\3 results) System count uL Platelet mean 10.7 fl 7.4 - Above high MPV [facility] volume [Entitic 10.4 fl normal Health volume] in Blood System by Automated count Basophils 0.00 0.00 - Normal (applies Basophil [facility] [#/volume] in {10\\S\\3_ 0.20 to non-numeric Count Health Blood by uL} 10\\S\\3 results) System Automated count uL Eosinophils 0.1 0.0 - Normal (applies Eosinophil [facility] [#/volume] in {10\\S\\3} 5.0 to non-numeric Count Blood Health Blood 10\\S\\3 results) System Lymphocyte 1.9 1.2 - Normal (applies Lymphocyte [facility] Absolute {10\\S\\3_ 3.4 to non-numeric Absolute Health uL} 10\\S\\3 results) System uL Neutrophils 5.4 3.0 - Normal (applies Absolute [facility] [#/volume] in {10\\S\\3_ 8.1 to non-numeric Neutrophil Health Body fluid uL} 10\\S\\3 results) Count System uL Neutrophils/100 67.6 % 55.0 - Normal (applies Neutrophil % José sirisha leukocytes in 75.0 % to non-numeric Health Blood by results) System Automated count Monocytes/100 6.5 % 2.0 - Above high Monocyte % [facility] leukocytes in 6.0 % normal Health Blood System Eosinophils/100 1.7 % 1.0 - Normal (applies Eosinophil % José sirisha leukocytes in 3.0 % to non-numeric Health Unspecified results) System specimen Lymphocytes 23.8 % 15.0 - Normal (applies Lymphocyte % [facility] [#/volume] in 41.0 % to non-numeric Health Blood by results) System Automated count Basophils/100 0.4 % 0.0 - Normal (applies Basophil % [facility] leukocytes in 1.0 % to non-numeric Health Unspecified results) System specimen by Manual count ID Date Data Source [id number] 08/04/2012 11:29:00 AM EDT [facility] System Name Value Range Interpretation Description Data Sup porting Code Source(s) Document(s ) Color Yellow Normal (applies Color [facility] to non-numeric Health results) System Appearance of HAZY Clear Normal (applies Urine [facility] Urine to non-numeric Appearance Health results) System Specific 1.016 Normal (applies Urine Specific [facility] gravity of to non-numeric [facility] Urine results) System pH.. 5.5 4.6 - 8.0 Normal (applies pH.. [facility] {pH_units} pH units to non-numeric Health results) System Protein NEG 0.0 - Normal (applies Protein [facility] [Mass/volume] 30.0 to non-numeric Health in Serum or mg/dl results) System Plasma Bilirubin NEG Negative Normal (applies Bilirubin [facility] Urine to non-numeric Urine Health results) System Glucose, UA NEG Negative Normal (applies Glucose, UA [facility] mg/dl to non-numeric Health results) System Urobilinogen Less than Normal (applies Urobilinogen [facility] [Mass/volume] 2.0 to non-numeric UA Health in Urine Reference results) System Range: Negative or <=2.0 Ketones NEG Negative Normal (applies Ketones UA [facility] [Mass/volume] mg/dl to non-numeric Health in Urine results) System Leukocytes 11 {/HPF} 0 - 2 Normal (applies White Blood [facility] [#/volume] in /HPF to non-numeric Cells Health Unspecified results) System specimen by Automated count Nitrate+Nitrit Negative Negative Normal (applies Nitrite [facility] e to non-numeric Health [Mass/volume] results) System in Unspecified specimen Leukocyte Small Negative Normal (applies Leukocyte [facility] esterase to non-numeric Esterase Health [Units/volume] results) Concentration System in Urine Red Blood 2 {/HPF} 0 - 1 Normal (applies Red Blood [facility] Cells /HPF to non-numeric Cells Health results) System Epithelial 40 {/HPF} 0 - 3 Normal (applies Epithelial [facility] cells /HPF to non-numeric Cells Health [Presence] in results) System Unspecified specimen by Wet preparation Bacteria MANY Normal (applies Bacteria [facility] [Presence] in to non-numeric Health Unspecified results) System specimen Urine Blood NEG Negative Normal (applies Urine Blood [facility] to non-numeric Health results) System Mucus RARE Normal (applies Mucus [facility] to non-numeric Health results) System ID Date Data Source [id number] 08/04/2012 11:29:00 AM EDT [facility] Mike mccaule[facility] System Name Value Range Interpretation Description Data Sup porting Code Source(s) Document(s ) Leukocytes 8.2 4.8 - Normal (applies WBC Count [facility] [#/volume] in {10\\S\\3_ 10.8 to non-numeric Health Unspecified uL} 10\\S\\3 results) System specimen by uL Automated count Erythrocytes 4.42 4.20 - Normal (applies RBC Count [facility] [#/volume] in {10\\S\\6_ 5.40 to non-numeric Health Blood by uL} 10\\S\\6 results) System Automated count uL Hemoglobin 13.6 12.0 - Normal (applies Hemoglobin, [facility] [Mass/volume] in {gm/dL} 16.0 to non-numeric Whole Blood Health Blood gm/dL results) System Hematocrit 40.5 % 37.0 - Normal (applies Hematocrit, [facility] [Volume 47.0 % to non-numeric Whole Blood Health Fraction] of results) System Blood Erythrocyte mean 91.6 fl 81.0 - Normal (applies MCV [facility] corpuscular 99.0 fl to non-numeric Health volume [Entitic results) System volume] by Automated count Erythrocyte mean 30.7 pg 27.0 - Normal (applies MCH [facility] corpuscular 31.0 pg to non-numeric Health hemoglobin results) System [Entitic mass] by Automated count Platelets 160 130 - Normal (applies Platelet [facility] [#/volume] in {10\\S\\3_ 400 to non-numeric Count Health Plasma by uL} 10\\S\\3 results) System Automated count uL Erythrocyte 13.5 % 11.5 - Normal (applies RDW [facility] distribution 14.5 % to non-numeric Health width [Entitic results) System volume] by Automated count Erythrocyte mean 33.5 33.0 - Normal (applies MCHC [facility] corpuscular {gm/dL} 37.0 to non-numeric Health hemoglobin gm/dL results) System concentration [Mass/volume] by Automated count Monocytes 0.5 0.1 - Normal (applies Monocyte [facility] [#/volume] in {10\\S\\3_ 0.6 to non-numeric Count Health Blood by Manual uL} 10\\S\\3 results) System count uL Platelet mean 9.2 fl 7.4 - Normal (applies MPV [facility] volume [Entitic 10.4 fl to non-numeric Health volume] in Blood results) System by Automated count Basophils 0.00 0.00 - Normal (applies Basophil [facility] [#/volume] in {10\\S\\3_ 0.20 to non-numeric Count Health Blood by uL} 10\\S\\3 results) System Automated count uL Eosinophils 0.1 0.0 - Normal (applies Eosinophil [facility] [#/volume] in {10\\S\\3} 5.0 to non-numeric Count Blood Health Blood 10\\S\\3 results) System Neutrophils 5.9 3.0 - Normal (applies Absolute [facility] [#/volume] in {10\\S\\3_ 8.1 to non-numeric Neutrophil Health Body fluid uL} 10\\S\\3 results) Count System uL Monocytes/100 5.7 % 2.0 - Normal (applies Monocyte % [facility] leukocytes in 6.0 % to non-numeric Health Blood results) System Lymphocyte 1.7 1.2 - Normal (applies Lymphocyte [facility] Absolute {10\\S\\3_ 3.4 to non-numeric Absolute Health uL} 10\\S\\3 results) System uL Neutrophils/100 72.1 % 55.0 - Normal (applies Neutrophil % José sirisha leukocytes in 75.0 % to non-numeric Health Blood by results) System Automated count Eosinophils/100 0.9 % 1.0 - Below low normal Eosinophil % [facility] leukocytes in 3.0 % Health Unspecified System specimen Lymphocytes 20.7 % 15.0 - Normal (applies Lymphocyte % [facility] [#/volume] in 41.0 % to non-numeric Health Blood by results) System Automated count Basophils/100 0.6 % 0.0 - Normal (applies Basophil % [facility] leukocytes in 1.0 % to non-numeric Health Unspecified results) System specimen by Manual count ID Date Data Source [id number] 08/04/2012 11:29:00 AM EDT [facility] System Name Value Range Interpretation Description Data Sup porting Code Source(s) Document(s ) hCG 0.50 <5 Normal (applies hCG [facility] Quantitative {mIU/mL} mIU/mL to non-numeric Quantitative Health results) System Negative = <5 mIU/mLAPPROXIMATE GEST. AG E APPROXIMATE HCG mIU/ML 0.2 - 1 week 5 - 50 1 - 2 w eeks 50 - 500 2 - 3 weeks 100 - 5,000 3 - 4 weeks 500 - 10,000 4 - 5 weeks 1,000 - 50,000 5 - 6 weeks 10,000 - 100,000 6 - 8 weeks 15,000 - 200,000 8 - 12 weeks 10,000 - 1 00,000HCG levels between 5-25 mIU/mL may be indicative of early . Correlati on with other clinical findings and/or repeat of HCG quantitative testing recommened. ID Date Data Source [id number] 08/04/2012 11:29:00 AM EDLisa Montes[facility]isha mccauley System Name Value Range Interpretation Description Data Sup porting Code Source(s) Document(s ) Sodium 139 mmol/L 135 - Normal (applies Sodium, [facility] [Moles/volume] 145 to non-numeric Serum Health in Serum or mmol/L results) System Plasma Chloride 106 mmol/L 101 - Normal (applies Chloride, [facility] [Moles/volume] 111 to non-numeric Serum Health in Serum or mmol/L results) System Plasma Potassium 3.9 mmol/L 3.5 - Normal (applies Potassium, [facility] [Mass/volume] 5.0 to non-numeric Serum Health in Serum or mmol/L results) System Plasma Carbon dioxide, 28.7 mmol/L 21.0 - Normal (applies CO2, Serum José sirisha total 31.0 to non-numeric Health [Moles/volume] mmol/L results) System in Serum or Plasma Total Protein 6.1 mg/dl 6.4 - Below low Total [facility] 8.1 normal Protein Health mg/dl System Urea nitrogen 10 mg/dl 7 - 18 Normal (applies Blood Urea [facility] [Mass/volume] mg/dl to non-numeric Nitrogen, Health in Serum or results) Serum System Plasma Glucose 92 mg/dL 65 - Normal (applies Glucose, [facility] [Mass/volume] 110 to non-numeric Serum Health in Serum or mg/dL results) System Plasma Creatinine 0.77 mg/dl 0.50 - Normal (applies Creatinine, [facility] [Mass/volume] 1.20 to non-numeric Serum Health in Serum or mg/dl results) System Plasma Alkaline 52 {IU/L} 42 - Normal (applies Alkaline [facility] phosphatase 121 to non-numeric Phosphatase, Health isoenzymes IU/L results) Serum System [Enzymatic activity/volume ] in Serum or Plasma by Heat stability Bilirubin.total 0.8 mg/dl 0.2 - Normal (applies Bilirubin, [facility] [Mass/volume] 1.2 to non-numeric Serum Total Health in Serum or mg/dl results) System Plasma Albumin 3.9 {gm/dl} 3.2 - Normal (applies Albumin, [facility] [Mass/volume] 5.5 to non-numeric Serum Health in Serum or gm/dl results) System Plasma Aspartate 22 {IU/L} 10 - Normal (applies Aspartate [facility] aminotransferas 42 to non-numeric Transaminase Health e [Enzymatic IU/L results) , Serum System activity/volume ] in Serum or Plasma by With P-5'-P Alanine 17 {IU/L} 10 - Normal (applies Alanine [facility] aminotransferas 42 to non-numeric Aminotransfe Health e [Enzymatic IU/L results) rase, Serum System activity/volume ] in Serum or Plasma I. Phosphorus 4.4 mg/dl 2.6 - Normal (applies I. [facility] 4.9 to non-numeric Phosphorus Health mg/dl results) System Calcium 9.4 mg/dl 8.4 - Normal (applies Calcium, [facility] [Mass/volume] 10.2 to non-numeric Total Serum Health in Serum or mg/dl results) System Plasma A/G Ratio 1.77 Normal (applies A/G Ratio [facility] to non-numeric Health results) System Urate 4.6 mg/dl 2.3 - Normal (applies Uric Acid, [facility] [Mass/volume] 7.5 to non-numeric Serum Health in Serum or mg/dl results) System Plasma Anion gap in 4.30 mmol/L Normal (applies Anion Gap [facility] Serum or Plasma to non-numeric Health results) System Glomerular Greater than Normal (applies GFR [facility] filtration 90 eGFR will to non-numeric Health rate/1.73 sq provide results) System M.predicted clinicians [Volume with a more Rate/Area] in accurate Serum or Plasma indicator of by renal function Creatinine-base then the serum d formula creatinine. (CKD-EPI) The eGFR is automatically calculated from an empiric formula (endorsed by the National Kidney Foundation) which incorporates age, sex, and race.Clinician s may notice surprisingly low GFR's with serum creatinine valueswithin normal range- particularly in elderly women (with low muscle mass).In the hospital setting, the eGFR should add an element of safety in drug dosing, in assessing the risk of IV contrast administration , and in assessing vascular risk.The NKF staging system is as follows:Normal : eGFR >90 with no kidney markersStage 1: eGFR >90 with kidney markers*Stage 2: eGFR 60-89Stage 3: eGFR 30-59Stage 4: eGFR 15-29Stage 5: eGFR <15 (usually requiring dialysis)*Sha ers include: Proteinuria, Hematuria, abnormal imaging-studie s, or other blood or urine test abnormalities ID Date Data Source [id number] 08/04/2012 11:17:00 AM EDT [facility] alth System Name Value Range Interpretation Description Data Sup porting Code Source(s) Document(s ) Deprecated Micro Result Normal (applies Aerobic [facility] Bacteria Final Culture to non-numeric Culture, Health identified Reading results) Urine System in Urine by Note::"MULTIPL Aerobe E BACTERIAL culture MORPHOTYPES PRESENT, POSSIBLE CONTAMINATION, SUGGEST RECOLLECTION IF CLINICALLY INDICATED". ID Date Data Source [id number] 05/15/2012 10:26:00 AM EDT [facility] alth System Name Value Range Interpretation Description Data Sup porting Code Source(s) Document(s ) Cult Bacteria Micro Result Normal (applies Cult [facility] Throat to non-numeric Bacteria Health results) Throat System XXX BETA HEMOLYTIC Organism [facility] microorganism STREPTOCOCCUS Health serotype GROUP A System [Identifier] in Isolate by Agglutination Jerome Count MODERATE Jerome Count [facility] System ID Date Data Source [id number] 05/15/2012 10:26:00 AM EDT [facility] alth System Name Value Range Interpretation Description Data Sup porting Code Source(s) Document(s ) Strep Group Positive Abnormal (applies Strep Group A [facility] A Direct to non-numeric Direct Antigen Health Sys tem Antigen results) Rapid Strep Grp A preliminary test only! !! Final result will be confirmed by culture. Procedure Social History Code Duration Value Status Description Data Source(s ) Smoking 02/06/2020 Former Smoker completed Former Smoker [facility] 07:19:00 PM EDT Medical C enter Smoking 02/06/2020 Former Smoker completed Former Smoker [facility] 07:05:00 PM EDT Medical C enter Smoking Unknown if ever completed Unknown if ever eCW2 (Planned smoked [facility]) Smoking Unknown if ever completed Unknown if ever eCW2 (Planned smoked smoked [facility]) Smoking Current some completed Current some day eCW2 ( Planned day smoker smoker [facility]) Smoking Current some completed Current some day eCW2 ( Planned day smoker smoker [facility]) Smoking Unknown if ever completed Unknown if ever eCW2 (Planned smoked smoked [facility]) Smoking Never Smoker completed Never Smoker eCW2 (Plan yesenia [facility]) Smoking Never Smoker completed Never Smoker eCW2 (Plan yesenia [facility]) Vital Signs ID Date Data Source UNK Name Value Range Interpretation Code Description Data Source(s) Body weight 91.565392 91.180538 kg [facility] Measured kg [facility] Body temperature 36.109631 36.841146 Gisel [facility] Respiratory rate 18 /min 18 /min [facility] Oxygen saturation 96 % 96 % [facility] in Arterial blood [facility] by Pulse oximetry Heart rate 108 /min 108 /min [facility] Body height 170.517256 170.788316 cm [facility] Diastolic blood 78 mm[Hg] 78 mm[Hg] [facility] pressure [facility] Systolic blood 120 mm[Hg] 120 mm[Hg] [facility] Body mass index 31.4 kg/m2 31.4 kg/m2 [facility] (BMI) [Ratio] Medical [facility] Diastolic blood 80 mm[Hg] 80 mm[Hg] eCW2 (Oleg nned pressure [facility]) Systolic blood 127 mm[Hg] 127 mm[Hg] eCW2 (Plan yesenia pressure [facility]) Body mass index 33.67 kg/m2 33.67 kg/m2 eCW2 (P lanned (BMI) [Ratio] [facility] Body weight 215 [lb_av] 215 [lb_av] eCW2 (Plann ed Measured [facility]) Body height 67 [in_us] 67 [in_us] eCW2 ([facility]) Diastolic blood 82 mm[Hg] 82 mm[Hg] eCW2 (Oleg nned pressure [facility]) Systolic blood 123 mm[Hg] 123 mm[Hg] eCW2 (Plan yesenia pressure [facility]) Body mass index 33.36 kg/m2 33.36 kg/m2 eCW2 (P lanned (BMI) [Ratio] [facility]) Body weight 213 [lb_av] 213 [lb_av] eCW2 (Plann ed Measured [facility]) Body height 67 [in_us] 67 [in_us] eCW2 ([facility] Body surface area 1.9 m2 1.9 m2 [facility] Derived from Health Syste m formula Body mass index 30.6 kg/m2 30.6 kg/m2 [facility] (BMI) [Ratio] Health Syst em Body weight 86.18 kg 86.18 [facility] Body height 167.64 cm 167.64 cm [facility] Body temperature 98 [degF] 0 - 200 Normal ([facility] results) Body temperature 36.6 Gisel 0 - 99.9 Normal (applies to 36.6 Gisel [facility] non-numeric Health System results) Diastolic blood 70 mm[Hg] 0 - 999 Normal (applies to 70 mm[Hg] [facility] pressure non-numeric Health System results) Systolic blood 121 mm[Hg] 0 - 999 Normal (applies to 121 mm[Hg] [facility] pressure non-numeric Health System results) Deprecated Oxygen 99 % 0 - 999 Normal (applies to 99 % [facility] saturation in non-numeric Health Sys tem Capillary blood results) by Oximetry Respiratory rate 18 0 - 999 Above high normal 18 M [facility] System Heart rate 78 0 - 999 Normal (applies to 78 [facility] non-numeric Health System results) Diastolic blood 68 mm[Hg] 68 mm[Hg] eCW2 (Oleg nned pressure [facility]) Systolic blood 121 mm[Hg] 121 mm[Hg] eCW2 (Plan [place] [facility] [employer]) Body mass index 33.20 kg/m2 33.20 kg/m2 eCW2 (P lanned (BMI) [Ratio] [facility] [employer]) Body weight 212 [lb_av] 212 [lb_av] eCW2 ([facility] Ern ed [facility]asured [facility] [employer] [place] [employer]) Body height 67 [in_us] 67 [in_us] eCW2 ([facility]) Body temperature 98 [degF] 0 - 200 Normal (applies to 98 [degF] [facility] non-numeric Health System results) Body temperature 36.6 Gisel 0 - 99.9 Normal (applies to 36.6 Gisel [facility] non-numeric Health System results) Diastolic blood 72 mm[Hg] 0 - 999 Normal (applies to 72 mm[facility]Hg] [facility] results) Systolic blood 126 mm[Hg] 0 - 999 Normal (applies to 126 mm[Hg] [facility] results) Deprecated Oxygen 100 % 0 - 999 Normal (applies to 100 % [facility] saturation in non-[facility] Health Sys tem Capillary blood results) by Oximetry Respiratory rate 18 0 - 999 Above high normal 18 M [facility] System Heart rate 88 0 - 999 Normal (applies to 88 [facility] results) Body surface area 1.9 m2 1.9 m2 [facility] Derived from Health Syste m formula Body mass index 30.6 kg/m2 30.6 kg/m2 [facility] e (BMI) [Ratio] Health Syst em Body weight 86.18 kg 86.18 kg [facility] Measured Health System Body height 167.64 cm 167.64 cm [facility] Diastolic blood 80 mm[Hg] 80 mm[Hg] eCW2 (Oleg nned pressure [facility] [employer]) Systolic blood 115 mm[Hg] 115 mm[Hg] eCW2 (Plan [facility] pressure [facility] [employer]) Body mass index 33.20 kg/m2 33.20 kg/m2 eCW2 (P lanned (BMI) [Ratio] [facility] [employer]) Body weight 212 [lb_av] 212 [lb_av] eCW2 ([facility] Ern ed [facility] [employer]) Body height 67 [in_us] 67 [in_us] eCW2 ([facility] [employer]) Diastolic blood 67 mm[Hg] 67 mm[Hg] eCW2 ([facility] pressure [facility] [employer] [facility] [employer]) Systolic blood 119 mm[Hg] 119 mm[Hg] eCW2 (Plan [place] pressure [facility]) Body mass index 33.67 kg/m2 33.67 kg/m2 eCW2 (P lanned (BMI) [Ratio] [facility] [employer] [facility] [employer]) Body weight 215 [lb_av] 215 [lb_av] eCW2 (Plann ed Measured [facility]) Body height 67 [in_us] 67 [in_us] eCW2 (Planned [facility] - [facility]) Patient Treatment Plan of Care Planned Activity Planned Date Details Description Data Source (s) Methocarbamol 500 MG Oral 01/14/2019 [facility] Tablet 04:33:32 PM EST System Acetaminophen 325 MG / [facility] hydrochloride 37.5 04:32:12 PM EST System MG Oral Tablet Nap[facility]en 500 MG [facility] 03:56:41 PM EST System Ondansetron 4 MG 08/12/2017 [facility] Disintegrating Oral Tablet 04:32:54 PM EDT System [Zofran] Ondansetron 4 MG 01/02/2017 [facility] Disintegrating Oral Tablet 01:19:16 AM EST System [Zofran] NITROFURANTOIN, MACROCRYSTALS 12/18/2016 [facility] 25 MG / Nitrofurantoin, 12:01:20 PM EST S ystem Monohydrate 75 MG Oral Capsule [Macrobid] Tamsulosin hydrochloride 0.4 09/27/2016 [facility] MG Oral Capsule [Flomax] 04:07:25 PM EST System Ibuprofen 800 MG Oral Tablet 09/27/2016 [facility] [Ibu] 04:02:46 PM EST System benzonatate 100 MG Oral 08/15/2016 [facility] Capsule 08:08:42 PM EDT System Levofloxacin 500 MG Oral 05/01/2016 [facility] Tablet [Levaquin] 08:25:40 AM EDT System Metoclopramide 10 MG Oral 09/18/2015 [facility] Tablet 02:52:52 PM EST System NITROFURANTOIN, MACROCRYSTALS 09/18/2015 [facility] 25 MG / Nitrofurantoin, 02:52:44 PM EST S ystem Monohydrate 75 MG Oral Capsule [Macrobid] NITROFURANTOIN, MACROCRYSTALS 09/06/2015 [facility] 100 MG Oral Capsule 12:01:35 AM EDT Syste m Ondansetron 4 MG 08/25/2015 [facility] Disintegrating Oral Tablet 02:12:17 PM EDT System [Zofran] Ondansetron 08/25/2015 [facility] 02:10:28 PM EDT System Ondansetron 4 MG 08/25/2015 [facility] Disintegrating Oral Tablet 02:09:03 PM EDT System Multivitamins with 08/25/2015 [facility] Folic Acid 0.4 mg oral tablet 01:16:24 PM EDT System Multivitamins with 08/21/2015 [facility] Folic Acid 0.4 mg oral tablet 10:00:22 PM EDT System Diphenhydramine Hydrochloride 04/19/2015 [facility] 25 MG Oral Tablet 02:20:12 PM EDT System Methylprednisolone 04/19/2015 [facility] 02:19:27 PM EDT System Diphenhydramine Hydrochloride 06/24/2014 [facility] 50 MG Oral Tablet 05:07:41 PM EDT System Albuterol 0.83 MG/ML Inhalant 03/30/2013 [facility] Solution 01:27:06 AM EDT System Prednisone 20 MG Oral Tablet 03/30/2013 [facility] 01:26:55 AM EDT System 200 ACTUAT Albuterol 0.09 03/30/2013 [facility] MG/ACTUAT Metered Dose 01:26:33 AM EDT Sy stem Inhaler Azithromycin 500 MG Oral 01/23/2013 [facility] Tablet 11:29:49 PM EDT System Albuterol 0.83 MG/ML Inhalant 01/18/2013 [facility] 12:12:47 AM EDT System Prednisone 20 MG Oral Tablet 01/18/2013 [facility] 12:12:07 AM EDT System Ondansetron 8 MG Oral Tablet 01/14/2013 [facility] 12:15:37 PM EST System Famotidine 20 MG Oral Tablet 01/14/2013 [facility] 12:15:11 PM EST System Ondansetron 4 MG 11/28/2012 [facility] Disintegrating Oral Tablet 07:08:14 AM EST System 200 ACTUAT Albuterol 0.09 11/28/2012 [facility] MG/ACTUAT Metered Dose 07:06:42 AM EST Sy stem Inhaler 200 ACTUAT Albuterol 0.09 11/08/2012 [facility] MG/ACTUAT Metered Dose 01:59:35 PM EST Sy stem Inhaler Ondansetron 4 MG 11/08/2012 [facility] Disintegrating Oral Tablet 01:58:58 PM EST System benzonatate 100 MG Oral 10/13/2012 [facility] [[place] [facility]] 11:47:19 PM EST System Azithromycin 250 MG Oral 10/13/2012 [facility] Tablet 11:46:51 PM EST System Prednisone 20 MG Oral Tablet 10/13/2012 [facility] 11:45:47 PM EST System Prednisone 20 MG Oral Tablet 10/13/2012 [facility] 11:45:09 PM EST System NITROFURANTOIN, MACROCRYSTALS 08/27/2012 [facility] 25 MG / Nitrofurantoin, 09:47:43 PM EDT S ystem Monohydrate 75 MG Oral Capsule [Macrobid] Azithromycin 250 MG Oral 08/17/2012 [facility] Tablet 05:04:51 AM EDT System NITROFURANTOIN, MACROCRYSTALS 08/04/2012 [facility] 25 MG / Nitrofurantoin, 12:09:28 PM EDT S ystem Monohydrate 75 MG Oral Capsule [Macrobid] Etonogestrel 68 MG Drug eCW2 (Planned Implant [Nexplanon] [facility]) medroxyprogesterone acetate [facility] 400 MG/ML Injectable System Suspension [Depo-Provera] Abilify [facility] Docusate Sodium 100 MG Oral [facility] Capsule [Colace] System ferrous sulfate 325 MG [facility] Delayed Release Oral Tablet System NITROFURANTOIN, MACROCRYSTALS [facility] 25 MG / Nitrofurantoin, Syst em Monohydrate 75 MG Oral Capsule [Macrobid] Albuterol [facility]
[2020-07-30 18:23] LABS: URINE APPEARANCE CLEAR; URINE BILIRUBIN NEGATIVE (NEGATIVE); URINE COLOR YELLOW; URINE GLUCOSE (UA) NEGATIVE (NEGATIVE); URINE KETONE NEGATIVE (NEGATIVE); URINE LEUK ESTERASE NEGATIVE (NEGATIVE); URINE NITRITE NEGATIVE (NEGATIVE); URINE PROTEIN NEGATIVE (NEGATIVE); URINE UROBILINOGEN 0.2 mg/dL (0.2-1.0)
[2020-07-30 18:26] LABS: HCG,QUALITATIVE URINE Negative
== END 2020-07-30 18:31 | disposition home or self-care (01) ==
LOC: JERFT 16:17
DX: M79.674 Pain in right toe(s) (principal); L60.0 Ingrowing nail
CPT/HCPCS: 36415; 81003; 84703; 87086; 87491; 87591; 99283-25

== ENCOUNTER 2020-09-18 15:34 | Emergency (ER) | payer OTHER ==
[2020-09-18 15:46] VITALS: BP 129/63; PULSE 92; BMI 31.0
== END 2020-09-18 18:56 | disposition home or self-care (01) ==
LOC: JER 15:34
DX: L60.0 Ingrowing nail (principal); M25.571 Pain in right ankle and joints of right foot
CPT/HCPCS: 73610-TC-RT-FY; 99284-25

== ENCOUNTER 2020-09-25 00:47 | Emergency (ER) | payer OTHER ==
[2020-09-25 01:34] VITALS: BP 118/71; PULSE 88; TEMP 98; BMI 23.0
[2020-09-25] MEDS ORDERED: IBUPROFEN 600 MG TABLET (FP) PO ONE ×2 (01:48→01:51)
== END 2020-09-25 01:55 | disposition home or self-care (01) ==
LOC: JER 00:47
DX: L03.031 Cellulitis of right toe (principal)
CPT/HCPCS: 99284-25

== ENCOUNTER 2020-09-30 21:14 | Emergency (ER) | payer OTHER ==
[2020-09-30 21:30] VITALS: BP 127/72; PULSE 80; TEMP 98.4; BMI 29.7
[2020-09-30] MEDS ORDERED: KETOROLAC TROMETHAMINE 30 MG/1 ML VIAL IM ONE (21:49)
[2020-09-30] MEDS ORDERED: KETOROLAC TROMETHAMINE 60 MG/2 ML VIAL IM ONE (21:49)
[2020-09-30] MEDS ORDERED: KETOROLAC TROMETHAMINE 30 MG/1 ML VIAL ONE (22:28)
== END 2020-09-30 22:35 | disposition home or self-care (01) ==
LOC: JERFT 21:14
PROC: 3E0233Z Introduction of Anti-inflammatory into Muscle, Percutaneous Approach (ICD-10-PCS; principal; 2020-09-30)
DX: M54.12 Radiculopathy, cervical region (principal)
CPT/HCPCS: 99284-25

== ENCOUNTER 2020-10-19 07:13 | Emergency (ER) | payer OTHER ==
[2020-10-19 07:30] VITALS: TEMP 99.2; BMI 29.7
[2020-10-19] MEDS ORDERED: SODIUM CHLORIDE 1,000 ML IV STA (07:44)
[2020-10-19] MEDS ORDERED: ONDANSETRON 4 MG/2 ML VIAL IVPUSH ONE (07:44)
[2020-10-19] MEDS ORDERED: ACETAMINOPHEN 1000 MG/100 ML VIAL (NON FORMULARY) IVPB ONE (07:44)
[2020-10-19] MEDS ORDERED: IBUPROFEN 400 MG TABLET (FP) PO ONE (07:45)
[2020-10-19] MEDS ORDERED: ACETAMINOPHEN INJECTION 0 ML IVPB ONE (07:48)
[2020-10-19] MEDS ORDERED: ONDANSETRON 4 MG/2 ML VIAL ONE (07:48)
[2020-10-19] MEDS ORDERED: ACETAMINOPHEN INJECTION 100 ML IVPB ONE (07:49)
[2020-10-19 08:19] LABS: BASO % 0.2 % (0-2.0); EOS % 0.6 % (0-4.5); HEMATOCRIT 44.6 % (32.4-45.2); HEMOGLOBIN 14.5 GM/dL (10.7-15.3); LYMPH % 12.1 % (8-40); MCH 29.1 pg (25.7-33.7); MCHC 32.5 g/dl (32.0-36.0); MEAN CELL VOLUME 89.8 fl (80-96); MEAN PLT VOLUME 9.2 fl (7.5-11.1); NEUT % 77.1 % (42.8-82.8); PLATELET COUNT 180 K/MM3 (134-434); RBC 4.97 M/mm3 (3.60-5.2); RDW 13.2 % (11.6-15.6); WHITE BLOOD COUNT 9.1 K/mm3 (4.0-10.0)
[2020-10-19 08:26] LABS: POTASSIUM 4.3 mmol/L (3.5-5.1)
[2020-10-19 08:28] LABS: CALCIUM 8.9 mg/dL (8.5-10.1)
[2020-10-19 08:29] LABS: ALBUMIN 3.7 g/dl (3.4-5.0); BLOOD UREA NITROGEN 11.8 mg/dL (7-18)
[2020-10-19 08:31] LABS: CREATININE 0.7 mg/dL (0.55-1.3)
[2020-10-19 08:33] LABS: BILIRUBIN,TOTAL 0.4 mg/dL (0.2-1); TOT PROT 7.2 g/dl (6.4-8.2)
[2020-10-19 09:52] LABS: EPI CELLS >36 /uL (0-25.1); HYALINE CASTS 2 /uL (0-3.1); PH,URINE 6.5 (5.0-8.0); URINE APPEARANCE CLOUDY; URINE BACTERIA 3878 /uL (0-1359); URINE BILIRUBIN NEGATIVE (NEGATIVE); URINE COLOR YELLOW; URINE GLUCOSE (UA) NEGATIVE (NEGATIVE); URINE KETONE NEGATIVE (NEGATIVE); URINE LEUK ESTERASE NEGATIVE (NEGATIVE); URINE NITRITE NEGATIVE (NEGATIVE); URINE PROTEIN NEGATIVE (NEGATIVE); URINE RBC 52 /uL (0-23.9); URINE UROBILINOGEN 0.2 mg/dL (0.2-1.0)
[2020-10-19 10:28] VITALS: BP 107/77; PULSE 84
[2020-10-19 15:43] LABS: URINE WBC 65.2 /uL (0-25.8)
== END 2020-10-19 10:28 | disposition home or self-care (01) ==
LOC: JER 07:13
PROC: 3E033NZ Introduction of Analgesics, Hypnotics, Sedatives into Peripheral Vein, Percutaneous Approach (ICD-10-PCS; principal; 2020-10-19)
PROC: 3E033GC Introduction of Other Therapeutic Substance into Peripheral Vein, Percutaneous Approach (ICD-10-PCS; 2020-10-19)
PROC: 3E0337Z Introduction of Electrolytic and Water Balance Substance into Peripheral Vein, Percutaneous Approach (ICD-10-PCS; 2020-10-19)
DX: N30.90 Cystitis, unspecified without hematuria (principal)
CPT/HCPCS: 36415; 80053; 81003; 83690; 84703; 85025; 87086; 96361; 96374; 96375; 99284-25; J0131

== ENCOUNTER 2020-10-21 00:15 | Emergency (ER) | payer OTHER ==
[2020-10-21 00:26] VITALS: BMI 29.7
[2020-10-21] MEDS ORDERED: SODIUM CHLORIDE 0.9% 500 ML INFUS.BAG IV ONE (00:38)
[2020-10-21] MEDS ORDERED: ONDANSETRON 4 MG/2 ML VIAL IVPUSH ONE (00:38)
[2020-10-21] MEDS ORDERED: BENZOCAINE 20% 57 GM BOTTLE TP ONE ×2 (00:38→02:00)
[2020-10-21] MEDS ORDERED: ACETAMINOPHEN 1000 MG/100 ML VIAL (NON FORMULARY) IVPB ONE (00:39)
[2020-10-21] MEDS ORDERED: ACETAMINOPHEN INJECTION 100 ML IVPB ONE (01:08)
[2020-10-21] MEDS ORDERED: ONDANSETRON 4 MG/2 ML VIAL ONE (01:09)
[2020-10-21 01:33] LABS: BASO % 0.6 % (0-2.0); EOS % 0.1 % (0-4.5); HEMATOCRIT 42.6 % (32.4-45.2); HEMOGLOBIN 14.1 GM/dL (10.7-15.3); LYMPH % 11.5 % (8-40); MCH 29.4 pg (25.7-33.7); MCHC 33.2 g/dl (32.0-36.0); MEAN CELL VOLUME 88.6 fl (80-96); MONO % 9.8 % (3.8-10.2); PLATELET COUNT 176 K/MM3 (134-434); RBC 4.81 M/mm3 (3.60-5.2); WHITE BLOOD COUNT 10.3 K/mm3 (4.0-10.0)
[2020-10-21 01:44] LABS: THROAT:GRP A STREP ANTIGEN Negative (Negative)
[2020-10-21 01:49] LABS: POTASSIUM 4.2 mmol/L (3.5-5.1)
[2020-10-21 01:51] LABS: CALCIUM 8.9 mg/dL (8.5-10.1)
[2020-10-21 01:52] LABS: ALBUMIN 3.6 g/dl (3.4-5.0); BLOOD UREA NITROGEN 8.5 mg/dL (7-18)
[2020-10-21 01:54] LABS: CREATININE 0.8 mg/dL (0.55-1.3)
[2020-10-21 01:56] LABS: TOT PROT 7.3 g/dl (6.4-8.2)
[2020-10-21 01:58] LABS: BILIRUBIN,TOTAL 0.5 mg/dL (0.2-1)
[2020-10-21] MEDS ORDERED: MAG HYDROX/ALH/SMC/DPHA/LIDO 240 ML MOUTHWASH MM ONE (02:00)
[2020-10-21 02:30] VITALS: BP 126/84; PULSE 88; TEMP 99
[2020-10-21] MEDS ORDERED: MAG HYDROX/ALH/SMC/DPHA/LIDO 240 ML MOUTHWASH MM SCH (06:00)
== END 2020-10-21 02:42 | disposition home or self-care (01) ==
LOC: JER 00:15
PROC: 3E0333Z Introduction of Anti-inflammatory into Peripheral Vein, Percutaneous Approach (ICD-10-PCS; principal; 2020-10-21)
PROC: 3E033GC Introduction of Other Therapeutic Substance into Peripheral Vein, Percutaneous Approach (ICD-10-PCS; 2020-10-21)
DX: J02.9 Acute pharyngitis, unspecified (principal); B34.9 Viral infection, unspecified
CPT/HCPCS: 36415; 71045-TC-FY; 80053; 85025; 87070; 87804; 87880; 96374; 96375; 99284-25; C9803; J0131; U0003

== ENCOUNTER 2020-10-22 04:36 | Emergency (ER) | payer OTHER ==
[2020-10-22 04:47] VITALS: BMI 28.1
[2020-10-22] MEDS ORDERED: ACETAMINOPHEN 1000 MG/100 ML VIAL (NON FORMULARY) IVPB ONE (05:17)
[2020-10-22] MEDS ORDERED: ONDANSETRON 4 MG/2 ML VIAL IVPUSH ONE (05:17)
[2020-10-22] MEDS ORDERED: LACTATED RINGERS SOLUTION 1000 ML INFUS.BAG IV ONE (05:17)
[2020-10-22] MEDS ORDERED: ONDANSETRON 4 MG/2 ML VIAL ONE (05:34)
[2020-10-22] MEDS ORDERED: ACETAMINOPHEN INJECTION 100 ML IVPB ONE (05:34)
[2020-10-22 05:44] LABS: BASO % 0.3 % (0-2.0); HEMATOCRIT 41.2 % (32.4-45.2); LYMPH % 6.4 % (8-40); MCH 29.4 pg (25.7-33.7); MEAN CELL VOLUME 86.6 fl (80-96); MONO % 10.5 % (3.8-10.2); NEUT % 82.8 % (42.8-82.8); PLATELET COUNT 178 K/MM3 (134-434); RBC 4.76 M/mm3 (3.60-5.2); RDW 12.9 % (11.6-15.6); WHITE BLOOD COUNT 13.5 K/mm3 (4.0-10.0)
[2020-10-22 06:10] LABS: POTASSIUM 4.2 mmol/L (3.5-5.1)
[2020-10-22 06:12] LABS: ALBUMIN 3.4 g/dl (3.4-5.0); BLOOD UREA NITROGEN 8.6 mg/dL (7-18); CALCIUM 8.6 mg/dL (8.5-10.1)
[2020-10-22 06:15] LABS: CREATININE 0.8 mg/dL (0.55-1.3)
[2020-10-22 06:17] LABS: BILIRUBIN,TOTAL 0.5 mg/dL (0.2-1); TOT PROT 7.3 g/dl (6.4-8.2)
[2020-10-22 08:01] VITALS: PULSE 76; TEMP 98.5
[2020-10-22 08:15] LABS: EPI CELLS >36 /uL (0-25.1); HYALINE CASTS 4 /uL (0-3.1); PH,URINE 5.5 (5.0-8.0); URINE APPEARANCE CLOUDY; URINE BACTERIA 6110 /uL (0-1359); URINE BILIRUBIN NEGATIVE (NEGATIVE); URINE COLOR YELLOW; URINE GLUCOSE (UA) NEGATIVE (NEGATIVE); URINE KETONE 1+ (NEGATIVE); URINE LEUK ESTERASE TRACE (NEGATIVE); URINE NITRITE NEGATIVE (NEGATIVE); URINE PROTEIN TRACE (NEGATIVE); URINE RBC 71 /uL (0-23.9); URINE UROBILINOGEN 0.2 mg/dL (0.2-1.0); URINE WBC 72 /uL (0-25.8)
[2020-10-22] MEDS ORDERED: IBUPROFEN 400 MG TABLET (FP) PO ONE ×2 (10:40→10:55)
[2020-10-22] MEDS ORDERED: AZITHROMYCIN 500 MG TABLET PO ONE (11:03)
[2020-10-22 11:28] LABS: PLATELET ESTIMATE NORMAL
[2020-10-22] MEDS ORDERED: AZITHROMYCIN 250 MG TABLET ONE (11:36)
[2020-10-22 12:05] VITALS: BP 112/72
== END 2020-10-22 12:07 | disposition home or self-care (01) ==
LOC: JER 04:36
PROC: 3E0333Z Introduction of Anti-inflammatory into Peripheral Vein, Percutaneous Approach (ICD-10-PCS; principal; 2020-10-22)
PROC: 3E033GC Introduction of Other Therapeutic Substance into Peripheral Vein, Percutaneous Approach (ICD-10-PCS; 2020-10-22)
PROC: 3E02329 Introduction of Other Anti-infective into Muscle, Percutaneous Approach (ICD-10-PCS; 2020-10-22)
DX: R10.31 Right lower quadrant pain (principal)
CPT/HCPCS: 36415; 74177-TC; 80053; 81003; 83605; 83690; 84703; 85025; 87086; 96372; 96373; 96374; 99285-25; J0131; Q9967

== ENCOUNTER 2020-10-30 00:55 | Emergency (ER) | payer OTHER ==
[2020-10-30 01:24] VITALS: BP 136/84; PULSE 102; TEMP 98.6; BMI 25.0
[2020-10-30] MEDS ORDERED: ONDANSETRON 4 MG/2 ML VIAL IVPUSH ONE (01:41)
[2020-10-30] MEDS ORDERED: METOCLOPRAMIDE HCL INJECTION 10 MG/2 ML VIAL IVPB ONE (01:41)
[2020-10-30] MEDS ORDERED: ACETAMINOPHEN 1000 MG/100 ML VIAL (NON FORMULARY) IVPB ONE (01:41)
[2020-10-30] MEDS ORDERED: SODIUM CHLORIDE 0.9% 500 ML INFUS.BAG IV ONE (01:45)
[2020-10-30] MEDS ORDERED: ACETAMINOPHEN INJECTION 100 ML IVPB ONE (01:54)
[2020-10-30] MEDS ORDERED: ONDANSETRON 4 MG/2 ML VIAL ONE (01:54)
[2020-10-30] MEDS ORDERED: METOCLOPRAMIDE HCL INJECTION 10 MG/2 ML VIAL ONE (01:54)
[2020-10-30 02:15] LABS: HEMATOCRIT 39.5 % (32.4-45.2); HEMOGLOBIN 13.1 GM/dL (10.7-15.3); MCH 28.8 pg (25.7-33.7); MCHC 33.1 g/dl (32.0-36.0); MEAN PLT VOLUME 8.2 fl (7.5-11.1); PLATELET COUNT 291 K/MM3 (134-434); RBC 4.54 M/mm3 (3.60-5.2); RDW 13.3 % (11.6-15.6); WHITE BLOOD COUNT 12.9 K/mm3 (4.0-10.0)
[2020-10-30 03:26] LABS: POTASSIUM 3.9 mmol/L (3.5-5.1)
[2020-10-30 03:27] LABS: CALCIUM 9.3 mg/dL (8.5-10.1)
[2020-10-30 03:28] LABS: ALBUMIN 3.4 g/dl (3.4-5.0); BLOOD UREA NITROGEN 11.2 mg/dL (7-18)
[2020-10-30 03:31] LABS: CREATININE 0.9 mg/dL (0.55-1.3)
[2020-10-30 03:33] LABS: BILIRUBIN,TOTAL 0.6 mg/dL (0.2-1); TOT PROT 7.8 g/dl (6.4-8.2)
== END 2020-10-30 04:33 | disposition home or self-care (01) ==
LOC: JER 00:55
PROC: 3E0333Z Introduction of Anti-inflammatory into Peripheral Vein, Percutaneous Approach (ICD-10-PCS; principal; 2020-10-30)
PROC: 3E033GC Introduction of Other Therapeutic Substance into Peripheral Vein, Percutaneous Approach (ICD-10-PCS; 2020-10-30)
PROC: 3E033GC Introduction of Other Therapeutic Substance into Peripheral Vein, Percutaneous Approach (ICD-10-PCS; 2020-10-30)
DX: R11.2 Nausea with vomiting, unspecified (principal); R51.9 Headache, unspecified
CPT/HCPCS: 36415; 70450-TC; 70486-TC; 80053; 84703; 85027; 96374; 96375; 99285-25; J0131

== ENCOUNTER 2023-07-25 20:46 | Emergency (ER) | payer OTHER ==
[2023-07-25 20:49] VITALS: BP 148/62; PULSE 100; RESP 18; TEMP 98.9; BMI 29.7
[2023-07-25] MEDS ORDERED: FAMOTIDINE 20 MG/50 ML IVPB 20 MG/50 ML MG IVPB ONE (21:25)
[2023-07-25] MEDS ORDERED: ONDANSETRON 4 MG/2 ML VIAL IVPUSH ONE (21:25)
[2023-07-25] MEDS ORDERED: ACETAMINOPHEN 1000 MG/100 ML BAG IVPB ONE (21:25)
[2023-07-25] MEDS ORDERED: SODIUM CHLORIDE 0.9% 500 ML INFUS.BAG IV ONE (21:25)
[2023-07-25] MEDS ORDERED: ACETAMINOPHEN INJECTION 100 ML IVPB ONE (21:30)
[2023-07-25] MEDS ORDERED: ONDANSETRON 4 MG/2 ML VIAL ONE (21:30)
[2023-07-25 21:57] LABS: BASO % 0.7 % (0-2.0); EOS % 2.9 % (0-4.5); HEMATOCRIT 38.8 % (32.4-45.2); HEMOGLOBIN 13.5 GM/dL (10.7-15.3); LYMPH % 17.5 % (8-40); MCH 29.7 pg (25.7-33.7); MCHC 34.7 g/dl (32.0-36.0); MEAN CELL VOLUME 85.6 fl (80-96); MEAN PLT VOLUME 8.1 fl (7.5-11.1); MONO % 6.4 % (3.8-10.2); NEUT % 72.5 % (42.8-82.8); PLATELET COUNT 230 10^3/uL (134-434); RBC 4.54 M/mm3 (3.60-5.2); RDW 13.8 % (11.6-15.6); WHITE BLOOD COUNT 10.5 K/mm3 (4.0-10.0)
[2023-07-25 22:00] LABS: EPI CELLS 26 /uL (0-25.1); HYALINE CASTS 2 /uL (0-3.1); PH,URINE 5.5 (5.0-8.0); URINE APPEARANCE CLOUDY; URINE BACTERIA 2269 /uL (0-1359); URINE BILIRUBIN NEGATIVE (NEGATIVE); URINE COLOR YELLOW; URINE GLUCOSE (UA) NEGATIVE (NEGATIVE); URINE KETONE TRACE (NEGATIVE); URINE LEUK ESTERASE 1+ (NEGATIVE); URINE NITRITE NEGATIVE (NEGATIVE); URINE PROTEIN 2+ (NEGATIVE); URINE RBC 8816 /uL (0-23.9); URINE WBC 224 /uL (0-25.8)
[2023-07-25 22:08] LABS: POTASSIUM 3.9 mmol/L (3.5-5.1)
[2023-07-25 22:10] LABS: ALBUMIN 3.7 g/dl (3.4-5.0); CALCIUM 8.8 mg/dL (8.5-10.1)
[2023-07-25 22:11] LABS: BLOOD UREA NITROGEN 16.2 mg/dL (7-18)
[2023-07-25 22:13] LABS: CREATININE 1.1 mg/dL (0.55-1.3)
[2023-07-25 22:15] LABS: BILIRUBIN,TOTAL 0.3 mg/dL (0.2-1); TOT PROT 7.1 g/dl (6.4-8.2)
[2023-07-25] MEDS ORDERED: KETOROLAC TROMETHAMINE 15 MG/ML VIAL IVPUSH ONE (23:01)
[2023-07-25] MEDS ORDERED: CEFTRIAXONE 1 GM/50 ML BAG ONE (23:10)
[2023-07-25] MEDS ORDERED: KETOROLAC TROMETHAMINE 15 MG/ML VIAL ONE (23:10)
== END 2023-07-26 02:12 | disposition home or self-care (01) ==
LOC: JER 20:46
PROC: 3E033GC Introduction of Other Therapeutic Substance into Peripheral Vein, Percutaneous Approach (ICD-10-PCS; principal; 2023-07-25)
PROC: 3E033GC Introduction of Other Therapeutic Substance into Peripheral Vein, Percutaneous Approach (ICD-10-PCS; 2023-07-25)
PROC: 3E033GC Introduction of Other Therapeutic Substance into Peripheral Vein, Percutaneous Approach (ICD-10-PCS; 2023-07-25)
PROC: 3E033GC Introduction of Other Therapeutic Substance into Peripheral Vein, Percutaneous Approach (ICD-10-PCS; 2023-07-25)
PROC: 3E033GC Introduction of Other Therapeutic Substance into Peripheral Vein, Percutaneous Approach (ICD-10-PCS; 2023-07-25)
DX: R10.9 Unspecified abdominal pain (principal); N39.0 Urinary tract infection, site not specified; R31.9 Hematuria, unspecified; R11.2 Nausea with vomiting, unspecified
CPT/HCPCS: 36415; 74176-TC; 80053; 81003; 84703; 85025; 87086; 99284-25

== ENCOUNTER 2025-01-21 22:03 | Emergency (ER) | payer OTHER ==
[2025-01-21 22:19] VITALS: BP 119/52; PULSE 87; RESP 20; TEMP 98.1; BMI 29.7
[2025-01-21] MEDS ORDERED: ACETAMINOPHEN INJECTION 100 ML ONE (22:44)
[2025-01-21] MEDS: ACETAMINOPHEN 1000 MG/100 ML BAG IVPB ONE (23:02)
[2025-01-21] MEDS: SODIUM CHLORIDE 0.9% 500 ML INFUS.BAG IV ONE (23:02)
[2025-01-21 23:29] LABS: BASO % 0.7 % (0-2.0); EOS % 3.1 % (0-4.5); HEMATOCRIT 40.5 % (32.4-45.2); HEMOGLOBIN 13.3 GM/dL (10.7-15.3); LYMPH % 28.6 % (8-40); MCH 28.5 pg (25.7-33.7); MCHC 32.9 g/dl (32.0-36.0); MEAN CELL VOLUME 86.7 fl (80-96); MONO % 7.2 % (3.8-10.2); NEUT % 60.4 % (42.8-82.8); PLATELET COUNT 237 10^3/uL (134-434); RBC 4.67 M/mm3 (3.60-5.2); RDW 14.1 % (11.6-15.6); WHITE BLOOD COUNT 10.4 K/mm3 (4.0-10.0)
[2025-01-21 23:35] LABS: INR 1.04 (0.83-1.09); PROTHROMBIN TIME (PATIENT) 11.4 SEC (9.7-13.0)
[2025-01-21 23:38] LABS: ACTIVATED PTT 33.4 SECONDS (25.2-36.5); POTASSIUM 4.1 mmol/L (3.5-5.1)
[2025-01-21 23:40] LABS: CALCIUM 9.4 mg/dL (8.5-10.1)
[2025-01-21 23:41] LABS: ALBUMIN 3.8 g/dl (3.4-5.0); BLOOD UREA NITROGEN 12.9 mg/dL (7-18)
[2025-01-21 23:44] LABS: CREATININE 0.8 mg/dL (0.55-1.3)
[2025-01-21 23:45] LABS: BILIRUBIN,TOTAL 0.4 mg/dL (0.2-1)
[2025-01-21 23:46] LABS: TOT PROT 7.1 g/dl (6.4-8.2)
[2025-01-22 00:52] LABS: EPI CELLS 32 /uL (0-25.1); HCG,QUALITATIVE URINE Negative; HYALINE CASTS 0 /uL (0-3.1); PH,URINE 5.5 (5.0-8.0); URINE APPEARANCE CLEAR; URINE BACTERIA 963 /uL (0-1359); URINE BILIRUBIN NEGATIVE (NEGATIVE); URINE COLOR YELLOW; URINE GLUCOSE (UA) NEGATIVE (NEGATIVE); URINE KETONE TRACE (NEGATIVE); URINE LEUK ESTERASE 2+ (NEGATIVE); URINE NITRITE NEGATIVE (NEGATIVE); URINE PROTEIN NEGATIVE (NEGATIVE); URINE RBC 26 /uL (0-23.9); URINE UROBILINOGEN 0.2 mg/dL (0.2-1.0); URINE WBC 458 /uL (0-25.8)
[2025-01-22] MEDS ORDERED: CEFTRIAXONE 1 G/50 ML PREMIX 50 ML IVPB ONE (01:44)
[2025-01-22] MEDS ORDERED: KETOROLAC TROMETHAMINE 15 MG/ML VIAL ONE (01:44)
[2025-01-22] MEDS: KETOROLAC TROMETHAMINE 15 MG/ML VIAL IVPUSH ONE (01:55)
[2025-01-22] MEDS: CEFTRIAXONE 1 GM in DEXTROSE 5%-WATER - 50 ML IVPB ONE (01:56)
== END 2025-01-22 02:56 | disposition home or self-care (01) ==
LOC: JER 22:03
PROC: 3E033NZ Introduction of Analgesics, Hypnotics, Sedatives into Peripheral Vein, Percutaneous Approach (ICD-10-PCS; 2025-01-21)
PROC: 3E03329 Introduction of Other Anti-infective into Peripheral Vein, Percutaneous Approach (ICD-10-PCS; principal; 2025-01-22)
PROC: 3E0333Z Introduction of Anti-inflammatory into Peripheral Vein, Percutaneous Approach (ICD-10-PCS; 2025-01-22)
DX: M54.50 Low back pain, unspecified (principal)
CPT/HCPCS: 36415; 74176-TC; 80053; 81003; 84703; 85025; 85610; 85730; 86850; 86900; 86901; 87086; 96365; 96375; 99285-25; J0131

== ENCOUNTER 2025-03-21 19:32 | Emergency (ER) | payer OTHER ==
[2025-03-21 19:50] VITALS: BP 120/76; PULSE 89; RESP 18; TEMP 98.6; BMI 31.3
[2025-03-21 20:48] LABS: PH,URINE 6.5 (5.0-8.0); URINE APPEARANCE CLOUDY; URINE BILIRUBIN NEGATIVE (NEGATIVE); URINE COLOR YELLOW; URINE GLUCOSE (UA) NEGATIVE (NEGATIVE); URINE KETONE NEGATIVE (NEGATIVE); URINE PROTEIN NEGATIVE (NEGATIVE); URINE UROBILINOGEN 0.2 mg/dL (0.2-1.0)
[2025-03-21 20:49] LABS: URINE LEUK ESTERASE 3+ (NEGATIVE); URINE NITRITE NEGATIVE (NEGATIVE)
[2025-03-21 20:52] LABS: EPI CELLS >36 /uL (0-25.1); HYALINE CASTS 0 /uL (0-3.1); URINE BACTERIA 390 /uL (0-1359); URINE RBC 31 /uL (0-23.9); URINE WBC 353 /uL (0-25.8)
[2025-03-21] MEDS ORDERED: ACETAMINOPHEN 500 MG TABLET (FP) ONE (21:13)
[2025-03-21] MEDS: CEFPODOXIME PROXETIL 200 MG TABLET [NF] PO ONE (21:35)
[2025-03-21] MEDS: ACETAMINOPHEN 500 MG TABLET (FP) PO ONE (21:35)
[2025-03-21 22:37] LABS: HCV DIAGNOSTIC IN-HOUSE W/RFLX NON-REACTIVE (NONREACTIVE); HIV INTERPRETATION NEGATIVE (NEGATIVE)
== END 2025-03-21 22:39 | disposition home or self-care (01) ==
LOC: JER 19:32
DX: N39.0 Urinary tract infection, site not specified (principal); R35.0 Frequency of micturition; R39.15 Urgency of urination
CPT/HCPCS: 36415; 76775-TC; 81003; 84703; 86803; 87086; 87389; 99284-25

== ENCOUNTER 2025-03-22 11:24 | Emergency (ER) | payer OTHER ==
[2025-03-22 11:35] VITALS: BP 115/72; PULSE 81; RESP 16; TEMP 99.9; BMI 31.3
[2025-03-22] MEDS ORDERED: ONDANSETRON 4 MG/2 ML VIAL ONE (12:58)
[2025-03-22] MEDS ORDERED: KETOROLAC TROMETHAMINE 30 MG/1 ML VIAL ONE (12:58)
[2025-03-22] MEDS: SODIUM CHLORIDE 1,000 ML IV STA (13:08)
[2025-03-22] MEDS: KETOROLAC TROMETHAMINE 30 MG/1 ML VIAL IVPUSH ONE (13:08)
[2025-03-22] MEDS: ONDANSETRON 4 MG/2 ML VIAL IVPUSH ONE (13:08)
[2025-03-22 13:21] LABS: ABSOLUTE IMMATURE GRANULOCYTES 0.05 x10^3/uL (0.0-0.031); BASOPHILS # 0.05 x10^3/uL (0.01-0.08); EOSINOPHIL % 0.1 % (0.7-5.8); EOSINOPHILS # 0.01 x10^3/uL (0.04-0.36); HEMOGLOBIN 14.1 g/dL (11.2-15.7); MEAN CELL VOLUME 89.6 fl (79.4-94.8); MEAN PLT VOLUME 10.8 fl (9.4-12.3); MONOCYTE # 0.68 x10^3/uL (0.24-0.86); PLATELET COUNT 190 x10^3/uL (182-369); RDW 12.9 % (12.1-16.8)
[2025-03-22 13:33] LABS: POTASSIUM 4.2 mmol/L (3.5-5.1)
[2025-03-22 13:36] LABS: CALCIUM 9.3 mg/dL (8.5-10.1)
[2025-03-22 13:39] LABS: CREATININE 0.8 mg/dL (0.55-1.3)
[2025-03-22 13:40] LABS: TOT PROT 7.3 g/dl (6.4-8.2)
[2025-03-22 13:41] LABS: BILIRUBIN,TOTAL 0.5 mg/dL (0.2-1)
[2025-03-22] MEDS ORDERED: METOCLOPRAMIDE HCL INJECTION 10 MG/2 ML VIAL ONE (13:52)
[2025-03-22] MEDS ORDERED: ACETAMINOPHEN INJECTION 100 ML ONE (13:52)
[2025-03-22] MEDS: METOCLOPRAMIDE HCL INJECTION 10 MG/2 ML VIAL IVPB ONE (14:13)
[2025-03-22] MEDS: ACETAMINOPHEN 1000 MG/100 ML BAG IVPB ONE (14:13)
[2025-03-22 14:47] LABS: HCV DIAGNOSTIC IN-HOUSE W/RFLX NON-REACTIVE (NONREACTIVE)
[2025-03-22 14:49] LABS: HIV INTERPRETATION NEGATIVE (NEGATIVE)
== END 2025-03-22 16:46 | disposition home or self-care (01) ==
LOC: JER 11:24
PROC: 3E033NZ Introduction of Analgesics, Hypnotics, Sedatives into Peripheral Vein, Percutaneous Approach (ICD-10-PCS; principal; 2025-03-22)
PROC: 3E0333Z Introduction of Anti-inflammatory into Peripheral Vein, Percutaneous Approach (ICD-10-PCS; 2025-03-22)
PROC: 3E033GC Introduction of Other Therapeutic Substance into Peripheral Vein, Percutaneous Approach (ICD-10-PCS; 2025-03-22)
PROC: 3E033GC Introduction of Other Therapeutic Substance into Peripheral Vein, Percutaneous Approach (ICD-10-PCS; 2025-03-22)
PROC: 3E0337Z Introduction of Electrolytic and Water Balance Substance into Peripheral Vein, Percutaneous Approach (ICD-10-PCS; 2025-03-22)
DX: R11.2 Nausea with vomiting, unspecified (principal); R42 Dizziness and giddiness; R10.31 Right lower quadrant pain; R35.0 Frequency of micturition; M54.9 Dorsalgia, unspecified
CPT/HCPCS: 36415; 74177-TC; 80053; 83690; 85025; 86803; 87389; 99285-25; J0131; Q9967

== ENCOUNTER 2025-06-24 20:39 | Emergency (ER) | payer OTHER ==
[2025-06-24 20:48] VITALS: BMI 32.8
[2025-06-24 21:50] LABS: ABSOLUTE IMMATURE GRANULOCYTES 0.06 x10^3/uL (0.0-0.031); BASOPHILS # 0.08 x10^3/uL (0.01-0.08); EOSINOPHIL % 2.4 % (0.7-5.8); EOSINOPHILS # 0.24 x10^3/uL (0.04-0.36); MCHC 31.9 g/dl (32.2-35.5); MEAN CELL VOLUME 91.2 fl (79.4-94.8); MEAN PLT VOLUME 10.6 fl (9.4-12.3); MONOCYTE # 0.75 x10^3/uL (0.24-0.86); MONOCYTE % 7.4 % (4.7-12.5); RDW 12.6 % (12.1-16.8)
[2025-06-24] MEDS ORDERED: ONDANSETRON 4 MG/2 ML VIAL ONE (21:56)
[2025-06-24] MEDS ORDERED: ACETAMINOPHEN INJECTION 100 ML ONE (21:56)
[2025-06-24] MEDS: ONDANSETRON 4 MG/2 ML VIAL IVPUSH ONE (21:59)
[2025-06-24] MEDS: SODIUM CHLORIDE 0.9% 1000 ML INFUS.BAG IV ONE (22:00)
[2025-06-24] MEDS: ACETAMINOPHEN 1000 MG/100 ML BAG IVPB ONE (22:00)
[2025-06-24 22:06] LABS: EPI CELLS >36 /uL (0-25.1); HYALINE CASTS 1 /uL (0-3.1); URINE APPEARANCE CLEAR; URINE BACTERIA 95 /uL (0-1359); URINE BILIRUBIN NEGATIVE (NEGATIVE); URINE COLOR YELLOW; URINE GLUCOSE (UA) NEGATIVE (NEGATIVE); URINE KETONE NEGATIVE (NEGATIVE); URINE LEUK ESTERASE 2+ (NEGATIVE); URINE NITRITE NEGATIVE (NEGATIVE); URINE PROTEIN NEGATIVE (NEGATIVE); URINE RBC 35 /uL (0-23.9); URINE UROBILINOGEN 0.2 mg/dL (0.2-1.0); URINE WBC 316 /uL (0-25.8)
[2025-06-24 22:20] LABS: BG HCT 46.0 % (32.4-45.2); GLUCOSE,RANDOM 97.0 mg/dL (74-106); TOT PROT 7.1 g/dl (6.4-8.2); VENOUS BASE EXCESS -1.2 mmol/L (-2-2); VENOUS O2 SATURATION 79.2 % (70-80); VENOUS PCO2 39.8 mmHg (38-52); VENOUS PH 7.39 (7.310-7.410)
[2025-06-24 22:21] LABS: CO2 20.0 mmol/L (21-32)
[2025-06-24 22:23] LABS: ALK PHOS 71.0 U/L (40-150)
[2025-06-24 22:26] LABS: CREATININE 0.81 mg/dL (0.55-1.3); SGOT/AST 29.0 U/L (5-34); SGPT/ALT 22.0 U/L (0-55)
[2025-06-25] MEDS ORDERED: CIPROFLOXACIN 500 MG TABLET (RESTRICTED TO ID) PO ONE (00:44)
[2025-06-25 01:09] VITALS: BP 109/58; PULSE 74; RESP 18; TEMP 98.2
== END 2025-06-25 01:28 | disposition home or self-care (01) ==
LOC: JER 20:39
PROC: 3E033NZ Introduction of Analgesics, Hypnotics, Sedatives into Peripheral Vein, Percutaneous Approach (ICD-10-PCS; principal; 2025-06-24)
PROC: 3E033GC Introduction of Other Therapeutic Substance into Peripheral Vein, Percutaneous Approach (ICD-10-PCS; 2025-06-24)
PROC: 3E033GC Introduction of Other Therapeutic Substance into Peripheral Vein, Percutaneous Approach (ICD-10-PCS; 2025-06-24)
DX: A09 Infectious gastroenteritis and colitis, unspecified (principal); R10.32 Left lower quadrant pain; R11.2 Nausea with vomiting, unspecified; R07.9 Chest pain, unspecified; R06.02 Shortness of breath; F41.9 Anxiety disorder, unspecified
CPT/HCPCS: 36415; 71045-TC-FY; 74177-TC; 80053; 81003; 82803; 83605; 83690; 83735; 84100; 84443; 84484; 84703; 85025; 86850; 86900; 86901; 87086; 87637-QW; 93005; 93010; 99285-25; Q9967

== ENCOUNTER 2025-07-18 21:31 | Emergency (ER) | payer OTHER ==
[2025-07-18 21:40] VITALS: BP 133/79; PULSE 104; RESP 18; TEMP 97.9; BMI 32.8
[2025-07-18 22:44] LABS: EPI CELLS >36 /uL (0-25.1); HCG,QUALITATIVE URINE Negative; HYALINE CASTS 1 /uL (0-3.1); URINE APPEARANCE CLOUDY; URINE BACTERIA 1168 /uL (0-1359); URINE BILIRUBIN NEGATIVE (NEGATIVE); URINE COLOR YELLOW; URINE GLUCOSE (UA) NEGATIVE (NEGATIVE); URINE KETONE NEGATIVE (NEGATIVE); URINE LEUK ESTERASE NEGATIVE (NEGATIVE); URINE NITRITE NEGATIVE (NEGATIVE); URINE PROTEIN NEGATIVE (NEGATIVE); URINE RBC 49 /uL (0-23.9); URINE UROBILINOGEN 0.2 mg/dL (0.2-1.0); URINE WBC 36 /uL (0-25.8)
== END 2025-07-18 23:10 | disposition home or self-care (01) ==
LOC: JER 21:31
DX: N93.9 Abnormal uterine and vaginal bleeding, unspecified (principal)
CPT/HCPCS: 81003; 84703; 87086; 99283-25